=== PATIENT | male | born 1950 ===

== ENCOUNTER 2017-03-20 08:20 | Inpatient (IN) | payer MEDICARE, OTHER ==
[2017-03-20 08:22] VITALS: BMI 33.5
[2017-03-20 09:42] LABS: ADD MANUAL DIFF? NO
[2017-03-20 09:51] LABS: VENOUS BLOOD GAS BASE EXCESS -10.7 mmol/L (0.0-2.0); VENOUS BLOOD PH 7.24 (7.32-7.43)
[2017-03-20 10:01] LABS: INR 1.3 (0.93-1.08); PARTIAL THROMBOPLASTIN TIME 31.4 Seconds (23.7-30.8)
[2017-03-20 10:07] LABS: BASO # 0.03 K/mm3 (0.0-2.0); BASO % 0.6 % (0.0-3.0); EOS # 0.4 (0.0-0.7); EOS % 6.8 % (1.5-5.0); GRAN # 3.97 (1.4-6.5); GRAN % 73.1 % (50.0-68.0); LYMPH # 0.6 (1.2-3.4); LYMPH % 11.8 % (22.0-35.0); MEAN CELL VOLUME 83.7 fL (80.0-105.0); MEAN CORPUSCULAR HEMOGLOBIN 27.4 pg (25.0-35.0); MEAN CORPUSCULAR HGB CONC 32.7 g/dl (31.0-37.0); MONO # 0.4 (0.1-0.6); MONO % 7.7 % (1.0-6.0); PLATELET COUNT 140 10^3/uL (120.0-450.0); WHITE BLOOD COUNT 5.4 10^3/ul (4.5-11.0)
[2017-03-20 10:10] LABS: HEMATOCRIT 22.6 % (42.0-52.0)
--- NOTE | 2017-03-20 10:29 | US ---
HISTORY: RIGHT SIDED ABD PAIN COMPARISON: None. TECHNIQUE: Grayscale imaging was performed. FINDINGS: LIVER: Measures 13.5 cm. Small in size with coarse echotexture and nodular contour. No mass. No intrahepatic bile duct dilatation. GALLBLADDER: Unremarkable. No gallstones. COMMON BILE DUCT: Measures 5.0 mm. No stones. No dilatation. There is diffuse gallbladder wall thickening secondary to liver disease. PANCREAS: Unremarkable as visualized. No mass. No ductal dilatation. RIGHT KIDNEY: Measures 10.5cm. Normal echogenicity. No calculus, mass, or hydronephrosis. LEFT KIDNEY: Measures 11.1cm. Normal echogenicity. No calculus, mass, or hydronephrosis. SPLEEN: Mild splenomegaly. No mass. AORTA: No aneurysmal dilatation. IVC: Unremarkable. OTHER FINDINGS: There is large abdominal ascites. IMPRESSION: Cirrhosis of liver and large abdominal ascites. Mild splenomegaly.
--- NOTE | 2017-03-20 10:33 | US ---
HISTORY: ORCHITIS/EPIDIDYMITIS TECHNIQUE: Realtime sonography through the scrotum with color and doppler flow. COMPARISON: None Available. FINDINGS: RIGHT TESTICLE: Small in size and measures 1.9 x 1.5 x 1.8 cm. Normal echotexture and flow. RIGHT EPIDIDYMIS: Epididymal head measures 6 x 5 x 7 cm. Grossly unremarkable appearance with normal flow. There is a 7.3 x 4 point by 4.9 cm anechoic cystic mass superior to the epididymis. LEFT TESTICLE: Small in size and measures 2.6 x 1.3 x 1.9 cm. Normal echotexture and flow. LEFT EPIDIDYMIS: Epididymal head measures 8 x 6 x 5 cm. Grossly unremarkable appearance with normal flow. HYDROCELE: None. VARICOCELE: There is a right varicocele. No left varicocele. OTHER FINDINGS: None. IMPRESSION: 1. No testicular mass, torsion or epididymo -orchitis. 2. Large cystic mass superior to the right epididymis could represent is spermatocele, large exophytic epididymal cyst or loculated hydrocele. 3. Right varicocele.
--- NOTE | 2017-03-20 10:45 | RAD ---
HISTORY: cough COMPARISON: 11/13/2016 FINDINGS: LUNGS: No active pulmonary disease. PLEURA: No significant pleural effusion identified, no pneumothorax apparent. CARDIOVASCULAR: Moderate cardiomegaly OSSEOUS STRUCTURES: No significant abnormalities. VISUALIZED UPPER ABDOMEN: Normal. OTHER FINDINGS: None. IMPRESSION: No active disease.
[2017-03-20 10:47] LABS: ALB/GLOB RATIO 0.7 (1.1-1.8); BILIRUBIN,TOTAL 1.3 mg/dL (0.2-1.3); CALCIUM 8.2 mg/dL (8.4-10.5); POTASSIUM 4.3 mmol/L (3.6-5.0)
--- NOTE | 2017-03-20 11:05 | ED PDOC ---
Arrival/HPI - General Chief Complaint: Cough, Cold, Congestion Time Seen by Provider: 03/20/17 08:31 - History of Present Illness Narrative History of Present Illness (Text): 03/20/17 11:02 66-year-old male presents emergency Department with abdominal swelling, testicular swelling, dyspnea and exertion, and dark stools, worsening for the last week. Denies any chest pain. Says that he has had similar symptoms in the past. Says that she has a history of liver disease. No other complaints. Denies any fevers or chills, denies jaundice. Time/Duration: 1 week Symptom Onset: Sudden Symptom Course: Unchanged Activities at Onset: Rest Context: Home Past Medical History - Provider Review Nursing Documentation Reviewed: Yes - Infectious Disease Hx of Infectious Diseases: None - Tetanus Immunization Tetanus Immunization: Unknown - Cardiac Hx Cardiac Disorders: Yes (mi with stents) Hx Congestive Heart Failure: Yes Hx Hypertension: Yes - Pulmonary Hx Respiratory Disorders: No - Neurological HX Cerebrovascular Accident: Yes (many years ago) - HEENT Hx HEENT Disorder: No - Renal Hx Renal Disorder: Yes Hx Dialysis: No - Endocrine/Metabolic Hx Diabetes Mellitus Type 2: Yes - Hematological/Oncological Hx Blood Transfusions: Yes Hx Blood Transfusion Reaction: No - Integumentary Hx Dermatological Disorder: Yes Other/Comment: white and pink skin discolorations both hands and r arm began about 7 months ago cause unknown, brown discolorations ble,dry brown scabbed wound posterior right lowr leg starts below calf to lower leg then dry brown skin to posterior ankle, +2 edema right ankle, dry flakey skin both feet - Musculoskeletal/Rheumatological Hx Falls: Yes (recent frequent) - Gastrointestinal Hx Gastrointestinal Disorders: Yes Hx Gastroesophageal Reflux: Yes Hx Liver Failure: (cirrhosis, mild ascites) Other/Comment: colonoscopy 07/17/2016 dx diverticulitis, colitis, rectal polyp - Genitourinary/Gynecological Hx Genitourinary Disorders: No - Psychiatric Hx Psychophysiologic Disorder: No Hx Substance Use: No - Surgical History Hx Coronary Stent: Yes (ptca with stent) - Anesthesia Hx Anesthesia Reactions: No Hx Malignant Hyperthermia: No Family/Social History - Physician Review Nursing Documentation Reviewed: Yes Family/Social History: Unknown Family HX Smoking Status: Former Smoker Hx Alcohol Use: No Hx Substance Use: No Allergies/Home Meds Allergies/Adverse Reactions: Allergies No Known Allergies Allergy (Verified 03/20/17 08:54) Home Medications: Home Meds Medication Instructions Recorded Confirmed Pantoprazole [Protonix EC Tab] 40 mg PO DAILY 07/05/16 03/20/17 Aspirin [Aspirin Chewable] 81 mg PO DAILY 03/20/17 03/20/17 Atorvastatin [Lipitor] 20 mg PO DAILY 03/20/17 03/20/17 Desloratadine [Clarinex] 5 mg PO HS 03/20/17 03/20/17 Metoprolol Tartrate [Lopressor] 12.5 mg PO DAILY 03/20/17 03/20/17 Review of Systems - Physician Review All systems were reviewed & negative as marked: Yes - Review of Systems Respiratory: absent: Cough, Sputum Cardiovascular: Edema. absent: Chest Pain Gastrointestinal: absent: Abdominal Pain, Nausea, Vomiting Physical Exam - Physical Exam Narrative Physical Exam (Text): Physical exam Patient appears age appropriate in no distress, speaking full sentences without difficulty - Systems Exam Head: Present: Atraumatic, Normocephalic Pupils: Present: PERRL Extroacular Muscles: Present: EOMI Conjunctiva: Present: Normal Mouth: Present: Moist Mucous Membranes Neck: Present: Normal Range of Motion. No: MIDLINE TENDERNESS, Paraspinal Tenderness Respiratory/Chest: Present: bibasal crackles, Good Air Exchange. No: Respiratory Distress, Accessory Muscle Use, Tachypneic Cardiovascular: Present: Regular Rate and Rhythm, Normal S1, S2, Peripheal Pulses Present. No: Murmurs Abdomen: Present: Normal Bowel Sounds. distended abdomen. No: Tenderness, Peritoneal Signs, Rebound, Guarding genitourinary: Nontender normal-appearing penis, uncircumcised. Bilateral testicles with no swelling no tenderness. Back: Present: Normal Inspection. No: Midline Tenderness, Paraspinal Tenderness Upper Extremity: Present: Normal Inspection. No: Cyanosis, Edema Lower Extremity: Present: +2 bilateral pitting edema with no asymmetry and no tenderness to palpation. Neurological: Present: GCS=15, Speech Normal, cranial nerves II through XII fully intact with no cerebellar abnormality, neurosensory fully intact. No focal neurological deficits. Skin: Present: Warm, Dry, Normal Color. No: Rashes Lymphatic: Present: OX3, NI, NC Psychiatric: Present: Alert, Oriented x 3, Normal Insight, Normal Concentration Vital Signs Reviewed: Yes Vital Signs Temp Pulse Resp BP Pulse Ox 03/20/17 13:34 53 L 16 153/83 H 98 03/20/17 11:51 56 L 15 145/74 100 03/20/17 10:32 148/85 03/20/17 08:48 97.4 F L 59 L 16 163/88 H 96 Temperature: Afebrile Blood Pressure: Hypertensive Pulse: Bradycardic Respiratory Rate: Normal Appearance: Positive for: Non-Toxic, Comfortable Pain Distress: None Mental Status: Positive for: Alert and Oriented X 3 Medical Decision Making ED Course and Treatment: 66-year-old male with history of liver disorder, presents with a distended abdomen, bibasal crackles, and lower extremity edema. Patient's blood work reviewed, shows acute on chronic renal failure, elevated ammonia level, elevated BNP. Hemoglobin 7.4. Lasix and lactulose ordered. Case discussed with patient's primary physician Dr. Madrid, accepted pt to his service Dr. Sloan from the MICU evaluating pt Patient's EKG shows normal sinus, 60 bpm, no ST segment elevations, normal intervals. Interpreted by me. Chest x-ray shows mild cardiomegaly, some vascular congestion, no effusions, no infiltrates. Interpreted by me. Abdomen ultrasound- Creator : Kaleigh Amor MD 03/20/2017 10:32 IMPRESSION: Cirrhosis of liver and large abdominal ascites. Mild splenomegaly. Testicular ultrasound- Creator : Kaleigh Amor MD 03/20/2017 10:34 IMPRESSION: 1. No testicular mass, torsion or epididymo -orchitis. 2. Large cystic mass superior to the right epididymis could represent is spermatocele, large exophytic epididymal cyst or loculated hydrocele. 3. Right varicocele. 03/20/17 12:21 Dr. Sloan states pt can be admitted to tele Dr. Bagley informed as well 03/20/17 13:[address] Sloan to the MICU - Lab Interpretations Lab Results: 03/20/17 09:30 03/20/17 10:25 Lab Results 03/20/17 10:30: Iron 31 L 03/20/17 10:25: TIBC 263 03/20/17 10:25: Sodium 142, Potassium 4.3, Chloride 117 H, Carbon Dioxide 16 L, Anion Gap 13, BUN 54 H, Creatinine 4.9 H, Est GFR ( Amer) 14, Est GFR ( Non-Af Amer) 12, Random Glucose 87, Calcium 8.2 L, Ferritin Pending, Total Bilirubin 1.3, AST 50, ALT 44, Alkaline Phosphatase 163 H, NT-Pro-B Natriuret Pep 3160 H, Total Protein 6.0, Albumin 2.4 L, Globulin 3.6, Albumin/Globulin Ratio 0.7 L, Lipase 287 03/20/17 09:30: PT 14.0 H, INR 1.30 H, APTT 31.4 H 03/20/17 09:30: WBC 5.4, RBC 2.70 L, Hgb 7.4 L D, Hct 22.6 L, MCV 83.7, MCH 27.4 , MCHC 32.7, RDW 17.0 H, Plt Count 140, Gran % 73.1 H, Lymph % (Auto) 11.8 L, Faulk % (Auto) 7.7 H, Eos % (Auto) 6.8 H, Baso % (Auto) 0.6, Gran # 3.97, Lymph # 0.6 L, Faulk # 0.4, Eos # 0.4, Baso # 0.03 03/20/17 09:30: pO2 70 H, VBG pH 7.24 L, VBG pCO2 37.0 L, VBG HCO3 15.9 L, VBG O2 Sat (Calc) 96.4 H, VBG Base Excess -10.7 L 03/20/17 09:30: Ammonia 63 H I have reviewed the lab results: Yes - RAD Interpretation Radiology Orders: 03/20/17 09:07 CHEST PORTABLE [RAD] Stat ABDOMEN COMPLETE [US] Stat TESTES DUPLEX COMPLETE [US] Stat - EKG Interpretation Interpreted by ED Physician: Yes Type: 12 lead EKG - Medication Orders Current Medication Orders: Insulin Human Regular (Humulin R Low) 0 units SC ACHS LEIGHANN PRN Reason: Protocol Pantoprazole Sodium (Protonix Inj) 40 mg IVP DAILY LEIGHANN Discontinued Medications Furosemide (Lasix) 40 mg IVP STAT STA Stop: 03/20/17 09:08 Last Admin: 03/20/17 10:32 Dose: 40 mg Lactulose (Enulose) 20 gm PO ONCE STA Stop: 03/20/17 10:50 Last Admin: 03/20/17 11:41 Dose: 20 gm Pantoprazole Sodium (Protonix Inj) 40 mg IVP STAT STA Stop: 03/20/17 10:50 Last Admin: 03/20/17 11:41 Dose: 40 mg - Luis Enriqueibe Statement The provider has reviewed the documentation as recorded by the Ramakrishna Murray Provider Luis Enriqueibraquel Attestation: All medical record entries made by the Luis Enriqueibraquel were at my direction and personally dictated by me. I have reviewed the chart and agree that the record accurately reflects my personal performance of the history, physical exam, medical decision making, and the department course for this patient. I have also personally directed, reviewed, and agree with the discharge instructions and disposition. Disposition/Present on Arrival - Present on Arrival Any Indicators Present on Arrival: No History of DVT/PE: No History of Uncontrolled Diabetes: No Urinary Catheter: No History of Decub. Ulcer: No History Surgical Site Infection Following: None - Disposition Have Diagnosis and Disposition been Completed?: Yes Diagnosis: Renal failure Disposition: HOSPITALIZED Disposition Time: 11:18 Patient Plan: Admission, ICU Patient Problems: Current Active Problems Problem Status Onset Renal failure Chronic Condition: FAIR
--- NOTE | 2017-03-20 12:50 | CP.PCM.HP ---
History of Present Illness - History of Present Illness History of Present Illness: H&P for Dr. Madrid/Dr. Johnson service - Guero Jimbohasmukh PGY1 Patient is a 66yo male with past medical history of hypertension, CAD, VT s/p stent placement, DMT2, Cirrhosis and CKD that presents c/o abdominal swelling and testicular pain. Patient states that he noticed his abdomen has been expanding in size over the past month and recently has been associated with right-sided testicular pain and dyspnea on exertion. In the ED, patient's vitals were as follows: temeprature 97.4F, heart rate 59bpm, blood pressure 163/ 88, respiratory rate 16, o2sat 96% on room air. Labs were notable for a hgb of 7.4, hct 22.6, BUN 54, creatinine 4.9, AlkP 163, NT-proBNP 3160. Chest xray revealed no active disease. EKG revealed normal sinus rhythm at 60bpm with no acute ST-T wave changes. Abdominal US showed cirrhosis of the liver with large abdominal ascites, mild splenomegaly.Patient denied jaundice, pruritis, confusion, chest pain, palpitations, nausea, vomiting, fevers, chills, cough, focal weakness, numbness, tingling. 12point ROS as per HPI above, otherwise negative PMHx: HTN, CAD, VT s/p stent placement, DMT2, Cirrhosis, CKD PSHx: Stent placement, right inguinal hernia repair Allergies: NKDA Family Hx: Father: Gastric cancer; Mother: Renal cancer Social Hx: Denies alcohol, tobacco and illicit drug use. Present on Admission - Present on Admission Any Indicators Present on Admission: No Past Patient History - Infectious Disease Hx of Infectious Diseases: None - Tetanus Immunizations Tetanus Immunization: Unknown - Past Medical History & Family History Past Medical History?: Yes - Past Social History Smoking Status: Former Smoker - CARDIAC Hx Cardiac Disorders: Yes (mi with stents) Hx Congestive Heart Failure: Yes Hx Hypertension: Yes - PULMONARY Hx Respiratory Disorders: No - NEUROLOGICAL HX Cerebrovascular Accident: Yes (many years ago) - HEENT Hx HEENT Problems: No - RENAL Hx Chronic Kidney Disease: Yes Hx Dialysis: No - ENDOCRINE/METABOLIC Hx Diabetes Mellitus Type 2: Yes - HEMATOLOGICAL/ONCOLOGICAL Hx Blood Transfusions: Yes Hx Blood Transfusion Reaction: No - INTEGUMENTARY Hx Dermatological Problems: Yes Other/Comment: white and pink skin discolorations both hands and r arm began about 7 months ago cause unknown, brown discolorations ble,dry brown scabbed wound posterior right lowr leg starts below calf to lower leg then dry brown skin to posterior ankle, +2 edema right ankle, dry flakey skin both feet - MUSCULOSKELETAL/RHEUMATOLOGICAL Hx Falls: Yes (recent frequent) - GASTROINTESTINAL Hx Gastrointestinal Disorders: Yes Hx Gastroesophageal Reflux: Yes Hx Liver Failure: (cirrhosis, mild ascites) Other/Comment: colonoscopy 07/17/2016 dx diverticulitis, colitis, rectal polyp - GENITOURINARY/GYNECOLOGICAL Hx Genitourinary Disorders: No - PSYCHIATRIC Hx Psychophysiologic Disorder: No Hx Substance Use: No - SURGICAL HISTORY Hx Coronary Stent: Yes (ptca with stent) - ANESTHESIA Hx Anesthesia Reactions: No Hx Malignant Hyperthermia: No Meds Allergies/Adverse Reactions: Allergies Allergy/AdvReac Type Severity Reaction Status Date / Time No Known Allergies Allergy Verified 03/20/17 08:54 Physical Exam - Constitutional Appears: No Acute Distress - Head Exam Head Exam: ATRAUMATIC, NORMAL INSPECTION, NORMOCEPHALIC - Eye Exam Eye Exam: EOMI, PERRL - ENT Exam ENT Exam: Mucous Membranes Moist - Respiratory Exam Respiratory Exam: Clear to Auscultation Bilateral. absent: Rales, Rhonchi, Wheezes - Cardiovascular Exam Cardiovascular Exam: RRR, +S1, +S2. absent: Gallop, Rubs - GI/Abdominal Exam GI & Abdominal Exam: Distended, Soft. absent: Firm, Guarding, Rigid, Tenderness - Exam Exam: NORMAL INSPECTION. absent: Circumcision, Scrotal Swelling, Testicular Tenderness - Neurological Exam Neurological exam: Alert, Oriented x3 - Psychiatric Exam Psychiatric exam: Normal Affect, Normal Mood - Skin Skin Exam: Dry, Intact, Normal Color, Warm Results - Vital Signs Recent Vital Signs: Last Vital Signs Temp 97.4 F L 03/20/17 08:48 Pulse 56 L 03/20/17 11:51 Resp 15 03/20/17 11:51 BP 145/74 03/20/17 11:51 Pulse Ox 100 03/20/17 11:51 - Labs Result Diagrams: 03/20/17 09:30 03/20/17 10:25 Labs: Laboratory Results - last 24 hr 03/20/17 03/20/17 03/20/17 09:30 09:30 09:30 WBC 5.4 RBC 2.70 L Hgb 7.4 L D Hct 22.6 L MCV 83.7 MCH 27.4 MCHC 32.7 RDW 17.0 H Plt Count 140 Gran % 73.1 H Lymph % (Auto) 11.8 L Murray % (Auto) 7.7 H Eos % (Auto) 6.8 H Baso % (Auto) 0.6 Gran # 3.97 Lymph # 0.6 L Murray # 0.4 Eos # 0.4 Baso # 0.03 PT INR APTT pO2 70 H VBG pH 7.24 L VBG pCO2 37.0 L VBG HCO3 15.9 L VBG O2 Sat (Calc) 96.4 H VBG Base Excess -10.7 L Sodium Potassium Chloride Carbon Dioxide Anion Gap BUN Creatinine Est GFR ( Amer) Est GFR (Non-Af Amer) Random Glucose Calcium TIBC Total Bilirubin AST ALT Alkaline Phosphatase Ammonia 63 H NT-Pro-B Natriuret Pep Total Protein Albumin Globulin Albumin/Globulin Ratio Lipase 03/20/17 03/20/17 03/20/17 09:30 10:25 10:25 WBC RBC Hgb Hct MCV MCH MCHC RDW Plt Count Gran % Lymph % (Auto) Murray % (Auto) Eos % (Auto) Baso % (Auto) Gran # Lymph # Murray # Eos # Baso # PT 14.0 H INR 1.30 H APTT 31.4 H pO2 VBG pH VBG pCO2 VBG HCO3 VBG O2 Sat (Calc) VBG Base Excess Sodium 142 Potassium 4.3 Chloride 117 H Carbon Dioxide 16 L Anion Gap 13 BUN 54 H Creatinine 4.9 H Est GFR ( Amer) 14 Est GFR (Non-Af Amer) 12 Random Glucose 87 Calcium 8.2 L TIBC 263 Total Bilirubin 1.3 AST 50 ALT 44 Alkaline Phosphatase 163 H Ammonia NT-Pro-B Natriuret Pep 3160 H Total Protein 6.0 Albumin 2.4 L Globulin 3.6 Albumin/Globulin Ratio 0.7 L Lipase 287 Assessment & Plan - Assessment and Plan (Free Text) Plan: 66yo male with history of cirrhosis, chronic kidney disease, HTN, CAD presents c /o abdominal distention; admitted for acute on chronic kidney injury, acute anemia and acute decompensated liver cirrhosis 1. Acute on chronic kidney injury -Baseline creatinine ~1.8 -Patient given albumin -Will monitor and maintain MAP > 65 -Continue with lasix 40mg IVP BID per nephrology recommendations -Sepsis workup pending -Afebrile, no leukocytosis -Abdominal US reviewed; revealed cirrhosis and large abdominal ascites, mild splenomegaly -Testicular US reviewed -CXR reviewed; showed no active disease -Nephrology consulted - Dr. Cadet; extensive workup pending 2. Acute anemia -Hgb 7.4 on presentation -Consent obtained for pRBC transfusion -Patient to be transfused 1u pRBC -No overt signs of bleeding -GI consulted for potential upper endoscopy 3. Acute decompensated liver cirrhosis -MELD-Na score of 24 on admission -Patient's ammonia level elevated, however he is alert and oriented x3 -Lactulose 20gm BID; titrate to 2-3 bowel movements per day -Endoscopy from 11/13/16 reviewed; revealed grade I esophageal varices, portal hypertensive gastropathy and gastritis -GI consulted - Dr. Hay -IR consulted for paracentesis - Dr. Sylvester 4. Hypertension -Continue lasix 40mg IVP q12h -Continue hydralazine 10mg IVP q6h PRN 5. GI/DVT prophylaxis -Protonix/heparin Case discussed with attending, Dr. Madrid - Date & Time Date: 03/20/17 Time: 12:57
--- NOTE | 2017-03-20 12:56 | CON ---
DATE: 03/20/2017 The patient seen and examined at bedside. HISTORY OF PRESENT ILLNESS: This is a 66-year-old gentleman with liver cirrhosis who presented with dyspnea on exertion and dark stool. The patient also reports that his abdomen girth became bigger and he had paracentesis before and thought that it might be time to remove some fluid. The patient denies chest pain, shortness of breath, nausea, vomiting, diarrhea, or constipation. No fever or chills. PAST MEDICAL HISTORY: Coronary artery disease (stents in the past), CHF, hypertension, gastroesophageal reflux disease, liver cirrhosis, diverticulitis, colitis, rectal polyp. SOCIAL HISTORY: The patient is an ex-smoker. No alcohol or illicit drug abuse. FAMILY HISTORY: Noncontributory. HOME MEDICATIONS: Aspirin, Protonix, Clarinex. ALLERGIES: NKDA. REVIEW OF SYSTEMS: Revealed 12-organ system other than mentioned in history of present illness is negative. PHYSICAL EXAMINATION: VITAL SIGNS: Temperature 97.4, heart rate 59, blood pressure 145/74, respiratory rate 16, oxygen saturation 100% on room air. HEAD AND NECK: Atraumatic. LUNGS: Clear to auscultation bilaterally. HEART: Regular rate and rhythm. S1, S2 normal. ABDOMEN: Soft, nontender. It is slightly distended with shifting dullness suggestive of ascites. MUSCULOSKELETAL: 2+ bilateral pedal and ankle edema. NEUROLOGIC: The patient moves all extremities spontaneously. SKIN: Moist. PSYCHIATRIC: The patient is alert and oriented x 3. Not in respiratory or otherwise distress. LABORATORY DATA: WBC 5.4, hemoglobin 7.4, platelet count 140. Sodium 142, potassium 4.3, chloride 117, carbon dioxide 16, BUN 54, creatinine 4.9, glucose 87, AST 50, ALT 44. Ammonia level 63. Lipase 287, albumin 2.4. INR 1.3. ABG 7.24. Testicular ultrasound revealed what appears to be spermatocele which is a large cystic mass superior to the right epididymis, large exophytic epididymal cyst or loculated hydrocele. Chest x-ray: Mild vascular congestion bilaterally. Abdominal ultrasound did not reveal any common bile duct dilatation. Gallbladder was unremarkable, no gallstones. Heterogenous texture of the liver suggestive of cirrhosis of the liver and large abdominal ascites. Some mild splenomegaly. ASSESSMENT AND PLAN: This is a 66-year-old gentleman who presented with decompensated liver cirrhosis, worsening ascites and anemia in the setting of likely upper GI bleed. The patient does not have hemetemesis; however, does have history of grade I esophageal varices consistent with diagnosis of portal hypertension in the setting of liver cirrhosis. He also has acute kidney injury which appears to be secondary to hepatorenal syndrome. At present time, the patient is hemodynamically and respiratory gonzales stable. He is alert, awake , oriented, despite slightly elevated ammonia level. I would recommend octreotide drip and protonix drip. Gastroenterology consult pending to consider upper endoscopy. I would recommend to proceed with aggressive albumin supplementation, fluid resuscitation, antibiotics, maintain hemoglobin between 7 and 9. I would continue with rifaximin and lactulose. Paracentesis appears to be indicated. If aggressive albumin supplementation would not result in resolution of acute kidney injury, I would suggest nephrology consult for consideration of INSTRUMENT TECHNICIAN APPRENTICE. Septic workup would be reasonable even though no signs of sepsis at present time. Blood culture, urine culture, procalcitonin. No leukocytosis, no fever, no clearcut source of infection. Abdomen is soft despite large ascites present. Monitor setting of telemetry would be appropriate. No need for MICU at present time. If situation changes and the patient clinically deteriorates or other questions arise, please reconsult ICU. All above recommendations were discussed with PMD-Dr. Madrid. ccm time 40 min Kingston Sloan MD cc: [id number] TT: 03/20/2017 12:56:03 Confirmation # [id number] Dictation # [id number] josh PERALTA
[2017-03-20] MEDS ORDERED: ALBUMIN HUMAN IV ONE (14:23)
[2017-03-20] MEDS ORDERED: Albumin Human 25% (25 gm/100 ml) IV ONE (15:00)
[2017-03-20] MEDS ORDERED: Albumin Human 25% (25 gm/100 ml) IV SCH (15:00)
[2017-03-20 15:18] LABS: PH,URINE 5.5 (4.7-8.0); URINE BILIRUBIN NEGATIVE (NEGATIVE); URINE BLOOD LARGE (NEGATIVE); URINE GLUCOSE (UA) NEGATIVE (NEGATIVE); URINE KETONE NEGATIVE (NEGATIVE); URINE LEUKOCYTE ESTERASE NEGATIVE Leu/uL (NEGATIVE); URINE PROTEIN TRACE mg/dL (<30 mg/dL); URINE UROBILINOGEN 0.2 E.U./dL (<1 E.U./dL)
[2017-03-20 15:25] LABS: URINE APPEARANCE CLEAR (CLEAR); URINE COLOR YELLOW (YELLOW)
[2017-03-20 15:41] LABS: URINE BACTERIA MOD (NEG); URINE EPITHELIAL CELLS 0 - 2 /hpf (0-5); URINE RBC 25 - 30 /hpf (0-2); URINE WBC 0 - 2 /hpf (0-6)
[2017-03-20 15:42] LABS: URINE AMORPHOUS SEDIMENT TRACE
--- NOTE | 2017-03-20 16:42 | CON ---
DATE: 03/20/2017 HISTORY OF PRESENT ILLNESS: The patient is a 66-year-old male who presents with pedal edema, ascites as well as testicular swelling. PAST MEDICAL HISTORY: Notable for history of documented cirrhosis. He is status post PTCA and stent in the past. He suffers from hypertension and hypercholesterolemia as well as complications of cirr hosis, including varices as well as hyponatremia. He was found to have renal insufficiency on this admission. PAST MEDICAL HISTORY: Notable for an ejection fraction in the 50s on echocardiogram done in November of this year. SOCIAL HISTORY: Denies smoking. REVIEW OF SYSTEMS: A 14-point review of systems is notable for dyspnea, no angina, positive pedal ed opal, positive testicular swelling. PHYSICAL EXAMINATION: VITAL SIGNS: Blood pressure 153/83, heart rates in the 70s. NECK: Negative JVD. LUNGS: Without rales. HEART: Reveals S1, S2. EXTREMITIES: With 2+ edema. ABDOMEN: Increased girth. DIAGNOSTIC DATA: EKG shows no acute changes. LABORATORIES: Revealed BUN and creatinine of 54 and 4.9. ProBNP is 3160. The albumin is 2.4. Hemoglobin is 7.4. IMPRESSION: 1. Cirrhosis. 2. Ascites with pedal edema and testicular swelling. 3. Marked anemia. 4. Acute renal failure. 5. Congestive heart failure, predominantly due to hypoalbuminemia as well as renal insufficiency and cirrhosis. Given these findings, we will order Lasix as well as Aldactone. We will obtain a repeat echocardiogram. Vitaly You MD cc: [id number] TT: 03/20/2017 16:41:17 Confirmation # [id number] Dictation # [id number]
[2017-03-20] MEDS ORDERED: Pneumococcal 23-Valent Vaccine IM ONE (16:46)
--- NOTE | 2017-03-20 17:14 | CP.PCM.CON ---
History of Present Illness - History of Present Illness History of Present Illness: Initial Nephrology Consultation: Assessment: Acute Kidney Injury (N17.9) etiology unclear. Possible ATN. Other differential include intraglomerular pathology. Less likely hepatorenal syndrome as doesn't appear hypovolemic, has high urine Na and high urine FeNa. NAGMA (likely due to KELLI) Microscopic hematuria r/o glomerular pathology Chronic Kidney Disease Stage 3(N18.3) with ? mg proteinuria likely due to KELLI in 2016 Anemia (D64.9), HTN (I12.9), eosinophilia cirrhosis, CAD Plan No acute need for renal replacement therapy at this time. Borden catheter inserted although with difficulty by ICU nursing staff. UOP 300 mL (hence less likely urine retention as the cause). checked bladder pressure: 15 mmHg which argues against Abdomen compartment syndrome added sodium bicarb 1300 mg TID Hypertension control with meds as ordered. Patient not on ACEI/ARB due to KELLI. Hold aldactone as well He is ordered for 100 gm albumin, may be okay over 24 hours, monitor volume status closely. agree with lasix for now Monitor Input/Output, daily weights and renal function with basic metabolic panel GI work up for anemia. pt planned for PRBC transfusion. Check urine spot protein/creatinine and albumin/creatinine ratio, eosinophils check CPK, uric acid. Check GN work up as C3, C4, SAEED, Anti dsDNA, ASO titers, ANCA (MPO and CA-3), serum protein electrophoresis with immunofixation, free light chain assay, rheumatoid factor and serum cryoglobulin levels [to be transported at body temperature] Dose meds/antibiotics for reduced GFR <10. Avoid fleets enema/magnesium based laxatives. Avoid nephrotoxins/NSAIDs/ iodinated contrast (unless needed emergently) Glycemic control Further work up/management of anemia, ascites as per primary team Thanks for allowing me to participate in care of your patient. Will follow patient with you. Please call if any Qs. d/w ICU team Dr Paco Cadet Office: [phone] Chief Complaint; Abdomen Distension Reason for consult: KELLI HPI: Pt is a 66 y/o M with hx of cirrhosis, hypertension ( x 15 years), DM, CAD , had KELLI in 2016 with peaked creatinine 5.3 due to sepsis which got better but resulted on CKD 3 with baseline cr 1.3-1.5, ex smoker presented with complaints of abdomen distension due to ascites and found to have KELLI with creatinine 4.9 hence renal consult was requested. Denies chest pain, palpitation, shortness of breath, c/o leg swelling Denies blood or bubbles in urine Denies OTC/herbal meds or NSAIDs No recent iodinated contrast exposure. No obvious episodes of low BP. ROS: Constitutional Symptoms: Denies fever. No chills. No Recent Weight Changes Eyes: denies change in vision, denies watery eyes, denies double vision Ears/Nose/Mouth/Throat: Denies Abnormal Taste. No Bad breath no Bad Taste. Cardiovascular: No chest pain. There is no shortness of breath. No palpitations. Pulmonary: No shortness of breath no cough. Gastrointestinal: denies abdominal pain No nausea. No vomiting. Denies change in bowel habits. c/o off and on dark stool. reports distension of abdomen Genitourinary: No Change in force of strain when urinating. No increase in urinary frequency. No pain while urinating. Denies blood in urine. Neurological: Denies headaches. No dizziness. Denies loss of balance. Denies weakness, denies tingling/numbness Dermatological: No Rash or Bruising or ulcers. Psychiatric: Denies Anxiety. No depression. Denies hallucinations. Rheumatological: No joint pain. Denies Joint swelling Endocrine: Denies tiredness/Fatigue denies Heat/Cold Intolerance. Physical Examination: General Appearance: Comfortable, in no acute respiratory distress, co-operative . Vitals reviewed and noted as below Head; Atraumatic, normocephalic ENT: no ulcers no thrush. Tongue is midline. Oropharynx: no rash or ulcers. EYES: Pupils are equal, round and reactive to light accommodation. Eye muscles and extraocular movement intact. Sclera is anicteric. has pallor Neck; supple no lymphadenopathy, no thyromegaly or bruit Lungs: Normal respiratory rate/effort. Breath sounds bilateral equal and clear Heart: Normal rate. s1s2 normal. No rub or gallop. Extremities: 1+ leg edema. No varicose veins Neurological: Patient is alert, awake and oriented to person, place and time. No focal deficit. Strength bilateral appropriate and equal Skin: Warm and dry. Normal turgor. few petechial appearing rash on thighs. Palpitation: Normal elasticity for age Abdomen: Abdomen is soft. Bowel sounds +. There is no abdominal tenderness, no guarding/rigidity no organomegaly. has ascitic abdomen Psych: normal insight and normal affect/mood MSK: no joint tenderness or swelling. Digits and nails normal, no deformity : kidney not palpable. difficult to ascertain about bladder due to ascites, has dullness in lower abdomen area Labs/imaging/EKG reviewed. Past medical history, past surgical history, family history, social history, allergy reviewed and noted as below Alb 2.4 BNP 3160 ammonia 63 UA trace protein with large blood and RBC ++ Urine Na 48 FeNa 7% chronic peripheral eosinophilia 6% TSAT 11% vbg pH 7.24 CXR: cardiomegaly Hep B/C and HIV negative in 2016 CT abdomen: punctate calcifications otherwise unremarkable kidney. LVEF normal Past Patient History - Infectious Disease Hx of Infectious Diseases: None - Tetanus Immunizations Tetanus Immunization: Unknown - Past Medical History & Family History Past Medical History?: Yes - Past Social History Smoking Status: Former Smoker - CARDIAC Hx Cardiac Disorders: Yes (mi with stents) Hx Congestive Heart Failure: Yes Hx Hypercholesterolemia: Yes Hx Hypertension: Yes Hx Peripheral Edema: Yes (+2 pitting ble) - PULMONARY Hx Respiratory Disorders: No - NEUROLOGICAL HX Cerebrovascular Accident: Yes (many years ago) - HEENT Hx HEENT Problems: No - RENAL Hx Chronic Kidney Disease: Yes - ENDOCRINE/METABOLIC Hx Diabetes Mellitus Type 2: Yes - HEMATOLOGICAL/ONCOLOGICAL Hx Anemia: Yes (blood transfusions) - INTEGUMENTARY Hx Dermatological Problems: Yes Other/Comment: white and pink skin discolorations both hands and r arm cause unknown, brown discolorations ble, +2 edema ble, dry skin both feet, thick toenails right ft, generalized itchy skin - MUSCULOSKELETAL/RHEUMATOLOGICAL Hx Arthritis: Yes (both knees) Hx Falls: Yes (recent frequent) Hx Unsteady Gait: Yes (walker) Other/Comment: left shoulder rotator cuff injury - GASTROINTESTINAL Hx Gastrointestinal Disorders: Yes Hx Gastroesophageal Reflux: Yes Hx Liver Failure: (cirrhosis,ascites) Other/Comment: colonoscopy 07/17/2016 dx diverticulitis, colitis, rectal polyp - GENITOURINARY/GYNECOLOGICAL Hx Genitourinary Disorders: No - PSYCHIATRIC Hx Psychophysiologic Disorder: No - SURGICAL HISTORY Hx Surgeries: Yes (CARDIAC STENT) Hx Coronary Stent: Yes (ptca with stent) - ANESTHESIA Hx Anesthesia Reactions: No Hx Malignant Hyperthermia: No Meds Allergies/Adverse Reactions: Allergies Allergy/AdvReac Type Severity Reaction Status Date / Time No Known Allergies Allergy Verified 03/20/17 08:54 - Medications Medications: Current Medications Furosemide (Lasix) 40 mg IVP BID [facility] Heparin Sodium (Porcine) (Heparin) 5,000 units SC Q12 LEIGHANN PRN Reason: Protocol Insulin Human Regular (Humulin R Low) 0 units SC ACHS LEIGHANN PRN Reason: Protocol Lactulose (Enulose) 20 gm PO BID LEIGHANN Metoprolol Tartrate (Lopressor) 12.5 mg PO DAILY [facility]IGHANN Pantoprazole Sodium (Protonix Inj) 40 mg IVP DAILY [facility] Spironolactone (Aldactone) 25 mg PO BID [facility] Results - Vital Signs Recent Vital Signs: Last Vital Signs Temp 97.4 F L 03/20/17 08:48 Pulse 53 L 03/20/17 13:34 Resp 16 03/20/17 13:34 BP 153/83 H 03/20/17 13:34 Pulse Ox 98 03/20/17 13:34 - Labs Result Diagrams: 03/20/17 09:30 03/20/17 10:25 Labs: Laboratory Results - last 24 hr 03/20/17 03/20/17 03/20/17 14:15 15:00 15:00 Urine Color Yellow Urine Appearance Clear Urine pH 5.5 Ur Specific Halbur 1.015 Urine Protein Trace H Urine Glucose (UA) Negative Urine Ketones Negative Urine Blood Large H Urine Nitrate Negative Urine Bilirubin Negative Urine Urobilinogen 0.2 Ur Leukocyte Esterase Negative Urine RBC 25 - 30 Urine WBC 0 - 2 Ur Epithelial Cells 0 - 2 Amorphous Sediment Trace Urine Bacteria Mod Ur Random Creatinine 48 Ur Random Sodium 98 Blood Type O POSITIVE Antibody Screen Negative Crossmatch See Detail BBK History Checked Patient has bt
[2017-03-20] MEDS: Insulin Reg-LOW-Coverage SC SCH ×2 (17:26→22:22)
[2017-03-20 18:54] LABS: FOLATE 7.9 ng/mL
[2017-03-20 21:55] LABS: URIC ACID 6.6 mg/dL (3.5-8.5)
--- NOTE | 2017-03-20 22:33 | CARD ---
APPROVED REPORT EKG Measurement Heart [id number] <Conclusion> Normal sinus rhythm Left ventricular hypertrophy with QRS widening Possible Lateral infarct, age undetermined Inferior infarct, age undetermined Abnormal ECG
[2017-03-21 05:53] LABS: ADD MANUAL DIFF? NO
[2017-03-21 06:04] LABS: BASO # 0.02 K/mm3 (0.0-2.0); BASO % 0.3 % (0.0-3.0); EOS # 0.3 (0.0-0.7); EOS % 4.4 % (1.5-5.0); GRAN # 4.71 (1.4-6.5); GRAN % 79.5 % (50.0-68.0); HEMATOCRIT 26.6 % (42.0-52.0); LYMPH # 0.6 (1.2-3.4); LYMPH % 9.9 % (22.0-35.0); MEAN CELL VOLUME 83.1 fL (80.0-105.0); MEAN CORPUSCULAR HEMOGLOBIN 27.5 pg (25.0-35.0); MEAN CORPUSCULAR HGB CONC 33.1 g/dl (31.0-37.0); MONO # 0.4 (0.1-0.6); MONO % 5.9 % (1.0-6.0); PLATELET COUNT 104 10^3/uL (120.0-450.0); RED CELL DISTRIBUTION WIDTH 16.3 % (11.5-14.5); WHITE BLOOD COUNT 5.9 10^3/ul (4.5-11.0)
[2017-03-21 06:33] LABS: ALB/GLOB RATIO 0.8 (1.1-1.8); BILIRUBIN,TOTAL 1.6 mg/dL (0.2-1.3); CALCIUM 8.7 mg/dL (8.4-10.5); POTASSIUM 4.2 mmol/L (3.6-5.0); TOTAL PROTEIN 6.7 g/dL (5.8-8.3)
[2017-03-21 07:32] LABS: INR 1.3 (0.93-1.08); PARTIAL THROMBOPLASTIN TIME 31.1 Seconds (23.7-30.8)
--- NOTE | 2017-03-21 07:38 | CP.PCM.PN ---
<DonHui - Last Filed: 03/21/17 13:08> Subjective - Date & Time of Evaluation Date of Evaluation: 03/21/17 Time of Evaluation: 07:30 - Subjective Subjective: ICU Progress Note: This is a 66Y male with PMH HTN, DM, CKD, cirrhosis, GERD, colitis, vitiligo and anemia who was admitted for KELLI, anemia and ascites. Patient received 1U PRBC yesterday. There were no acute overnight events. Patient is resting comfortably. He reports having a little diarrhea that is dark in color, but denies pain, CP, SOB, n/v, numbness/tingling. He also complains of sore throat, but no cough, fever or chills. Paracentesis was done this am without complications. Objective - Vital Signs/Intake and Output Vital Signs (last 24 hours): Temp Pulse Resp BP Pulse Ox 97.8 F 78 19 148/76 99 03/21/17 03:39 03/21/17 06:30 03/21/17 06:30 03/21/17 04:00 03/21/17 06:30 Intake and Output: 03/21/17 03/21/17 06:59 18:59 Intake Total 825 Output Total 1200 Balance -375 - Medications Medications: Current Medications Furosemide (Lasix) 40 mg IVP BID [facility] Last Admin: 03/20/17 17:36 Dose: 40 mg Heparin Sodium (Porcine) (Heparin) 5,000 units SC Q12 LEIGHANN PRN Reason: Protocol Last Admin: 03/20/17 21:02 Dose: 5,000 units Hydralazine HCl (Apresoline) 10 mg IVP Q6 PRN PRN Reason: Systolic Blood Pressure Last Admin: 03/20/17 20:47 Dose: 10 mg Insulin Human Regular (Humulin R Low) 0 units SC ACHS LEIGHANN PRN Reason: Protocol Last Admin: 03/20/17 22:22 Dose: Not Given Lactulose (Enulose) 20 gm PO BID [facility] Last Admin: 03/20/17 17:33 Dose: 20 gm Metoprolol Tartrate (Lopressor) 12.5 mg PO DAILY [facility] Pantoprazole Sodium (Protonix Inj) 40 mg IVP DAILY [facility] Sodium Bicarbonate (Sodium Bicarbonate Tab) 1,300 mg PO TID [facility] Last Admin: 03/20/17 17:33 Dose: 1,300 mg - Labs Labs: 03/21/17 05:35 03/21/17 05:35 PT 14.0 Seconds (9.9-11.8) H 03/20/17 09:30 INR 1.30 (0.93-1.08) H 03/20/17 09:30 APTT 31.4 Seconds (23.7-30.8) H 03/20/17 09:30 - Constitutional Appears: No Acute Distress - Head Exam Head Exam: ATRAUMATIC, NORMAL INSPECTION, NORMOCEPHALIC - Eye Exam Eye Exam: Normal appearance, PERRL Pupil Exam: NORMAL ACCOMODATION, PERRL - ENT Exam ENT Exam: Mucous Membranes Moist - Neck Exam Neck Exam: Full ROM - Respiratory Exam Respiratory Exam: Clear to Ausculation Bilateral, NORMAL BREATHING PATTERN. absent: Rales, Rhonchi, Wheezes - Cardiovascular Exam Cardiovascular Exam: REGULAR RHYTHM, +S1, +S2. absent: Gallop, Rubs, Murmur - GI/Abdominal Exam GI & Abdominal Exam: Distended, Soft, Normal Bowel Sounds. absent: Guarding, Rigid, Tenderness, Mass, Rebound - Extremities Exam Extremities Exam: Full ROM, Pedal Edema. absent: Calf Tenderness - Neurological Exam Neurological Exam: Alert, Awake, CN II-XII Intact, Oriented x3 - Psychiatric Exam Psychiatric exam: Normal Affect, Normal Mood - Skin Skin Exam: Dry, Intact, Normal Color, Warm Additional comments: decreased pigment on fingers bilaterally Assessment and Plan - Assessment and Plan (Free Text) Assessment: This is a 66Y male with PMH HTN, DM, CKD, cirrhosis, GERD, colitis, vitiligo and anemia who was admitted for KELLI, anemia and ascites. Plan: Neuro: A&O x 3 Maintain normothermia Ammonia trending down CV: Hemodynamically stable BP meds as per cardio and primary Cardio consulted-recs appreciated Resp: Comfortable on room air Maintain SpO2>90% CXR showed no active disease, moderate cardiomegaly HOB elevated Aspiration precaution GI: GI consulted- recs appreciated MELD score of 24 which correlates with 19.4% 3 month mortality Endoscopy 11/2016 showed grade I esophageal varices and portal HTN Abd U/S showed cirrhosis with large volume ascites IR consulted for paracentesis- output of 1300ml Continue lactulose- monitor BM and titrate down as needed Abd Pressure noted to be 15mmHg which rules out abdominal compartment syndrome Nephro: KELLI secondary to intrinsic cause FeNa of 7% with Travis of 98 AIN possible with urine eosinophilia Nephro consulted- recs appreciated Continue to monitor I&O and maintain euvolemia GN workup pending Heme: s/p 1U PRBC Hgb increased from 7.4 to 8.8 - continue to monitor Iron low, anemia of chronic disease Continue to monitor CBC and coags ID: Afebrile, no leukocytosis Continue to monitor Endo: Maintain euglycemia BGM ACHS ISS GI ppx: Protonix DVT ppx: Heparin SC Dispo: Patient stable and will be transferred to telemetry. Case seen, discussed and reviewed with attending. Katie Ochoa PGY1 <Kingston Sloan - Last Filed: 03/21/17 17:11> Objective - Vital Signs/Intake and Output Vital Signs (last 24 hours): Temp Pulse Resp BP Pulse Ox 97.9 F 64 18 165/97 H 97 03/21/17 17:00 03/21/17 17:00 03/21/17 17:00 03/21/17 17:00 03/21/17 17:00 Intake and Output: 03/21/17 03/21/17 06:59 18:59 Intake Total 825 0 Output Total 1200 Balance -375 0 - Medications Medications: Current Medications Albumin Human (Albumin Human 25% (25 Gm/100 Ml)) 25 gm IV BID LEIGHANN Stop: 03/22/17 10:01 Amlodipine Besylate (Norvasc) 5 mg PO DAILY LEIGHANN Furosemide (Lasix) 40 mg IVP BID [facility] Last Admin: 03/21/17 09:56 Dose: 40 mg Heparin Sodium (Porcine) (Heparin) 5,000 units SC Q12 LEIGHANN PRN Reason: Protocol Last Admin: 03/21/17 09:57 Dose: 5,000 units Hydralazine HCl (Apresoline) 10 mg IVP Q6 PRN PRN Reason: Systolic Blood Pressure Last Admin: 03/20/17 20:47 Dose: 10 mg Desmopressin Acetate 30 mcg/ (Sodium Chloride) 57.5 mls @ 100 mls/hr IV ONCE ONE Stop: 03/22/17 06:34 Insulin Human Regular (Humulin R Low) 0 units SC ACHS LEIGHANN PRN Reason: Protocol Last Admin: 03/21/17 12:48 Dose: Not Given Lactulose (Enulose) 20 gm PO BID [facility] Last Admin: 03/21/17 09:55 Dose: 20 gm Pantoprazole Sodium (Protonix Inj) 40 mg IVP DAILY [facility] Last Admin: 03/21/17 09:55 Dose: 40 mg Propranolol HCl (Inderal) 10 mg PO DAILY [facility] Rifaximin (Xifaxan) 550 mg PO BID LEIGHANN PRN Reason: Protocol Sodium Bicarbonate (Sodium Bicarbonate Tab) 1,300 mg PO TID [facility]ANN Last Admin: 03/21/17 14:24 Dose: 1,300 mg - Labs Labs: 03/21/17 05:35 03/21/17 05:35 PT 14.0 Seconds (9.9-11.8) H 03/21/17 07:10 INR 1.30 (0.93-1.08) H 03/21/17 07:10 APTT 31.1 Seconds (23.7-30.8) H 03/21/17 07:10 Addendum Addendum: 03/21/17 17:05 patient was seen, examined and discussed with Dr. Ochoa. her note reflects my exam, assessment and plan, except as below. Meds/Labs/ONE reviewed 66 yo with decompensated liver cirrhosis, ascites (s/p paracenthesis) and KELLI ( eos in the urine--AIN?);GN?. Hemodynamically and respiratory gonzales stable, able to protect airways. Renal function substantially decreased--treatment will be based on bx results, will hold empiric steroids (discussed with nephro). EGD in am as per GI note ccm time 40 min
--- NOTE | 2017-03-21 08:10 | CON ---
DATE: 03/20/2017 HISTORY OF PRESENT ILLNESS: This patient was seen and evaluated earlier. This patient is a 66-year- old patient with a history of coronary artery disease, status post PCI, status post cerebrovascular a ccident, cirrhosis of the liver, chronic kidney disease, admitted. Presented to the hospital with co mplaints of abdominal distention progressively, discomfort and also some testicular discomfort. The patient has worsening of his abdominal distention and he came to the ER. The patient was also found to be anemic with a hemoglobin of 7.4. The patient denies any obvious bleeding or vomiting blood. T he patient has been known to us the previous admission. The patient has a history of anemia, h ad two endoscopies done. Last endoscopy done was on 11/13/2016. He was found to have grade I esopha geal varices, gastric polyp and gastropathy. The patient also had a colonoscopy in July 2016, fou nd to have a small diminutive polyp in the rectum, hemorrhoids and diverticulosis. There was patchy mucosa and entire colon suggestive of possible portal gastropathy. The patient had a large vol ume paracenteses in the past, history of hepatitis profile done in the past was negative. PAST MEDICAL HISTORY: Significant as above. REVIEW OF SYSTEMS: Positive as above. Other 12 point systems reviewed and negative. ALLERGIES: No known drug allergies. FAMILY HISTORY: Father had gastric cancer and mother with renal cancer. SOCIAL HISTORY: Denies smoking. No alcohol now. PHYSICAL EXAMINATION: GENERAL: The patient is lying on the bed, not in acute distress. VITAL SIGNS: Pulse 69, blood pressure 176/88, respiration is 17, O2 saturation is 98%. HEENT: Atraumatic, anicteric. NECK: Supple. HEART: S1, S2 heard. LUNGS: Bilateral air entry present, slightly reduced in the base. ABDOMEN significant distention. EXTREMITIES: Ascites present. NEUROLOGIC: Alert, oriented. Moves all the extremities. No asterixis noticed. LABORATORY DATA: Hemoglobin 7.4, hematocrit 22.6, WBC 65.4. Sodium 142, potassium 4.3, creatinine 4 .9, BUN 54, total bilirubin 1.3, alkaline phosphatase 163. BNP 3160. IMPRESSION: 1. This 66-year-old patient admitted with decompensated cirrhosis, ascites and probably refractory a scites, chronic kidney disease. 2. Anemia, status post EGD and a colonoscopy done in the past. Colonoscopy done in July revealed only a small polyp in the rectum and diverticulosis, hemorrhoids and possibly colopathy on end oscopy done twice. The last endoscopy only esophageal varices, grade 1 and also portal gastrop athy. 3. Decompensated cirrhosis. Clinically, he has no asterixis and no encephalopathy noticed. His RAUL D score was . The patient's ammonia level is elevated at 63, on lactulose, continue that. Foll owup of the hemoglobin and hematocrit. The patient has coronary artery disease, status post percutan eous coronary intervention and other comorbidities include diabetes mellitus, chronic kidney disease. RECOMMENDATION: 1. Would recommend at this point close followup of the hemoglobin and hematocrit. 2. the lactulose. 3. He would benefit from Xifaxan. We will start the patient on Xifaxan. We will closely follow up the hemoglobin, hematocrit. Other c omorbidities include chronic kidney disease and anemia. We will continue to closely follow up her care. The patient would benefit from nonselective beta maurice therapy. The patient is on metopr olol now. Would benefit from nonselective beta blockers. Also, consider PPI. Also, followup of the hemoglobin and hematocrit. Thank you very much for allowing us to participate in the care of the patient. Pawel Hay MD cc: [id number] TT: 03/20/2017 23:45:46 Confirmation # [id number] Dictation # [id number] mn
--- NOTE | 2017-03-21 09:09 | PN ---
DATE: 03/21/2017 SUBJECTIVE: The patient is comfortable in bed. His edema is better. PHYSICAL EXAMINATION: VITAL SIGNS: Blood pressure 148/78. The heart rate is stable. NECK: Negative JVD. LUNGS: Decreased breath sounds. HEART: Revealed S1, S2. ABDOMEN: His abdominal girth has improved. EXTREMITIES: Improved. LABORATORIES: Revealed BUN and creatinine are 56/5.0 with a glucose 115. Hemoglobin is 8.8. IMPRESSION: 1. Cirrhosis. 2. Renal insufficiency. 3. Ascites. 4. Pedal edema, which is better. 5. Left ventricular function is preserved. 6. Anemia. PLAN: Given these findings, the patient is scheduled for a repeat paracentesis. His blood pressure is stable. Vitaly You MD cc: [id number] TT: 03/21/2017 09:09:22 Confirmation # [id number] Dictation # [id number] mn
[2017-03-21] MEDS: Insulin Reg-LOW-Coverage SC SCH ×4 (10:03→23:01)
[2017-03-21 10:18] LABS: BODY FLUID TYPE PERITONEAL
[2017-03-21 10:58] LABS: BF GROSS APPEARANCE CLEAR (CLEAR)
[2017-03-21 10:59] LABS: BODY FLUID TOTAL COUNT 100 (0-0)
--- NOTE | 2017-03-21 13:55 | CP.PCM.PN ---
Subjective - Date & Time of Evaluation Date of Evaluation: 03/21/17 Time of Evaluation: 13:52 - Subjective Subjective: Medicine progress note for Dr. Madrid/Dr. Johnson service - Guero Vega PGY1 Patient seen and examined at bedside this morning. No acute overnight events or new complaints reported. Patient underwent paracentesis this morning with 1300cc of fluid removed. Patient is scheduled for EGD and kidney biopsy tomorrow per GI and nephrology recommendations. Otherwise, denies chest pain, palpitations, SOB. Objective - Vital Signs/Intake and Output Vital Signs (last 24 hours): Temp Pulse Resp BP Pulse Ox 97.8 F 70 15 131/76 99 03/21/17 03:39 03/21/17 10:20 03/21/17 10:20 03/21/17 10:12 03/21/17 10:20 Intake and Output: 03/21/17 03/21/17 06:59 18:59 Intake Total 825 Output Total 1200 Balance -375 - Medications Medications: Current Medications Albumin Human (Albumin Human 25% (25 Gm/100 Ml)) 25 gm IV BID [facility] Stop: 03/22/17 10:01 Furosemide (Lasix) 40 mg IVP BID [facility] Last Admin: 03/21/17 09:56 Dose: 40 mg Heparin Sodium (Porcine) (Heparin) 5,000 units SC Q12 [facility] PRN Reason: Protocol Last Admin: 03/21/17 09:57 Dose: 5,000 units Hydralazine HCl (Apresoline) 10 mg IVP Q6 PRN PRN Reason: Systolic Blood Pressure Last Admin: 03/20/17 20:47 Dose: 10 mg Desmopressin Acetate 30 mcg/ (Sodium Chloride) 57.5 mls @ 100 mls/hr IV ONCE ONE Stop: 03/22/17 06:34 Insulin Human Regular (Humulin R Low) 0 units SC ACHS [facility] PRN Reason: Protocol Last Admin: 03/21/17 12:48 Dose: Not Given Lactulose (Enulose) 20 gm PO BID [facility] Last Admin: 03/21/17 09:55 Dose: 20 gm Metoprolol Tartrate (Lopressor) 12.5 mg PO DAILY [facility] Last Admin: 03/21/17 10:05 Dose: 12.5 mg Pantoprazole Sodium (Protonix Inj) 40 mg IVP DAILY [facility] Last Admin: 03/21/17 09:55 Dose: 40 mg Sodium Bicarbonate (Sodium Bicarbonate Tab) 1,300 mg PO TID [facility] Last Admin: 03/21/17 07:52 Dose: 1,300 mg - Labs Labs: 03/21/17 05:35 03/21/17 05:35 PT 14.0 Seconds (9.9-11.8) H 03/21/17 07:10 INR 1.30 (0.93-1.08) H 03/21/17 07:10 APTT 31.1 Seconds (23.7-30.8) H 03/21/17 07:10 - Constitutional Appears: Non-toxic, No Acute Distress - Head Exam Head Exam: ATRAUMATIC, NORMAL INSPECTION, NORMOCEPHALIC - Eye Exam Eye Exam: EOMI, PERRL - ENT Exam ENT Exam: Mucous Membranes Moist - Respiratory Exam Respiratory Exam: Clear to Ausculation Bilateral. absent: Rales, Rhonchi, Wheezes - Cardiovascular Exam Cardiovascular Exam: RRR, +S1, +S2. absent: Gallop, Rubs - GI/Abdominal Exam GI & Abdominal Exam: Distended, Soft. absent: Firm, Guarding, Rigid, Tenderness , Rebound - Neurological Exam Neurological Exam: Alert, Awake, Oriented x3 - Psychiatric Exam Psychiatric exam: Normal Affect, Normal Mood - Skin Skin Exam: Dry, Intact, Normal Color, Warm Additional comments: vitiligo Assessment and Plan - Assessment and Plan (Free Text) Plan: 66yo male with history of cirrhosis, chronic kidney disease, HTN, CAD presents c /o abdominal distention; admitted for acute on chronic kidney injury, acute anemia and acute decompensated liver cirrhosis 1. Acute on chronic kidney injury -Baseline creatinine ~1.8 -Patient given albumin -FeNa of 7% with Urine Na of 98 -Urine eosinophilia present with erythematous rash on thigh; possible AIN -Will monitor and maintain MAP > 65 -Continue with lasix 40mg IVP BID per nephrology recommendations -Sepsis workup pending -Afebrile, no leukocytosis -Abdominal US reviewed; revealed cirrhosis and large abdominal ascites, mild splenomegaly -Testicular US reviewed -CXR reviewed; showed no active disease -Patient is scheduled for kidney biopsy tomorrow -Extensive renal workup pending -Nephrology consulted - Dr. Cadet 2. Acute anemia -Hgb 7.4 on presentation, 8.8 following transfusion -Consent obtained for pRBC transfusion -Patient was transfused 1u pRBC yesterday; One more unit to be transfused today -Patient started on propranolol, nonselective beta maurice per GI recommendations given history of esophageal varices -No overt signs of bleeding -Scheduled for endoscopy tomorrow morning -GI consulted - Dr. Hay 3. Acute decompensated liver cirrhosis -MELD-Na score of 24 on admission -Patient's ammonia level elevated, however he is alert and oriented x3 -Lactulose 20gm BID; titrate to 2-3 bowel movements per day -Continue with xifaxin 550mg PO BID for prevention of hepatic encephalopathy -Endoscopy from 11/13/16 reviewed; revealed grade I esophageal varices, portal hypertensive gastropathy and gastritis -Abdominal pressure measured yesterday and noted to be 15mmHg which rules out abdominal compartment syndrome -Patient underwent paracentesis and had 1300cc of fluid removed -GI consulted - Dr. Hay -IR consulted for paracentesis - Dr. Sylvester 4. Hypertension -Continue lasix 40mg IVP q12h -Continue hydralazine 10mg IVP q6h PRN 5. GI/DVT prophylaxis -Protonix/heparin Patient seen, examined and case discussed with attending, Dr. Madrid
--- NOTE | 2017-03-21 14:08 | PN ---
DATE: 03/21/2017 Seen and examined at the bedside earlier this morning. The patient just had a paracentesis and 1300 mL of peritoneal fluid was removed. The patient denies any nausea, vomiting, or abdominal pain. No complaints of any shortness of breath or chest pain, but states he has a cough. No reports of hemate mesis or hemoptysis. This patient denies any melena or bright red blood per rectum during admission, but he did complain of dark stools. VITAL SIGNS: Blood pressure is 131/76, pulse 70, respirations 19, 99% O2 saturation. LABORATORY DATA: WBC is 5.9, hemoglobin is 8.8, hematocrit is 26.6, platelets are 104. PTT is 14.0, INR is 1.30, PTT 31.1. Sodium 143, K 4.2, BUN 56, creatinine is 5.0. Total bilirubin is 1.6, AST 48 , ALT 44, alkaline phosphatase is 162. His ammonia level is 41. PHYSICAL EXAMINATION: HEENT: Sclerae are anicteric. NECK: Supple. CARDIAC: S1, S2. LUNGS: Decreased breath sounds at the bases, but good air entry. No rales or wheeze. ABDOMEN: With bowel sounds, soft, it is distended. Status post paracentesis. Dressing is dry and i ntact. No tenderness at this time. EXTREMITIES: Positive bilateral edema, no calf tenderness. NEUROLOGIC: Awake, alert, and oriented. ASSESSMENT: This is a 66-year-old male with history of hypertension, diabetes mellitus, chronic kidn ey disease, liver cirrhosis, gastroesophageal reflux disease and colitis, came in with acute renal fa ilure, anemia and abdominal distention. He is status post paracentesis and status post 1 unit of pac ked RBCs, history of grade I varices and portal hypertension. The patient complained of black tarry stool . The patient also now with elevated ammonia level. PLAN: Continue the lactulose. He is on DVT prophylaxis, heparin. Continue PPI. The patient is on Lasix and is on carbohydrate consistent diet. We will plan for endoscopy tomorrow, n.p.o. after midn ight, as long as patient is optimal. The patient was seen and case discussed with Dr. Hay. We will also follow up peritoneal fluid analysis. Emy SUAREZ cc: [id number] TT: 03/21/2017 14:07:19 Confirmation # [id number] Dictation # [id number] rn
--- NOTE | 2017-03-21 14:59 | CP.PCM.PN ---
Subjective - Date & Time of Evaluation Date of Evaluation: 03/21/17 Time of Evaluation: 11:40 - Subjective Subjective: Follow up Nephrology Consultation: Assessment: Acute Kidney Injury (N17.9) etiology unclear. concern for AIN (eosinophilia + eosinophiluria + rash) versus glomerulonephritis. Less likely hepatorenal syndrome as doesn't appear hypovolemic, has high urine Na and high urine FeNa. NAGMA (likely due to KELLI) Microscopic hematuria r/o glomerular pathology Chronic Kidney Disease Stage 3(N18.3) with ? mg proteinuria likely due to KELLI in 2016 Anemia (D64.9), HTN (I12.9), eosinophilia cirrhosis, CAD, ascites s/p paracentesis Plan plan for kidney biopsy tomorrow. pt agreeable. d/w daughter on phone and explained risks involved including bleeding, need for radiological procedure such as embolization and rarely need of nephrectomy and benefits. she is also agreeable and would like us to proceed with biopsy. pt planned for PRBC transfusion 1 unit today. ordered for DDAVP 30 mcg tomorrow 30 min before the biopsy. d/w RN No acute need for renal replacement therapy at this time. can d/c gill today. added sodium bicarb 1300 mg TID Hypertension control with meds as ordered. Patient not on ACEI/ARB due to KELLI. Hold aldactone as well agree with lasix for now. will add norvasc 5 mg/day Monitor Input/Output, daily weights and renal function with basic metabolic panel GI work up for anemia. plan for EGD tomorrow Check urine spot protein/creatinine and albumin/creatinine ratio Check GN work up as C3, C4, SAEED, Anti dsDNA, ASO titers, ANCA (MPO and NV-3), serum protein electrophoresis with immunofixation, free light chain assay, rheumatoid factor and serum cryoglobulin levels [to be transported at body temperature] Dose meds/antibiotics for reduced GFR <10. Avoid fleets enema/magnesium based laxatives. Avoid nephrotoxins/NSAIDs/ iodinated contrast (unless needed emergently) Glycemic control Further work up/management of anemia, ascites as per primary team Thanks for allowing me to participate in care of your patient. Will follow patient with you. Please call if any Qs. d/w ICU and primary team Dr Paco Cadet Office: [phone] Chief Complaint; had fluid removed from belly today Reason for consult: KELLI HPI: Pt is a 66 y/o M with hx of cirrhosis, hypertension ( x 15 years), DM, CAD , had KELLI in 2016 with peaked creatinine 5.3 due to sepsis which got better but resulted on CKD 3 with baseline cr 1.3-1.5, ex smoker presented with complaints of abdomen distension due to ascites and found to have KELLI with creatinine 4.9 hence renal consult was requested. No OTC/herbal meds or NSAIDs No recent iodinated contrast exposure. No obvious episodes of low BP. ROS: denies CP/SOB/nausea/vomitting. has gill. Physical Examination: General Appearance: Comfortable, in no acute respiratory distress, co-operative . Vitals reviewed and noted as below Lungs: Normal respiratory rate/effort. Breath sounds bilateral equal and clear except occasional basal crackles Heart: Normal rate. s1s2 normal. No rub or gallop. Extremities: trace leg edema. No varicose veins Neurological: Patient is alert, awake and oriented to person, place and time. No focal deficit. Strength bilateral appropriate and equal Skin: Warm and dry. Normal turgor. few petechial appearing rash on thighs which is better today. Palpitation: Normal elasticity for age Abdomen: Abdomen is soft. Bowel sounds +. There is no abdominal tenderness, no guarding/rigidity no organomegaly. has ascitic abdomen Psych: normal insight and normal affect/mood MSK: no joint tenderness or swelling. Digits and nails normal, no deformity : kidney/bladder not palpable. Labs/imaging/EKG reviewed. Past medical history, past surgical history, family history, social history, allergy reviewed Alb 2.4 BNP 3160 ammonia 63 UA trace protein with large blood and RBC ++ Urine Na 48 FeNa 7% chronic peripheral eosinophilia 6% TSAT 11% vbg pH 7.24 CXR: cardiomegaly Hep B/C and HIV negative in 2016 CT abdomen: punctate calcifications otherwise unremarkable kidney. LVEF normal UA done by me 03/21/17: numerous WBC with WBC casts and numerous RBCs with probably few dysmorphic too Objective - Vital Signs/Intake and Output Vital Signs (last 24 hours): Temp Pulse Resp BP Pulse Ox 97.8 F 72 15 161/90 H 95 03/21/17 03:39 03/21/17 14:20 03/21/17 14:20 03/21/17 13:44 03/21/17 14:20 Intake and Output: 03/21/17 03/21/17 06:59 18:59 Intake Total 825 Output Total 1200 Balance -375 - Medications Medications: Current Medications Albumin Human (Albumin Human 25% (25 Gm/100 Ml)) 25 gm IV BID LEIGHANN Stop: 03/22/17 10:01 Amlodipine Besylate (Norvasc) 5 mg PO DAILY [facility] Furosemide (Lasix) 40 mg IVP BID [facility] Last Admin: 03/21/17 09:56 Dose: 40 mg Heparin Sodium (Porcine) (Heparin) 5,000 units SC Q12 LEIGHANN PRN Reason: Protocol Last Admin: 03/21/17 09:57 Dose: 5,000 units Hydralazine HCl (Apresoline) 10 mg IVP Q6 PRN PRN Reason: Systolic Blood Pressure Last Admin: 03/20/17 20:47 Dose: 10 mg Desmopressin Acetate 30 mcg/ (Sodium Chloride) 57.5 mls @ 100 mls/hr IV ONCE ONE Stop: 03/22/17 06:34 Insulin Human Regular (Humulin R Low) 0 units SC ACHS [facility]IGHANN PRN Reason: Protocol Last Admin: 03/21/17 12:48 Dose: Not Given Lactulose (Enulose) 20 gm PO BID [facility] Last Admin: 03/21/17 09:55 Dose: 20 gm Pantoprazole Sodium (Protonix Inj) 40 mg IVP DAILY [facility] Last Admin: 03/21/17 09:55 Dose: 40 mg Propranolol HCl (Inderal) 10 mg PO DAILY [facility] Rifaximin (Xifaxan) 550 mg PO BID LEIGHANN PRN Reason: Protocol Sodium Bicarbonate (Sodium Bicarbonate Tab) 1,300 mg PO TID [facility] Last Admin: 03/21/17 14:24 Dose: 1,300 mg - Labs Labs: 03/21/17 05:35 03/21/17 05:35 PT 14.0 Seconds (9.9-11.8) H 03/21/17 07:10 INR 1.30 (0.93-1.08) H 03/21/17 07:10 APTT 31.1 Seconds (23.7-30.8) H 03/21/17 07:10
[2017-03-21] MEDS: Albumin Human 25% (25 gm/100 ml) IV SCH (18:19)
--- NOTE | 2017-03-21 19:35 | US ---
PROCEDURE: Ultrasound guided paracentesis. HISTORY: Cirrhosis. Abdominal pain with ascites. Needs repeat paracentesis. PHYSICIAN(S): Vitaly Sylvester MD. TECHNIQUE: The relative risks and indications for the procedure were explained to the patient and informed written consent obtained. Sonography of the abdomen was performed in a supine position. This revealed a small to moderate amount of non-loculated ascites, greatest in the right lower quadrant. A puncture site was selected and the area was prepped and draped in the usual sterile fashion. 1% Xylocaine was used to anesthetize the skin and soft tissues. A 7 [place]ian paracentesis catheter was trocared into the right lower quadrantand 1300 cc of clear, straw-colored fluid aspirated. The appropriate labs were sent IMPRESSION: Ultrasound-guided paracentesis in the right lower quadrant. 1300 cc of fluid were aspirated. Labs were sent
--- NOTE | 2017-03-21 19:39 | PN ---
DATE: 03/21/2017 ADDENDUM SUBJECTIVE: This patient was seen and evaluated earlier. I discussed with the nursing staff. The p atient had a history of melena before, drop in hemoglobin, would benefit from the endoscopic evaluati on. The patient's hemoglobin is 8.8, INR 1.3. PHYSICAL EXAMINATION: ABDOMEN: Softly distended, ascites present. The patient is scheduled for EGD tomorrow. Informed consent was obtained. The patient is also to be scheduled for renal biopsy. Thank you very much for allowing us to participate in the care of the patient. This is an addendum to the GI progress report dictated by Emy Erwin APN. Pawel Hay MD cc: [id number] TT: 03/21/2017 19:38:23 Confirmation # [id number] Dictation # [id number] elijah
[2017-03-22] MEDS ORDERED: DOPamine 400mg/250ml D5W 400 MG/250 ML BAG IV ONE (01:14)
[2017-03-22 05:59] LABS: ADD MANUAL DIFF? NO
[2017-03-22 06:22] LABS: ALB/GLOB RATIO 0.8 (1.1-1.8); BILIRUBIN,TOTAL 1.4 mg/dL (0.2-1.3); CALCIUM 8.5 mg/dL (8.4-10.5); POTASSIUM 4.2 mmol/L (3.6-5.0); TOTAL PROTEIN 6.1 g/dL (5.8-8.3)
[2017-03-22 06:44] LABS: BASO # 0.01 K/mm3 (0.0-2.0); BASO % 0.2 % (0.0-3.0); EOS # 0.3 (0.0-0.7); EOS % 5.5 % (1.5-5.0); GRAN # 3.83 (1.4-6.5); GRAN % 77.5 % (50.0-68.0); HEMATOCRIT 26.2 % (42.0-52.0); LYMPH # 0.5 (1.2-3.4); LYMPH % 9.3 % (22.0-35.0); MEAN CELL VOLUME 81.9 fL (80.0-105.0); MEAN CORPUSCULAR HEMOGLOBIN 27.2 pg (25.0-35.0); MEAN CORPUSCULAR HGB CONC 33.2 g/dl (31.0-37.0); MONO # 0.4 (0.1-0.6); MONO % 7.5 % (1.0-6.0); PLATELET COUNT 82 10^3/uL (120.0-450.0); RED CELL DISTRIBUTION WIDTH 16.2 % (11.5-14.5); WHITE BLOOD COUNT 4.9 10^3/ul (4.5-11.0)
--- NOTE | 2017-03-22 07:39 | CP.PCM.PN ---
<DonHui - Last Filed: 03/22/17 12:50> Subjective - Date & Time of Evaluation Date of Evaluation: 03/22/17 Time of Evaluation: 07:30 - Subjective Subjective: ICU Progress Note Patient seen and examined at bedside. There were no acute overnight events. Patient received 1U PRBC last night. This AM he is NPO and reports feeling hungry. He denies CP, SOB, n/v/d, numbness/tingling, fever or chills. He does complain of dry cough. Objective - Vital Signs/Intake and Output Vital Signs (last 24 hours): Temp Pulse Resp BP Pulse Ox 98.8 F 84 25 H 136/71 93 L 03/22/17 04:00 03/22/17 06:00 03/22/17 06:00 03/22/17 05:00 03/22/17 06:00 Intake and Output: 03/22/17 03/22/17 06:59 18:59 Intake Total 50 Output Total 600 Balance -550 - Medications Medications: Current Medications Albumin Human (Albumin Human 25% (25 Gm/100 Ml)) 25 gm IV BID [facility] Stop: 03/22/17 10:01 Last Admin: 03/21/17 18:19 Dose: 25 gm Amlodipine Besylate (Norvasc) 5 mg PO DAILY [facility] Last Admin: 03/21/17 18:24 Dose: 5 mg Furosemide (Lasix) 40 mg IVP BID [facility] Last Admin: 03/21/17 18:26 Dose: 40 mg Heparin Sodium (Porcine) (Heparin) 5,000 units SC Q12 [facility]IGHANN PRN Reason: Protocol Last Admin: 03/21/17 22:40 Dose: 5,000 units Hydralazine HCl (Apresoline) 10 mg IVP Q6 PRN PRN Reason: Systolic Blood Pressure Last Admin: 03/21/17 18:45 Dose: 10 mg Insulin Human Regular (Humulin R Low) 0 units SC ACHS [facility] PRN Reason: Protocol Last Admin: 03/21/17 23:01 Dose: Not Given Lactulose (Enulose) 20 gm PO BID [facility] Last Admin: 03/21/17 18:35 Dose: 20 gm Pantoprazole Sodium (Protonix Inj) 40 mg IVP DAILY [facility] Last Admin: 03/21/17 09:55 Dose: 40 mg Propranolol HCl (Inderal) 10 mg PO DAILY [facility] Rifaximin (Xifaxan) 550 mg PO BID [facility] PRN Reason: Protocol Last Admin: 03/21/17 18:26 Dose: 550 mg Sodium Bicarbonate (Sodium Bicarbonate Tab) 1,300 mg PO TID [facility] Last Admin: 03/21/17 14:24 Dose: 1,300 mg - Labs Labs: 03/22/17 05:30 03/22/17 05:30 PT 14.0 Seconds (9.9-11.8) H 03/21/17 07:10 INR 1.30 (0.93-1.08) H 03/21/17 07:10 APTT 31.1 Seconds (23.7-30.8) H 03/21/17 07:10 - Constitutional Appears: No Acute Distress - Head Exam Head Exam: ATRAUMATIC, NORMAL INSPECTION, NORMOCEPHALIC - Eye Exam Eye Exam: Normal appearance, PERRL Pupil Exam: NORMAL ACCOMODATION, PERRL - ENT Exam ENT Exam: Mucous Membranes Moist - Neck Exam Neck Exam: Normal Inspection - Respiratory Exam Respiratory Exam: Clear to Ausculation Bilateral, NORMAL BREATHING PATTERN. absent: Rales, Rhonchi, Wheezes - Cardiovascular Exam Cardiovascular Exam: REGULAR RHYTHM, +S1, +S2. absent: Gallop, Rubs, Murmur - GI/Abdominal Exam GI & Abdominal Exam: Distended, Soft, Normal Bowel Sounds. absent: Rigid, Tenderness, Mass, Rebound - Extremities Exam Extremities Exam: Full ROM, Normal Inspection. absent: Calf Tenderness, Pedal Edema - Neurological Exam Neurological Exam: Alert, Awake, CN II-XII Intact, Oriented x3 - Psychiatric Exam Psychiatric exam: Normal Affect, Normal Mood - Skin Skin Exam: Dry, Intact, Normal Color, Warm Assessment and Plan - Assessment and Plan (Free Text) Assessment: This is a 66Y male with PMH HTN, DM, CKD, cirrhosis, GERD, colitis, vitiligo and anemia who was admitted for KELLI, anemia and ascites. Patient had paracentesis with 1300ml output. He also received 2U PRBC and is planned for EGD and kidney biopsy this am. Plan: Neuro: A&O x 3 CV: HD stable Cardio consulted-recs appreciated Continue Norvasc, Lasix, Propranolol, and Hydralazine prn Resp: Pt on room air- Maintain SpO2>90% Aspiration precaution HOB elevated GI: GI consulted- recs appreciated s/p paracentesis POD#1 EGD today showed Grade I varices Abdominal U/S as per GI Ammonia improved Nephro: KELLI secondary to intrinsic cause Cr 4.8- baseline 1.3 AIN suspected- pt will have kidney biopsy tomorrow On Bicarb stable Nephro consulted- recs appreciated Continue to monitor I&O and maintain euvolemia Heme: Anemia of chronic disease s/p 2U PRBC Hgb stayed stable after 1U from 8.8 to 8.7 Continue to monitor CBC and coags ID: Afebrile, no leukocytosis Maintain normothermia Continue to monitor Endo: Maintain euglycemia BGM ACHS ISS GI ppx: Protonix DVT ppx: Heparin SC Case seen, discussed and reviewed with attending. Katie Ochoa PGY1 <Ximena DARBY,Mehdi H - Last Filed: 03/22/17 14:23> Objective - Vital Signs/Intake and Output Vital Signs (last 24 hours): Temp Pulse Resp BP Pulse Ox 98.8 F 75 27 H 161/83 H 100 03/22/17 04:00 03/22/17 11:10 03/22/17 11:10 03/22/17 11:10 03/22/17 11:10 Intake and Output: 03/22/17 03/22/17 06:59 18:59 Intake Total 50 Output Total 600 Balance -550 - Medications Medications: Current Medications Amlodipine Besylate (Norvasc) 5 mg PO DAILY [facility] Last Admin: 03/22/17 10:51 Dose: 5 mg Furosemide (Lasix) 40 mg IVP BID [facility] Last Admin: 03/22/17 10:42 Dose: 40 mg Heparin Sodium (Porcine) (Heparin) 5,000 units SC Q12 [facility] PRN Reason: Protocol Last Admin: 03/22/17 10:42 Dose: 5,000 units Hydralazine HCl (Apresoline) 10 mg IVP Q6 PRN PRN Reason: Systolic Blood Pressure Last Admin: 03/21/17 18:45 Dose: 10 mg Iron Sucrose 100 mg/ Sodium (Chloride) 105 mls @ 210 mls/hr IVPB DAILY [facility] Stop: 03/27/17 10:01 Last Admin: 03/22/17 11:47 Dose: 210 mls/hr Insulin Human Regular (Humulin R Low) 0 units SC ACHS [facility] PRN Reason: Protocol Last Admin: 03/22/17 11:37 Dose: Not Given Lactulose (Enulose) 20 gm PO BID [facility] Last Admin: 03/22/17 10:51 Dose: 20 gm Pantoprazole Sodium (Protonix Inj) 40 mg IVP DAILY [facility] Last Admin: 03/22/17 10:42 Dose: 40 mg Propranolol HCl (Inderal) 10 mg PO DAILY [facility] Last Admin: 03/22/17 10:52 Dose: 10 mg Rifaximin (Xifaxan) 550 mg PO BID [facility] PRN Reason: Protocol Last Admin: 03/22/17 10:52 Dose: 550 mg Sodium Bicarbonate (Sodium Bicarbonate Tab) 1,300 mg PO TID [facility] Last Admin: 03/22/17 10:09 Dose: Not Given - Labs Labs: 03/22/17 05:30 03/22/17 05:30 PT 14.0 Seconds (9.9-11.8) H 03/21/17 07:10 INR 1.30 (0.93-1.08) H 03/21/17 07:10 APTT 31.1 Seconds (23.7-30.8) H 03/21/17 07:10 Attending/Attestation - Attestation I have personally seen and examined this patient.: Yes I have fully participated in the care of the patient.: Yes I have reviewed all pertinent clinical information, including history, physical exam and plan: Yes Notes (Text): 03/22/17 14:20 66 y/o M w/ 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 HGB > 7 EGD done w/o any signs of bleeding, varacies noted Mental status intact , ammonia WNL. Lactulose restarted if no melena Work up for liver cirrhosis needed, including autoimmune, HC and other secondary causes by GI Monitor in the ICU overnight SCD PPI cc time 65 min
[2017-03-22] MEDS: Insulin Reg-LOW-Coverage SC SCH ×5 (07:52→22:00)
[2017-03-22] MEDS ORDERED: cefTRIAXone 1 gm 1 GM/100 ML BAG IVPB STA (08:22)
[2017-03-22 08:36] LABS: CREATININE, RANDOM URINE 37 mg/dL (20-370)
--- NOTE | 2017-03-22 09:04 | CP.PCM.PN ---
<Guero Vega - Last Filed: 03/22/17 22:08> Subjective - Date & Time of Evaluation Date of Evaluation: 03/22/17 Time of Evaluation: 09:01 - Subjective Subjective: Medicine progress note for Dr. Madrid/Dr. Johnson service - Guero Vega PGY1 Patient seen and examined at bedside this morning. Patient is scheduled for endoscopy this morning as well as renal biopsy. No acute overnight events or new complaints reported. Denies chest pain, palpitations, SOB. Objective - Vital Signs/Intake and Output Vital Signs (last 24 hours): Temp Pulse Resp BP Pulse Ox 98.8 F 84 25 H 136/71 93 L 03/22/17 04:00 03/22/17 06:00 03/22/17 06:00 03/22/17 05:00 03/22/17 06:00 Intake and Output: 03/22/17 03/22/17 06:59 18:59 Intake Total 50 Output Total 600 Balance -550 - Medications Medications: Current Medications Albumin Human (Albumin Human 25% (25 Gm/100 Ml)) 25 gm IV BID [facility] Stop: 03/22/17 10:01 Last Admin: 03/21/17 18:19 Dose: 25 gm Amlodipine Besylate (Norvasc) 5 mg PO DAILY [facility] Last Admin: 03/21/17 18:24 Dose: 5 mg Furosemide (Lasix) 40 mg IVP BID [facility] Last Admin: 03/21/17 18:26 Dose: 40 mg Heparin Sodium (Porcine) (Heparin) 5,000 units SC Q12 [facility] PRN Reason: Protocol Last Admin: 03/21/17 22:40 Dose: 5,000 units Hydralazine HCl (Apresoline) 10 mg IVP Q6 PRN PRN Reason: Systolic Blood Pressure Last Admin: 03/21/17 18:45 Dose: 10 mg Insulin Human Regular (Humulin R Low) 0 units SC ACHS [facility] PRN Reason: Protocol Last Admin: 03/21/17 23:01 Dose: Not Given Lactulose (Enulose) 20 gm PO BID [facility] Last Admin: 03/21/17 18:35 Dose: 20 gm Pantoprazole Sodium (Protonix Inj) 40 mg IVP DAILY [facility] Last Admin: 03/21/17 09:55 Dose: 40 mg Propranolol HCl (Inderal) 10 mg PO DAILY [facility] Rifaximin (Xifaxan) 550 mg PO BID [facility] PRN Reason: Protocol Last Admin: 03/21/17 18:26 Dose: 550 mg Sodium Bicarbonate (Sodium Bicarbonate Tab) 1,300 mg PO TID [facility] Last Admin: 03/21/17 14:24 Dose: 1,300 mg - Labs Labs: 03/22/17 05:30 03/22/17 05:30 PT 14.0 Seconds (9.9-11.8) H 03/21/17 07:10 INR 1.30 (0.93-1.08) H 03/21/17 07:10 APTT 31.1 Seconds (23.7-30.8) H 03/21/17 07:10 - Constitutional Appears: Non-toxic, No Acute Distress - Head Exam Head Exam: ATRAUMATIC, NORMAL INSPECTION, NORMOCEPHALIC - Eye Exam Eye Exam: EOMI, PERRL - ENT Exam ENT Exam: Mucous Membranes Moist - Respiratory Exam Respiratory Exam: Clear to Ausculation Bilateral. absent: Rales, Rhonchi, Wheezes - Cardiovascular Exam Cardiovascular Exam: RRR, +S1, +S2. absent: Gallop, Rubs - GI/Abdominal Exam GI & Abdominal Exam: Soft. absent: Distended, Firm, Guarding, Rigid, Tenderness , Rebound - Neurological Exam Neurological Exam: Alert, Awake, Oriented x3 - Psychiatric Exam Psychiatric exam: Normal Affect, Normal Mood - Skin Skin Exam: Dry, Intact, Normal Color, Warm Assessment and Plan - Assessment and Plan (Free Text) Plan: 66yo male with history of cirrhosis, chronic kidney disease, HTN, CAD presents c /o abdominal distention; admitted for acute on chronic kidney injury, acute anemia and acute decompensated liver cirrhosis 1. Acute on chronic kidney injury -Baseline creatinine ~1.8 -FeNa of 7% with Urine Na of 98 -Urine eosinophilia present with erythematous rash on thigh; possible AIN however complement is low -Patient to undergo kidney biopsy for further management -Will monitor and maintain MAP > 65 -Continue with lasix 40mg IVP BID per nephrology recommendations -Sepsis workup thus far negative -Afebrile, no leukocytosis -Abdominal US reviewed; revealed cirrhosis and large abdominal ascites, mild splenomegaly -Testicular US reviewed -CXR reviewed; showed no active disease -Case discussed with nephrology today -Nephrology consulted - Dr. Cadet 2. Acute anemia -Hgb 7.4 on presentation, hgb 8.7 s/p 2u pRBC transfusion -Patient started on propranolol, nonselective beta maurice per GI recommendations given history of esophageal varices -No overt signs of bleeding -Endoscopy did not reveal any source of bleeding or stigmata of bleeding; -Case discussed with GI today, plan is for colonoscopy on Sunday -GI consulted - Dr. Hay 3. Acute decompensated liver cirrhosis -MELD-Na score of 24 on admission -Lactulose 20gm BID currently held due to complaints of copious bowel movements -Continue with xifaxin 550mg PO BID for prevention of hepatic encephalopathy -Endoscopy from 11/13/16 reviewed; revealed grade I esophageal varices, portal hypertensive gastropathy and gastritis -Abdominal pressure measured yesterday and noted to be 15mmHg which rules out abdominal compartment syndrome -Patient underwent paracentesis and had 1300cc of fluid removed -GI consulted - Dr. Hay -IR consulted for paracentesis - Dr. Sylvester 4. Hypertension -Continue lasix 40mg IVP q12h -Continue hydralazine 10mg IVP q6h PRN 5. GI/DVT prophylaxis -Protonix/heparin Patient seen, examined and case discussed with attending, Dr. Johnson <Bravo Johnson - Last Filed: 03/23/17 18:48> Objective - Vital Signs/Intake and Output Vital Signs (last 24 hours): Temp Pulse Resp BP Pulse Ox 97.5 F L 57 L 15 141/64 99 03/23/17 16:00 03/23/17 18:00 03/23/17 18:00 03/23/17 18:00 03/23/17 18:00 Intake and Output: 03/23/17 03/23/17 06:59 18:59 Intake Total 600 1150 Output Total 700 500 Balance -100 650 - Medications Medications: Current Medications Amlodipine Besylate (Norvasc) 10 mg PO DAILY [facility] Last Admin: 03/23/17 12:50 Dose: Not Given Furosemide (Lasix) 40 mg IVP BID [facility] Last Admin: 03/23/17 17:06 Dose: 40 mg Heparin Sodium (Porcine) (Heparin) 5,000 units SC Q12 [facility] PRN Reason: Protocol Last Admin: 03/23/17 09:25 Dose: Not Given Hydralazine HCl (Apresoline) 10 mg IVP Q6 PRN PRN Reason: Systolic Blood Pressure Last Admin: 03/21/17 18:45 Dose: 10 mg Iron Sucrose 100 mg/ Sodium (Chloride) 105 mls @ 210 mls/hr IVPB DAILY [facility] Stop: 03/27/17 10:01 Last Admin: 03/23/17 10:10 Dose: 210 mls/hr Methylprednisolone 500 mg/ (Sodium Chloride) 100 mls @ 200 mls/hr IVPB DAILY [facility] Stop: 03/24/17 10:01 Last Admin: 03/23/17 09:28 Dose: 200 mls/hr Insulin Human Regular (Humulin R Low) 0 units SC ACHS [facility] PRN Reason: Protocol Last Admin: 03/23/17 17:02 Dose: 1 units Lactulose (Enulose) 20 gm PO BID [facility] Last Admin: 03/22/17 10:51 Dose: 20 gm Pantoprazole Sodium (Protonix Inj) 40 mg IVP DAILY [facility] Last Admin: 03/23/17 09:59 Dose: 40 mg Propranolol HCl (Inderal) 5 mg PO DAILY [facility] Last Admin: 03/23/17 10:09 Dose: Not Given Rifaximin (Xifaxan) 550 mg PO BID [facility] PRN Reason: Protocol Last Admin: 03/23/17 17:06 Dose: 550 mg Sodium Bicarbonate (Sodium Bicarbonate Tab) 1,300 mg PO TID [facility] Last Admin: 03/23/17 17:06 Dose: 1,300 mg - Labs Labs: 03/23/17 15:00 03/23/17 06:35 PT 14.0 Seconds (9.9-11.8) H 03/21/17 07:10 INR 1.30 (0.93-1.08) H 03/21/17 07:10 APTT 31.1 Seconds (23.7-30.8) H 03/21/17 07:10 Attending/Attestation - Attestation I have personally seen and examined this patient.: Yes I have fully participated in the care of the patient.: Yes I have reviewed all pertinent clinical information, including history, physical exam and plan: Yes Notes (Text): 03/23/17 18:48 Medical record note made by the resident after discussion with my direction and input after the patient was personally seen and examined by me. I have reviewed the chart and agree that the record accurately reflects by personal performance of the history, physical exam, data review, and medical decision-making, in the course for the patient. I have also personally directed the plan of care.
[2017-03-22] MEDS ORDERED: Propofol 10 mg/ml Inj (20 ML) ONE (09:53)
[2017-03-22] MEDS ORDERED: Etomidate 20 mg/10ml Inj IV ONE (09:53)
[2017-03-22] MEDS ORDERED: Darbepoetin Alfa 60 mcg/ml Inj SC ONE (09:59)
[2017-03-22] MEDS ORDERED: cefTRIAXone 1 GM in NS 100 ML BAG IVPB ONE (10:01)
[2017-03-22] MEDS: Albumin Human 25% (25 gm/100 ml) IV SCH (10:38)
--- NOTE | 2017-03-22 10:54 | PN ---
DATE: 03/22/2017 SUBJECTIVE: The patient is comfortable, status post GI workup. PHYSICAL EXAMINATION: VITAL SIGNS: Blood pressure 149/98, the heart rate is in the 60s. NECK: Negative JVD. LUNGS: Without rales. HEART: Reveals S1, S2. EXTREMITIES: Decreasing edema. ABDOMEN: Ascites is better. LABORATORY DATA: Hemoglobin is 8.7. Chemistries: Potassium is 4.2, BUN and creatinine are 59 and 4 .8. IMPRESSION: 1. Cirrhosis. 2. Renal insufficiency. 3. Ascites. 4. Pedal edema. 5. Anemia. PLAN: The patient is tolerating his aggressive negative fluid balance. The patient is for endoscopy as well as renal biopsy today. Vitaly You MD cc: [id number] TT: 03/22/2017 10:53:36 Confirmation # [id number] Dictation # [id number] tn
--- NOTE | 2017-03-22 14:50 | CP.PCM.PN ---
Subjective - Date & Time of Evaluation Date of Evaluation: 03/22/17 Time of Evaluation: 11:00 - Subjective Subjective: Follow up Nephrology Consultation: Assessment: Non-oliguric Acute Kidney Injury (N17.9) etiology unclear. concern for AIN ( eosinophilia + eosinophiluria + rash) versus glomerulonephritis (?MPGN). Less likely hepatorenal syndrome as doesn't appear hypovolemic, has high urine Na and high urine FeNa. NAGMA (likely due to KELLI) Microscopic hematuria r/o glomerular pathology Chronic Kidney Disease Stage 3(N18.3) with 638 mg proteinuria likely due to KELLI in 2016 Anemia (D64.9), HTN (I12.9), eosinophilia cirrhosis, CAD, ascites s/p paracentesis Plan will give empiric solumedrol 500 mg daily x 3 doses. d/w ICU and primary team, all agreeable. no absolute contra-indication for steroids at this time. will start IV iron and dose with Aranesp. kidney biopsy will be done by IR tomorrow. ordered for DDAVP 30 mcg tomorrow 30 min before the biopsy. d/w RN No acute need for renal replacement therapy at this time. continue with added sodium bicarb 1300 mg TID Hypertension control with meds as ordered. Patient not on ACEI/ARB due to KELLI. Hold aldactone as well agree with lasix for now. Increased norvasc 10 mg/day Monitor Input/Output, daily weights and renal function with basic metabolic panel GI work up for anemia. pending ANCA (MPO and AZ-3), serum protein electrophoresis with immunofixation, free light chain assay, serum cryoglobulin levels [to be transported at body temperature] Dose meds/antibiotics for reduced GFR <10. Avoid fleets enema/magnesium based laxatives. Avoid nephrotoxins/NSAIDs/ iodinated contrast (unless needed emergently) Glycemic control Further work up/management of anemia, ascites as per primary team Thanks for allowing me to participate in care of your patient. Will follow patient with you. Please call if any Qs. d/w ICU and primary team Dr Paco Cadet Office: [phone] Chief Complaint; had endoscopy today Reason for consult: KELLI HPI: Pt is a 66 y/o M with hx of cirrhosis, hypertension ( x 15 years), DM, CAD , had KELLI in 2016 with peaked creatinine 5.3 due to sepsis which got better but resulted on CKD 3 with baseline cr 1.3-1.5, ex smoker presented with complaints of abdomen distension due to ascites and found to have KELLI with creatinine 4.9 hence renal consult was requested. No OTC/herbal meds or NSAIDs No recent iodinated contrast exposure. No obvious episodes of low BP. ROS: denies CP/SOB/nausea/vomitting. Physical Examination: General Appearance: Comfortable, in no acute respiratory distress, co-operative . Vitals reviewed and noted as below Lungs: Normal respiratory rate/effort. Breath sounds bilateral equal and clear except occasional basal crackles Heart: Normal rate. s1s2 normal. No rub or gallop. Extremities: trace leg edema. No varicose veins Neurological: Patient is alert, awake and oriented to person, place and time. No focal deficit. Strength bilateral appropriate and equal Skin: Warm and dry. Normal turgor. rash on thighs which is resolving. Palpitation: Normal elasticity for age Abdomen: Abdomen is soft. Bowel sounds +. There is no abdominal tenderness, no guarding/rigidity no organomegaly. has ascitic abdomen Psych: normal insight and normal affect/mood MSK: no joint tenderness or swelling. Digits and nails normal, no deformity : kidney/bladder not palpable. Labs/imaging/EKG reviewed. Past medical history, past surgical history, family history, social history, allergy reviewed Alb 2.4 BNP 3160 ammonia 63 UA trace protein with large blood and RBC ++ Urine Na 48 FeNa 7% chronic peripheral eosinophilia 6% TSAT 11% vbg pH 7.24 CXR: cardiomegaly Hep B/C and HIV negative in 2016 CT abdomen: punctate calcifications otherwise unremarkable kidney. LVEF normal UA done by me 03/21/17: numerous WBC with WBC casts and numerous RBCs with probably few dysmorphic too TSAT 11% Ferriitin 54 c3: 50 c4 <8 SAEED neg RA factor neg Objective - Vital Signs/Intake and Output Vital Signs (last 24 hours): Temp Pulse Resp BP Pulse Ox 98.8 F 75 27 H 161/83 H 100 03/22/17 04:00 03/22/17 11:10 03/22/17 11:10 03/22/17 11:10 03/22/17 11:10 Intake and Output: 03/22/17 03/22/17 06:59 18:59 Intake Total 50 Output Total 600 Balance -550 - Medications Medications: Current Medications Amlodipine Besylate (Norvasc) 5 mg PO ONCE [facility] Stop: 03/22/17 14:46 Amlodipine Besylate (Norvasc) 10 mg PO DAILY [facility] Furosemide (Lasix) 40 mg IVP BID [facility] Last Admin: 03/22/17 10:42 Dose: 40 mg Heparin Sodium (Porcine) (Heparin) 5,000 units SC Q12 [facility] PRN Reason: Protocol Last Admin: 03/22/17 10:42 Dose: 5,000 units Hydralazine HCl (Apresoline) 10 mg IVP Q6 PRN PRN Reason: Systolic Blood Pressure Last Admin: 03/21/17 18:45 Dose: 10 mg Iron Sucrose 100 mg/ Sodium (Chloride) 105 mls @ 210 mls/hr IVPB DAILY [facility] Stop: 03/27/17 10:01 Last Admin: 03/22/17 11:47 Dose: 210 mls/hr Desmopressin Acetate 30 mcg/ (Sodium Chloride) 57.5 mls @ 100 mls/hr IV ONCE [facility] Stop: 03/23/17 10:34 Methylprednisolone 500 mg/ (Sodium Chloride) 100 mls @ 200 mls/hr IVPB DAILY [facility] Stop: 03/24/17 10:01 Insulin Human Regular (Humulin R Low) 0 units SC ACHS [facility] PRN Reason: Protocol Last Admin: 03/22/17 11:37 Dose: Not Given Lactulose (Enulose) 20 gm PO BID [facility] Last Admin: 03/22/17 10:51 Dose: 20 gm Pantoprazole Sodium (Protonix Inj) 40 mg IVP DAILY [facility] Last Admin: 03/22/17 10:42 Dose: 40 mg Propranolol HCl (Inderal) 10 mg PO DAILY [facility] Last Admin: 03/22/17 10:52 Dose: 10 mg Rifaximin (Xifaxan) 550 mg PO BID [facility] PRN Reason: Protocol Last Admin: 03/22/17 10:52 Dose: 550 mg Sodium Bicarbonate (Sodium Bicarbonate Tab) 1,300 mg PO TID [facility] Last Admin: 03/22/17 14:22 Dose: 1,300 mg - Labs Labs: 03/22/17 05:30 03/22/17 05:30 PT 14.0 Seconds (9.9-11.8) H 03/21/17 07:10 INR 1.30 (0.93-1.08) H 03/21/17 07:10 APTT 31.1 Seconds (23.7-30.8) H 03/21/17 07:10
[2017-03-22] MEDS: methylPREDNISolone 500 MG in Sodium Chloride 0.9% 100 ML IVPB SCH (15:11)
[2017-03-23 06:43] LABS: ADD MANUAL DIFF? NO
[2017-03-23 07:02] LABS: GRAN # 4.35 (1.4-6.5); HEMATOCRIT 25.2 % (42.0-52.0); LYMPH # 0.3 (1.2-3.4); LYMPH % 5.4 % (22.0-35.0); MEAN CELL VOLUME 82.9 fL (80.0-105.0); MEAN CORPUSCULAR HGB CONC 32.5 g/dl (31.0-37.0); MONO % 0.6 % (1.0-6.0); PLATELET COUNT 71 10^3/uL (120.0-450.0); RED CELL DISTRIBUTION WIDTH 16.6 % (11.5-14.5); WHITE BLOOD COUNT 4.6 10^3/ul (4.5-11.0)
--- NOTE | 2017-03-23 07:15 | CP.PCM.PN ---
<DonHui - Last Filed: 03/23/17 11:25> Subjective - Date & Time of Evaluation Date of Evaluation: 03/23/17 Time of Evaluation: 07:09 - Subjective Subjective: ICU Progress Note Patient seen and examined at bedside. There were no acute overnight events. He reports that he has been having a lot of urination and mild diarrhea. Patient was noted to be on Lasix and Lactulose yesterday. He denies having any pain, CP , SOB, n/v, numbness/tingling, headache, fever or chills. Objective - Vital Signs/Intake and Output Vital Signs (last 24 hours): Temp Pulse Resp BP Pulse Ox 97.6 F 58 L 18 150/67 95 03/22/17 16:00 03/23/17 03:00 03/23/17 03:00 03/23/17 03:00 03/23/17 03:00 Intake and Output: 03/23/17 03/23/17 06:59 18:59 Intake Total 600 Output Total 700 Balance -100 - Medications Medications: Current Medications Amlodipine Besylate (Norvasc) 10 mg PO DAILY [facility] Furosemide (Lasix) 40 mg IVP BID [facility] Last Admin: 03/22/17 17:25 Dose: 40 mg Heparin Sodium (Porcine) (Heparin) 5,000 units SC Q12 [facility] PRN Reason: Protocol Last Admin: 03/22/17 22:00 Dose: 5,000 units Hydralazine HCl (Apresoline) 10 mg IVP Q6 PRN PRN Reason: Systolic Blood Pressure Last Admin: 03/21/17 18:45 Dose: 10 mg Iron Sucrose 100 mg/ Sodium (Chloride) 105 mls @ 210 mls/hr IVPB DAILY [facility] Stop: 03/27/17 10:01 Last Admin: 03/22/17 11:47 Dose: 210 mls/hr Desmopressin Acetate 30 mcg/ (Sodium Chloride) 57.5 mls @ 100 mls/hr IV ONCE ONE Stop: 03/23/17 10:34 Methylprednisolone 500 mg/ (Sodium Chloride) 100 mls @ 200 mls/hr IVPB DAILY [facility] Stop: 03/24/17 10:01 Last Admin: 03/22/17 15:11 Dose: 200 mls/hr Insulin Human Regular (Humulin R Low) 0 units SC ACHS [facility] PRN Reason: Protocol Last Admin: 03/22/17 22:00 Dose: Not Given Lactulose (Enulose) 20 gm PO BID [facility] Last Admin: 03/22/17 10:51 Dose: 20 gm Pantoprazole Sodium (Protonix Inj) 40 mg IVP DAILY [facility] Last Admin: 03/22/17 10:42 Dose: 40 mg Propranolol HCl (Inderal) 10 mg PO DAILY [facility] Last Admin: 03/22/17 10:52 Dose: 10 mg Rifaximin (Xifaxan) 550 mg PO BID [facility] PRN Reason: Protocol Last Admin: 03/22/17 17:24 Dose: 550 mg Sodium Bicarbonate (Sodium Bicarbonate Tab) 1,300 mg PO TID [facility] Last Admin: 03/22/17 17:24 Dose: 1,300 mg - Labs Labs: 03/22/17 05:30 03/22/17 05:30 PT 14.0 Seconds (9.9-11.8) H 03/21/17 07:10 INR 1.30 (0.93-1.08) H 03/21/17 07:10 APTT 31.1 Seconds (23.7-30.8) H 03/21/17 07:10 - Constitutional Appears: No Acute Distress - Head Exam Head Exam: ATRAUMATIC, NORMAL INSPECTION, NORMOCEPHALIC - Eye Exam Eye Exam: Normal appearance, PERRL Pupil Exam: NORMAL ACCOMODATION, PERRL - ENT Exam ENT Exam: Mucous Membranes Moist - Neck Exam Neck Exam: Full ROM - Respiratory Exam Respiratory Exam: Clear to Ausculation Bilateral, NORMAL BREATHING PATTERN. absent: Rales, Rhonchi, Wheezes - Cardiovascular Exam Cardiovascular Exam: REGULAR RHYTHM, +S1. absent: Gallop, Rubs, Murmur - GI/Abdominal Exam GI & Abdominal Exam: Distended, Soft, Normal Bowel Sounds. absent: Tenderness, Mass, Rebound - Extremities Exam Extremities Exam: Normal Inspection. absent: Calf Tenderness, Pedal Edema - Neurological Exam Neurological Exam: Alert, Awake, CN II-XII Intact, Oriented x3 - Psychiatric Exam Psychiatric exam: Normal Affect, Normal Mood - Skin Skin Exam: Dry, Intact, Normal Color, Warm Assessment and Plan - Assessment and Plan (Free Text) Assessment: This is a 66Y male with PMH HTN, DM, CKD, cirrhosis, GERD, colitis, vitiligo and anemia who was admitted for KELLI, anemia and ascites. \He also received 2U PRBC and had EGD yesterday POD #1. Patient is planned for kidney biopsy this am. Plan: Neuro: A&O x 3 CV: Cardio consulted-recs appreciated Continue Norvasc, Lasix, and Hydralazine prn Pt hemodynamically stable HR in 40s at one point- propranolol decreased Resp: Maintain SpO2>90% Aspiration precaution HOB elevated GI: GI consulted- recs appreciated s/p paracentesis POD#2 EGD showed Grade I varices Abdominal U/S as per GI to r/o portal vein thrombosis Ceruplasmin elevated- Easton's disease ruled out Ammonia improved- lactulose on hold Nephro: KELLI secondary to intrinsic cause Cr 5.0- baseline 1.3 AIN suspected- pt will have kidney biopsy tomorrow On Bicarb tablet Nephro consulted- recs appreciated Continue to monitor I&O and maintain euvolemia Heme: Hgb stable Thrombocytopenia - will be transfused 1U of plt Anemia of chronic disease s/p 2U PRBC Continue to monitor CBC and coags ID: Afebrile, no leukocytosis Maintain normothermia Endo: Maintain euglycemia Continue ISS and BGM ACHS GI ppx: Protonix DVT ppx: Heparin SC Dispo: Patient HD stable. Will be transferred to tele. Case seen, discussed and reviewed with attending. Katie Ochoa PGY1 <Ximena DARBY,Mehdi - Last Filed: 03/23/17 16:34> Objective - Vital Signs/Intake and Output Vital Signs (last 24 hours): Temp Pulse Resp BP Pulse Ox 97.5 F L 55 L 16 126/45 L 99 03/23/17 16:00 03/23/17 16:00 03/23/17 16:00 03/23/17 16:00 03/23/17 16:00 Intake and Output: 03/23/17 03/23/17 06:59 18:59 Intake Total 600 50 Output Total 700 Balance -100 50 - Medications Medications: Current Medications Amlodipine Besylate (Norvasc) 10 mg PO DAILY [facility] Last Admin: 03/23/17 12:50 Dose: Not Given Furosemide (Lasix) 40 mg IVP BID [facility] Last Admin: 03/23/17 09:59 Dose: 40 mg Heparin Sodium (Porcine) (Heparin) 5,000 units SC Q12 [facility] PRN Reason: Protocol Last Admin: 03/23/17 09:25 Dose: Not Given Hydralazine HCl (Apresoline) 10 mg IVP Q6 PRN PRN Reason: Systolic Blood Pressure Last Admin: 03/21/17 18:45 Dose: 10 mg Iron Sucrose 100 mg/ Sodium (Chloride) 105 mls @ 210 mls/hr IVPB DAILY [facility] Stop: 03/27/17 10:01 Last Admin: 03/23/17 10:10 Dose: 210 mls/hr Methylprednisolone 500 mg/ (Sodium Chloride) 100 mls @ 200 mls/hr IVPB DAILY [facility] Stop: 03/24/17 10:01 Last Admin: 03/23/17 09:28 Dose: 200 mls/hr Insulin Human Regular (Humulin R Low) 0 units SC ACHS [facility] PRN Reason: Protocol Last Admin: 03/23/17 12:50 Dose: Not Given Lactulose (Enulose) 20 gm PO BID [facility] Last Admin: 03/22/17 10:51 Dose: 20 gm Pantoprazole Sodium (Protonix Inj) 40 mg IVP DAILY [facility] Last Admin: 03/23/17 09:59 Dose: 40 mg Propranolol HCl (Inderal) 5 mg PO DAILY [facility] Last Admin: 03/23/17 10:09 Dose: Not Given Rifaximin (Xifaxan) 550 mg PO BID [facility] PRN Reason: Protocol Last Admin: 03/23/17 10:00 Dose: 550 mg Sodium Bicarbonate (Sodium Bicarbonate Tab) 1,300 mg PO TID [facility] Last Admin: 03/23/17 14:00 Dose: 1,300 mg - Labs Labs: 03/23/17 15:00 03/23/17 06:35 PT 14.0 Seconds (9.9-11.8) H 03/21/17 07:10 INR 1.30 (0.93-1.08) H 03/21/17 07:10 APTT 31.1 Seconds (23.7-30.8) H 03/21/17 07:10 Attending/Attestation - Attestation I have personally seen and examined this patient.: Yes I have fully participated in the care of the patient.: Yes I have reviewed all pertinent clinical information, including history, physical exam and plan: Yes Notes (Text): 03/23/17 16:30 66 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 Work up in progress. No encephalopahy currently . S/P EGD without any active bleeding. BP WNL. Propanalol continued at low dose due to low HR. KELLI on CKD s/p renal biopsy. Empiric start of steroids for AIN. MP elevated, unclear if history matches and if its a false positive. Hair defer to renal team once tx to the medical floor. Clinically stable w/o any further bleeding or complaints. cc time 35 min
[2017-03-23 07:41] LABS: ALB/GLOB RATIO 0.9 (1.1-1.8); BILIRUBIN,TOTAL 1.1 mg/dL (0.2-1.3); POTASSIUM 3.9 mmol/L (3.6-5.0); TOTAL PROTEIN 6.3 g/dL (5.8-8.3)
[2017-03-23] MEDS: Insulin Reg-LOW-Coverage SC SCH ×4 (09:27→22:27)
[2017-03-23] MEDS: methylPREDNISolone 500 MG in Sodium Chloride 0.9% 100 ML IVPB SCH (09:28)
--- NOTE | 2017-03-23 09:42 | CP.PCM.PN ---
<Guero Vega - Last Filed: 03/23/17 18:59> Subjective - Date & Time of Evaluation Date of Evaluation: 03/23/17 Time of Evaluation: 09:39 - Subjective Subjective: Medicine progress note for Dr. Madrid/Dr. Johnson service - Guero Vega PGY1 Patient seen and examined at bedside this morning. No acute overnight events reported. Patient is scheduled for abdominal doppler and kidney biopsy today. Denies chest pain, palpitations, SOB, abdominal pain, nausea, vomiting. Objective - Vital Signs/Intake and Output Vital Signs (last 24 hours): Temp Pulse Resp BP Pulse Ox 97.6 F 52 L 18 138/71 95 03/22/17 16:00 03/23/17 09:25 03/23/17 03:00 03/23/17 09:25 03/23/17 03:00 Intake and Output: 03/23/17 03/23/17 06:59 18:59 Intake Total 600 Output Total 700 Balance -100 - Medications Medications: Current Medications Amlodipine Besylate (Norvasc) 10 mg PO DAILY [facility] Furosemide (Lasix) 40 mg IVP BID [facility] Last Admin: 03/22/17 17:25 Dose: 40 mg Heparin Sodium (Porcine) (Heparin) 5,000 units SC Q12 [facility] PRN Reason: Protocol Last Admin: 03/23/17 09:25 Dose: Not Given Hydralazine HCl (Apresoline) 10 mg IVP Q6 PRN PRN Reason: Systolic Blood Pressure Last Admin: 03/21/17 18:45 Dose: 10 mg Iron Sucrose 100 mg/ Sodium (Chloride) 105 mls @ 210 mls/hr IVPB DAILY [facility] Stop: 03/27/17 10:01 Last Admin: 03/22/17 11:47 Dose: 210 mls/hr Desmopressin Acetate 30 mcg/ (Sodium Chloride) 57.5 mls @ 100 mls/hr IV ONCE ONE Stop: 03/23/17 10:34 Methylprednisolone 500 mg/ (Sodium Chloride) 100 mls @ 200 mls/hr IVPB DAILY [facility] Stop: 03/24/17 10:01 Last Admin: 03/23/17 09:28 Dose: 200 mls/hr Insulin Human Regular (Humulin R Low) 0 units SC ACHS [facility] PRN Reason: Protocol Last Admin: 03/23/17 09:27 Dose: Not Given Lactulose (Enulose) 20 gm PO BID [facility] Last Admin: 03/22/17 10:51 Dose: 20 gm Pantoprazole Sodium (Protonix Inj) 40 mg IVP DAILY [facility] Last Admin: 03/22/17 10:42 Dose: 40 mg Propranolol HCl (Inderal) 5 mg PO DAILY [facility] Rifaximin (Xifaxan) 550 mg PO BID [facility] PRN Reason: Protocol Last Admin: 03/22/17 17:24 Dose: 550 mg Sodium Bicarbonate (Sodium Bicarbonate Tab) 1,300 mg PO TID [facility] Last Admin: 03/22/17 17:24 Dose: 1,300 mg - Labs Labs: 03/23/17 06:35 03/23/17 06:35 PT 14.0 Seconds (9.9-11.8) H 03/21/17 07:10 INR 1.30 (0.93-1.08) H 03/21/17 07:10 APTT 31.1 Seconds (23.7-30.8) H 03/21/17 07:10 - Constitutional Appears: Non-toxic, No Acute Distress - Head Exam Head Exam: ATRAUMATIC, NORMAL INSPECTION, NORMOCEPHALIC - Eye Exam Eye Exam: EOMI, PERRL - ENT Exam ENT Exam: Mucous Membranes Moist - Respiratory Exam Respiratory Exam: Clear to Ausculation Bilateral. absent: Rales, Rhonchi, Wheezes - Cardiovascular Exam Cardiovascular Exam: RRR, +S1, +S2. absent: Gallop, Rubs - GI/Abdominal Exam GI & Abdominal Exam: Distended, Soft. absent: Firm, Guarding, Rigid, Tenderness , Rebound - Neurological Exam Neurological Exam: Alert, Awake, Oriented x3 - Psychiatric Exam Psychiatric exam: Normal Affect, Normal Mood - Skin Skin Exam: Dry, Intact, Normal Color, Warm Assessment and Plan - Assessment and Plan (Free Text) Plan: 66yo male with history of cirrhosis, chronic kidney disease, HTN, CAD presents c /o abdominal distention; admitted for acute on chronic kidney injury, acute anemia and acute decompensated liver cirrhosis 1. Acute on chronic kidney injury -Baseline creatinine ~1.8 -FeNa of 7% with Urine Na of 98 -Urine eosinophilia present with erythematous rash on thigh; possible AIN however complement is low -Patient s/p kidney biopsy today; tolerated procedure well; pending pathology -Will monitor and maintain MAP > 65 -Continue with lasix 40mg IVP BID per nephrology recommendations -Sepsis workup thus far negative -Afebrile, no leukocytosis -Abdominal US reviewed; revealed cirrhosis and large abdominal ascites, mild splenomegaly -Testicular US reviewed -CXR reviewed; showed no active disease -Case discussed with nephrology today -Nephrology consulted - Dr. Cadet 2. Acute anemia -Hgb 7.4 on presentation, hgb 8.7 s/p 2u pRBC transfusion -Patient started on propranolol, nonselective beta maurice per GI recommendations given history of esophageal varices -No overt signs of bleeding -Endoscopy did not reveal any source of bleeding or stigmata of bleeding -Patient scheduled for colonoscopy on Sunday -GI consulted - Dr. Hay 3. Acute decompensated liver cirrhosis -MELD-Na score of 24 on admission -Lactulose 20gm BID currently held due to complaints of copious bowel movements -Continue with xifaxin 550mg PO BID for prevention of hepatic encephalopathy -Endoscopy from 11/13/16 reviewed; revealed grade I esophageal varices, portal hypertensive gastropathy and gastritis -Abdominal pressure measured and noted to be 15mmHg which rules out abdominal compartment syndrome -Patient underwent paracentesis and had 1300cc of fluid removed -Abdominal doppler negative for portal vein thrombosis and hepatic artery thrombosis -GI consulted - Dr. Hay -IR consulted for paracentesis - Dr. Sylvester 4. Thrombocytopenia -Patient platelets downtrending; will continue to monitor -Ordered 1unit platelets to be administered today -Hematology consulted - Dr. Toledo 5. Hypertension -Continue lasix 40mg IVP q12h -Continue hydralazine 10mg IVP q6h PRN 6. GI/DVT prophylaxis -Protonix/heparin Patient seen, examined and case discussed with attending, Dr. Johnson <Bravo Johnson - Last Filed: 03/26/17 17:45> Objective - Vital Signs/Intake and Output Vital Signs (last 24 hours): Temp Pulse Resp BP Pulse Ox 97.6 F 59 L 20 140/73 97 03/26/17 12:00 03/26/17 12:00 03/26/17 12:00 03/26/17 12:00 03/26/17 05:43 - Medications Medications: Current Medications Amlodipine Besylate (Norvasc) 10 mg PO DAILY [facility] Last Admin: 03/26/17 10:15 Dose: 10 mg Heparin Sodium (Porcine) (Heparin) 5,000 units SC Q12 [facility] PRN Reason: Protocol Last Admin: 03/26/17 10:14 Dose: 5,000 units Hydralazine HCl (Apresoline) 10 mg IVP Q6 PRN PRN Reason: Systolic Blood Pressure Last Admin: 03/21/17 18:45 Dose: 10 mg Iron Sucrose 100 mg/ Sodium (Chloride) 105 mls @ 210 mls/hr IVPB DAILY [facility] Stop: 03/27/17 10:01 Last Admin: 03/26/17 10:09 Dose: 210 mls/hr Insulin Human Regular (Humulin R Low) 0 units SC ACHS [facility] PRN Reason: Protocol Last Admin: 03/26/17 16:40 Dose: Not Given Lactulose (Enulose) 20 gm PO BID [facility] Last Admin: 03/22/17 10:51 Dose: 20 gm Pantoprazole Sodium (Protonix Inj) 40 mg IVP DAILY [facility] Last Admin: 03/26/17 10:15 Dose: 40 mg Prednisone (Prednisone Tab) 60 mg PO DAILY [facility] Last Admin: 03/26/17 17:27 Dose: 60 mg Propranolol HCl (Inderal) 5 mg PO DAILY [facility] Last Admin: 03/24/17 10:28 Dose: Not Given Rifaximin (Xifaxan) 550 mg PO BID [facility] PRN Reason: Protocol Last Admin: 03/26/17 17:28 Dose: 550 mg Sodium Bicarbonate (Sodium Bicarbonate Tab) 1,300 mg PO TID [facility] Last Admin: 03/26/17 17:27 Dose: 1,300 mg - Labs Labs: 03/26/17 05:30 03/26/17 05:30 PT 15.2 Seconds (9.9-11.8) H 03/26/17 14:00 INR 1.41 (0.93-1.08) H 03/26/17 14:00 APTT 31.1 Seconds (23.7-30.8) H 03/21/17 07:10 Attending/Attestation - Attestation I have personally seen and examined this patient.: Yes I have fully participated in the care of the patient.: Yes I have reviewed all pertinent clinical information, including history, physical exam and plan: Yes Notes (Text): 03/26/17 17:45 Medical record note made by the resident after discussion with my direction and input after the patient was personally seen and examined by me. I have reviewed the chart and agree that the record accurately reflects by personal performance of the history, physical exam, data review, and medical decision-making, in the course for the patient. I have also personally directed the plan of care.
--- NOTE | 2017-03-23 10:00 | PN ---
DATE: 03/23/[address] Vitaly You. The patient denies any chest pain. No reported ventricular arrhythmia and no reported hypertension. PHYSICAL EXAMINATION: VITAL SIGNS: Blood pressure 150/67, heart rate 58, temperature 97.6, respirations 16. HEENT: Pale conjunctivae. CHEST: Absent breath sounds over the bases. HEART: S1, S2 regular. ABDOMEN: Moderate ascites. EXTREMITIES: 1+ pitting edema. LABORATORIES: Hemoglobin and hematocrit 8.2 and 25.2, white count and platelet count are 4.6 and 71, 000 respectively. SMA-7: Sodium 146, potassium 3.9, chloride 115, CO2 of 18, glucose 115, BUN 67, c reatinine 5.0. EKG revealed LVH with QRS widening; possible lateral infarct, age indeterminate; infe rior infarct, age indeterminate. ASSESSMENT: 1. Abnormal EKG with areas suggestive of lateral and inferior infarct, of indeterminate age. 2. Liver cirrhosis. 3. Renal insufficiency. 4. Portal hypertension and ascites, status post abdominal paracentesis. 5. Anemia. 6. Thrombocytopenia. RECOMMENDATIONS: Continue hydralazine 10 mg intravenously q. 6 hours. Continue desmopressin acetate infusion. May discontinue subcutaneous heparin for now, continue Inderal at 10 mg daily, methylpred nisolone intravenous infusion, Norvasc 10 mg once a day and rifaximin at 550 mg p.o. twice a day, as well as IV Protonix at 40 mg daily. The most recent echocardiographic study from 11/2016 reported mi ld concentric LVH with normal ejection fraction and mild to moderate pulmonary hypertension. Tien Marshall MD cc: [id number] TT: 03/23/2017 09:59:17 Confirmation # [id number] Dictation # [id number] lauren
[2017-03-23 10:14] LABS: KAPPA/LAMBDA FREE RATIO 1.75 (0.26-1.65)
--- NOTE | 2017-03-23 11:49 | CP.PCM.PN ---
Subjective - Date & Time of Evaluation Date of Evaluation: 03/23/17 Time of Evaluation: 11:42 - Subjective Subjective: Follow up Nephrology Consultation: Assessment: Non-oliguric Acute Kidney Injury (N17.9) etiology unclear. concern for AIN ( eosinophilia + eosinophiluria + rash) versus glomerulonephritis (?MPGN). also with low complements and MPO ANCA + NAGMA (likely due to KELLI) Microscopic hematuria Chronic Kidney Disease Stage 3 (N18.3) with 638 mg proteinuria likely due to KELLI in 2016 Anemia (D64.9), HTN (I12.9), eosinophilia cirrhosis, CAD, ascites s/p paracentesis Plan kidney biopsy will be done by IR today. ordered for DDAVP 30 mcg tomorrow 30 min before the biopsy. 1 unit of platelet today before Bx. Monitor Hb/Hct post biopsy 1 and 4 hr. will give empiric solumedrol 500 mg daily x 3 doses. d/w ICU and primary team, all agreeable. no absolute contra-indication for steroids at this time. started IV iron and dose with Aranesp. No acute need for renal replacement therapy at this time. continue with sodium bicarb 1300 mg TID Hypertension control with meds as ordered. Patient not on ACEI/ARB due to KELLI. Hold aldactone as well agree with lasix for now. Increased norvasc 10 mg/day Monitor Input/Output, daily weights and renal function with basic metabolic panel GI work up for anemia. Dose meds/antibiotics for reduced GFR <10. Avoid fleets enema/magnesium based laxatives. Avoid nephrotoxins/NSAIDs/iodinated contrast (unless needed emergently) Glycemic control Further work up/management of anemia, ascites as per primary team Thanks for allowing me to participate in care of your patient. Will follow patient with you. Please call if any Qs. d/w ICU and primary team Dr Paco Cadet Office: [phone] Chief Complaint; none today Reason for consult: KELLI HPI: Pt is a 66 y/o M with hx of cirrhosis, hypertension ( x 15 years), DM, CAD , had KELLI in 2016 with peaked creatinine 5.3 due to sepsis which got better but resulted on CKD 3 with baseline cr 1.3-1.5, ex smoker presented with complaints of abdomen distension due to ascites and found to have KELLI with creatinine 4.9 hence renal consult was requested. No OTC/herbal meds or NSAIDs No recent iodinated contrast exposure. No obvious episodes of low BP. ROS: denies CP/SOB/nausea/vomitting. no urine complaint Physical Examination: General Appearance: Comfortable, in no acute respiratory distress, co-operative . Vitals reviewed and noted as below Lungs: Normal respiratory rate/effort. Breath sounds bilateral equal and clear Heart: Normal rate. s1s2 normal. No rub or gallop. Extremities: trace leg edema. No varicose veins Neurological: Patient is alert, awake and oriented to person, place and time. No focal deficit. Strength bilateral appropriate and equal Skin: Warm and dry. Normal turgor. rash on thighs which is resolving. Palpitation: Normal elasticity for age Abdomen: Abdomen is soft. Bowel sounds +. There is no abdominal tenderness, no guarding/rigidity no organomegaly. has ascitic abdomen Psych: normal insight and normal affect/mood MSK: no joint tenderness or swelling. Digits and nails normal, no deformity : kidney/bladder not palpable. Labs/imaging/EKG reviewed. Past medical history, past surgical history, family history, social history, allergy reviewed Alb 2.4 BNP 3160 ammonia 63 UA trace protein with large blood and RBC ++ Urine Na 48 FeNa 7% chronic peripheral eosinophilia 6% TSAT 11% vbg pH 7.24 CXR: cardiomegaly Hep B/C and HIV negative in 2016 CT abdomen: punctate calcifications otherwise unremarkable kidney. LVEF normal UA done by me 03/21/17: numerous WBC with WBC casts and numerous RBCs with probably few dysmorphic too TSAT 11% Ferriitin 54 c3: 50 c4 <8 SAEED neg RA factor neg MPO ANCA + Objective - Vital Signs/Intake and Output Vital Signs (last 24 hours): Temp Pulse Resp BP Pulse Ox 98.7 F 52 L 23 136/59 L 97 03/23/17 08:00 03/23/17 10:01 03/23/17 09:12 03/23/17 10:01 03/23/17 08:39 Intake and Output: 03/23/17 03/23/17 06:59 18:59 Intake Total 600 Output Total 700 Balance -100 - Medications Medications: Current Medications Amlodipine Besylate (Norvasc) 10 mg PO DAILY [facility] Last Admin: 03/23/17 10:01 Dose: 10 mg Furosemide (Lasix) 40 mg IVP BID [facility]PL[facility] Last Admin: 03/23/17 09:59 Dose: 40 mg Heparin Sodium (Porcine) (Heparin) 5,000 units SC Q12 [facility] PRN Reason: Protocol Last Admin: 03/23/17 09:25 Dose: Not Given Hydralazine HCl (Apresoline) 10 mg IVP Q6 PRN PRN Reason: Systolic Blood Pressure Last Admin: 03/21/17 18:45 Dose: 10 mg Iron Sucrose 100 mg/ Sodium (Chloride) 105 mls @ 210 mls/hr IVPB DAILY [facility]PL[facility] Stop: 03/27/17 10:01 Last Admin: 03/23/17 10:10 Dose: 210 mls/hr Methylprednisolone 500 mg/ (Sodium Chloride) 100 mls @ 200 mls/hr IVPB DAILY [facility] Stop: 03/24/17 10:01 Last Admin: 03/23/17 09:28 Dose: 200 mls/hr Insulin Human Regular (Humulin R Low) 0 units SC ACHS [facility] PRN Reason: Protocol Last Admin: 03/23/17 09:27 Dose: Not Given Lactulose (Enulose) 20 gm PO BID [facility]PL[facility] Last Admin: 03/22/17 10:51 Dose: 20 gm Pantoprazole Sodium (Protonix Inj) 40 mg IVP DAILY [facility] Last Admin: 03/23/17 09:59 Dose: 40 mg Propranolol HCl (Inderal) 5 mg PO DAILY [facility] Last Admin: 03/23/17 10:09 Dose: Not Given Rifaximin (Xifaxan) 550 mg PO BID [facility]PL[facility] PRN Reason: Protocol Last Admin: 03/23/17 10:00 Dose: 550 mg Sodium Bicarbonate (Sodium Bicarbonate Tab) 1,300 mg PO TID REPL[facility]ED [facility] Last Admin: 03/23/17 10:00 Dose: 1,300 mg - Labs Labs: 03/23/17 06:35 03/23/17 06:35 PT 14.0 Seconds (9.9-11.8) H 03/21/17 07:10 INR 1.30 (0.93-1.08) H 03/21/17 07:10 APTT 31.1 Seconds (23.7-30.8) H 03/21/17 07:10
--- NOTE | 2017-03-23 11:59 | US ---
PROCEDURE: Portal vein duplex ultrasound. CLINICAL HISTORY: Cirrhosis. Deteriorating liver function. Evaluate for portal vein thrombosis. PHYSICIAN(S): Vitaly Sylvester M.D. FINDINGS: Liver parenchyma is heterogeneous and nodular in appearance, consistent with cirrhosis. There is a small to moderate amount of ascites in the upper abdomen. The extrahepatic portal vein is patent with hepatopetal flow. The hepatic artery is patent. The spleen is enlarged. IMPRESSION: 1. Patent portal vein with hepatopetal flow.
[2017-03-23] MEDS ORDERED: Midazolam 2 MG/2 ML VIAL ONE (13:54)
[2017-03-23 15:24] LABS: HEMATOCRIT 25.6 % (42.0-52.0); MEAN CELL VOLUME 82.8 fL (80.0-105.0); MEAN CORPUSCULAR HEMOGLOBIN 27.5 pg (25.0-35.0); MEAN CORPUSCULAR HGB CONC 33.2 g/dl (31.0-37.0); PLATELET COUNT 78 10^3/uL (120.0-450.0); RED CELL DISTRIBUTION WIDTH 16.3 % (11.5-14.5); WHITE BLOOD COUNT 7.2 10^3/ul (4.5-11.0)
--- NOTE | 2017-03-23 16:40 | PN ---
DATE: 03/23/2017 Seen and examined at the bedside earlier today. The patient had an endoscopy yesterday and was found to have grade I varices, webbing and found to have portal hypertension. No bleeding. He denies any nausea, vomiting or abdominal pain. He did have some mild diarrhea. The patient is on lactulose. No reports of any melena or bright red blood. He went for abdominal Doppler this morning. The patie nt is waiting to have renal biopsy today. VITAL SIGNS: Temperature is 98.7, blood pressure is 136/59, pulse is 52, respirations 18 and 98 on n inocencio cannula. LABORATORY DATA: WBC is 7.2, H and H is 8.5 and 25.6 with platelets of 78. Sodium is146, K 3.9, BUN 67, creatinine is 0.5, total bilirubin is 1.1, AST 38, ALT 34 and alk phos is 108. The patient had ascitic fluid culture and there was no growth. Anaerobic culture: No anaerobes isolated. The patien t also had a serum culture of body fluid and that was negative for acid fast bacilli. The patient mcneal d abdominal Doppler and that shows patent portal vein with hepatopedal flow. PHYSICAL EXAMINATION: HEENT: Sclerae is anicteric. NECK: Supple. CARDIAC: S1, S2. LUNGS: Sounds with decreased breath sounds but good air entry. No rales or wheeze. ABDOMEN: With bowel sounds, soft, nontender, no rebound, guarding or organomegaly. It is distended, but less distended. He is status post paracentesis. NEUROLOGIC: Awake, alert and oriented. ASSESSMENT: This is a 66-year-old male with history of cirrhosis and chronic kidney disease who came with abdominal distention and found to be in acute renal failure, was also anemic, status post blood transfusion. He is status post endoscopy, found to have grade I varices and portal gastropathy. Ab dominal Doppler is negative for any portal vein thrombosis. PLAN: The patient is on IV iron supplements. He is on lactulose and on Inderal. Continue ____. Th e patient is on methylprednisolone. Monitor H and H. Case discussed with Dr. Hay who is coveri [facility]. Emy SUAREZ cc: [id number] TT: 03/23/2017 16:39:07 Confirmation # [id number] Dictation # [id number] sn
--- NOTE | 2017-03-23 17:29 | CT ---
PROCEDURE: CT guided left renal cortex biopsy. HISTORY: Acute renal failure. Possible acute interstitial nephritis or glomerular nephritis. Needs renal biopsy PHYSICIAN(S): Vitaly Sylvester MD. TECHNIQUE: The relative risks and indications of the procedure were explained to the patient and consent obtained. The patient was placed prone on the CT scanner and preliminary images through the liver obtained. Conscious sedation and monitoring were provided throughout the procedure by a nurse. The limited noncontrast images the kidneys are unremarkable.. A left posterior approach was selected and the area prepped and draped in the usual sterile fashion. 1% Xylocaine was used to anesthetize the skin and soft tissues. A 17-gauge guiding needle was advanced into the left renal cortex posteriorly and laterally.. Its position was confirmed with CT. Using coaxial technique, multiple core biopsies were obtained. The postprocedure images show no evidence of significant hemorrhage. IMPRESSION: 1. CT-guided left renal cortex biopsy as described above.
[2017-03-23 20:10] LABS: MEAN CELL VOLUME 83.5 fL (80.0-105.0); MEAN CORPUSCULAR HEMOGLOBIN 27.5 pg (25.0-35.0); MEAN CORPUSCULAR HGB CONC 32.9 g/dl (31.0-37.0); MEAN PLATELET VOLUME 10.2 fl (7.0-11.0); RED CELL DISTRIBUTION WIDTH 16.4 % (11.5-14.5)
[2017-03-23 20:15] LABS: HEMATOCRIT 23.7 % (42.0-52.0)
--- NOTE | 2017-03-23 23:51 | PN ---
DATE: 03/23/2017 ADDENDUM This is an addendum to the GI progress report dictated by Emy Erwin APN. The patient had an upper GI endoscopy done earlier showed a portal gastropathy, had grade I esophageal varices, no active bleeding source noticed. The patient did have a colonoscopy done in 07/2016 and was found to have small polyp in the rectum. and portal colopathy. In view of the significant anemia, it may be reasonable to consider colonoscopic evaluation. We will discuss with Dr. Madrid and Dr. Messina and then consider about scheduling the patient for colonoscopic evaluation. The patient had a CT-guided kidney biopsy today. The patient is on Xifaxan for hepatic encephalopathy. Ascites status post paracentesis. Thank you very much for allowing us to participate in the care of the patient. Pawel Hay MD cc: [id number] TT: 03/23/2017 23:50:45 Confirmation # [id number] Dictation # [id number] MTDD
[2017-03-24 05:54] LABS: ALB/GLOB RATIO 0.9 (1.1-1.8); ALKALINE PHOSPHATASE 93 U/L (38-133); ALT/SGPT 38 U/L (7-56); AST/SGOT 45 U/L (15-59); BILIRUBIN,TOTAL 0.9 mg/dL (0.2-1.3); BLOOD UREA NITROGEN 82 mg/dL (7-21); CALCIUM 8.7 mg/dL (8.4-10.5); CARBON DIOXIDE 20 mmol/L (21-33); CHLORIDE 114 mmol/L (98-107); GFR AFRICAN-AMERICAN 14; GLUCOSE,RANDOM 119 mg/dL (70-110); POTASSIUM 4.1 mmol/L (3.6-5.0); SODIUM 146 mmol/L (132-148)
[2017-03-24 06:02] LABS: HEMATOCRIT 24.7 % (42.0-52.0); MEAN CELL VOLUME 82.6 fL (80.0-105.0); MEAN CORPUSCULAR HEMOGLOBIN 27.1 pg (25.0-35.0); MEAN CORPUSCULAR HGB CONC 32.8 g/dl (31.0-37.0); PLATELET COUNT 90 10^3/uL (120.0-450.0); RED CELL DISTRIBUTION WIDTH 16.2 % (11.5-14.5); WHITE BLOOD COUNT 5.5 10^3/ul (4.5-11.0)
[2017-03-24 06:18] LABS: ADD MANUAL DIFF? YES
[2017-03-24] MEDS: Insulin Reg-LOW-Coverage SC SCH ×4 (08:02→22:22)
[2017-03-24 08:30] LABS: ANISOCYTOSIS 1+; HYPOCHROMIA 2+; MICROCYTOSIS 1+; NEUTROPHIL 94 % (50.0-70.0); OVALOCYTES SLIGHT; PLATELET ESTIMATE LOW (NORMAL); POLYCHROMASIA SLIGHT
[2017-03-24] MEDS: methylPREDNISolone 500 MG in Sodium Chloride 0.9% 100 ML IVPB SCH (10:26)
--- NOTE | 2017-03-24 12:30 | CP.PCM.PN ---
Subjective - Date & Time of Evaluation Date of Evaluation: 03/24/17 Time of Evaluation: 12:25 - Subjective Subjective: seen and examined feels ok no n/v Objective - Vital Signs/Intake and Output Vital Signs (last 24 hours): Temp Pulse Resp BP Pulse Ox 98.2 F 41 L 76 H 143/64 98 03/24/17 04:00 03/24/17 10:28 03/24/17 06:03 03/24/17 10:28 03/24/17 05:00 Intake and Output: 03/24/17 03/24/17 06:59 18:59 Intake Total 483 Output Total 450 Balance 33 - Medications Medications: Current Medications Amlodipine Besylate (Norvasc) 10 mg PO DAILY [facility] Last Admin: 03/24/17 10:27 Dose: 10 mg Furosemide (Lasix) 40 mg IVP BID [facility] Last Admin: 03/24/17 10:28 Dose: 40 mg Heparin Sodium (Porcine) (Heparin) 5,000 units SC Q12 LEIGHANN PRN Reason: Protocol Last Admin: 03/24/17 10:28 Dose: 5,000 units Hydralazine HCl (Apresoline) 10 mg IVP Q6 PRN PRN Reason: Systolic Blood Pressure Last Admin: 03/21/17 18:45 Dose: 10 mg Iron Sucrose 100 mg/ Sodium (Chloride) 105 mls @ 210 mls/hr IVPB DAILY [facility] Stop: 03/27/17 10:01 Last Admin: 03/24/17 10:26 Dose: 210 mls/hr Insulin Human Regular (Humulin R Low) 0 units SC ACHS LEIGHANN PRN Reason: Protocol Last Admin: 03/24/17 08:02 Dose: Not Given Lactulose (Enulose) 20 gm PO BID [facility] Last Admin: 03/22/17 10:51 Dose: 20 gm Pantoprazole Sodium (Protonix Inj) 40 mg IVP DAILY [facility] Last Admin: 03/24/17 10:29 Dose: 40 mg Propranolol HCl (Inderal) 5 mg PO DAILY [facility] Last Admin: 03/24/17 10:28 Dose: Not Given Rifaximin (Xifaxan) 550 mg PO BID [facility] PRN Reason: Protocol Last Admin: 03/24/17 10:27 Dose: 550 mg Sodium Bicarbonate (Sodium Bicarbonate Tab) 1,300 mg PO TID [facility] Last Admin: 03/24/17 10:27 Dose: 1,300 mg - Labs Labs: 03/24/17 05:00 03/24/17 05:00 PT 14.0 Seconds (9.9-11.8) H 03/21/17 07:10 INR 1.30 (0.93-1.08) H 03/21/17 07:10 APTT 31.1 Seconds (23.7-30.8) H 03/21/17 07:10 - Constitutional Appears: Non-toxic - Head Exam Head Exam: ATRAUMATIC - Eye Exam Eye Exam: Normal appearance - ENT Exam ENT Exam: Normal Exam - Neck Exam Neck Exam: Normal Inspection - Respiratory Exam Respiratory Exam: NORMAL BREATHING PATTERN - Cardiovascular Exam Cardiovascular Exam: +S1, +S2 - GI/Abdominal Exam Additional comments: distneded no r/g - Extremities Exam Additional comments: no edema - Neurological Exam Neurological Exam: Alert, Oriented x3 - Psychiatric Exam Psychiatric exam: Normal Affect - Skin Skin Exam: Normal Color Assessment and Plan - Assessment and Plan (Free Text) Assessment: IMP: Non-oliguric Acute Kidney Injury (N17.9) etiology unclear - concerning for possible Gn given active sediment and low level proteinuria - Unusual to see hypocomplementemia in anca related disease - however may have low complement from cirrhosis as well. AIN also possiblity or other immune complex GN given other autoimmune features like vitiligo. NAGMA (likely due to KELLI) Microscopic hematuria Chronic Kidney Disease Stage 3 (N18.3) with 638 mg proteinuria likely due to KELLI in 2016 Anemia (D64.9), HTN (I12.9), eosinophilia cirrhosis, CAD, ascites s/p paracentesis Plan Will f/u on renal biopsy results should be in sunday for now empiric treatment for RPGN w/ pulse steroids over the weekend not uremic electrolytes stable - no need for RECEIVER STOCKER at this time [facility] gi continue to workup alternative autoimmune causes of the liver dysfunction as some autoimmune gi disease like primary sclerosing cholangitis, autoimmune hepatitis may be associated w/ false + anca's. s/p aranesp and iv iron will hold lasix for now continue na bicarb case discussed w/ nursery helper
--- NOTE | 2017-03-24 13:07 | PN ---
DATE: 03/24/2017 I saw him in bed, resting comfortably. He had a biopsy of his kidney. He has multiple issues, acute renal failure, coronary artery disease, CVA, hypertension, anemia, cirrhosis. PHYSICAL EXAMINATION: VITAL SIGNS: 98.2 temp, 47 pulse, 136/67 blood pressure, 98% O2 sat on oxygen. HEENT: Head is atraumatic, normocephalic. HEART: Regular rate. LUNGS: Clear to auscultation. Absent breath sounds in the bases. ABDOMEN: He has got moderate ascites in the belly. EXTREMITIES: +1 pitting edema. MEDICATIONS: He is currently on Apresoline, Enulose, heparin, insulin, Inderal, iron, Lasix, Norvasc , Protonix, sodium bicarb, rifaximin. LABORATORY DATA: He has a 146 sodium, potassium 4.1, BUN 82, creatinine 5.1, GFR is 11, sugar is 119 , calcium is 8.7, total bili is 0.9, AST is 45, ALT is 30, alk phos 93, total protein 6. White count 5.5, hemoglobin 8.1, hematocrit 24.7, platelets over 90. He is being seen by GI, renal, interventional radiologist, cardiology, the supervisor riveting. He has multi ple issues. Will see what the biopsy report states. We will continue with aggressive treatment and care. We will check his labs tomorrow. Froilan De Leon DO cc: [id number] TT: 03/24/2017 13:06:45 Confirmation # [id number] Dictation # [id number] luis f
--- NOTE | 2017-03-24 14:35 | PN ---
DATE: 03/24/2017 SUBJECTIVE: The patient was interviewed today via his daughter as a coater carbon paper. The patient denies chest pain or shortness of breath at this time. PHYSICAL EXAMINATION: VITAL SIGNS: Blood pressure 112/73, heart rate 78, temperature 98.2, respirations 15. HEENT: Pale conjunctivae. CHEST: Diminished breath sounds over the bases. HEART: S1, S2 regular. ABDOMEN: Mild ascites. EXTREMITIES: 1+ edema. LABORATORIES: Hemoglobin and hematocrit 8.1 and 27.4. White count and platelet count are 5.5 and 90 ,000. SMA-7: Sodium 146, potassium 4.1, chloride 114, CO2 20, glucose 119, BUN 82, creatinine of 5. 1. Urine drug screen is negative. Rheumatoid factor is high at 21 and SAEED screen is negative. ASSESSMENT: 1. Abnormal EKG with evidence of anterior and lateral infarcts of indeterminate age. 2. Renal insufficiency. 3. Liver cirrhosis. 4. Portal hypertension and ascites, status post abdominal paracentesis. 5. Anemia and thrombocytopenia. RECOMMENDATIONS: I did review the nephrology evaluation and plan. For now, he suggested empiric pul sed steroid over the weekend and evaluating the patient for primary sclerosing cholangitis or autoimm une hepatitis. I recommend continuation of hydralazine 10 mg IV p.r.n. q. 6 hours, lactulose 20 mg t wice a day, heparin 5000 units subcutaneous twice a day, Inderal at 5 mg daily, Norvasc at 10 mg once a day, Protonix at 40 mg once a day. The patient will be transferred to telemetry. Tien Marshall MD cc: [id number] TT: 03/24/2017 14:35:07 Confirmation # [id number] Dictation # [id number] elijah
--- NOTE | 2017-03-24 23:12 | PN ---
DATE: 03/24/2017 SUBJECTIVE: This patient was seen and evaluated earlier. The patient has been moving his bowels. N o bleeding. No abdominal pain. Feels overall much better than before. PHYSICAL EXAMINATION: VITAL SIGNS: His temperature is 98.3, blood pressure 110/64, pulse is 72, respirations 18. HEENT: Atraumatic, anicteric. NECK: Supple. HEART: S1, S2 heard. LUNGS: Bilateral air entry present. ABDOMEN: Softly distended. Bowel sounds are present. LABORATORY DATA: Hemoglobin 8.1, hematocrit 24.7, WBC 5.5, platelets 90,000. Chemistry: BUN is 32, creatinine 5.1. IMPRESSION: This is a 66-year-old patient with: 1. Cirrhosis of the liver, decompensated, admitted with worsening renal failure and anemia. The pat ient had a questionable dark stool. History of dark stools at home. The patient had an endoscopy do that showed only grade I varices and portal gastropathy. The patient did have a colonoscopy done in July and found to have a small polyp and also . The plan is to consider repeating the col onoscopy and polypectomy. 2. Decompensated cirrhosis, ascites, refractory, status post large volume paracentesis. 3. History of hepatic encephalopathy on Xifaxan. 4. Acute kidney injury on the top of chronic kidney disease, status post kidney biopsy. The plan is to follow up the hemoglobin and hematocrit. Will discuss with the medical team regarding the timing of the colonoscopic evaluation. Will also di scuss with renal before starting the preparation. Thank you very much for allowing us to participate in the care of the patient. Pawel Hay MD cc: [id number] TT: 03/24/2017 23:12:15 Confirmation # [id number] Dictation # [id number] maribell
[2017-03-25 07:49] LABS: ADD MANUAL DIFF? NO
[2017-03-25 08:23] LABS: ALB/GLOB RATIO 0.9 (1.1-1.8); CALCIUM 8.4 mg/dL (8.4-10.5); POTASSIUM 3.5 mmol/L (3.6-5.0); TOTAL PROTEIN 6.4 g/dL (5.8-8.3)
[2017-03-25] MEDS: Insulin Reg-LOW-Coverage SC SCH ×4 (08:35→22:15)
[2017-03-25 08:36] LABS: GRAN # 5.46 (1.4-6.5); GRAN % 94.4 % (50.0-68.0); HEMATOCRIT 26.5 % (42.0-52.0); LYMPH # 0.2 (1.2-3.4); LYMPH % 4.2 % (22.0-35.0); MEAN CORPUSCULAR HEMOGLOBIN 26.9 pg (25.0-35.0); MEAN CORPUSCULAR HGB CONC 32.8 g/dl (31.0-37.0); MONO # 0.1 (0.1-0.6); MONO % 1.4 % (1.0-6.0); PLATELET COUNT 90 10^3/uL (120.0-450.0); RED CELL DISTRIBUTION WIDTH 15.9 % (11.5-14.5); WHITE BLOOD COUNT 5.8 10^3/ul (4.5-11.0)
[2017-03-25] MEDS: Potassium Chloride 20 mEq ER Tab PO SCH (08:36)
--- NOTE | 2017-03-25 10:50 | PN ---
DATE: 03/25/2017 I see him sitting up in bed, trying to eat his breakfast. He is comfortable. He is telling me that the bag on the right side is leaking a little bit. I discussed that with the nurse to help that. He has multiple issues from acute renal failure, coronary artery disease, hypertension, cirrhosis of th e liver, also possible autoimmune disease, possible primary sclerosing cholangitis or autoimmune hepa titis. PHYSICAL EXAMINATION: VITAL SIGNS: Today are 98.2 temp, 66 pulse, 119/56 blood pressure, 20 respiratory rate, 94% O2 sat o n room air. HEAD: Atraumatic, normocephalic. Throat is moist. NECK: Supple. HEART: Regular rate. LUNGS: Decreased breath sounds but clear. ABDOMEN: Soft, obese, nontender. He has a bag on the right side. EXTREMITIES: Trace edema. MEDICATIONS: He is on Apresoline IV, Enulose, heparin, insulin, Inderal, iron IV, Norvasc, Protonix IV, sodium bicarbonate, and rifaximin. LABORATORY DATA: Blood tests are 133 blood sugar. His CBC is pending. Yesterday was a 5.5 white co unt, 8.1 hemoglobin and 90 platelets. We will check it to see if the hemoglobin improves. He has a chemistry that is pending. Sodium 146 yesterday, BUN 82, creatinine 5.1, elevated. Sugar is 119. He has multiple physicians seeing him, GI, cardio, renal. He has multiple issues. We will continue aggressive treatment and care as per the specialists covering for Dr. Madrid. We will check his la bs tomorrow. Froilan De Leon DO cc: [id number] TT: 03/25/2017 10:49:47 Confirmation # [id number] Dictation # [id number] mn
--- NOTE | 2017-03-25 13:45 | PN ---
DATE: 03/25/2017 The patient denies chest pain or shortness breath. PHYSICAL EXAMINATION: VITAL SIGNS: Blood pressure 151/67, heart rate 56, temperature 97.8, respirations 19. HEENT: Pale conjunctivae. CHEST: Clear. HEART: S1, S2 regular. ABDOMEN: Mild ascites. EXTREMITIES: No edema. LABORATORIES: Hemoglobin and hematocrit 8.7 and 26.5, white count and platelet count 5.8 and 90,000. SMA-7: Sodium 143, potassium 3.5, chloride 111, CO2 of 19, glucose 111, BUN 98, creatinine 5.0. ASSESSMENT: 1. Abnormal EKG with evidence for old anterior and lateral infarcts of indeterminate age. 2. Renal insufficiency. 3. Liver cirrhosis. 4. Portal hypertension and ascites status post pericardiocentesis. 5. Anemia and thrombocytopenia. RECOMMENDATIONS: Continue Inderal at 5 mg daily, subcutaneous heparin 5000 units q. 12 hours, IV hyd ralazine 10 mg q. 6 hours p.r.n. Continue K-Dur at 20 mEq daily, Norvasc 10 mg once a day, Protonix at 40 mg once a day and oral sodium bicarbonate 1300 mg t.i.d. Tien Marshall MD cc: [id number] TT: 03/25/2017 13:44:47 Confirmation # [id number] Dictation # [id number] dn
--- NOTE | 2017-03-25 16:19 | PN ---
DATE: 03/25/2017 SUBJECTIVE: This patient was seen and evaluated earlier today. [facility] PHYSICAL EXAMINATION: VITAL SIGNS: The patient is afebrile, pulse 59, blood pressure 151/77. HEENT: Atraumatic, anicteric. NECK: Supple. HEART: S1, S2 heard. LUNGS: Bilateral air entry present, slightly reduced in the base. ABDOMEN: Softly distended. Ascites present. EXTREMITIES: Mild edema present. Has no cyanosis. LABORATORY DATA: Hemoglobin 8.7, hematocrit 26.7, WBC 5.8, platelets 90,000. Creatinine 5.0, BUN 98 , potassium 3.5. IMPRESSION: A 66-year-old patient with cirrhosis. The patient has cirrhosis, admitted for worsening of the renal function and anemia, status post a kidney biopsy yesterday. His hemoglobin has been st able. Questionable history of dark stool before the admission. No further episodes of bleeding. A r epeat endoscopy revealed only grade I esophageal varices and portal gastropathy. Colonoscopy done la revealed small polyp in the rectum, otherwise portal gastropathy and hemorrhoids. The concer n is repeating the colonoscopy. The patient also has a thrombocytopenia, ascites, status post parace ntesis. I did have a detailed discussion with the patient's daughter and the patient again today. T luis are also concerned about the colonoscopy. We will discuss with Dr. Johnson and also we will dis cuss with the primary medical team and also with renal prior to proceeding with the colonoscopy prepa ration. The patient does had desaturation in the past. We will continue to closely follow up his ca re and suggest other management based on the clinical course. Pawel Hay MD cc: [id number] TT: 03/25/2017 16:18:32 Confirmation # [id number] Dictation # [id number] lauren
[2017-03-26 07:04] LABS: HEMATOCRIT 26.1 % (42.0-52.0); MEAN CELL VOLUME 82.6 fL (80.0-105.0); MEAN CORPUSCULAR HEMOGLOBIN 27.8 pg (25.0-35.0); MEAN CORPUSCULAR HGB CONC 33.7 g/dl (31.0-37.0); PLATELET COUNT 97 10^3/uL (120.0-450.0); RED CELL DISTRIBUTION WIDTH 15.5 % (11.5-14.5); WHITE BLOOD COUNT 6.1 10^3/ul (4.5-11.0)
[2017-03-26 07:12] LABS: ALB/GLOB RATIO 0.9 (1.1-1.8); BILIRUBIN,TOTAL 1.2 mg/dL (0.2-1.3); CALCIUM 8.6 mg/dL (8.4-10.5); POTASSIUM 3.9 mmol/L (3.6-5.0); TOTAL PROTEIN 6.2 g/dL (5.8-8.3)
[2017-03-26] MEDS: Insulin Reg-LOW-Coverage SC SCH ×4 (08:01→22:50)
[2017-03-26] MEDS: Potassium Chloride 20 mEq ER Tab PO SCH (08:43)
--- NOTE | 2017-03-26 11:38 | PN ---
DATE: 03/26/2017 The patient is in bed, sitting up, without shortness of breath. The patient is feeling well. PHYSICAL EXAMINATION: VITAL SIGNS: Blood pressure varies from 129-154 systolic, heart rate is in the 60s. NECK: Negative JVD. LUNGS: Without rales. HEART: Revealed S1, S2. EXTREMITIES: Without edema. Hemoglobin is 8.8. Chemistries: BUN and creatinine is 113 and 4.7. LFTs remain elevated. IMPRESSION: 1. End-stage renal disease. 2. Cirrhosis. 3. Portal hypertension. 4. Ascites. 5. Anemia. 6. Thrombocytopenia. Given these findings, the patient's multiple organ issues makes his prognosis poor. However, there a re no cardiac arrhythmias, no cardiac issues at the moment. His last echocardiogram shows an ejection fraction of 50%. We will discontinue telemetry today. Vitaly You MD cc: [id number] TT: 03/26/2017 11:37:35 Confirmation # [id number] Dictation # [id number] en
--- NOTE | 2017-03-26 11:44 | CP.PCM.PN ---
Subjective - Date & Time of Evaluation Date of Evaluation: 03/26/17 Time of Evaluation: 11:36 - Subjective Subjective: Follow up Nephrology Consultation: Assessment: Non-oliguric Acute Kidney Injury (N17.9) etiology unclear. concern for AIN ( eosinophilia + eosinophiluria + rash) versus glomerulonephritis (?MPGN). also with low complements and MPO ANCA + NAGMA (likely due to KELLI) Microscopic hematuria Chronic Kidney Disease Stage 3 (N18.3) with 638 mg proteinuria likely due to KELLI in 2016 Anemia (D64.9), HTN (I12.9), eosinophilia cirrhosis, CAD, ascites s/p paracentesis Plan kidney biopsy results pending, called [facility] path, anticipate to get some prelim results today afternoon. s/p empiric solumedrol 500 mg daily x 3 doses. further treatment depending upon the Bx results. . started IV iron and dosed with Aranesp. can supplement KDUR prn No acute need for renal replacement therapy at this time. his rise in BUN could be due to steroids, some blood loss in GI tract and of course some contribution by renal insuff. continue with sodium bicarb 1300 mg TID Hypertension control with meds as ordered. Patient not on ACEI/ARB due to KELLI. Hold aldactone as well continue with norvasc 10 mg/day Monitor Input/Output, daily weights and renal function with basic metabolic panel GI work up for anemia. Stable for colonoscopy from renal perspective. Dose meds/antibiotics for reduced GFR <10. Avoid fleets enema/magnesium based laxatives. Avoid nephrotoxins/NSAIDs/iodinated contrast (unless needed emergently) Glycemic control Further work up/management of anemia, ascites as per primary team Thanks for allowing me to participate in care of your patient. Will follow patient with you. Please call if any Qs. Dr Paco Cadet Office: [phone] Chief Complaint; none today Reason for consult: KELLI HPI: Pt is a 66 y/o M with hx of cirrhosis, hypertension ( x 15 years), DM, CAD , had KELLI in 2016 with peaked creatinine 5.3 due to sepsis which got better but resulted on CKD 3 with baseline cr 1.3-1.5, ex smoker presented with complaints of abdomen distension due to ascites and found to have KELLI with creatinine 4.9 hence renal consult was requested. No OTC/herbal meds or NSAIDs No recent iodinated contrast exposure. No obvious episodes of low BP. ROS: denies CP/SOB/nausea/vomitting. no urine complaint Physical Examination: General Appearance: Comfortable, in no acute respiratory distress, co-operative . Vitals reviewed and noted as below Lungs: Normal respiratory rate/effort. Breath sounds bilateral equal and clear Heart: Normal rate. s1s2 normal. No rub or gallop. Extremities: 1+ leg edema. No varicose veins Neurological: Patient is alert, awake and oriented to person, place and time. No focal deficit. Strength bilateral appropriate and equal. no asterixis Skin: Warm and dry. Normal turgor. rash on thighs which is resolving. Palpitation: Normal elasticity for age. has hypopigmented patches in hand Abdomen: Abdomen is soft. Bowel sounds +. There is no abdominal tenderness, no guarding/rigidity no organomegaly. has ascitic abdomen Psych: normal insight and normal affect/mood MSK: no joint tenderness or swelling. Digits and nails normal, no deformity : kidney/bladder not palpable. Labs/imaging/EKG reviewed. Past medical history, past surgical history, family history, social history, allergy reviewed Alb 2.4 BNP 3160 ammonia 63 UA trace protein with large blood and RBC ++ Urine Na 48 FeNa 7% chronic peripheral eosinophilia 6% TSAT 11% vbg pH 7.24 CXR: cardiomegaly Hep B/C and HIV negative in 2016 CT abdomen: punctate calcifications otherwise unremarkable kidney. LVEF normal UA done by me 03/21/17: numerous WBC with WBC casts and numerous RBCs with probably few dysmorphic too TSAT 11% Ferriitin 54 c3: 50 c4 <8 SAEED neg RA factor neg MPO ANCA + Objective - Vital Signs/Intake and Output Vital Signs (last 24 hours): Temp Pulse Resp BP Pulse Ox 97.9 F 60 20 154/71 H 97 03/26/17 05:43 03/26/17 05:43 03/26/17 05:43 03/26/17 05:43 03/26/17 05:43 - Medications Medications: Current Medications Amlodipine Besylate (Norvasc) 10 mg PO DAILY [facility] Last Admin: 03/26/17 10:15 Dose: 10 mg Heparin Sodium (Porcine) (Heparin) 5,000 units SC Q12 [facility] PRN Reason: Protocol Last Admin: 03/26/17 10:14 Dose: 5,000 units Hydralazine HCl (Apresoline) 10 mg IVP Q6 PRN PRN Reason: Systolic Blood Pressure Last Admin: 03/21/17 18:45 Dose: 10 mg Iron Sucrose 100 mg/ Sodium (Chloride) 105 mls @ 210 mls/hr IVPB DAILY [facility] Stop: 03/27/17 10:01 Last Admin: 03/26/17 10:09 Dose: 210 mls/hr Insulin Human Regular (Humulin R Low) 0 units SC ACHS LEIGHANN PRN Reason: Protocol Last Admin: 03/26/17 08:01 Dose: Not Given Lactulose (Enulose) 20 gm PO BID [facility] Last Admin: 03/22/17 10:51 Dose: 20 gm Pantoprazole Sodium (Protonix Inj) 40 mg IVP DAILY [facility] Last Admin: 03/26/17 10:15 Dose: 40 mg Polyethylene Glycol/Electrolytes (Golytely) 4,000 ml PO ONCE ONE Stop: 03/26/17 15:01 Potassium Chloride (K-Dur 20 Meq Er Tab) 20 meq PO BRK [facility] Last Admin: 03/26/17 08:43 Dose: 20 meq Propranolol HCl (Inderal) 5 mg PO DAILY [facility] Last Admin: 03/24/17 10:28 Dose: Not Given Rifaximin (Xifaxan) 550 mg PO BID [facility] PRN Reason: Protocol Last Admin: 03/26/17 10:16 Dose: 550 mg Sodium Bicarbonate (Sodium Bicarbonate Tab) 1,300 mg PO TID [facility] Last Admin: 03/26/17 10:15 Dose: 1,300 mg - Labs Labs: 03/26/17 05:30 03/26/17 05:30 PT 14.0 Seconds (9.9-11.8) H 03/21/17 07:10 INR 1.30 (0.93-1.08) H 03/21/17 07:10 APTT 31.1 Seconds (23.7-30.8) H 03/21/17 07:10
--- NOTE | 2017-03-26 13:17 | PN ---
DATE: 03/26/2017 Seen and examined at the bedside earlier this morning. No acute overnight events reported. The clyde ent denies any nausea, vomiting, abdominal pain. He is eating breakfast and tolerating. No reports of overt GI bleed. VITAL SIGNS: Temperature is 97.9, blood pressure 154/71, pulse 60, respirations 20, 97 room air. LABORATORY DATA: WBC 6.1, H and H are 8.1 and 26.1, platelets are 97. Sodium 145, K 3.9, BUN 113, c reatinine is 4.7. Total bilirubin is 1.2, AST 89, ALT 67, alk phos is 126. His AST and ALT are mild ly elevated again today. PHYSICAL EXAMINATION: HEENT: Sclerae are anicteric. NECK: Supple. CARDIAC: S1, S2. LUNGS: Decreased breath sounds at the bases, but good air entry. ABDOMEN: With bowel sounds, softly distended, positive for ascites. EXTREMITIES: With bilateral edema, no calf tenderness. NEUROLOGIC: Awake, alert, and oriented. ASSESSMENT: This is a 66-year-old male with decompensated liver cirrhosis, status post paracentesis. He came in with acute worsening renal functions as well as anemia. He is status post blood transfu brianna. He had a kidney biopsy done. So far, his hemoglobin and hematocrit have been stable. He went for a repeat endoscopy on this admission which was found to have grade I esophageal varices and port al gastropathy. His last colonoscopy was about a year and found to have small polyps in the rectum. The patient with thrombocytopenia, history of diabetes mellitus. PLAN: We will prep patient for colonoscopy. He will be placed on clear liquid diet and he will have GoLYTELY prep this afternoon. Continue the Xifaxan. He is receiving IV iron supplements. He is on heparin for DVT prophylaxis. NPO after midnight except meds. We will repeat his labs in the a.m. T he patient was seen and case discussed with Dr. Hay. Emy Breweres ERICK cc: [id number] TT: 03/26/2017 13:15:56 Confirmation # [id number] Dictation # [id number] mn
[2017-03-26 14:15] LABS: INR 1.41 (0.93-1.08)
[2017-03-26] MEDS ORDERED: Peg-Electrolyte Oral Soln 4L (Golytely) PO ONE (15:00)
--- NOTE | 2017-03-26 17:30 | CP.PCM.PN ---
Subjective - Date & Time of Evaluation Date of Evaluation: 03/26/17 Time of Evaluation: 09:15 - Subjective Subjective: Medicine progress note for Dr. Madrid/Dr. Johnson service Patient seen and examined at bedside. Today is hospital day 7. No acute events overnight. S/p renal biopsy, pending official pathology report. Patient denies acute complaints today, denies chest pain, shortness of breath, pain with breathing, abdominal pain, nausea, emesis, or gait instability ( reports walking the room without difficulties). Objective - Vital Signs/Intake and Output Vital Signs (last 24 hours): Temp Pulse Resp BP Pulse Ox 97.6 F 59 L 20 140/73 97 03/26/17 12:00 03/26/17 12:00 03/26/17 12:00 03/26/17 12:00 03/26/17 05:43 - Medications Medications: Current Medications Amlodipine Besylate (Norvasc) 10 mg PO DAILY [facility] Last Admin: 03/26/17 10:15 Dose: 10 mg Heparin Sodium (Porcine) (Heparin) 5,000 units SC Q12 KONG PRN Reason: Protocol Last Admin: 03/26/17 10:14 Dose: 5,000 units Hydralazine HCl (Apresoline) 10 mg IVP Q6 PRN PRN Reason: Systolic Blood Pressure Last Admin: 03/21/17 18:45 Dose: 10 mg Iron Sucrose 100 mg/ Sodium (Chloride) 105 mls @ 210 mls/hr IVPB DAILY [facility] Stop: 03/27/17 10:01 Last Admin: 03/26/17 10:09 Dose: 210 mls/hr Insulin Human Regular (Humulin R Low) 0 units SC ACHS [facility] PRN Reason: Protocol Last Admin: 03/26/17 16:40 Dose: Not Given Lactulose (Enulose) 20 gm PO BID [facility] Last Admin: 03/22/17 10:51 Dose: 20 gm Pantoprazole Sodium (Protonix Inj) 40 mg IVP DAILY [facility] Last Admin: 03/26/17 10:15 Dose: 40 mg Prednisone (Prednisone Tab) 60 mg PO DAILY [facility] Propranolol HCl (Inderal) 5 mg PO DAILY [facility] Last Admin: 03/24/17 10:28 Dose: Not Given Rifaximin (Xifaxan) 550 mg PO BID [facility] PRN Reason: Protocol Last Admin: 03/26/17 10:16 Dose: 550 mg Sodium Bicarbonate (Sodium Bicarbonate Tab) 1,300 mg PO TID KONG Last Admin: 03/26/17 13:21 Dose: 1,300 mg - Labs Labs: 03/26/17 05:30 03/26/17 05:30 PT 15.2 Seconds (9.9-11.8) H 03/26/17 14:00 INR 1.41 (0.93-1.08) H 03/26/17 14:00 APTT 31.1 Seconds (23.7-30.8) H 03/21/17 07:10 - Constitutional Appears: Well, Non-toxic, No Acute Distress - Head Exam Head Exam: ATRAUMATIC, NORMAL INSPECTION, NORMOCEPHALIC - Eye Exam Eye Exam: EOMI, Normal appearance. absent: Conjunctival injection, Scleral icterus Pupil Exam: absent: Irregular, Unequal - ENT Exam ENT Exam: Mucous Membranes Moist - Neck Exam Neck Exam: Full ROM - Respiratory Exam Respiratory Exam: Clear to Ausculation Bilateral, NORMAL BREATHING PATTERN. absent: Accessory Muscle Use, Chest Wall Tenderness, Decreased Breath Sounds, Rales, Rhonchi, Wheezes - Cardiovascular Exam Cardiovascular Exam: REGULAR RHYTHM, RRR, +S1, +S2. absent: Bradycardia, Tachycardia, Irregular Rhythm, +S4 - GI/Abdominal Exam GI & Abdominal Exam: Soft, Normal Bowel Sounds. absent: Distended, Firm, Rigid , Tenderness - Extremities Exam Extremities Exam: Pedal Edema (+1 pitting edema from foot to mid gutierrez bilaterally). absent: Calf Tenderness Additional comments: skin depigmentation intermittently along bilateral hands Gross ROM intact in all extremities Unable to palpate LE distal pulses, +1 radials bilaterally - Back Exam Back Exam: absent: paraspinal tenderness, rash noted - Neurological Exam Neurological Exam: Alert, Awake, Normal Gait - Psychiatric Exam Psychiatric exam: Normal Affect, Normal Mood - Skin Skin Exam: Dry, Intact, Warm Additional comments: Skin and color changes consistent with venous insufficiency in bilateral LE ( waxy skin, scattered dark pigmentation) Intermittent patches of depigmentation along bilateral hands Assessment and Plan - Assessment and Plan (Free Text) Assessment: This is a 66 yo M with PMH of cirrhosis, chronic kidney disease, HTN, and CAD who presented with complaint of abdominal distention, was admitted for acute on chronic kidney injury, acute anemia, and acute decompensated liver cirrhosis, and later developed findings concerning for AIN vs Glomerulonephritis. 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 Cadet) consulted, appreciate all recs 2) Acute anemia -Hgb 7.4 on presentation, hgb 8.7 s/p 2u pRBC transfusion, 8.8 today -Patient started on propranolol, nonselective beta maurice per GI recommendations given history of esophageal varices -No overt signs of bleeding, on IV iron as per Nephro -Endoscopy did not reveal any source of bleeding or stigmata of bleeding, only grade 1 esophageal varices and portal gastropathy -Patient scheduled for colonoscopy on tomorrow -GI consulted - Dr. Hay 3) Acute decompensated liver cirrhosis -MELD-Na score of 24 on admission -Lactulose 20gm BID currently held due to complaints of copious bowel movements -Continue with xifaxin 550mg PO BID for prevention of hepatic encephalopathy -Endoscopy from 11/13/16 reviewed; revealed grade I esophageal varices, portal hypertensive gastropathy and gastritis -Abdominal pressure measured and noted to be 15mmHg which rules out abdominal compartment syndrome -Patient underwent paracentesis and had 1300cc of clear straw-colored fluid removed; notable for 231 RBCs, 103 WBCs, 13.6 Neutrophils, 86.4 Lymphocytes, 27.0 lipase, and 0.5 albumin -Abdominal doppler negative for portal vein thrombosis and hepatic artery thrombosis, patent flow noted -GI consulted - Dr. Hay -IR consulted for paracentesis - Dr. Sylvester 4) Thrombocytopenia -Patient platelets stable at 97 (90 yesterday); will continue to monitor -Hematology (Dr. Toledo) consulted, appreciate all recs; 5) Hypertension -Continue amlodipine kong, hydralazine PRN Dispo: Telemetry d/c'ed per Cardio, transferred to Med/Surg, pending further pathology as per Nephro, starting on oral steroids for AIN, pending colonoscopy FEN: Liquid diet with Go Lytely prep, NPO after midnight for colonoscopy tomorrow AM Access: Peripheral IV Consults: GI, Cardio, Nephro, IR (paracentesis and IR biopsy), Heme-onc Ppx: Protonix for GI, Heparin for DVT Patient seen and discussed with attending, Dr. Madrid.
--- NOTE | 2017-03-26 20:18 | PN ---
DATE: 03/26/2017 ADDENDUM SUBJECTIVE: This patient was seen and evaluated earlier. The patient is comfortable. No complaints of any abdominal pain. This is an addendum to the . The patient has scheduled followup colonoscopy in a.m. tomorrow. Thank you very much for allowing us to participate in the care of the patient. Pawel Hay MD cc: [id number] TT: 03/26/2017 20:17:22 Confirmation # [id number] Dictation # [id number] dn
[2017-03-27 07:16] LABS: ADD MANUAL DIFF? NO
[2017-03-27 07:27] LABS: GRAN % 90.7 % (50.0-68.0); HEMATOCRIT 27.4 % (42.0-52.0); LYMPH # 0.3 (1.2-3.4); LYMPH % 5.8 % (22.0-35.0); MEAN CELL VOLUME 82.3 fL (80.0-105.0); MEAN CORPUSCULAR HEMOGLOBIN 27.6 pg (25.0-35.0); MEAN CORPUSCULAR HGB CONC 33.6 g/dl (31.0-37.0); MONO # 0.2 (0.1-0.6); MONO % 3.5 % (1.0-6.0); PLATELET COUNT 88 10^3/uL (120.0-450.0); RED CELL DISTRIBUTION WIDTH 15.7 % (11.5-14.5); WHITE BLOOD COUNT 4.5 10^3/ul (4.5-11.0)
[2017-03-27 07:30] LABS: INR 1.44 (0.93-1.08)
[2017-03-27] MEDS: Insulin Reg-LOW-Coverage SC SCH ×4 (07:30→23:00)
[2017-03-27 07:36] LABS: ALB/GLOB RATIO 0.9 (1.1-1.8); BILIRUBIN,TOTAL 1.6 mg/dL (0.2-1.3); CALCIUM 8.8 mg/dL (8.4-10.5); POTASSIUM 3.8 mmol/L (3.6-5.0); TOTAL PROTEIN 6.1 g/dL (5.8-8.3)
[2017-03-27] MEDS ORDERED: cefTRIAXone 1 gm 1 GM/100 ML BAG IVPB STA (12:09)
--- NOTE | 2017-03-27 13:23 | CP.PCM.PN ---
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 Mediastinal and upper abdomen lymphadenopathy NAGMA (likely due to KELLI) Microscopic hematuria Chronic Kidney Disease Stage 3 (N18.3) with 638 mg proteinuria likely due to KELLI in 2016 Anemia (D64.9), HTN (I12.9), eosinophilia cirrhosis, CAD, ascites s/p paracentesis Plan kidney biopsy final results pending including EM, hope to get some more info on it today. 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 continue with prednisone 60 mg/day for now, he is on PPI already. getting IV iron and dosed with Aranesp on march 22. heme/onc eval for his lymphadenopathy seen on CT requested, in case he is proven to have secondary membranous nephropathy, will need eval for malignancy. had EGD, going for colonoscopy today. had CT chest/abdomen in 2017. No acute need for renal replacement therapy at this time. his rise in BUN could be due to steroids, some blood loss in GI tract and of course some contribution by renal insuff. continue with sodium bicarb 1300 mg TID Hypertension control with meds as ordered. Patient not on ACEI/ARB due to KELLI. Hold aldactone as well continue with norvasc 10 mg/day Monitor Input/Output, daily weights and renal function with basic metabolic panel Dose meds/antibiotics for reduced GFR~15. Avoid fleets enema/magnesium based laxatives. Avoid nephrotoxins/NSAIDs/iodinated contrast (unless needed emergently) Glycemic control Further work up/management of anemia, ascites as per primary team Thanks for allowing me to participate in care of your patient. Please call if any Qs. d/c planning depending upon final bx results, hopefully should be stable for d/c by tomorrow from renal perspective. d/w team Dr Paco Cadet Office: [phone] Chief Complaint; none today Reason for consult: KELLI HPI: Pt is a 66 y/o M with hx of cirrhosis, hypertension ( x 15 years), DM, CAD , had KELLI in 2016 with peaked creatinine 5.3 due to sepsis which got better but resulted on CKD 3 with baseline cr 1.3-1.5, ex smoker presented with complaints of abdomen distension due to ascites and found to have KELLI with creatinine 4.9 hence renal consult was requested. No OTC/herbal meds or NSAIDs No recent iodinated contrast exposure. No obvious episodes of low BP. ROS: denies CP/SOB/nausea/vomitting. no urine complaint. had colonoscopy prep, going for it today. Physical Examination: General Appearance: Comfortable, in no acute respiratory distress, co-operative . Vitals reviewed and noted as below Lungs: Normal respiratory rate/effort. Breath sounds bilateral equal and clear Heart: Normal rate. s1s2 normal. No rub or gallop. Extremities: trace leg edema. No varicose veins Neurological: Patient is alert, awake and oriented to person, place and time. No focal deficit. Strength bilateral appropriate and equal. no asterixis Skin: Warm and dry. Normal turgor. rash on thighs which is resolving. Palpitation: Normal elasticity for age. has hypopigmented patches in hand Abdomen: Abdomen is soft. Bowel sounds +. There is no abdominal tenderness, no guarding/rigidity no organomegaly. has ascitic abdomen Psych: normal insight and normal affect/mood MSK: no joint tenderness or swelling. Digits and nails normal, no deformity : kidney/bladder not palpable. Labs/imaging/EKG reviewed. Past medical history, past surgical history, family history, social history, allergy reviewed Alb 2.4 BNP 3160 ammonia 63 UA trace protein with large blood and RBC ++ Urine Na 48 FeNa 7% chronic peripheral eosinophilia 6% TSAT 11% vbg pH 7.24 CXR: cardiomegaly Hep B/C and HIV negative in 2016 CT abdomen: punctate calcifications otherwise unremarkable kidney. LVEF normal UA done by me 03/21/17: numerous WBC with WBC casts and numerous RBCs with probably few dysmorphic too TSAT 11% Ferriitin 54 c3: 50 c4 <8 SAEED neg RA factor neg MPO ANCA + Objective - Vital Signs/Intake and Output Vital Signs (last 24 hours): Temp Pulse Resp BP Pulse Ox 98.4 F 61 18 154/86 H 95 03/27/17 07:45 03/27/17 10:01 03/27/17 07:45 03/27/17 07:45 03/27/17 07:45 - Medications Medications: Current Medications Amlodipine Besylate (Norvasc) 10 mg PO DAILY [facility] Last Admin: 03/27/17 10:01 Dose: 10 mg Heparin Sodium (Porcine) (Heparin) 5,000 units SC Q12 LEIGHANN PRN Reason: Protocol Last Admin: 03/27/17 10:03 Dose: Not Given Hydralazine HCl (Apresoline) 10 mg IVP Q6 PRN PRN Reason: Systolic Blood Pressure Last Admin: 03/21/17 18:45 Dose: 10 mg Iron Sucrose 100 mg/ Sodium (Chloride) 105 mls @ 210 mls/hr IV DAILY [facility] Stop: 04/01/17 10:16 Last Admin: 03/27/17 10:20 Dose: 210 mls/hr Insulin Human Regular (Humulin R Low) 0 units SC ACHS [facility] PRN Reason: Protocol Last Admin: 03/27/17 11:23 Dose: Not Given Lactulose (Enulose) 20 gm PO BID [facility] Last Admin: 03/22/17 10:51 Dose: 20 gm Pantoprazole Sodium (Protonix Inj) 40 mg IVP DAILY [facility] Last Admin: 03/27/17 09:57 Dose: 40 mg Prednisone (Prednisone Tab) 60 mg PO DAILY [facility] Last Admin: 03/27/17 10:01 Dose: 60 mg Propranolol HCl (Inderal) 5 mg PO DAILY [facility] Last Admin: 03/24/17 10:28 Dose: Not Given Rifaximin (Xifaxan) 550 mg PO BID [facility] PRN Reason: Protocol Last Admin: 03/27/17 10:00 Dose: 550 mg Sodium Bicarbonate (Sodium Bicarbonate Tab) 1,300 mg PO TID [facility] Last Admin: 03/27/17 10:01 Dose: 1,300 mg - Labs Labs: 03/27/17 07:00 03/27/17 07:00 PT 15.5 Seconds (9.9-11.8) H 03/27/17 07:00 INR 1.44 (0.93-1.08) H 03/27/17 07:00 APTT 31.1 Seconds (23.7-30.8) H 03/21/17 07:10
--- NOTE | 2017-03-27 14:54 | CON ---
DATE: 03/27/2017 REASON FOR CONSULTATION: Pancytopenia. HISTORY OF PRESENT ILLNESS: The patient is a 66-year-old male with past medical history significant for multiple medical problems including dilated cardiomyopathy, status post PTCA and stent in the pas t, hypertension, hyperlipidemia and also known cirrhosis including varices as well as hyponatremia, w ho was admitted with complaints of pedal edema, ascites and testicular swelling. There is no active bleeding noted but patient is noted to have anemia as well as thrombocytopenia which is chronic. He has not followed up as an outpatient. I have seen the patient in the past in the hospital. His panc ytopenia is consistent with known chronic liver disease and he likely does need chronic iron suppleme ntation as he does have known cirrhosis and variceal bleeding. PAST MEDICAL HISTORY: Notable for hyperlipidemia, hypertension, known cirrhosis as well as known chr onic pancytopenia. SOCIAL HISTORY: Denies any tobacco use. History of alcohol abuse. FAMILY HISTORY: Noncontributory. REVIEW OF SYSTEMS: As per the HPI. PHYSICAL EXAMINATION: VITAL SIGNS: Reveal a temperature of 98.4, pulse of 61, respiratory rate of 18, and blood pressure 1 54/86. GENERAL: The patient is an elderly pleasant male lying in bed, in no acute distress. HEAD AND NECK: Normocephalic, atraumatic. EYES: Pupils equal, round, reactive to light and accommodation. Extraocular muscles are intact. Th ere is some pallor. No icterus is noted. NECK: Supple with no adenopathy. No JVD, no thyromegaly. LUNGS: Decreased breath sounds bilaterally at bases. CARDIOVASCULAR: S1, S2 is heard. ABDOMEN: Positive bowel sounds, noted ascites. EXTREMITIES: There is bilateral lower extremity edema as well as scrotal edema. LABORATORY DATA: Reveal a white count of 4.5, hemoglobin 9.2, hematocrit 27.4, MCV of 82.3 and a carline telet count of 88,000. White count diff is left shifted. Chemistries reveal a BUN/creatinine of 110 and 4.1. His iron studies are revealing of mild iron deficiency. B12 and folate levels are within normal limits. ASSESSMENT AND PLAN: Elderly male with pancytopenia likely secondary to cirrhosis and known liver di sease. He does have a component of iron deficiency as well as chronic kidney disease. Will need aubrie oing EPO supplements as well as iron supplements. I have discussed this with the patient in the past . Will once again discuss to follow up as an outpatient to continue supplementation. Thank you for the consult. We will follow. Daren Toledo MD cc: [id number] TT: 03/27/2017 14:53:50 Confirmation # [id number] Dictation # [id number] [id number]
[2017-03-27] MEDS ORDERED: Propofol 10 mg/ml Inj (20 ML) ONE (15:02)
[2017-03-27] MEDS ORDERED: cefTRIAXone 1 GM in NS 100 ML BAG IVPB ONE (15:10)
[2017-03-27] MEDS ORDERED: Etomidate 20 mg/10ml Inj IV ONE (15:12)
--- NOTE | 2017-03-27 16:22 | PN ---
DATE: 03/27/2017 CARDIOLOGY FOLLOWUP The patient is undergoing colonoscopy today. No distress noted. PHYSICAL EXAMINATION: VITAL SIGNS: Blood pressure is 140/80. The heart rate is in the 60s. NECK: Negative JVD. LUNGS: Without rales. HEART: Reveals S1, S2. EXTREMITIES: Without change. LABORATORY DATA: Hemoglobin is 9.2. Chemistries are essentially unchanged. IMPRESSION: 1. Multiorgan failure. 2. Improvement of pedal edema. 3. Ascites. 4. Anemia. 5. Thrombocytopenia. The patient is for endo today. His cardiac status is stable. Vitaly You MD cc: [id number] TT: 03/27/2017 14:37:43 Confirmation # [id number] Dictation # [id number]
[2017-03-27] MEDS: Sodium Chloride 0.9% 1,000 ML IV SCH (18:25)
--- NOTE | 2017-03-27 18:38 | CP.PCM.PN ---
Subjective - Date & Time of Evaluation Date of Evaluation: 03/27/17 Time of Evaluation: 07:30 - Subjective Subjective: Medicine progress note for Dr. Madrid/Dr. Johnson service Patient seen and examined at bedside. Today is hospital day 8. No acute events overnight. Still pending Electron Microscope findings from Renal Biopsy. Patient denies acute complaints today, denies chest pain, shortness of breath, pain with breathing, abdominal pain, nausea, emesis, or gait instability (reports walking the room without difficulties). Some abdominal discomfort overnight due to drinking bowel prep for colonoscopy without any bowel movement, but reports resolution of the symptoms with multiple bowel movements this AM. Objective - Vital Signs/Intake and Output Vital Signs (last 24 hours): Temp Pulse Resp BP Pulse Ox 98.4 F 56 L 14 129/58 L 100 03/27/17 16:34 03/27/17 16:34 03/27/17 16:34 03/27/17 16:34 03/27/17 16:34 Intake and Output: 03/27/17 03/27/17 06:59 18:59 Intake Total 50 Balance 50 - Medications Medications: Current Medications Amlodipine Besylate (Norvasc) 10 mg PO DAILY [facility] Last Admin: 03/27/17 10:01 Dose: 10 mg Heparin Sodium (Porcine) (Heparin) 5,000 units SC Q12 KONG PRN Reason: Protocol Last Admin: 03/27/17 10:03 Dose: Not Given Hydralazine HCl (Apresoline) 10 mg IVP Q6 PRN PRN Reason: Systolic Blood Pressure Last Admin: 03/21/17 18:45 Dose: 10 mg Iron Sucrose 100 mg/ Sodium (Chloride) 105 mls @ 210 mls/hr IV DAILY KONG Stop: 04/01/17 10:16 Last Admin: 03/27/17 10:20 Dose: 210 mls/hr Sodium Chloride (Sodium Chloride 0.9%) 1,000 mls @ 100 mls/hr IV .Q10H [facility] Last Admin: 03/27/17 18:25 Dose: 100 mls/hr Insulin Human Regular (Humulin R Low) 0 units SC ACHS KONG PRN Reason: Protocol Last Admin: 03/27/17 16:30 Dose: Not Given Lactulose (Enulose) 20 gm PO BID [facility] Last Admin: 03/22/17 10:51 Dose: 20 gm Pantoprazole Sodium (Protonix Inj) 40 mg IVP DAILY [facility] Last Admin: 03/27/17 09:57 Dose: 40 mg Prednisone (Prednisone Tab) 60 mg PO DAILY [facility] Last Admin: 03/27/17 10:01 Dose: 60 mg Propranolol HCl (Inderal) 5 mg PO DAILY [facility] Last Admin: 03/24/17 10:28 Dose: Not Given Rifaximin (Xifaxan) 550 mg PO BID [facility] PRN Reason: Protocol Last Admin: 03/27/17 18:25 Dose: 550 mg Sodium Bicarbonate (Sodium Bicarbonate Tab) 1,300 mg PO TID [facility] Last Admin: 03/27/17 18:25 Dose: 1,300 mg - Labs Labs: 03/27/17 07:00 03/27/17 07:00 PT 15.5 Seconds (9.9-11.8) H 03/27/17 07:00 INR 1.44 (0.93-1.08) H 03/27/17 07:00 APTT 31.1 Seconds (23.7-30.8) H 03/21/17 07:10 - Additional Findings Additional findings: - Constitutional Well, Non-toxic, No Acute Distress - Head Exam ATRAUMATIC, NORMAL INSPECTION, NORMOCEPHALIC - Eye Exam EOMI, Normal appearance. absent: Conjunctival injection, Scleral icterus, Irregular/Unequal Pupils - ENT Exam Mucous Membranes Moist - Neck Exam Full ROM - Respiratory Exam Clear to Ausculation Bilateral, NORMAL BREATHING PATTERN. absent: Accessory Muscle Use, Chest Wall Tenderness, Decreased Breath Sounds, Rales, Rhonchi, Wheezes - Cardiovascular Exam REGULAR RHYTHM, RRR, +S1, +S2. absent: Bradycardia, Tachycardia, Irregular Rhythm, +S4 - GI/Abdominal Exam Soft, Normal Bowel Sounds, Bandaging along RLQ at site of renal biopsy. absent : Distended, Firm, Rigid, Tenderness, Tenderness at biopsy site - Extremities Exam Pedal Edema (+1 pitting edema from foot to mid gutierrez bilaterally), skin depigmentation intermittently along bilateral hands, Gross ROM intact in all extremities +1 radials bilaterally (unable to palpate bilateral dorsalis pedis pulses). absent: Calf Tenderness - Back Exam absent: paraspinal tenderness, rash noted - Neurological Exam Alert, Awake, Normal Gait - Psychiatric Exam Normal Affect, Normal Mood - Skin Dry, Intact, Warm, Skin and color changes consistent with venous insufficiency in bilateral LE (waxy skin, scattered dark pigmentation), Intermittent patches of depigmentation along bilateral hands Assessment and Plan - Assessment and Plan (Free Text) Assessment: This is a 66 yo M with PMH of cirrhosis, chronic kidney disease, HTN, and CAD who presented with complaint of abdominal distention, was admitted for acute on chronic kidney injury, acute anemia, and acute decompensated liver cirrhosis, and later developed findings concerning for AIN vs Glomerulonephritis. 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 Cadet) consulted, appreciate all recs 2) AIN +/- Membranous Glomerulonephropathy -As per Nephro, likely 2/2 to Bactrim and/or Levaquin, holding further medications -Treating with Prednisone 60mg PO daily -Pending EM findings of biopsy -Per Nephro, can discharge on steroids, can f/u as outpt for further workup 3) Acute anemia: Improved -Hgb 7.4 on presentation, hgb 8.7 s/p 2u pRBC transfusion, 9.2 today -Patient started on propranolol, nonselective beta maurice per GI recommendations given history of esophageal varices -No overt signs of bleeding, on IV iron as per Nephro -Endoscopy did not reveal any source of bleeding or stigmata of bleeding, only grade 1 esophageal varices and portal gastropathy -Colonoscopy today, pending official report -GI consulted - Dr. Hay 4) Acute decompensated liver cirrhosis -MELD-Na score of 24 on admission -Lactulose 20gm BID currently held due to complaints of copious bowel movements -Continue with xifaxin 550mg PO BID for prevention of hepatic encephalopathy -Endoscopy from 11/13/16 reviewed; revealed grade I esophageal varices, portal hypertensive gastropathy and gastritis -Abdominal pressure measured and noted to be 15mmHg which rules out abdominal compartment syndrome -Patient underwent paracentesis and had 1300cc of clear straw-colored fluid removed; notable for 231 RBCs, 103 WBCs, 13.6 Neutrophils, 86.4 Lymphocytes, 27.0 lipase, and 0.5 albumin -Abdominal doppler negative for portal vein thrombosis and hepatic artery thrombosis, patent flow noted -GI consulted - Dr. Hay -IR consulted for paracentesis - Dr. Sylvester 5) Thrombocytopenia -Patient platelets stable at 97 (90 yesterday); will continue to monitor -Hematology (Dr. Toledo) consulted, appreciate all recs; no acute inpatient workup needed, can f/u as outpt 6) Hypertension -Continue amlodipine kong, hydralazine PRN Dispo: Med/Surg, pending EM pathology as per Nephro, oral steroids for AIN, pending colonoscopy results FEN: Liquid diet Access: Peripheral IV Consults: GI, Cardio, Nephro, IR (paracentesis and IR biopsy), Heme-onc Ppx: Protonix for GI, Heparin for DVT Patient seen and discussed with attending, Dr. Madrid.
[2017-03-28] MEDS: Sodium Chloride 0.9% 1,000 ML IV SCH (07:21)
[2017-03-28 07:34] LABS: HEMATOCRIT 30.6 % (42.0-52.0); MEAN CELL VOLUME 82.7 fL (80.0-105.0); MEAN CORPUSCULAR HEMOGLOBIN 26.8 pg (25.0-35.0); MEAN CORPUSCULAR HGB CONC 32.4 g/dl (31.0-37.0); PLATELET COUNT 102 10^3/uL (120.0-450.0); RED CELL DISTRIBUTION WIDTH 15.9 % (11.5-14.5); WHITE BLOOD COUNT 7.2 10^3/ul (4.5-11.0)
[2017-03-28] MEDS: Insulin Reg-LOW-Coverage SC SCH ×2 (07:43→12:29)
[2017-03-28 08:18] LABS: ALB/GLOB RATIO 0.9 (1.1-1.8); BILIRUBIN,TOTAL 1.4 mg/dL (0.2-1.3); POTASSIUM 4.4 mmol/L (3.6-5.0); TOTAL PROTEIN 6.4 g/dL (5.8-8.3)
[2017-03-28 08:51] VITALS: RESP 18; TEMP 98; O2SAT 93
[2017-03-28 09:25] VITALS: BP 163/90; PULSE 61
--- NOTE | 2017-03-28 11:41 | CP.PCM.PN ---
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 Mediastinal and upper abdomen lymphadenopathy NAGMA (likely due to KELLI) Microscopic hematuria Chronic Kidney Disease Stage 3 (N18.3) with 638 mg proteinuria likely due to KELLI in 2016 Anemia (D64.9), HTN (I12.9), eosinophilia cirrhosis, CAD, ascites s/p paracentesis Plan checking serum IgG and IgG4 level continue with prednisone 60 mg/day, he is on PPI already. getting iron and dosed with Aranesp today before d/c. heme/onc eval for his lymphadenopathy seen on CT requested, had EGD/ colonoscopy. had CT chest/abdomen in 2017. No acute need for renal replacement therapy at this time. his rise in BUN could be due to steroids, some blood loss in GI tract and of course some contribution by renal insuff. continue with sodium bicarb 1300 mg TID Hypertension control with meds as ordered. Patient not on ACEI/ARB due to KELLI. Hold aldactone as well continue with norvasc 10 mg/day Dose meds/antibiotics for reduced GFR~15. Avoid fleets enema/magnesium based laxatives. Avoid nephrotoxins/NSAIDs/iodinated contrast (unless needed emergently) Glycemic control Further work up/management of anemia, ascites as per primary team Thanks for allowing me to participate in care of your patient. Please call if any Qs. Stable for d/c from renal perspective. d/w team. d/w his daughter on phone Dr Paco Cadet Office: [phone] Chief Complaint; none today Reason for consult: KELLI HPI: Pt is a 66 y/o M with hx of cirrhosis, hypertension ( x 15 years), DM, CAD , had KELLI in 2016 with peaked creatinine 5.3 due to sepsis which got better but resulted on CKD 3 with baseline cr 1.3-1.5, ex smoker presented with complaints of abdomen distension due to ascites and found to have KELLI with creatinine 4.9 hence renal consult was requested. No OTC/herbal meds or NSAIDs No recent iodinated contrast exposure. No obvious episodes of low BP. ROS: denies CP/SOB/nausea/vomitting. no urine complaint. Physical Examination: General Appearance: Comfortable, in no acute respiratory distress, co-operative . Vitals reviewed and noted as below Lungs: Normal respiratory rate/effort. Breath sounds bilateral equal and clear Heart: Normal rate. s1s2 normal. No rub or gallop. Extremities: no leg edema. No varicose veins Neurological: Patient is alert, awake and oriented to person, place and time. No focal deficit. Strength bilateral appropriate and equal. no asterixis Skin: Warm and dry. Normal turgor. rash on thighs which is resolving. Palpitation: Normal elasticity for age. has hypopigmented patches in hand Abdomen: Abdomen is soft. Bowel sounds +. There is no abdominal tenderness, no guarding/rigidity no organomegaly. has ascitic abdomen Psych: normal insight and normal affect/mood MSK: no joint tenderness or swelling. Digits and nails normal, no deformity : kidney/bladder not palpable. Labs/imaging/EKG reviewed. Past medical history, past surgical history, family history, social history, allergy reviewed Alb 2.4 BNP 3160 ammonia 63 UA trace protein with large blood and RBC ++ Urine Na 48 FeNa 7% chronic peripheral eosinophilia 6% TSAT 11% vbg pH 7.24 CXR: cardiomegaly Hep B/C and HIV negative in 2016 CT abdomen: punctate calcifications otherwise unremarkable kidney. LVEF normal UA done by me 03/21/17: numerous WBC with WBC casts and numerous RBCs with probably few dysmorphic too TSAT 11% Ferriitin 54 c3: 50 c4 <8 SAEED neg RA factor neg MPO ANCA + low titer Objective - Vital Signs/Intake and Output Vital Signs (last 24 hours): Temp Pulse Resp BP Pulse Ox 98.0 F 61 18 163/90 H 93 L 03/28/17 06:00 03/28/17 09:13 03/28/17 06:00 03/28/17 09:13 03/28/17 06:00 - Medications Medications: Current Medications Amlodipine Besylate (Norvasc) 10 mg PO DAILY [facility] Last Admin: 03/28/17 09:13 Dose: 10 mg Heparin Sodium (Porcine) (Heparin) 5,000 units SC Q12 LEIGHANN PRN Reason: Protocol Last Admin: 03/28/17 09:14 Dose: 5,000 units Hydralazine HCl (Apresoline) 10 mg IVP Q6 PRN PRN Reason: Systolic Blood Pressure Last Admin: 03/21/17 18:45 Dose: 10 mg Iron Sucrose 100 mg/ Sodium (Chloride) 105 mls @ 210 mls/hr IV DAILY [facility] Stop: 04/01/17 10:16 Last Admin: 03/28/17 11:27 Dose: Not Given Insulin Human Regular (Humulin R Low) 0 units SC ACHS [facility] PRN Reason: Protocol Last Admin: 03/28/17 07:43 Dose: Not Given Lactulose (Enulose) 20 gm PO BID [facility] Last Admin: 03/22/17 10:51 Dose: 20 gm Pantoprazole Sodium (Protonix Inj) 40 mg IVP DAILY [facility] Last Admin: 03/28/17 09:14 Dose: 40 mg Prednisone (Prednisone Tab) 60 mg PO DAILY [facility] Last Admin: 03/28/17 09:13 Dose: 60 mg Propranolol HCl (Inderal) 5 mg PO DAILY [facility] Last Admin: 03/24/17 10:28 Dose: Not Given Rifaximin (Xifaxan) 550 mg PO BID [facility] PRN Reason: Protocol Last Admin: 03/28/17 09:13 Dose: 550 mg Sodium Bicarbonate (Sodium Bicarbonate Tab) 1,300 mg PO TID [facility] Last Admin: 03/28/17 09:13 Dose: 1,300 mg - Labs Labs: 03/28/17 07:00 03/28/17 07:00 PT 15.5 Seconds (9.9-11.8) H 03/27/17 07:00 INR 1.44 (0.93-1.08) H 03/27/17 07:00 APTT 31.1 Seconds (23.7-30.8) H 03/21/17 07:10
[2017-03-28] MEDS ORDERED: Darbepoetin Alfa 40 mcg/ml Inj SC ONE (11:42)
--- NOTE | 2017-03-28 16:42 | PN ---
DATE: 03/28/2017 Seen and examined at the bedside earlier today. He had a colonoscopy yesterday and found to have hyp erplastic polyp and previous polyp and previously noted diminutive ascending colon polyp was not visu alized. No biopsies were obtained. The patient denies nausea, vomiting, shortness of breath, chest pain, or abdominal pain. No reports of any bleeding. Tolerating oral intake. VITAL SIGNS: His temperature is 98.0, blood pressure is 163/90, pulse 61, respirations 18. LABORATORY DATA: Today, WBC 7.2, H and H is 9.9 and 30.6, platelets are 102. Chem: Sodium is 146, K 4.6, BUN 109, creatinine is 4.0. His total bilirubin is 1.4, AST 88, ALT 82, alk phos is 123. PHYSICAL EXAMINATION: HEENT: Sclera is anicteric. NECK: Supple. CARDIAC: S1, S2. LUNGS: With decreased breath sounds at the bases, but no rales or wheeze. ABDOMEN: Distended, but soft, nontender. No rebound or guarding. ASSESSMENT: A 66-year-old male with decompensated liver cirrhosis, status post paracentesis, came wi th worsening renal function and anemia. He did get a blood transfusion, status post kidney biopsy. The patient is status post kidney biopsy. 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 Also, patient is with thrombocytopenia, seen by Dr Joselyn Toledo. History of hypertension. PLAN: Continue current treatment. The patient is on iron supplements, on DVT prophylaxis. He is on PPI. The patient is on prednisone and Xifaxan. Recommend outpatient followup at [facility] . The patient was seen and case discussed with Dr. Hay. Emy SUAREZ cc: [id number] TT: 03/28/2017 16:41:27 Confirmation # [id number] Dictation # [id number]
--- NOTE | 2017-03-28 17:18 | CP.PCM.DIS ---
Provider - Provider Date of Admission: 03/20/17 12:22 Attending physician: Juan Carlos Madrid MD Primary care physician: Bravo Johnson MD Consults: Elham - Avelino ELIAS - Bharti Nephro - [employer] [place] Time Spent in preparation of Discharge (in minutes): 45 Diagnosis - Discharge Diagnosis (1) Acute interstitial nephritis Status: Acute Priority: High (2) Decompensated hepatic cirrhosis Status: Acute Priority: High (3) Acute kidney injury superimposed on CKD Status: Acute Priority: High Comment: improving (4) Thrombocytopenia Status: Acute Priority: Medium (5) HTN (hypertension) Status: Chronic Priority: Medium Hospital Course - Lab Results Lab Results: Micro Results 03/21/17 09:15 Ascitic Fluid Gram Stain - Final 03/21/17 09:15 Ascitic Fluid Anaerobic Culture - Final NO ANAEROBES ISOLATED. 03/21/17 09:15 Ascitic Fluid Body Fluid Culture - Final No growth. 03/21/17 09:15 Ascitic Fluid Fungal Culture - Preliminary 03/21/17 09:15 Other: Please Indicate Mycobacterial Culture - Preliminary 03/20/17 15:40 Urine,Clean Catch Urine Culture - Final No Growth (<1,000 CFU/ML) 03/20/17 16:20 Nose MRSA Culture (Admit) - Final MRSA NOT DETECTED Most Recent Lab Values WBC 7.2 10^3/ul (4.5-11.0) D 03/28/17 07:00 RBC 3.70 10^6/uL (3.5-6.1) 03/28/17 07:00 Hgb 9.9 gm/dL (14.0-18.0) L 03/28/17 07:00 Hct 30.6 % (42.0-52.0) L 03/28/17 07:00 MCV 82.7 fL (80.0-105.0) 03/28/17 07:00 MCH 26.8 pg (25.0-35.0) 03/28/17 07:00 MCHC 32.4 g/dl (31.0-37.0) 03/28/17 07:00 RDW 15.9 % (11.5-14.5) H 03/28/17 07:00 Plt Count 102 10^3/uL (120.0-450.0) L 03/28/17 07:00 Manual Plt Count 100 K/mm3 (120-450) L 03/27/17 07:00 MPV 10.2 fl (7.0-11.0) 03/23/17 19:50 Gran % 90.7 % (50.0-68.0) H 03/27/17 07:00 Lymph % (Auto) 5.8 % (22.0-35.0) L 03/27/17 07:00 Rawlins % (Auto) 3.5 % (1.0-6.0) 03/27/17 07:00 Eos % (Auto) 0.0 % (1.5-5.0) L 03/27/17 07:00 Baso % (Auto) 0.0 % (0.0-3.0) 03/27/17 07:00 Gran # 4.10 (1.4-6.5) 03/27/17 07:00 Lymph # 0.3 (1.2-3.4) L 03/27/17 07:00 Rawlins # 0.2 (0.1-0.6) 03/27/17 07:00 Eos # 0.0 (0.0-0.7) 03/27/17 07:00 Baso # 0.00 K/mm3 (0.0-2.0) 03/27/17 07:00 Neutrophils % (Manual) 94 % (50.0-70.0) H 03/24/17 05:00 Lymphocytes % (Manual) 5 % (22.0-35.0) L 03/24/17 05:00 Monocytes % (Manual) 1 % (1.0-6.0) 03/24/17 05:00 Platelet Evaluation Low (NORMAL) 03/24/17 05:00 Polychromasia Slight 03/24/17 05:00 Hypochromasia 2+ 03/24/17 05:00 Anisocytosis (manual) 1+ 03/24/17 05:00 Microcytosis (manual) 1+ 03/24/17 05:00 Ovalocytes Slight 03/24/17 05:00 PT 15.5 Seconds (9.9-11.8) H 03/27/17 07:00 INR 1.44 (0.93-1.08) H 03/27/17 07:00 APTT 31.1 Seconds (23.7-30.8) H 03/21/17 07:10 pO2 70 mm/Hg (30-55) H 03/20/17 09:30 VBG pH 7.24 (7.32-7.43) L 03/20/17 09:30 VBG pCO2 37.0 (40-60) L 03/20/17 09:30 VBG HCO3 15.9 mmol/l (21-28) L 03/20/17 09:30 VBG O2 Sat (Calc) 96.4 % (40-65) H 03/20/17 09:30 VBG Base Excess -10.7 mmol/L (0.0-2.0) L 03/20/17 09:30 Sodium 146 mmol/L (132-148) 03/28/17 07:00 Potassium 4.4 mmol/L (3.6-5.0) 03/28/17 07:00 Chloride 114 mmol/L (95-110) H 03/28/17 07:00 Carbon Dioxide 19 mmol/L (21-33) L 03/28/17 07:00 Anion Gap 17 (10-20) 03/28/17 07:00 BUN 109 mg/dL (7-21) H 03/28/17 07:00 Creatinine 4.0 mg/dL (0.5-1.4) H 03/28/17 07:00 Est GFR ( Amer) 18 03/28/17 07:00 Est GFR (Non-Af Amer) 15 03/28/17 07:00 POC Glucose (mg/dL) 152 mg/dL (65-110) H 03/28/17 16:24 Random Glucose 98 mg/dL (70-110) 03/28/17 07:00 Uric Acid 6.6 mg/dL (3.5-8.5) 03/20/17 10:30 Calcium 9.0 mg/dL (8.4-10.5) 03/28/17 07:00 Iron 31 ug/dL (45-180) L 03/20/17 10:30 TIBC 263 ug/dL (261-462) 03/20/17 10:25 Transferrin 207.88 mg/dL (206-381) 03/20/17 09:30 Ferritin 54.9 ng/mL 03/20/17 10:25 Total Bilirubin 1.4 mg/dL (0.2-1.3) H 03/28/17 07:00 AST 88 U/L (15-59) H 03/28/17 07:00 ALT 82 U/L (7-56) H 03/28/17 07:00 Alkaline Phosphatase 123 U/L (38-133) 03/28/17 07:00 Ammonia 14 umol/L (9-33) 03/22/17 08:30 Total Creatine Kinase 86 U/L (35-230) 03/20/17 10:30 NT-Pro-B Natriuret Pep 3160 pg/mL (0-450) H 03/20/17 10:25 Total Protein 6.4 g/dL (5.8-8.3) 03/28/17 07:00 Albumin 3.1 g/dL (3.0-4.8) 03/28/17 07:00 Globulin 3.3 gm/dL 03/28/17 07:00 Albumin/Globulin Ratio 0.9 (1.1-1.8) L 03/28/17 07:00 Ceruloplasmin 40 mg/dL (18-36) H 03/22/17 05:30 Lipase 287 U/L (23-300) 03/20/17 10:25 Prostate Specific Ag 0.8 ng/mL (0.00-2.5) 03/24/17 05:00 Vitamin B12 439 pg/mL (239-931) 03/20/17 10:30 Folate 7.9 ng/mL 03/20/17 10:30 Procalcitonin 0.17 NG/ML (0.19-0.49) L 03/20/17 10:30 Urine Color Yellow (YELLOW) 03/20/17 15:00 Urine Appearance Clear (CLEAR) 03/20/17 15:00 Urine pH 5.5 (4.7-8.0) 03/20/17 15:00 Ur Specific [place] 1.015 (1.005-1.035) 03/20/17 15:00 Urine Protein Trace mg/dL (<30 mg/dL) H 03/20/17 15:00 Urine Glucose (UA) Negative mg/dL (NEGATIVE) 03/20/17 15:00 Urine Ketones Negative mg/dL (NEGATIVE) 03/20/17 15:00 Urine Blood Large (NEGATIVE) H 03/20/17 15:00 Urine Nitrate Negative (NEGATIVE) 03/20/17 15:00 Urine Bilirubin Negative (NEGATIVE) 03/20/17 15:00 Urine Urobilinogen 0.2 E.U./dL (<1 E.U./dL) 03/20/17 15:00 Ur Leukocyte Esterase Negative Yash/uL (NEGATIVE) 03/20/17 15:00 Urine RBC 25 - 30 /hpf (0-2) 03/20/17 15:00 Urine WBC 0 - 2 /hpf (0-6) 03/20/17 15:00 Ur Epithelial Cells 0 - 2 /hpf (0-5) 03/20/17 15:00 Amorphous Sediment Trace 03/20/17 15:00 Urine Bacteria Mod (NEG) 03/20/17 15:00 Urine Eosinophils Positive 03/21/17 04:52 Ur Random Creatinine 29 mg/dL 03/21/17 04:52 U Random Total Protein 638 mg/g creat (22-128) H 03/21/17 05:51 Ur Random Sodium 98 meq/L 03/20/17 15:00 Ur Random Urea Nitrogn 601 mg/dL 03/21/17 12:10 Urine Microalbumin 81.7 mg/L (0.0-16.6) H 03/21/17 04:52 Fluid Source Peritoneal 03/21/17 09:15 Fluid Appearance Clear (CLEAR) 03/21/17 09:15 Fluid WBC 103.0 /uL (0.0-300.0) 03/21/17 09:15 Fluid RBC 231.0 /uL (0.0-0.0) H 03/21/17 09:15 Fluid Tot Cell Count 100 (0-0) H 03/21/17 09:15 Fluid Neutrophils 13.6 % (0-0) H 03/21/17 09:15 Fluid Lymphocytes 86.4 % (0-0) H 03/21/17 09:15 Fld Monocyte/Macrophag TEST NOT PERFORMED 03/21/17 09:15 Fluid Albumin 0.5 g/dL 03/21/17 09:15 Fluid Comment Yellow-color 03/21/17 09:15 Peritoneal Lipase 27.0 U/L (<10) H 03/21/17 09:15 Urine Opiates Screen Negative (NEGATIVE) 03/23/17 11:20 Urine Methadone Screen Negative (NEGATIVE) 03/23/17 11:20 Ur Barbiturates Screen Negative (NEGATIVE) 03/23/17 11:20 Ur Phencyclidine Scrn Negative (NEGATIVE) 03/23/17 11:20 Ur Amphetamines Screen Negative (NEGATIVE) 03/23/17 11:20 U Benzodiazepines Scrn Negative (NEGATIVE) 03/23/17 11:20 U Oth Cocaine Metabols Negative (NEGATIVE) 03/23/17 11:20 U Cannabinoids Screen Negative (NEGATIVE) 03/23/17 11:20 Serum Immunofixation See note 03/21/17 05:35 Cryoglobulin None detected (None Detected) 03/21/17 05:51 Rheumatoid Factor 21 IU/mL (<14) H 03/21/17 05:35 SAEED Screen Negative (Negative) 03/21/17 05:35 SAEED Titer TEST NOT PERFORMED 03/21/17 05:35 SAEED Titer 2 TEST NOT PERFORMED 03/21/17 05:35 SAEED Pattern TEST NOT PERFORMED 03/21/17 05:35 SAEED Pattern 2 TEST NOT PERFORMED 03/21/17 05:35 Proteinase 3 (PR3) <1.0 AI (<1.0) 03/21/17 05:35 Myeloperoxidase Ab 3.1 AI (<1.0) H 03/21/17 05:35 Double Strand DNA Ab 1 IU/mL 03/21/17 05:35 Anti-Mitochondrial Ab Negative (Negative) 03/22/17 05:30 Smooth Muscle Ab Titer TEST NOT PERFORMED 03/22/17 05:30 Anti-Smooth Muscle Ab Negative (Negative) 03/22/17 05:30 Complement C3 50.0 mg/dL (88.0-165.0) L 03/20/17 10:30 Complement C4 < 8.0 mg/dL (14.0-44.0) L 03/20/17 10:30 Thurston/Lambda Light Chain see note 03/21/17 05:35 Free Thurston Light Chains 168.3 mg/L (3.3-19.4) H 03/21/17 05:35 Free Lambda Light Chain 96.0 mg/L (5.7-26.3) H 03/21/17 05:35 Free Thurston/Lambda Ratio 1.75 (0.26-1.65) H 06/14/17 05:35 Hep Bs Antigen Negative (NEGATIVE) 03/24/17 05:00 Hepatitis C Antibody Negative (NEGATIVE) 03/24/17 05:00 Anti-Streptolysin O Ab 59 IU/mL (<kr=190) 03/21/17 05:35 Hemochromatos Mutation see note 03/23/17 06:35 Blood Type O POSITIVE 03/23/17 21:40 Antibody Screen Negative 03/23/17 21:40 Crossmatch See Detail 03/23/17 21:40 BBK History Checked Patient has bt 03/23/17 21:40 - Hospital Course Hospital Course: This is a 66 yo M with PMH of cirrhosis, chronic kidney disease, HTN, and CAD who presented with complaint of abdominal distention, was admitted for acute on chronic kidney injury, acute anemia, and acute decompensated liver cirrhosis, and later developed findings concerning for AIN vs Glomerulonephritis. While here, patient was seen by Cardio, Nephro, GI, IR, and Heme-onc. As per GI, patient's cirrhosis is of unclear etiology. Patient will likely require outpatient followup at [facility] for further workup. He can resume Lactulose 20g PO daily, and stop Rifaximin. Testing for Hemachromatosis was negative. As per Nephro, the renal biopsy was notable for AIN (likely secondary to Levquin and/or Bactrim) and secondary membranous nephropathy. Patient cleared for discharge on daily steroids PO and BID Sodium Bicarbonate tabs. He will need to follow up within 1 week. As per Heme-onc, followup of his lymph nodes can be done outpatient; patient instructed to schedule a followup appointment within 1-2 weeks. Patient was also continued on Protonix despite his thrombocytopenia, as he needs gastric protection due to oral steroid use. He was also instructed to continue BP control with Norvasc and Iron supplementation with TID Feosol. His scripts were delivered to the in- house pharmacy so the medications would be provided on discharge. He was instructed to take all medications as prescribed, to follow up with his PMD and Environmental Remediation Engineer within 1 week, Heme-onc within 1-2 weeks, and to call for a routine followup appointment after discharge. Patient and daughter at bedside expressed understanding and agreement with these instructions. All questions were answered to his satisfaction, and then patient was discharged. Patient seen, examined, and discussed with attending, Dr. Johnson. Discharge Exam - Head Exam Head Exam: ATRAUMATIC, NORMAL INSPECTION, NORMOCEPHALIC - Additional Findings Additional findings: - Constitutional Well, Non-toxic, No Acute Distress - Head Exam ATRAUMATIC, NORMAL INSPECTION, NORMOCEPHALIC - Eye Exam EOMI, Normal appearance. absent: Conjunctival injection, Scleral icterus, Irregular/Unequal Pupils - ENT Exam Mucous Membranes Moist - Neck Exam Full ROM - Respiratory Exam Clear to Ausculation Bilateral, NORMAL BREATHING PATTERN. absent: Accessory Muscle Use, Chest Wall Tenderness, Decreased Breath Sounds, Rales, Rhonchi, Wheezes - Cardiovascular Exam REGULAR RHYTHM, RRR, +S1, +S2. absent: Bradycardia, Tachycardia, Irregular Rhythm, +S4 - GI/Abdominal Exam Soft, Normal Bowel Sounds, Bandaging along RLQ at site of renal biopsy. absent : Distended, Firm, Rigid, Tenderness, Tenderness at biopsy site - Extremities Exam Pedal Edema (+1 pitting edema from foot to mid gutierrez bilaterally), skin depigmentation intermittently along bilateral hands, Gross ROM intact in all extremities +1 radials bilaterally (unable to palpate bilateral dorsalis pedis pulses). absent: Calf Tenderness - Back Exam absent: paraspinal tenderness, rash noted - Neurological Exam Alert, Awake, Normal Gait (ambulating from bed to bathroom and back without issue) - Psychiatric Exam Normal Affect, Normal Mood - Skin Dry, Intact, Warm, Skin and color changes consistent with venous insufficiency in bilateral LE (waxy skin, scattered dark pigmentation), Intermittent patches of depigmentation along bilateral hands Discharge Plan - Discharge Medications Prescriptions: amLODIPine [Norvasc] 10 mg PO DAILY #30 tab Ferrous Gluconate [Fergon] 324 mg PO TID #90 tab Lactulose [Enulose] 20 gm PO DAILY #30 unit predniSONE [Prednisone] 60 mg PO DAILY #30 tab Sodium Bicarbonate 1,300 mg PO TID #90 tab - Follow Up Plan Condition: FAIR Disposition: HOME/ ROUTINE Instructions: Coronary Artery Disease (DC), Cirrhosis (DC), Acute Kidney Injury (DC), Chronic Kidney Disease (DC), Percutaneous Kidney Biopsy (DC), Chronic Hypertension (DC) Additional Instructions: Please follow up with your Primary Medical Doctor (Dr. Johnson) and the Environmental Remediation Engineer (Dr. Cadet) within 1 week of discharge Please follow up with the Diesel Engine Erector (Dr. [place]edo) within 1-2 weeks of discharge. Please call Dr. Hay's office (GI) and schedule a routine appointment after discharge. Please fill and take all prescriptions as instructed. It is important that you take your Steroids every day until otherwise instructed by your Environmental Remediation Engineer or your PMD. Please avoid taking any more Levaquin or Bactrim. Referrals: Bravo Johnson MD [Primary Care Provider] - Daren Toledo MD [Staff Provider] - Paco Cadet MD [Staff Provider] - Pawel Hay MD [Medical Doctor] -
== END 2017-03-28 17:10 | disposition home or self-care (01) | DRG 682 ==
LOC: ED 08:20 → ERH 12:22 → CCU 15:16 → 2RNO 03-24 16:08 → 3RNO 03-26 13:38
PROVIDERS: ADMIT Internal Medicine; ATTEND Internal Medicine
PROC: 30233N1 Transfusion of Nonautologous Red Blood Cells into Peripheral Vein, Percutaneous Approach (ICD-10-PCS; 2017-03-20)
PROC: 0W9G3ZZ Drainage of Peritoneal Cavity, Percutaneous Approach (ICD-10-PCS; 2017-03-21)
PROC: 0DJ08ZZ Inspection of Upper Intestinal Tract, Via Natural or Artificial Opening Endoscopic (ICD-10-PCS; 2017-03-22)
PROC: 30233R1 Transfusion of Nonautologous Platelets into Peripheral Vein, Percutaneous Approach (ICD-10-PCS; 2017-03-23)
PROC: 0TB13ZX Excision of Left Kidney, Percutaneous Approach, Diagnostic (ICD-10-PCS; principal; 2017-03-23 16:00)
PROC: 0DJD8ZZ Inspection of Lower Intestinal Tract, Via Natural or Artificial Opening Endoscopic (ICD-10-PCS; 2017-03-27)
DX: N17.9 Acute kidney failure, unspecified (principal); K76.7 Hepatorenal syndrome; D61.818 Other pancytopenia; I42.0 Dilated cardiomyopathy; I50.9 Heart failure, unspecified; I13.0 Hypertensive heart and chronic kidney disease with heart failure and stage 1 through stage 4 chronic kidney disease, or unspecified chronic kidney disease; N10 Acute pyelonephritis; I85.00 Esophageal varices without bleeding; R18.8 Other ascites; K76.6 Portal hypertension; E87.1 Hypo-osmolality and hyponatremia; K74.60 Unspecified cirrhosis of liver; I25.10 Atherosclerotic heart disease of native coronary artery without angina pectoris; E78.00 Pure hypercholesterolemia, unspecified; E78.5 Hyperlipidemia, unspecified; K21.9 Gastro-esophageal reflux disease without esophagitis; E11.22 Type 2 diabetes mellitus with diabetic chronic kidney disease; D63.8 Anemia in other chronic diseases classified elsewhere; I27.2 Other secondary pulmonary hypertension; N18.3 Chronic kidney disease, stage 3 (moderate); K72.90 Hepatic failure, unspecified without coma; R59.1 Generalized enlarged lymph nodes; K57.30 Diverticulosis of large intestine without perforation or abscess without bleeding; K64.8 Other hemorrhoids; K62.1 Rectal polyp; L80 Vitiligo; N50.819 Testicular pain, unspecified; I86.1 Scrotal varices; Z95.5 Presence of coronary angioplasty implant and graft; Z87.891 Personal history of nicotine dependence

== ENCOUNTER 2017-04-04 16:36 | Inpatient (IN) | payer MEDICARE, OTHER ==
[2017-04-04 16:47] VITALS: BMI 32.8
--- NOTE | 2017-04-04 17:26 | ED PDOC ---
Arrival/HPI - General Chief Complaint: GI Problem Time Seen by Provider: 04/04/17 16:52 Historian: Patient - History of Present Illness Narrative History of Present Illness (Text): 04/04/17 17:27 A 66 year old male, whose past medical history includes liver cirrhosis, renal insufficiency and hypertension, presents to the emergency department complaining of worsening abdominal distention and leakage of fluid at previous paracentesis site. Patient reports paracentesis performed on 03/21/17, 1300 ml of fluid removed. Patient denies any fever or any other complaints at this time. pt denies any abdominal pain. PMD: Dr. Johnson 04/04/17 22:09 Symptom Onset: Sudden Symptom Course: Unchanged Activities at Onset: Rest Context: Home Associated Symptoms (Text): none Past Medical History - Provider Review Nursing Documentation Reviewed: Yes - Infectious Disease Hx of Infectious Diseases: None - Tetanus Immunization Tetanus Immunization: Unknown - Cardiac Hx Cardiac Disorders: Yes (mi with stents) Hx Congestive Heart Failure: Yes Hx Hypertension: Yes - Pulmonary Hx Respiratory Disorders: No - Neurological HX Cerebrovascular Accident: Yes (many years ago) - HEENT Hx HEENT Disorder: No - Renal Hx Renal Disorder: Yes Hx Dialysis: No - Endocrine/Metabolic Hx Diabetes Mellitus Type 2: Yes - Hematological/Oncological Hx Blood Transfusions: Yes Hx Blood Transfusion Reaction: No - Integumentary Hx Dermatological Disorder: Yes Other/Comment: white and pink skin discolorations both hands and r arm began about 7 months ago cause unknown, brown discolorations ble,dry brown scabbed wound posterior right lowr leg starts below calf to lower leg then dry brown skin to posterior ankle, +2 edema right ankle, dry flakey skin both feet - Musculoskeletal/Rheumatological Hx Falls: Yes (recent frequent) - Gastrointestinal Hx Gastrointestinal Disorders: Yes Hx Gastroesophageal Reflux: Yes Hx Liver Failure: (cirrhosis, mild ascites) Other/Comment: colonoscopy 07/17/2016 dx diverticulitis, colitis, rectal polyp - Genitourinary/Gynecological Hx Genitourinary Disorders: No - Psychiatric Hx Psychophysiologic Disorder: No Hx Substance Use: No - Surgical History Hx Coronary Stent: Yes (ptca with stent) - Anesthesia Hx Anesthesia: Yes Hx Anesthesia Reactions: No Hx Malignant Hyperthermia: No Family/Social History - Physician Review Nursing Documentation Reviewed: Yes Family/Social History: No Known Family HX Smoking Status: Former Smoker Hx Alcohol Use: No Hx Substance Use: No Allergies/Home Meds Allergies/Adverse Reactions: Allergies No Known Allergies Allergy (Verified 04/04/17 20:21) Home Medications: Home Meds Medication Instructions Recorded Confirmed Pantoprazole [Protonix EC Tab] 40 mg PO DAILY 07/05/16 04/04/17 Aspirin [Aspirin Chewable] 81 mg PO DAILY 03/20/17 04/04/17 Atorvastatin [Lipitor] 20 mg PO DAILY 03/20/17 04/04/17 Desloratadine [Clarinex] 5 mg PO HS 03/20/17 04/04/17 Metoprolol Tartrate [Lopressor] 12.5 mg PO DAILY 03/20/17 04/04/17 Review of Systems - Physician Review All systems were reviewed & negative as marked: Yes - Review of Systems Constitutional: absent: Fevers Gastrointestinal: Other (abdominal distention; fluid leakage at paracentesis site) Physical Exam Vital Signs Reviewed: Yes Vital Signs Temp Pulse Resp BP Pulse Ox 04/04/17 20:03 76 18 152/86 H 94 L 04/04/17 20:00 98.4 F 76 18 148/81 04/04/17 16:51 97.6 F 76 22 161/92 H 95 Temperature: Afebrile Blood Pressure: Hypertensive Pulse: Regular Respiratory Rate: Normal Appearance: Positive for: Well-Appearing, Non-Toxic, Comfortable Pain Distress: None Mental Status: Positive for: Alert and Oriented X 3 - Systems Exam Head: Present: Atraumatic, Normocephalic Pupils: Present: PERRL Extroacular Muscles: Present: EOMI Conjunctiva: Present: Normal Mouth: Present: Moist Mucous Membranes Neck: Present: Normal Range of Motion Respiratory/Chest: Present: Clear to Auscultation, Good Air Exchange. No: Respiratory Distress, Accessory Muscle Use Cardiovascular: Present: Regular Rate and Rhythm, Normal S1, S2. No: Murmurs Abdomen: Present: Distention, Normal Bowel Sounds. No: Tenderness, Peritoneal Signs Back: Present: Normal Inspection Upper Extremity: Present: Normal Inspection. No: Cyanosis, Edema Lower Extremity: Present: Normal Inspection. No: Edema Neurological: Present: GCS=15, CN II-XII Intact, Speech Normal Skin: Present: Warm, Dry, Normal Color. No: Rashes Psychiatric: Present: Alert, Oriented x 3, Normal Insight, Normal Concentration Medical Decision Making ED Course and Treatment: 04/04/17 17:23 Impression: A 66 year old female with worsening abdominal distention and leakage of fluid at previous paracentesis site. Plan: -- labs -- Urinalysis -- Reassess and disposition Prior Visits: Notes and results from previous visits were reviewed. Patient last reported to the emergency department on 03/20/17 for evaluation of abdominal swelling, testicular swelling, dark stools and dyspnea on exertion. Admitted to ICU for renal failure. Patient was discharged on 03/28/17. Progress Notes: Patient noted white count lieky 2/2 steroids, no abdominal tenderness. SBP unlikely. Patient with noted increase creatinine level. Discussed with Dr. Westbrook. Not encephalopathic. K wnl Patient is stable for tele, likely hemodialysis as inpatient, no need for emergent hd as per dr westbrook. dr butcher accept.s medical transcription supervisor accepts. chest xray No acute disease, interpreted by me. US Retroperitoneal Limited, Renal IMPRESSION: 1. There is increased nodularity of the hepatic contour, with heterogeneous echotexture of the visualized liver, consistent with cirrhosis. 2. There is mild abdominal ascites. 3. Mild splenomegaly. 4. There is increased echogenicity of the bilateral renal cortices, suggestive of medical renal disease. Correlation with prior renal biopsy results is recommended. Dictated and Authenticated by: Edgardo Sánchez MD 04/04/2017 9:03 PM Eastern Time ([place] & [place]) 04/04/17 22:09 04/05/17 15:10 - Lab Interpretations Lab Results: 04/04/17 17:20 04/04/17 17:20 Lab Results 04/04/17 17:43: Ammonia 37 H 04/04/17 17:20: Sodium 140, Potassium 4.6, Chloride 107, Carbon Dioxide 18 L, Anion Gap 20, BUN 158 H*, Creatinine 7.1 H, Est GFR ( Amer) 9, Est GFR ( Non-Af Amer) 8, Random Glucose 97, Calcium 9.1, Total Bilirubin 1.5 H, AST 108 H , ALT 135 H, Alkaline Phosphatase 182 H, Total Protein 6.2, Albumin 3.1, Globulin 3.1, Albumin/Globulin Ratio 1.0 L, Lipase 431 H 04/04/17 17:20: PT 13.9 H, INR 1.29 H, APTT 26.8 04/04/17 17:20: WBC 11.6 H D, RBC 3.69, Hgb 10.5 L, Hct 31.0 L, MCV 84.0, MCH 28.5, MCHC 33.9, RDW 18.5 H, Plt Count 83 L, Neutrophils % (Manual) 85 H, Band Neutrophils % Podiatry Assistant, Lymphocytes % (Manual) 12 L, Monocytes % (Manual) 2, Eosinophils % (Manual) 1, Platelet Evaluation Normal I have reviewed the lab results: Yes - RAD Interpretation Radiology Orders: 04/04/17 17:57 CXR [CHEST PORTABLE] [RAD] Stat - Medication Orders Current Medication Orders: Amlodipine Besylate (Norvasc) 10 mg PO DAILY [facility] Last Admin: 04/05/17 09:42 Dose: 10 mg Aspirin (Aspirin Chewable) 81 mg PO DAILY [facility] Last Admin: 04/05/17 09:41 Dose: 81 mg Ferrous Gluconate (Fergon) 324 mg PO TID [facility] Last Admin: 04/05/17 14:56 Dose: Not Given Non-Admin Reason: Patient in Dialysis Sodium Chloride (Sodium Chloride 0.9%) 1,000 mls @ 100 mls/hr IV .Q10H [facility] Last Admin: 04/05/17 11:05 Dose: 100 mls/hr Methylprednisolone 1 gm/ (Sodium Chloride) 250 mls @ 166.667 mls/hr IV ONCE ONE Stop: 04/06/17 11:29 Metoprolol Tartrate (Lopressor) 12.5 mg PO DAILY [facility] Last Admin: 04/05/17 09:42 Dose: 12.5 mg Mycophenolate Mofetil (Cellcept Cap) 1,000 mg PO BID [facility] Last Admin: 04/05/17 09:41 Dose: 1,000 mg Sevelamer HCl (Renagel) 1,600 mg PO TID [facility] Last Admin: 04/05/17 14:56 Dose: Not Given Non-Admin Reason: Patient in Dialysis Discontinued Medications Cefazolin Sodium (Ancef) Confirm Administered Dose 1 gm .ROUTE .STK-MED ONE Stop: 04/05/17 11:40 Fentanyl (Fentanyl) Confirm Administered Dose 100 mcg .ROUTE .STK-MED ONE Stop: 04/05/17 13:06 Methylprednisolone 500 mg/ (Sodium Chloride) 100 mls @ 200 mls/hr IVPB DAILY [facility] Stop: 04/06/17 10:01 Last Admin: 04/05/17 09:42 Dose: 200 mls/hr Heparin Sodium (Porcine) (Heparin 1000 Units/500 Ml Ns) Confirm Administered Dose 1,000 mls @ ud IV .STK-MED ONE Stop: 04/05/17 11:40 Methylprednisolone 500 mg/ (Sodium Chloride) 100 mls @ 200 mls/hr IVPB ONCE ONE Stop: 04/05/17 12:43 Methylprednisolone 1,000 mg/ (Sodium Chloride) 100 mls @ 200 mls/hr IVPB ONCE ONE Stop: 04/06/17 08:01 Methylprednisolone 1 gm/ (Sodium Chloride) 250 mls @ 166.667 mls/hr IV ONCE ONE Stop: 04/05/17 14:44 Lidocaine HCl (Lidocaine 2% 20ml Vial) Confirm Administered Dose 40 ml .ROUTE .STK-MED ONE Stop: 04/05/17 11:40 Midazolam HCl (Versed Inj) Confirm Administered Dose 2 mg .ROUTE .STK-MED ONE Stop: 04/05/17 13:05 Pneumococcal Polyvalent Vaccine (Pneumovax 23 Vaccine) 0.5 ml IM .ONCE ONE Stop: 04/04/17 22:21 Last Admin: 04/04/17 22:39 Dose: - Scribe Statement The provider has reviewed the documentation as recorded by the Ramakrishna Murray Provider Scribe Attestation: All medical record entries made by the Scribe were at my direction and personally dictated by me. I have reviewed the chart and agree that the record accurately reflects my personal performance of the history, physical exam, medical decision making, and the department course for this patient. I have also personally directed, reviewed, and agree with the discharge instructions and disposition. Disposition/Present on Arrival - Present on Arrival Any Indicators Present on Arrival: No History of DVT/PE: No History of Uncontrolled Diabetes: No Urinary Catheter: No History of Decub. Ulcer: No History Surgical Site Infection Following: None - Disposition Have Diagnosis and Disposition been Completed?: Yes Diagnosis: Renal failure, Ascites Disposition: HOSPITALIZED Disposition Time: 07:00 Patient Problems: Current Active Problems Problem Status Onset Ascites Acute Renal failure Acute Condition: FAIR
[2017-04-04 17:51] LABS: HEMOGLOBIN 10.5 gm/dL (14.0-18.0); MEAN CORPUSCULAR HEMOGLOBIN 28.5 pg (25.0-35.0); MEAN CORPUSCULAR HGB CONC 33.9 g/dl (31.0-37.0); PLATELET COUNT 83 10^3/uL (120.0-450.0); RBC 3.69 10^6/uL (3.5-6.1); RED CELL DISTRIBUTION WIDTH 18.5 % (11.5-14.5); WHITE BLOOD COUNT 11.6 10^3/ul (4.5-11.0)
[2017-04-04 17:52] LABS: ALBUMIN 3.1 g/dL (3.0-4.8); CALCIUM 9.1 mg/dL (8.4-10.5)
[2017-04-04 17:58] LABS: INR 1.29 (0.93-1.08); PARTIAL THROMBOPLASTIN TIME 26.8 Seconds (23.7-30.8); PROTHROMBIN TIME 13.9 Seconds (9.9-11.8)
[2017-04-04 18:54] LABS: EOSINOPHIL 1 % (0.0-3.0); LYMPHOCYTE 12 % (22.0-35.0); MONOCYTE 2 % (1.0-6.0); NEUTROPHIL 85 % (50.0-70.0)
[2017-04-04 18:57] LABS: PLATELET ESTIMATE NORMAL (NORMAL)
[2017-04-04] MEDS: methylPREDNISolone 500 MG in Sodium Chloride 0.9% 100 ML IVPB SCH (20:18)
--- NOTE | 2017-04-04 21:03 | US ---
EXAM: US Retroperitoneal Limited, Renal CLINICAL HISTORY: The patient age is 66 years old and is male; Pain; Abdominal pain; Additional info: Dev Facility exam id and description: Us renal renal TECHNIQUE: Real-time ultrasound of the retroperitoneum (limited) with image documentation. EXAM DATE/TIME: 04/04/2017 6:57 PM COMPARISON: A comparison is made to an abdomen ultrasound report from 03/20/17. No prior images are available for review. FINDINGS: Right kidney: There is increased echogenicity of the renal cortex, consistent with medical renal disease. The right kidney measures 10.8 x 5.9 x 5.0 cm. There is no hydronephrosis bilaterally. No well-defined renal cyst or mass is visualized. No shadowing nephrolithiasis. Left kidney: The left kidney measures 11.1 x 5.5 x 5.3 cm. There is increased echogenicity of the renal cortex, consistent with medical renal disease. No well-defined renal cyst or mass is visualized. No shadowing nephrolithiasis. Free fluid: There is mild abdominal ascites. Other findings: There is increased nodularity of the hepatic contour, with heterogeneous echotexture of the visualized liver, consistent with cirrhosis. The spleen measures 13.3 x 7.2 x 6.6 cm. This is consistent with mild splenomegaly. IMPRESSION: 1. There is increased nodularity of the hepatic contour, with heterogeneous echotexture of the visualized liver, consistent with cirrhosis. 2. There is mild abdominal ascites. 3. Mild splenomegaly. 4. There is increased echogenicity of the bilateral renal cortices, suggestive of medical renal disease. Correlation with prior renal biopsy results is recommended.
[2017-04-04 22:07] LABS: PH,URINE 5.5 (4.7-8.0); URINE APPEARANCE SL CLOUDY (CLEAR); URINE BILIRUBIN NEGATIVE (NEGATIVE); URINE BLOOD LARGE (NEGATIVE); URINE COLOR DARK YELLOW (YELLOW); URINE GLUCOSE (UA) NEGATIVE (NEGATIVE); URINE LEUKOCYTE ESTERASE LARGE Leu/uL (NEGATIVE); URINE NITRATE NEGATIVE (NEGATIVE); URINE PROTEIN 30 mg/dL (<30 mg/dL); URINE UROBILINOGEN 0.2 E.U./dL (<1 E.U./dL)
[2017-04-04 22:08] LABS: URINE BACTERIA MOD (NEG); URINE RBC TNTC /hpf (0-2); URINE WBC 25 - 30 /hpf (0-6)
[2017-04-04 22:20] LABS: CREATININE,RANDOM URINE 109 mg/dL
[2017-04-04] MEDS ORDERED: Pneumococcal 23-Valent Vaccine IM ONE (22:20)
--- NOTE | 2017-04-04 22:24 | CP.PCM.HP ---
<Guero Vega - Last Filed: 04/05/17 22:40> History of Present Illness - History of Present Illness History of Present Illness: H&P for Dr. Madrid/Dr. Johnson service - Guero Vega PGY1 cc: Abdominal distention HPI: Patient is a 66yo male with past medical history of hypertension, CAD, DC s /p stent placement, renal insufficiency secondary to acute interstitial nephritis, cirrhosis that presents c/o abdominal distention. Patient reported that he was recently discharged [place] [facility] [place] during which time he underwent a paracentesis and had 1300mL of fluid drained. Since his discharge he reports that his abdominal distention has been worsening and recently fluid has been leaking from the prior paracentesis site. He reported that he has had difficulty staying dry due to the fluid soiling his clothing. He stated that the progressive abdominal distention prompted him to come to the ER, however he denied abdominal pain, nausea, vomiting, fever, chills, cough, chest pain, palpitations, SOB. Daughter was at bedside and reported no changes in mental status or confusion. 12point ROS as per HPI above, otherwise negative PMHx: HTN, CAD, DC s/p stent placement, DMT2, Cirrhosis, CKD PSHx: Stent placement, right inguinal hernia repair Allergies: NKDA Family Hx: Father: Gastric cancer; Mother: Renal cancer Social Hx: Denies alcohol, tobacco and illicit drug use. Present on Admission - Present on Admission Any Indicators Present on Admission: No Past Patient History - Infectious Disease Hx of Infectious Diseases: None - Tetanus Immunizations Tetanus Immunization: Unknown - Past Medical History & Family History Past Medical History?: Yes - Past Social History Smoking Status: Former Smoker - CARDIAC Hx Cardiac Disorders: Yes (mi with stents) Hx Congestive Heart Failure: Yes Hx Hypertension: Yes - PULMONARY Hx Respiratory Disorders: No - NEUROLOGICAL HX Cerebrovascular Accident: Yes (many years ago) - HEENT Hx HEENT Problems: No - RENAL Hx Chronic Kidney Disease: Yes Hx Dialysis: No - ENDOCRINE/METABOLIC Hx Diabetes Mellitus Type 2: Yes - HEMATOLOGICAL/ONCOLOGICAL Hx Blood Transfusions: Yes Hx Blood Transfusion Reaction: No - INTEGUMENTARY Hx Dermatological Problems: Yes Other/Comment: white and pink skin discolorations both hands and r arm began about 7 months ago cause unknown, brown discolorations ble,dry brown scabbed wound posterior right lowr leg starts below calf to lower leg then dry brown skin to posterior ankle, +2 edema right ankle, dry flakey skin both feet - MUSCULOSKELETAL/RHEUMATOLOGICAL Hx Falls: Yes (recent frequent) - GASTROINTESTINAL Hx Gastrointestinal Disorders: Yes Hx Gastroesophageal Reflux: Yes Hx Liver Failure: (cirrhosis, mild ascites) Other/Comment: colonoscopy 07/17/2016 dx diverticulitis, colitis, rectal polyp - GENITOURINARY/GYNECOLOGICAL Hx Genitourinary Disorders: No - PSYCHIATRIC Hx Psychophysiologic Disorder: No Hx Substance Use: No - SURGICAL HISTORY Hx Coronary Stent: Yes (ptca with stent) - ANESTHESIA Hx Anesthesia: Yes Hx Anesthesia Reactions: No Hx Malignant Hyperthermia: No Meds Allergies/Adverse Reactions: Allergies Allergy/AdvReac Type Severity Reaction Status Date / Time No Known Allergies Allergy Verified 04/04/17 20:21 Physical Exam - Constitutional Appears: No Acute Distress, Chronically Ill - Head Exam Head Exam: ATRAUMATIC, NORMAL INSPECTION, NORMOCEPHALIC - Eye Exam Eye Exam: EOMI, PERRL - ENT Exam ENT Exam: Mucous Membranes Moist - Respiratory Exam Respiratory Exam: Clear to Auscultation Bilateral. absent: Rales, Rhonchi, Wheezes - Cardiovascular Exam Cardiovascular Exam: RRR, +S1, +S2. absent: Gallop, Rubs - GI/Abdominal Exam GI & Abdominal Exam: Distended, Soft. absent: Firm, Guarding, Rebound, Rigid, Tenderness Additional comments: fluid wave - Extremities Exam Extremities exam: Positive for: pedal edema (2+pitting edema), pedal pulses present. Negative for: calf tenderness, tenderness - Neurological Exam Neurological exam: Alert, CN II-XII Intact, Oriented x3 - Psychiatric Exam Psychiatric exam: Normal Affect, Normal Mood - Skin Skin Exam: Dry, Intact, Warm Results - Vital Signs Recent Vital Signs: Last Vital Signs Temp 97.6 F 04/04/17 22:01 Pulse 76 04/04/17 22:01 Resp 18 04/04/17 22:01 BP 152/86 H 04/04/17 22:01 Pulse Ox 94 L 04/04/17 20:03 - Labs Result Diagrams: 04/04/17 17:20 04/04/17 17:20 Labs: Laboratory Results - last 24 hr 04/04/17 21:45 Urine Color Dark yellow Urine Appearance Sl cloudy Urine pH 5.5 Ur Specific [place] 1.020 Urine Protein 30 H Urine Glucose (UA) Negative Urine Ketones Negative Urine Blood Large H Urine Nitrate Negative Urine Bilirubin Negative Urine Urobilinogen 0.2 Ur Leukocyte Esterase Large H Urine RBC Tntc Urine WBC 25 - 30 Ur Epithelial Cells 3 - 4 Urine Bacteria Mod Assessment & Plan - Assessment and Plan (Free Text) Plan: 66yo male with history of cirrhosis, AIN, CAD, DC s/p stent placement presents c /o worsening abdominal distention 1. 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 Liver cirrhosis -MELD-Na score of 24 on admission -Patient underwent extensive workup on prior admission including endoscopy/ colonoscopy/abd US/abd doppler ; refer to full reports -Cirrhosis was thought possible due to CARR, however he was referred to [facility] hepatology for further evaluation/treatment -Lactulose/Xifaxin currently on hold given low ammonia and no clinical indication of hepatic encephalopathy at this time -GI consulted - Dr. Hay -IR consulted - Dr. Sylvester for paracentesis 3. Hypertension -Continue norvasc, metoprolol 4. Anemia -Continue feosol 5. GI/DVT prophylaxis -protonix/SCD's Case to be discussed with attending, Dr. Johnson - Date & Time Date: 04/04/17 Time: 22:44 <Bravo Johnson - Last Filed: 04/11/17 15:24> Results - Vital Signs Recent Vital Signs: Last Vital Signs Temp 99.1 F 04/11/17 12:00 Pulse 75 04/11/17 12:00 Resp 19 04/11/17 12:00 BP 118/68 04/11/17 12:00 Pulse Ox 97 04/11/17 10:00 - Labs Result Diagrams: 04/11/17 07:10 04/11/17 07:10 Labs: Laboratory Results - last 24 hr 04/05/17 04/06/17 04/08/17 12:45 11:43 16:52 WBC RBC Hgb Hct MCV MCH MCHC RDW Plt Count Manual Plt Count Gran % Lymph % (Auto) [place] % (Auto) Eos % (Auto) Baso % (Auto) Gran # Lymph # [place] # Eos # Baso # Sodium Potassium Chloride Carbon Dioxide Anion Gap BUN Creatinine Est GFR ( Amer) Est GFR (Non-Af Amer) POC Glucose (mg/dL) 153 H 156 H Random Glucose Calcium Phosphorus Magnesium Total Bilirubin AST ALT Alkaline Phosphatase Total Protein Albumin Globulin Albumin/Globulin Ratio Amylase Lipase Anti-Mitochondrial Titr TNP Anti-Mitochondrial Ab Negative Anti-Parietal Cell Ab 70.5 H Complement C3 59 L Complement C4 11 L 04/10/17 04/10/17 04/10/17 07:15 16:02 21:10 WBC RBC Hgb Hct MCV MCH MCHC RDW Plt Count Manual Plt Count Gran % Lymph % (Auto) [place] % (Auto) Eos % (Auto) Baso % (Auto) Gran # Lymph # [place] # Eos # Baso # Sodium Potassium Chloride Carbon Dioxide Anion Gap BUN Creatinine Est GFR ( Amer) Est GFR (Non-Af Amer) POC Glucose (mg/dL) 157 H 119 H Random Glucose Calcium Phosphorus Magnesium Total Bilirubin AST ALT Alkaline Phosphatase Total Protein Albumin Globulin Albumin/Globulin Ratio Amylase 208 H Lipase 271 Anti-Mitochondrial Titr Anti-Mitochondrial Ab Anti-Parietal Cell Ab Complement C3 Complement C4 04/11/17 04/11/17 04/11/17 06:30 07:10 07:10 WBC 13.8 H RBC 3.84 Hgb 10.9 L Hct 32.2 L MCV 83.9 MCH 28.4 MCHC 33.9 RDW 17.5 H Plt Count 35 L* Manual Plt Count 35 L* Gran % 97.0 H Lymph % (Auto) 1.4 L [place] % (Auto) 1.6 Eos % (Auto) 0.0 L Baso % (Auto) 0.0 Gran # 13.39 H Lymph # 0.2 L [place] # 0.2 Eos # 0.0 Baso # 0.00 Sodium 134 Potassium 4.8 Chloride 99 Carbon Dioxide 20 L Anion Gap 20 BUN 95 H Creatinine 5.0 H Est GFR ( Amer) 14 Est GFR (Non-Af Amer) 12 POC Glucose (mg/dL) Random Glucose 104 Calcium 9.0 Phosphorus 10.0 H Magnesium 2.1 Total Bilirubin 2.7 H AST 187 H ALT 162 H Alkaline Phosphatase 124 Total Protein 5.2 L Albumin 2.7 L Globulin 2.5 Albumin/Globulin Ratio 1.1 Amylase Lipase Anti-Mitochondrial Titr Anti-Mitochondrial Ab Anti-Parietal Cell Ab Complement C3 Complement C4 04/11/17 04/11/17 07:30 12:07 WBC RBC Hgb Hct MCV MCH MCHC RDW Plt Count Manual Plt Count Gran % Lymph % (Auto) [place] % (Auto) Eos % (Auto) Baso % (Auto) Gran # Lymph # [place] # Eos # Baso # Sodium Potassium Chloride Carbon Dioxide Anion Gap BUN Creatinine Est GFR ( Amer) Est GFR (Non-Af Amer) POC Glucose (mg/dL) 127 H 145 H Random Glucose Calcium Phosphorus Magnesium Total Bilirubin AST ALT Alkaline Phosphatase Total Protein Albumin Globulin Albumin/Globulin Ratio Amylase Lipase Anti-Mitochondrial Titr Anti-Mitochondrial Ab Anti-Parietal Cell Ab Complement C3 Complement C4 Attending/Attestation - Attestation I have personally seen and examined this patient.: Yes I have fully participated in the care of the patient.: Yes I have reviewed all pertinent clinical information: Yes Notes (Text): 04/11/17 15:24 Medical record note made by the resident after discussion with my direction and input after the patient was personally seen and examined by me. I have reviewed the chart and agree that the record accurately reflects by personal performance of the history, physical exam, data review, and medical decision-making, in the course for the patient. I have also personally directed the plan of care.
[2017-04-05 07:19] LABS: GRAN # 6.34 (1.4-6.5); GRAN % 97.8 % (50.0-68.0); HEMOGLOBIN 10.2 gm/dL (14.0-18.0); LYMPH # 0.1 (1.2-3.4); LYMPH % 1.7 % (22.0-35.0); MEAN CELL VOLUME 84.2 fL (80.0-105.0); MEAN CORPUSCULAR HEMOGLOBIN 28.3 pg (25.0-35.0); MEAN CORPUSCULAR HGB CONC 33.6 g/dl (31.0-37.0); MONO % 0.5 % (1.0-6.0); PLATELET COUNT 59 10^3/uL (120.0-450.0); RBC 3.61 10^6/uL (3.5-6.1); RED CELL DISTRIBUTION WIDTH 18.4 % (11.5-14.5); WHITE BLOOD COUNT 6.5 10^3/ul (4.5-11.0)
[2017-04-05 08:16] LABS: CALCIUM 9.1 mg/dL (8.4-10.5); MAGNESIUM 1.9 mg/dL (1.7-2.2)
[2017-04-05] MEDS: methylPREDNISolone 500 MG in Sodium Chloride 0.9% 100 ML IVPB SCH (09:42)
--- NOTE | 2017-04-05 10:51 | RAD ---
HISTORY: abd pain COMPARISON: 03/20/2017 FINDINGS: LUNGS: No active pulmonary disease. PLEURA: No significant pleural effusion identified, no pneumothorax apparent. CARDIOVASCULAR: The heart is normal in size. There is minimal vascular congestion OSSEOUS STRUCTURES: No significant abnormalities. VISUALIZED UPPER ABDOMEN: Normal. OTHER FINDINGS: None. IMPRESSION: No active disease.
[2017-04-05] MEDS: Sodium Chloride 0.9% 1,000 ML IV SCH ×2 (11:05→18:06)
[2017-04-05] MEDS ORDERED: Lidocaine 2% Inj (20ml) ONE (11:39)
[2017-04-05 11:54] LABS: IMMUNOGLOBULIN G 1302.6 mg/dL (700.0-1600.0)
[2017-04-05] MEDS ORDERED: methylPREDNISolone 500 MG in Sodium Chloride 0.9% 100 ML IVPB ONE ×2 (12:42→18:00)
[2017-04-05 12:59] LABS: COMPLEMENT C4 10.3 mg/dL (14.0-44.0)
[2017-04-05] MEDS ORDERED: Midazolam 2 MG/2 ML VIAL ONE (13:04)
[2017-04-05] MEDS ORDERED: methylPREDNISolone 1 GM in Sodium Chloride 0.9% 250 ML IV ONE (13:15)
--- NOTE | 2017-04-05 13:15 | CP.PCM.CON ---
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 Suspect multi-system autoimmune pathology such as seronegative Lupus or IgG4 related disease which can explain his skin lesion, lymphadenopathy, hepatobiliary and renal involvement, hypocomplementemia. Acute Kidney Injury (N17.9) likely due to progression of underlying renal disease Chronic Kidney Disease (N18.3) Stage 3 (baseline cr 1.4-1.9) with 700 mg proteinuria (R80.9) likely due to KELLI in 2016 Anemia (D64.9), Hyperphosphatemia (E83.39), HTN (I12.9), DM, CAD, VItiligo, Cirrhosis with portal HTN and ascites, mediastinal and upper abdomen lymphadenopathy Plan Will plan for HD initiation today as ordered due to uremia and progressive rise in BUN/cr. IR consult for catheter insertion. Hypertension control with meds as ordered. Patient not on ACEI/ARB due to KELLI. started on renagel 1600 mg TID with meals will pulse steroid 1000 mg x 3 doses and started on cellcept 1000 mg bid in hope of renal recovery with aggressive immunosuppressive regimen. IVF for today as low FeNa and low urine Na Monitor Input/Output, daily weights and renal function with basic metabolic panel Ordered urine analysis, spot protein/creatinine and albumin/creatinine ratio, renal sonogram. Ordered 25-OH vitamin D, iPTH, phosphorus level, iron indices Ordered C3, C4, Lupus serology, IgG and IgG4 level, ANCA Dose meds/antibiotics for reduced GFR <10 and dialysis status. Avoid fleets enema/magnesium based laxatives. Avoid nephrotoxins/NSAIDs/ iodinated contrast ( unless needed emergently) Glycemic control Further work up/management as per primary team. d/w primary team. d/w GI. d/w daughter on phone Thanks for allowing me to participate in care of your patient. Will follow patient with you. Please call if any Qs Dr Paco Cadet Office: [phone] Chief Complaint; Abdomen Distension HPI: Pt is a 66 y/o M with hx of diabetes Mellitus, hypertension, CAD, vitiligo , mediastinal lymphadenopathy (seen by heme/onc) cirrhosis of unknown etiology with portal HTN and recurrent ascites (s/p EGD and colonoscopy) and recent hospitalization for ascites, KELLI on CKD 3 (cr 1.3-1.9 range) with peaked creatinine 4-5 range s/p kidney bipsy: ATIN and secondary membranous neprhopathy (unknown trigger) pulse steroids 500 mg daily x 3 doses then 60 mg PO prednisone daily presented with complaints of abdomen distension and found to have worsening KELLI hence renal consulted. Denies chest pain, palpitation, shortness of breath, leg swelling Denies blood or bubbles in urine Denies OTC/herbal meds or NSAIDs No recent iodinated contrast exposure. No obvious episodes of low BP. reports mainly as abdomen distension ROS: staff helped in kyrgyz interpretation. Constitutional Symptoms: Denies fever. No chills. No Recent Weight Changes Eyes: denies change in vision, denies watery eyes, denies double vision Ears/Nose/Mouth/Throat: Denies Abnormal Taste. No Bad breath no Bad Taste. Cardiovascular: No chest pain. There is no shortness of breath. No palpitations. Pulmonary: No shortness of breath no cough. Gastrointestinal: denies abdominal pain No nausea. No vomiting. Denies change in bowel habits. Denies Bleeding. c/o abdomen distension Genitourinary: No Change in force of strain when urinating. No increase in urinary frequency. No pain while urinating. Denies blood in urine. Neurological: Denies headaches. No dizziness. Denies loss of balance. Denies weakness, denies tingling/numbness Dermatological: No Rash or Bruising or ulcers. Psychiatric: Denies Anxiety. No depression. Denies hallucinations. Rheumatological: No joint pain. Denies Joint swelling Endocrine: Denies tiredness/Fatigue denies Heat/Cold Intolerance. All other negative Physical Examination: General Appearance: Comfortable, in no acute respiratory distress, co-operative . Vitals reviewed and noted as below Head; Atraumatic, normocephalic ENT: no ulcers no thrush. Tongue is midline. Oropharynx: no rash or ulcers. EYES: Pupils are equal, round and reactive to light accommodation. Eye muscles and extraocular movement intact. Sclera is anicteric. Neck; supple no lymphadenopathy, no thyromegaly or bruit Lungs: Normal respiratory rate/effort. Breath sounds bilateral equal and clear Heart: Normal rate. s1s2 normal. No rub or gallop. Extremities: minimal/trace edema. No varicose veins Neurological: Patient is alert, awake and oriented to person, place and time. No focal deficit. Strength bilateral appropriate and equal Skin: Warm and dry. Normal turgor. No rash. Palpitation: Normal elasticity for age. has vitiligo patches in hand Abdomen: Abdomen is soft. Bowel sounds +. There is no abdominal tenderness, no guarding/rigidity no organomegaly. abdomen is distended Psych: has limited insight and normal affect/mood MSK: no joint tenderness or swelling. Digits and nails normal, no deformity : kidney or bladder not palpable Labs/imaging/EKG reviewed. Past medical history, past surgical history, family history, social history, allergy reviewed and noted as below Family hx: no hx of CKD. Rest non-contributory. daughter had reported hx of lupus in family WORK up Renal sono: b/l echogenic kidneys, cirrhosis PSA 0.8 Ferriitn /TSAT 54/15% IgG 1300 C3: 58 C4: 10 [place]/lambda 1.3 SAEED/DNA/cryoglobulin/HIV/Hep B and C neg UA: large blood with small protein, 238 mg albuminuria Past Patient History - Infectious Disease Hx of Infectious Diseases: None - Tetanus Immunizations Tetanus Immunization: Unknown - Past Medical History & Family History Past Medical History?: Yes - Past Social History Smoking Status: Former Smoker - CARDIAC Hx Cardiac Disorders: Yes (mi with stents) Hx Congestive Heart Failure: Yes Hx Hypertension: Yes - PULMONARY Hx Respiratory Disorders: No - NEUROLOGICAL HX Cerebrovascular Accident: Yes (many years ago) - HEENT Hx HEENT Problems: No - RENAL Hx Chronic Kidney Disease: Yes Hx Dialysis: No - ENDOCRINE/METABOLIC Hx Diabetes Mellitus Type 2: Yes - HEMATOLOGICAL/ONCOLOGICAL Hx Blood Transfusions: Yes Hx Blood Transfusion Reaction: No - INTEGUMENTARY Hx Dermatological Problems: Yes Other/Comment: white and pink skin discolorations both hands and r arm began about 7 months ago cause unknown, brown discolorations ble,dry brown scabbed wound posterior right lowr leg starts below calf to lower leg then dry brown skin to posterior ankle, +2 edema right ankle, dry flakey skin both feet - MUSCULOSKELETAL/RHEUMATOLOGICAL Hx Falls: Yes (recent frequent) - GASTROINTESTINAL Hx Gastrointestinal Disorders: Yes Hx Gastroesophageal Reflux: Yes Hx Liver Failure: (cirrhosis, mild ascites) Other/Comment: colonoscopy 07/17/2016 dx diverticulitis, colitis, rectal polyp - GENITOURINARY/GYNECOLOGICAL Hx Genitourinary Disorders: No - PSYCHIATRIC Hx Psychophysiologic Disorder: No Hx Substance Use: No - SURGICAL HISTORY Hx Coronary Stent: Yes (ptca with stent) - ANESTHESIA Hx Anesthesia: Yes Hx Anesthesia Reactions: No Hx Malignant Hyperthermia: No Meds Allergies/Adverse Reactions: Allergies Allergy/AdvReac Type Severity Reaction Status Date / Time No Known Allergies Allergy Verified 04/04/17 20:21 - Medications Medications: Current Medications Amlodipine Besylate (Norvasc) 10 mg PO DAILY [facility] Last Admin: 04/05/17 09:42 Dose: 10 mg Aspirin (Aspirin Chewable) 81 mg PO DAILY [facility] Last Admin: 04/05/17 09:41 Dose: 81 mg Ferrous Gluconate (Fergon) 324 mg PO TID [facility] Last Admin: 04/05/17 09:41 Dose: 324 mg Sodium Chloride (Sodium Chloride 0.9%) 1,000 mls @ 100 mls/hr IV .Q10H [facility] Last Admin: 04/05/17 11:05 Dose: 100 mls/hr Methylprednisolone 1,000 mg/ (Sodium Chloride) 100 mls @ 200 mls/hr IVPB ONCE ONE Stop: 04/06/17 08:01 Metoprolol Tartrate (Lopressor) 12.5 mg PO DAILY [facility] Last Admin: 04/05/17 09:42 Dose: 12.5 mg Mycophenolate Mofetil (Cellcept Cap) 1,000 mg PO BID [facility] Last Admin: 04/05/17 09:41 Dose: 1,000 mg Sevelamer HCl (Renagel) 1,600 mg PO TID [facility] Last Admin: 04/05/17 09:42 Dose: 1,600 mg Results - Vital Signs Recent Vital Signs: Last Vital Signs Temp 98.6 F 04/05/17 06:00 Pulse 86 04/05/17 10:00 Resp 20 04/05/17 06:00 BP 164/90 H 04/05/17 09:42 Pulse Ox 97 04/05/17 06:00 - Labs Result Diagrams: 04/05/17 06:30 04/05/17 07:50 Labs: Laboratory Results - last 24 hr 04/04/17 04/04/1717 21:45 21:45 21:45 WBC RBC Hgb Hct MCV MCH MCHC RDW Plt Count Gran % Lymph % (Auto) [place] % (Auto) Eos % (Auto) Baso % (Auto) Gran # Lymph # [place] # Eos # Baso # Sodium Potassium Chloride Carbon Dioxide Anion Gap BUN Creatinine Est GFR ( Amer) Est GFR (Non-Af Amer) POC Glucose (mg/dL) Random Glucose Calcium Phosphorus Magnesium Ammonia Lipase Urine Color Dark yellow Urine Appearance Sl cloudy Urine pH 5.5 Ur Specific [place] 1.020 Urine Protein 30 H Urine Glucose (UA) Negative Urine Ketones Negative Urine Blood Large H Urine Nitrate Negative Urine Bilirubin Negative Urine Urobilinogen 0.2 Ur Leukocyte Esterase Large H Urine RBC Tntc Urine WBC 25 - 30 Ur Epithelial Cells 3 - 4 Urine Bacteria Mod Ur Random Creatinine 109 Ur Random Sodium 8 Urine Microalbumin 260.2 H IgG 04/05/17 04/05/17 04/05/17 06:10 06:15 06:30 WBC 6.5 D RBC 3.61 Hgb 10.2 L Hct 30.4 L MCV 84.2 MCH 28.3 MCHC 33.6 RDW 18.4 H Plt Count 59 L Gran % 97.8 H Lymph % (Auto) 1.7 L [place] % (Auto) 0.5 L Eos % (Auto) 0.0 L Baso % (Auto) 0.0 Gran # 6.34 Lymph # 0.1 L [place] # 0.0 L Eos # 0.0 Baso # 0.00 Sodium Potassium Chloride Carbon Dioxide Anion Gap BUN Creatinine Est GFR ( Amer) Est GFR (Non-Af Amer) POC Glucose (mg/dL) Random Glucose Calcium Phosphorus Magnesium Ammonia 54 H Lipase Urine Color Urine Appearance Urine pH Ur Specific [place] Urine Protein Urine Glucose (UA) Urine Ketones Urine Blood Urine Nitrate Urine Bilirubin Urine Urobilinogen Ur Leukocyte Esterase Urine RBC Urine WBC Ur Epithelial Cells Urine Bacteria Ur Random Creatinine Ur Random Sodium Urine Microalbumin IgG 1302.6 04/05/17 04/05/17 07:30 07:50 WBC RBC Hgb Hct MCV MCH MCHC RDW Plt Count Gran % Lymph % (Auto) [place] % (Auto) Eos % (Auto) Baso % (Auto) Gran # Lymph # [place] # Eos # Baso # Sodium 141 Potassium 5.0 Chloride 109 H Carbon Dioxide 16 L Anion Gap 21 H BUN 166 H* Creatinine 7.2 H Est GFR ( Amer) 9 Est GFR (Non-Af Amer) 8 POC Glucose (mg/dL) 177 H Random Glucose 143 H Calcium 9.1 Phosphorus 8.4 H Magnesium 1.9 Ammonia Lipase 312 H Urine Color Urine Appearance Urine pH Ur Specific [place] Urine Protein Urine Glucose (UA) Urine Ketones Urine Blood Urine Nitrate Urine Bilirubin Urine Urobilinogen Ur Leukocyte Esterase Urine RBC Urine WBC Ur Epithelial Cells Urine Bacteria Ur Random Creatinine Ur Random Sodium Urine Microalbumin IgG
--- NOTE | 2017-04-05 14:03 | US ---
PROCEDURE: Ultrasound guided paracentesis. HISTORY: Cirrhosis. End-stage renal disease. Recurrent ascites with abdominal pain and distension. Needs paracentesis. PHYSICIAN(S): Vitaly Sylvester MD. TECHNIQUE: The relative risks and indications for the procedure were explained to the patient and informed written consent obtained. Sonography of the abdomen was performed in a supine position. This revealed a large amount of non-loculated ascites, greatest in the right lower quadrant. A puncture site was selected and the area was prepped and draped in the usual sterile fashion. 1% Xylocaine was used to anesthetize the skin and soft tissues. A 7 Welsh paracentesis catheter was trocared into the right lower quadrantand 9000 cc of clear, straw-colored fluid aspirated. No labs were sent.. IMPRESSION: Ultrasound-guided paracentesis in the right lower quadrant. 9000 cc of fluid were aspirated.
--- NOTE | 2017-04-05 14:04 | VASCULAR ---
PROCEDURE: Ultrasound and fluoroscopic tunneled right IJ dialysis catheter. CLINICAL HISTORY: ESRD PHYSICIAN(S): Vitaly Sylvester M.D. TECHNIQUE: The relative risks and indications for the procedure were explained to the patient and informed written consent obtained. The patient was placed supine on the arteriography table and the right neck/chest was prepped and draped in the usual sterile fashion. 1% Xylocaine was used to anesthetize the skin and soft tissues at the puncture site. Conscious sedation and monitoring were provided throughout the procedure by a nurse. Under direct ultrasound guidance, the rightinternal jugular vein was punctured with a micropuncture set. A 0.035 Glidewire was advanced into the IVC. Sequential dilatation was performed with subsequent placement of a 28cm Keys II catheter with its tip in the right atrium. A retrograde tunnel below the right clavicle was performed. The catheter was trimmed and the hub attached. Both ports aspirate and inject easily. The catheter was secured and a dressing applied. The patient tolerated the procedure well. IMPRESSION: 1. Ultrasound and fluoroscopically placed right IJ tunneled dialysis catheter.
--- NOTE | 2017-04-05 15:49 | CP.PCM.PN ---
Subjective - Date & Time of Evaluation Date of Evaluation: 04/05/17 Time of Evaluation: 15:47 - Subjective Subjective: pt seen during dialysis tolerating it well hemodynamics stable he is sleepy, likely due to sedation given in IR for procedure next HD tomorrow as ordered Objective - Vital Signs/Intake and Output Vital Signs (last 24 hours): Temp Pulse Resp BP Pulse Ox 97.4 F L 46 L 11 L 118/56 L 99 04/05/17 14:30 04/05/17 14:30 04/05/17 14:30 04/05/17 14:30 04/05/17 14:30 Intake and Output: 04/05/17 04/05/17 06:59 18:59 Intake Total 480 420 Output Total 800 1100 Balance -320 -680 - Medications Medications: Current Medications Amlodipine Besylate (Norvasc) 10 mg PO DAILY [facility] Last Admin: 04/05/17 09:42 Dose: 10 mg Aspirin (Aspirin Chewable) 81 mg PO DAILY [facility] Last Admin: 04/05/17 09:41 Dose: 81 mg Ferrous Gluconate (Fergon) 324 mg PO TID [facility] Last Admin: 04/05/17 14:56 Dose: Not Given Sodium Chloride (Sodium Chloride 0.9%) 1,000 mls @ 100 mls/hr IV .Q10H [facility] Last Admin: 04/05/17 11:05 Dose: 100 mls/hr Methylprednisolone 1 gm/ (Sodium Chloride) 250 mls @ 166.667 mls/hr IV ONCE ONE Stop: 04/06/17 11:29 Metoprolol Tartrate (Lopressor) 12.5 mg PO DAILY [facility] Last Admin: 04/05/17 09:42 Dose: 12.5 mg Mycophenolate Mofetil (Cellcept Cap) 1,000 mg PO BID [facility] Last Admin: 04/05/17 09:41 Dose: 1,000 mg Sevelamer HCl (Renagel) 1,600 mg PO TID [facility] Last Admin: 04/05/17 14:56 Dose: Not Given - Labs Labs: 04/05/17 06:30 04/05/17 07:50 PT 13.9 Seconds (9.9-11.8) H 04/04/17 17:20 INR 1.29 (0.93-1.08) H 04/04/17 17:20 APTT 26.8 Seconds (23.7-30.8) 04/04/17 17:20
--- NOTE | 2017-04-05 17:33 | CP.PCM.PN ---
<Adam Nava - Last Filed: 04/05/17 17:30> Subjective - Date & Time of Evaluation Date of Evaluation: 04/05/17 Time of Evaluation: 07:50 - Subjective Subjective: Internal Medicine Progress Note for Dr. Madrid/Dr. Johnson service Patient seen and examined at bedside. Today is hospital day 2. Patient reports abdominal fullness, but no pain. Denies chest pain, shortness of breath , anuria/dysuria/hematuria, or constipation. Pending possible Paracentesis by IR, pending temporary dialysis catheter placement. Objective - Vital Signs/Intake and Output Vital Signs (last 24 hours): Temp Pulse Resp BP Pulse Ox 97.4 F L 46 L 11 L 118/56 L 99 04/05/17 14:30 04/05/17 14:30 04/05/17 14:30 04/05/17 14:30 04/05/17 14:30 Intake and Output: 04/05/17 04/05/17 06:59 18:59 Intake Total 480 420 Output Total 800 1100 Balance -320 -680 - Medications Medications: Current Medications Amlodipine Besylate (Norvasc) 10 mg PO DAILY [facility] Last Admin: 04/05/17 09:42 Dose: 10 mg Aspirin (Aspirin Chewable) 81 mg PO DAILY [facility] Last Admin: 04/05/17 09:41 Dose: 81 mg Ferrous Gluconate (Fergon) 324 mg PO TID [facility] Last Admin: 04/05/17 14:56 Dose: Not Given Sodium Chloride (Sodium Chloride 0.9%) 1,000 mls @ 100 mls/hr IV .Q10H [facility] Last Admin: 04/05/17 11:05 Dose: 100 mls/hr Methylprednisolone 1 gm/ (Sodium Chloride) 250 mls @ 166.667 mls/hr IV ONCE ONE Stop: 04/06/17 11:29 Methylprednisolone 500 mg/ (Sodium Chloride) 100 mls @ 200 mls/hr IVPB ONCE ONE Stop: 04/05/17 18:29 Metoprolol Tartrate (Lopressor) 12.5 mg PO DAILY [facility] Last Admin: 04/05/17 09:42 Dose: 12.5 mg Mycophenolate Mofetil (Cellcept Cap) 1,000 mg PO BID [facility] Last Admin: 04/05/17 09:41 Dose: 1,000 mg Sevelamer HCl (Renagel) 1,600 mg PO TID [facility] Last Admin: 04/05/17 14:56 Dose: Not Given - Labs Labs: 04/05/17 06:30 04/05/17 07:50 PT 13.9 Seconds (9.9-11.8) H 04/04/17 17:20 INR 1.29 (0.93-1.08) H 04/04/17 17:20 APTT 26.8 Seconds (23.7-30.8) 04/04/17 17:20 - Constitutional Appears: Non-toxic, No Acute Distress, Chronically Ill - Head Exam Head Exam: ATRAUMATIC, NORMAL INSPECTION, NORMOCEPHALIC - Eye Exam Eye Exam: EOMI, Normal appearance. absent: Conjunctival injection, Scleral icterus Pupil Exam: absent: Irregular, Unequal - ENT Exam ENT Exam: Mucous Membranes Moist - Neck Exam Neck Exam: Full ROM. absent: Tenderness - Respiratory Exam Respiratory Exam: Clear to Ausculation Bilateral, NORMAL BREATHING PATTERN. absent: Accessory Muscle Use, Chest Wall Tenderness, Decreased Breath Sounds, Rales, Rhonchi, Wheezes - Cardiovascular Exam Cardiovascular Exam: REGULAR RHYTHM, RRR, +S1, +S2. absent: Bradycardia, Tachycardia, JVD, +S4 - GI/Abdominal Exam GI & Abdominal Exam: Distended (acutely distended with fluid wave), Firm, Tenderness. absent: Guarding, Rigid, Soft, Diminished Bowel Sounds, Hyperactive Bowel Sounds, Hypoactive Bowel Sounds, Normal Bowel Sounds, Pulsatile Mass Additional comments: Distant bowel sounds - Extremities Exam Extremities Exam: Pedal Edema (+1-2 pitting edema in bilateral LE up to bottom 2 /3rds of shins). absent: Calf Tenderness, Tenderness - Back Exam Back Exam: absent: CVA tenderness (L), CVA tenderness (R) - Neurological Exam Neurological Exam: Alert, Awake - Psychiatric Exam Psychiatric exam: Normal Affect, Normal Mood - Skin Skin Exam: Dry, Intact, Normal Color, Warm Assessment and Plan - Assessment and Plan (Free Text) Assessment: This is a 66 yo M with PMH of cirrhosis, chronic kidney disease, HTN, CAD, and recent AIN on PO steroids who presented with complaint of acutely worsening abdominal distention, and was found to have worsening renal function concerning for possible renal failure. Plan: 1) Acute on chronic kidney injury secondary to acute interstitial nephritis -Cr 4.0 at last discharge, 7.1 on admission, 7.2 today -With new liver cirrhosis, concern for possible hepato-renal syndrome -Patient underwent kidney biopsy on prior admission that was indicative of AIN with possible secondary membranous nephropathy -Nephrology was consulted by ED physician and full workup is pending: C3, C4, IGG subclass 4, microalbumin, IGG, urine creatinine, urine sodium -Patient was started on solumedrol 500mg IV for 3 doses per nephrology recommendations -Renal US: increased nodularity of the hepatic contour with heterogeneous echotexture consistent with cirrhosis, mild abdominal ascites, Mild splenomegaly , increased echogenicity of the bilateral renal cortices -As per nephro, Hemodialysis pending Dialysis Catheter placement by IR, pending workup results 2) Liver cirrhosis -MELD-Na score of 24 on admission -Patient underwent extensive workup on prior admission including endoscopy/ colonoscopy/abd US/abd doppler ; refer to full reports -Cirrhosis was thought possible due to CARR, however he was referred to [facility] hepatology for further evaluation/treatment -Lactulose/Xifaxin currently on hold given low ammonia and no clinical indication of hepatic encephalopathy at this time -GI consulted - Dr. Hay -IR consulted - Dr. Sylvester for paracentesis; ~9000cc of clear straw-colored fluid aspirated today 3) Hypertension -Continue norvasc, metoprolol 4) Anemia -Continue feosol Dispo: Telemetry, pending HD, pending GI input and recs, Nephro lab results FEN: Renal diet Access: Peripheral IV, HD catheter (pending) Consult: Nephro, IR, GI Ppx: Avoid PPI/Pepcid given thrombocytopenia, SCDs for DVT (avoid AC pending possible HD) Patient seen, reviewed, and discussed with attending, Dr. Madrid. <Juan Carlos Madrid - Last Filed: 04/19/17 11:49> Objective - Vital Signs/Intake and Output Vital Signs (last 24 hours): Temp Pulse Resp BP Pulse Ox 98 F 87 26 H 89/35 L 85 L 04/17/17 02:35 04/17/17 08:03 04/17/17 08:03 04/17/17 08:00 04/17/17 08:00 - Labs Labs: 04/17/17 07:00 04/17/17 07:00 PT 24.4 Seconds (9.9-11.8) H 04/17/17 07:00 INR 2.26 (0.93-1.08) H 04/17/17 07:00 APTT 74.2 Seconds (23.7-30.8) H* 04/17/17 07:00 Attending/Attestation - Attestation I have personally seen and examined this patient.: Yes I have fully participated in the care of the patient.: Yes I have reviewed all pertinent clinical information, including history, physical exam and plan: Yes Notes (Text): 04/19/17 11:49 Medical record note made by resident after discussion with my direction and input after patient personally seen and examined by me. I have reviewed the chart and agree that the record accurately reflects my personal performance of the history, physical, data review and medical decision making for the course of this patient.
[2017-04-06 07:42] LABS: GRAN # 10.68 (1.4-6.5); GRAN % 98.1 % (50.0-68.0); HEMOGLOBIN 10.4 gm/dL (14.0-18.0); LYMPH # 0.1 (1.2-3.4); LYMPH % 1.3 % (22.0-35.0); MEAN CELL VOLUME 84.2 fL (80.0-105.0); MEAN CORPUSCULAR HEMOGLOBIN 28.3 pg (25.0-35.0); MEAN CORPUSCULAR HGB CONC 33.5 g/dl (31.0-37.0); MONO # 0.1 (0.1-0.6); MONO % 0.6 % (1.0-6.0); PLATELET COUNT 60 10^3/uL (120.0-450.0); RBC 3.68 10^6/uL (3.5-6.1); RED CELL DISTRIBUTION WIDTH 18.2 % (11.5-14.5); WHITE BLOOD COUNT 10.9 10^3/ul (4.5-11.0)
[2017-04-06 07:55] LABS: ALBUMIN 2.8 g/dL (3.0-4.8)
[2017-04-06 08:17] LABS: % IRON SATURATION 13 % (20-55); IRON 29 ug/dL (45-180); TOTAL IRON BINDING CAPACITY 229 ug/dL (261-462)
[2017-04-06] MEDS ORDERED: methylPREDNISolone 1 GM in Sodium Chloride 0.9% 250 ML IV ONE (10:00)
--- NOTE | 2017-04-06 11:19 | CP.PCM.PN ---
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 Suspect multi-system autoimmune pathology such as seronegative Lupus or IgG4 related disease which can explain his skin lesion, lymphadenopathy, hepatobiliary and renal involvement, hypocomplementemia. Acute Kidney Injury (N17.9) likely due to progression of underlying renal disease started on dialysis 04/05/17 Chronic Kidney Disease (N18.3) Stage 3 (baseline cr 1.4-1.9) with 600 mg proteinuria (R80.9) likely due to KELLI in 2016 Anemia (D64.9), Hyperphosphatemia (E83.39), HTN (I12.9), DM, CAD, VItiligo, Cirrhosis with portal HTN and ascites, mediastinal and upper abdomen lymphadenopathy Plan Plan for 2nd session today and 3rd session tomorrow. Hypertension control with meds as ordered. Patient not on ACEI/ARB due to KELLI. started on renagel 1600 mg TID with meals will pulse steroid 1000 mg x 3 doses and started on cellcept 1000 mg bid in hope of renal recovery Monitor Input/Output, daily weights and renal function with basic metabolic panel. will need to monitor for signs of renal recovery during the hospitalization. Ordered 25-OH vitamin D, iPTH, phosphorus level, iron indices Ordered Lupus serology, IgG and IgG4 level, ANCA Dose meds/antibiotics for reduced GFR <10 and dialysis status. Avoid fleets enema/magnesium based laxatives. Avoid nephrotoxins/NSAIDs/ iodinated contrast ( unless needed emergently) Glycemic control. Further work up/management as per primary team. d/w primary team. Thanks for allowing me to participate in care of your patient. Will follow patient with you. Please call if any Qs Dr Paco Cadet Office: [phone] Chief Complaint; Abdomen Distension HPI: Pt is a 66 y/o M with hx of diabetes Mellitus, hypertension, CAD, vitiligo , mediastinal lymphadenopathy (seen by heme/onc) cirrhosis of unknown etiology with portal HTN and recurrent ascites (s/p EGD and colonoscopy) and recent hospitalization for ascites, KELLI on CKD 3 (cr 1.3-1.9 range) with peaked creatinine 4-5 range s/p kidney bipsy: ATIN and secondary membranous neprhopathy (unknown trigger) pulse steroids 500 mg daily x 3 doses then 60 mg PO prednisone daily presented with complaints of abdomen distension and found to have worsening KELLI hence renal consulted. ROS: Denies chest pain, palpitation, shortness of breath, leg swelling. no urinary complaints. he is s/p 9 L ascites fluid removal Physical Examination: General Appearance: Comfortable, in no acute respiratory distress, co-operative . Vitals reviewed and noted as below Lungs: Normal respiratory rate/effort. Breath sounds bilateral equal and clear Heart: Normal rate. s1s2 normal. No rub or gallop. Extremities: minimal/trace edema. No varicose veins Neurological: Patient is alert, awake and oriented to person, place and time. No focal deficit. Strength bilateral appropriate and equal Skin: Warm and dry. Normal turgor. No rash. Palpitation: Normal elasticity for age. has vitiligo patches in hand Abdomen: Abdomen is soft. Bowel sounds +. There is no abdominal tenderness, no guarding/rigidity no organomegaly. abdomen is distended Psych: limited insight and normal affect/mood MSK: no joint tenderness or swelling. Digits and nails normal, no deformity : kidney or bladder not palpable Labs/imaging/EKG reviewed. Past medical history, past surgical history, family history, social history, allergy reviewed and noted as below Family hx: no hx of CKD. Rest non-contributory. daughter had reported hx of lupus in family WORK up Renal sono: b/l echogenic kidneys, cirrhosis PSA 0.8 Ferriitn /TSAT 54/15% IgG 1300 C3: 58 C4: 10 [place]/lambda 1.3 SAEED/DNA/cryoglobulin/HIV/Hep B and C neg UA: large blood with small protein, 238 mg albuminuria Objective - Vital Signs/Intake and Output Vital Signs (last 24 hours): Temp Pulse Resp BP Pulse Ox 97.7 F 47 L 20 123/68 95 04/06/17 05:52 04/06/17 10:25 04/06/17 05:52 04/06/17 10:25 04/06/17 05:52 Intake and Output: 04/06/17 04/06/17 06:59 18:59 Intake Total 1480 Output Total 1000 Balance 480 - Medications Medications: Current Medications Amlodipine Besylate (Norvasc) 10 mg PO DAILY [facility] Last Admin: 04/06/17 09:51 Dose: 10 mg Aspirin (Aspirin Chewable) 81 mg PO DAILY [facility] Last Admin: 04/06/17 09:46 Dose: 81 mg Ferrous Gluconate (Fergon) 324 mg PO TID [facility] Last Admin: 04/06/17 09:44 Dose: 324 mg Methylprednisolone 1 gm/ (Sodium Chloride) 250 mls @ 166.667 mls/hr IV ONCE ONE Stop: 04/06/17 11:29 Last Admin: 04/06/17 09:53 Dose: 166.667 mls/hr Metoprolol Tartrate (Lopressor) 12.5 mg PO DAILY [facility] Last Admin: 04/06/17 10:25 Dose: Not Given Mycophenolate Mofetil (Cellcept Cap) 1,000 mg PO BID [facility] Last Admin: 04/06/17 09:46 Dose: 1,000 mg Sevelamer HCl (Renagel) 1,600 mg PO TID [facility] Last Admin: 04/06/17 09:44 Dose: 1,600 mg - Labs Labs: 04/06/17 06:30 04/06/17 06:30 PT 13.9 Seconds (9.9-11.8) H 04/04/17 17:20 INR 1.29 (0.93-1.08) H 04/04/17 17:20 APTT 26.8 Seconds (23.7-30.8) 04/04/17 17:20
--- NOTE | 2017-04-06 13:03 | CP.PCM.PN ---
Addendum entered and electronically signed by Adam Nava DO 04/07/17 08:41: Correction to physical Exam, GI & Abdominal Exam: Distended, but improved, and fluid wave no longer present Original Note: <Adam Nava - Last Filed: 04/06/17 12:56> Subjective - Date & Time of Evaluation Date of Evaluation: 04/06/17 Time of Evaluation: 07:50 - Subjective Subjective: Internal Medicine Progress Note for Dr. Madrid/Dr. Johnson service Patient seen and examined at bedside. Today is hospital day 3. No acute events overnight; BP stable despite paracentesis with large volume removed. S/ p 1x HD and Paracentesis, 9L clear straw-colored fluid removed as per IR documentation. Patient reports no complaints. Denies chest pain, shortness of breath, nausea/emesis. Abdomen feels improved. Objective - Vital Signs/Intake and Output Vital Signs (last 24 hours): Temp Pulse Resp BP Pulse Ox 97 F L 19 L 18 130/85 95 04/06/17 11:33 04/06/17 11:33 04/06/17 11:33 04/06/17 11:33 04/06/17 05:52 Intake and Output: 04/06/17 04/06/17 06:59 18:59 Intake Total 1480 Output Total 1000 Balance 480 - Medications Medications: Current Medications Amlodipine Besylate (Norvasc) 10 mg PO DAILY [facility] Last Admin: 04/06/17 09:51 Dose: 10 mg Aspirin (Aspirin Chewable) 81 mg PO DAILY [facility] Last Admin: 04/06/17 09:46 Dose: 81 mg Ergocalciferol (Drisdol 50,000 Intl Units Cap) 1 cap PO Q7D [facility] Stop: 05/25/17 12:46 Ferrous Gluconate (Fergon) 324 mg PO TID [facility] Last Admin: 04/06/17 09:44 Dose: 324 mg Methylprednisolone 500 mg/ (Sodium Chloride) 100 mls @ 200 mls/hr IVPB ONCE ONE Stop: 04/07/17 07:01 Metoprolol Tartrate (Lopressor) 12.5 mg PO DAILY [facility] Last Admin: 04/06/17 10:25 Dose: Not Given Mycophenolate Mofetil (Cellcept Cap) 1,000 mg PO BID [facility] Last Admin: 04/06/17 09:46 Dose: 1,000 mg Sevelamer HCl (Renagel) 1,600 mg PO TID [facility] Last Admin: 04/06/17 09:44 Dose: 1,600 mg - Labs Labs: 04/06/17 06:30 04/06/17 06:30 PT 13.9 Seconds (9.9-11.8) H 04/04/17 17:20 INR 1.29 (0.93-1.08) H 04/04/17 17:20 APTT 26.8 Seconds (23.7-30.8) 04/04/17 17:20 - Additional Findings Additional findings: - Constitutional Appears: Non-toxic, No Acute Distress, Chronically Ill, Appears less volume- overloaded generally - Head Exam Head Exam: ATRAUMATIC, NORMAL INSPECTION, NORMOCEPHALIC - Eye Exam Eye Exam: EOMI, Normal appearance. absent: Conjunctival injection, Scleral icterus Pupil Exam: absent: Irregular, Unequal - ENT Exam ENT Exam: Mucous Membranes Moist - Neck Exam Neck Exam: Full ROM. absent: Tenderness - Respiratory Exam Respiratory Exam: Clear to Ausculation Bilateral, NORMAL BREATHING PATTERN. absent: Accessory Muscle Use, Chest Wall Tenderness, Decreased Breath Sounds, Rales, Rhonchi, Wheezes - Cardiovascular Exam Cardiovascular Exam: REGULAR RHYTHM, RRR, +S1, +S2. absent: Bradycardia, Tachycardia, JVD, +S4 - GI/Abdominal Exam GI & Abdominal Exam: Distended (acutely distended with fluid wave), Firm, Tenderness, Improved bowel sounds (no longer distant-sounding). absent: Guarding, Rigid, Soft, Diminished Bowel Sounds, Hyperactive Bowel Sounds, Hypoactive Bowel Sounds, Normal Bowel Sounds, Pulsatile Mass - Extremities Exam Extremities Exam: Pedal Edema (+1 pitting edema in bilateral LE up to mid-shins) . absent: Calf Tenderness, Tenderness - Back Exam Back Exam: absent: CVA tenderness (L), CVA tenderness (R) - Neurological Exam Neurological Exam: Alert, Awake - Psychiatric Exam Psychiatric exam: Normal Affect, Normal Mood - Skin Skin Exam: Dry, Intact, Normal Color, Warm Assessment and Plan - Assessment and Plan (Free Text) Assessment: This is a 66 yo M with PMH of cirrhosis, chronic kidney disease, HTN, CAD, and recent AIN on PO steroids who presented with complaint of acutely worsening abdominal distention, and was found to have worsening renal function concerning for possible renal failure. He is s/p paracentesis (9L removed) and temporary dialysis catheter placement. HD yesterday, again today, and planned for tomorrow as per Nephro. Plan: 1) Acute on chronic kidney injury secondary to acute interstitial nephritis -Cr 4.0 at last discharge, 7.1 on admission, 5.9 today -With new liver cirrhosis, concern for possible hepato-renal syndrome vs autoimmune etiology -Patient underwent kidney biopsy on prior admission that was indicative of AIN with possible secondary membranous nephropathy -Nephrology was consulted by ED physician and full workup is pending: C3, C4, IGG subclass 4, microalbumin, IGG, urine creatinine, urine sodium -Patient was started on solumedrol 500mg IV for 3 doses per nephrology recommendations -Renal US: increased nodularity of the hepatic contour with heterogeneous echotexture consistent with cirrhosis, mild abdominal ascites, Mild splenomegaly , increased echogenicity of the bilateral renal cortices -As per nephro, HD again today, planned for tomorrow as well, gradually increasing time on HD (2 hours yesterday, 2.5 today, 3 tomorrow) 2) Liver cirrhosis -MELD-Na score of 24 on admission -Patient underwent extensive workup on prior admission including endoscopy/ colonoscopy/abd US/abd doppler ; refer to full reports -Cirrhosis was thought possible due to CARR, however he was referred to [facility] hepatology for further evaluation/treatment -Lactulose/Xifaxin currently on hold given low ammonia and no clinical indication of hepatic encephalopathy at this time -GI consulted - Dr. Hay -IR consulted - Dr. Sylvester for paracentesis; ~9000cc of clear straw-colored fluid aspirated -As per Nephro, may be utility in Liver biopsy, will discuss with GI 3) Hypertension -Continue norvasc, metoprolol -BP stable despite large abdominal ascites volume removed, continue to monitor for hypotension, will hold anti-HTN meds as needed 4) Anemia -Continue feosol Dispo: Telemetry, pending repeat HD, pending GI input and recs, autoimmune workup FEN: Renal diet Access: Peripheral IV, HD catheter (pending) Consult: Nephro, IR, GI Ppx: Avoid PPI/Pepcid given thrombocytopenia, SCDs for DVT (avoid AC pending possible HD) Patient seen, reviewed, and discussed with attending, Dr. Johnson. <Bravo Johnson - Last Filed: 04/11/17 15:27> Objective - Vital Signs/Intake and Output Vital Signs (last 24 hours): Temp Pulse Resp BP Pulse Ox 99.1 F 75 19 118/68 97 04/11/17 12:00 04/11/17 12:00 04/11/17 12:00 04/11/17 12:00 04/11/17 10:00 Intake and Output: 04/11/17 04/11/17 06:59 18:59 Intake Total 720 Output Total 735 Balance -15 - Medications Medications: Current Medications Aluminum Hydroxide (Aluminum Hydroxide Gel 320mg /5ml Susp (Bulk)) 5 ml PO QID [facility] Stop: 04/14/17 10:01 Last Admin: 04/11/17 11:06 Dose: 5 ml Aspirin (Aspirin Chewable) 81 mg PO DAILY [facility] Last Admin: 04/10/17 13:02 Dose: Not Given Ergocalciferol (Drisdol 50,000 Intl Units Cap) 1 cap PO Q7D [facility] Stop: 05/25/17 12:46 Last Admin: 04/06/17 18:36 Dose: 1 cap Guaifenesin (Robitussin) 100 mg PO Q4H PRN PRN Reason: Cough Hydrocortisone (Cortizone 1% Oint) 0 gm TOP BID [facility] Last Admin: 04/11/17 10:24 Dose: 2 applic Iron Sucrose 100 mg/ Sodium (Chloride) 105 mls @ 210 mls/hr IVPB DAILY [facility] Stop: 04/17/17 10:01 Last Admin: 04/11/17 12:20 Dose: 210 mls/hr Metoprolol Tartrate (Lopressor) 12.5 mg PO DAILY [facility] Last Admin: 04/10/17 13:03 Dose: Not Given Morphine Sulfate (Morphine) 2 mg IVP Q4H PRN PRN Reason: Pain, severe (8-10) Mycophenolate Mofetil (Cellcept Cap) 500 mg PO BID [facility] Last Admin: 04/11/17 10:25 Dose: 500 mg Nystatin (Nystatin Oral Susp) 5 ml PO QID [facility] Stop: 04/18/17 10:01 Last Admin: 04/11/17 10:25 Dose: 5 ml Pantoprazole Sodium (Protonix Inj) 20 mg IVP 0600 [facility] Last Admin: 04/11/17 05:33 Dose: 20 mg Prednisone (Prednisone Tab) 50 mg PO DAILY [facility] Sevelamer HCl (Renagel) 2,400 mg PO TID [facility] Last Admin: 04/11/17 10:25 Dose: 1,600 mg Sucralfate (Carafate Oral Susp) 1 gm PO 0600,1600 [facility] Last Admin: 04/11/17 05:32 Dose: 1 gm - Labs Labs: 04/11/17 07:10 04/11/17 07:10 PT 13.9 Seconds (9.9-11.8) H 04/04/17 17:20 INR 1.29 (0.93-1.08) H 04/04/17 17:20 APTT 26.8 Seconds (23.7-30.8) 04/04/17 17:20 Attending/Attestation - Attestation I have personally seen and examined this patient.: Yes I have fully participated in the care of the patient.: Yes I have reviewed all pertinent clinical information, including history, physical exam and plan: Yes Notes (Text): 04/11/17 15:27 Medical record note made by the resident after discussion with my direction and input after the patient was personally seen and examined by me. I have reviewed the chart and agree that the record accurately reflects by personal performance of the history, physical exam, data review, and medical decision-making, in the course for the patient. I have also personally directed the plan of care.
[2017-04-06] MEDS: Ergocalciferol 50,000 Intl Units Cap PO SCH (18:36)
[2017-04-07] MEDS ORDERED: methylPREDNISolone 500 MG in Sodium Chloride 0.9% 100 ML IVPB ONE (07:00)
[2017-04-07 08:30] LABS: GRAN # 10.04 (1.4-6.5); LYMPH # 0.2 (1.2-3.4); LYMPH % 1.7 % (22.0-35.0); MEAN CELL VOLUME 83.7 fL (80.0-105.0); MEAN CORPUSCULAR HEMOGLOBIN 28.2 pg (25.0-35.0); MEAN CORPUSCULAR HGB CONC 33.7 g/dl (31.0-37.0); MONO # 0.1 (0.1-0.6); MONO % 1.3 % (1.0-6.0); PLATELET COUNT 52 10^3/uL (120.0-450.0); RBC 3.55 10^6/uL (3.5-6.1); RED CELL DISTRIBUTION WIDTH 18.1 % (11.5-14.5); WHITE BLOOD COUNT 10.4 10^3/ul (4.5-11.0)
--- NOTE | 2017-04-07 08:34 | CP.PCM.PN ---
<Adam Nava - Last Filed: 04/07/17 21:58> Subjective - Date & Time of Evaluation Date of Evaluation: 04/07/17 Time of Evaluation: 08:00 - Subjective Subjective: Internal Medicine Progress Note for Dr. Madrid/Dr. Johnson service Patient seen and examined at bedside. Today is hospital day 4. No acute events overnight; patient reports that his blood pressure dropped yesterday after hemodialysis, but recovered within a few minutes. Denies any symptoms of dizziness, lightheadedness, room-spinning sensation, chest pain, or shortness of breath, and SBP measurements overnight are all > 110. Only current complaint is a dry cough. Objective - Vital Signs/Intake and Output Vital Signs (last 24 hours): Temp Pulse Resp BP Pulse Ox 98.1 F 80 20 118/54 L 97 04/07/17 05:51 04/07/17 05:51 04/07/17 05:51 04/07/17 05:51 04/07/17 05:51 Intake and Output: 04/07/17 04/07/17 06:59 18:59 Intake Total 600 Balance 600 - Medications Medications: Current Medications Amlodipine Besylate (Norvasc) 10 mg PO DAILY [facility] Last Admin: 04/06/17 09:51 Dose: 10 mg Aspirin (Aspirin Chewable) 81 mg PO DAILY [facility] Last Admin: 04/06/17 09:46 Dose: 81 mg Ergocalciferol (Drisdol 50,000 Intl Units Cap) 1 cap PO Q7D [facility] Stop: 05/25/17 12:46 Last Admin: 04/06/17 18:36 Dose: 1 cap Ferrous Gluconate (Fergon) 324 mg PO TID [facility] Last Admin: 04/06/17 18:35 Dose: 324 mg Metoprolol Tartrate (Lopressor) 12.5 mg PO DAILY [facility] Last Admin: 04/06/17 10:25 Dose: Not Given Mycophenolate Mofetil (Cellcept Cap) 1,000 mg PO BID [facility] Last Admin: 04/06/17 18:36 Dose: 1,000 mg Sevelamer HCl (Renagel) 1,600 mg PO TID [facility] Last Admin: 04/06/17 18:35 Dose: 1,600 mg - Labs Labs: 04/06/17 06:30 04/06/17 06:30 PT 13.9 Seconds (9.9-11.8) H 04/04/17 17:20 INR 1.29 (0.93-1.08) H 04/04/17 17:20 APTT 26.8 Seconds (23.7-30.8) 04/04/17 17:20 - Additional Findings Additional findings: - Constitutional Appears: Non-toxic, No Acute Distress, Chronically Ill - Head Exam Head Exam: ATRAUMATIC, NORMAL INSPECTION, NORMOCEPHALIC - Eye Exam Eye Exam: EOMI, Normal appearance. absent: Conjunctival injection, Scleral icterus Pupil Exam: absent: Irregular, Unequal - ENT Exam ENT Exam: Mucous Membranes Moist - Neck Exam Neck Exam: Full ROM. absent: Tenderness - Respiratory Exam Respiratory Exam: Clear to Ausculation Bilateral, NORMAL BREATHING PATTERN. absent: Accessory Muscle Use, Chest Wall Tenderness, Decreased Breath Sounds, Rales, Rhonchi, Wheezes - Cardiovascular Exam Cardiovascular Exam: REGULAR RHYTHM, RRR, +S1, +S2. absent: Bradycardia, Tachycardia, JVD, +S4 - GI/Abdominal Exam GI & Abdominal Exam: Distended (considerably improved from presentation on admission, no fluid wave), Firm, Tenderness (improved since admission, mild tenderness predominantly at RLQ site of prior renal biopsy), Improved bowel sounds (no longer distant-sounding). absent: Guarding, Rigid, Soft, Diminished Bowel Sounds, Hyperactive Bowel Sounds, Hypoactive Bowel Sounds, Normal Bowel Sounds, Pulsatile Mass - Extremities Exam Extremities Exam: Pedal Edema (+1 pitting edema in bilateral LE up to mid-shins) . absent: Calf Tenderness, Tenderness - Back Exam Back Exam: absent: CVA tenderness (L), CVA tenderness (R) - Neurological Exam Neurological Exam: Alert, Awake - Psychiatric Exam Psychiatric exam: Normal Affect, Normal Mood - Skin Skin Exam: Dry, Intact, Normal Color, Warm Assessment and Plan - Assessment and Plan (Free Text) Assessment: This is a 66 yo M with PMH of cirrhosis, chronic kidney disease, HTN, CAD, and recent AIN on PO steroids who presented with complaint of acutely worsening abdominal distention, and was found to have worsening renal function concerning for possible renal failure. He is s/p paracentesis (9L removed) and temporary dialysis catheter placement. S/p 2 rounds of HD, pending another today. Plan: 1) Acute on chronic kidney injury secondary to acute interstitial nephritis -Cr 4.0 at last discharge, 7.1 on admission, 5.1 today -With new liver cirrhosis, concern for possible hepato-renal syndrome vs autoimmune etiology -Patient underwent kidney biopsy on prior admission that was indicative of AIN with possible secondary membranous nephropathy -Nephrology was consulted by ED physician and full workup is pending: C3, C4, IGG subclass 4, microalbumin, IGG, urine creatinine, urine sodium -Renal US: increased nodularity of the hepatic contour with heterogeneous echotexture consistent with cirrhosis, mild abdominal ascites, Mild splenomegaly , increased echogenicity of the bilateral renal cortices -As per Nephro: AIN (possibly 2/2 to recent bactrim+levaquin) + secondary membranous nephroapthy (unclear etiology), possibly multi-system autoimmune pathology such as seronegative Lupus or IgG4 related disease; HD again today, hold on Sunday and monitor, re-evaluate for further HD on Sunday, attempting renal recovery with 3x 1g IV solumedrol and celcept 1g BID 2) Liver cirrhosis -MELD-Na score of 24 on admission -Patient underwent extensive workup on prior admission including endoscopy/ colonoscopy/abd US/abd doppler; refer to full reports for further details -Cirrhosis was thought possible due to CARR, however he was referred to [facility] hepatology for further evaluation/treatment; as per Nephro, may be multi-system autoimmune pathology such as seronegative Lupus or IgG4 related disease, given involvement of renal and hepatic systems, and skin lesions -Lactulose/Xifaxin currently on hold given low ammonia and no clinical indication of hepatic encephalopathy at this time -GI consulted - Dr. Hay -IR consulted - Dr. Sylvester for paracentesis; ~9000cc of clear straw-colored fluid aspirated -As per Nephro, may be utility in Liver biopsy, will discuss with GI 3) Hypertension -Continue norvasc, metoprolol -BP stable despite large abdominal ascites volume removed, continue to monitor for hypotension, will hold anti-HTN meds as needed -Hypotensive s/p dialysis briefly, but recovered to normal range SBP (>110) without intervention, has remained wnl overnight, continue to monitor 4) Anemia -Continue feosol Dispo: Telemetry, pending repeat HD today, pending GI input and recs, autoimmune workup, assessment of renal function FEN: Renal diet Access: Peripheral IV, HD catheter (pending) Consult: Nephro, IR, GI Ppx: Avoid PPI/Pepcid given thrombocytopenia, SCDs for DVT (avoid AC pending possible HD) Patient reviewed and discussed with attending, Dr. De Leon. <Froilan De Leon - Last Filed: 04/07/17 22:02> Subjective - Date & Time of Evaluation Date of Evaluation: 04/07/17 Objective - Vital Signs/Intake and Output Vital Signs (last 24 hours): Temp Pulse Resp BP Pulse Ox 98.1 F 53 L 20 121/70 97 04/07/17 05:51 04/07/17 10:04 04/07/17 05:51 04/07/17 10:05 04/07/17 05:51 - Medications Medications: Current Medications Amlodipine Besylate (Norvasc) 10 mg PO DAILY [facility] Last Admin: 04/07/17 10:05 Dose: 10 mg Aspirin (Aspirin Chewable) 81 mg PO DAILY [facility] Last Admin: 04/07/17 10:05 Dose: 81 mg Ergocalciferol (Drisdol 50,000 Intl Units Cap) 1 cap PO Q7D [facility] Stop: 05/25/17 12:46 Last Admin: 04/06/17 18:36 Dose: 1 cap Guaifenesin (Robitussin) 100 mg PO Q4H PRN PRN Reason: Cough Iron Sucrose 100 mg/ Sodium (Chloride) 105 mls @ 210 mls/hr IVPB DAILY [facility] Stop: 04/17/17 10:01 Metoprolol Tartrate (Lopressor) 12.5 mg PO DAILY [facility] Last Admin: 04/07/17 10:04 Dose: Not Given Mycophenolate Mofetil (Cellcept Cap) 1,000 mg PO BID [facility] Last Admin: 04/07/17 10:05 Dose: 1,000 mg Prednisone (Prednisone Tab) 60 mg PO DAILY [facility] Sevelamer HCl (Renagel) 1,600 mg PO TID [facility] Last Admin: 04/07/17 13:43 Dose: 1,600 mg - Labs Labs: 04/07/17 07:00 04/07/17 05:00 PT 13.9 Seconds (9.9-11.8) H 04/04/17 17:20 INR 1.29 (0.93-1.08) H 04/04/17 17:20 APTT 26.8 Seconds (23.7-30.8) 04/04/17 17:20
[2017-04-07] MEDS ORDERED: guaiFENesin 100 mg/5 ml Syrup UD PO PRN (08:40)
[2017-04-07] MEDS ORDERED: Darbepoetin Alfa 40 mcg/ml Inj IVP ONE ×2 (09:19→09:45)
[2017-04-07 09:20] LABS: ALBUMIN 2.6 g/dL (3.0-4.8); CALCIUM 8.8 mg/dL (8.4-10.5)
--- NOTE | 2017-04-07 09:56 | CP.PCM.PN ---
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 Suspect multi-system autoimmune pathology such as seronegative Lupus or IgG4 related disease which can explain his skin lesion, lymphadenopathy, hepatobiliary and renal involvement, hypocomplementemia. Acute Kidney Injury (N17.9) likely due to progression of underlying renal disease started on dialysis 04/05/17 Chronic Kidney Disease (N18.3) Stage 3 (baseline cr 1.4-1.9) with 600 mg proteinuria (R80.9) likely due to KELLI in 2016 Iron def Anemia (D64.9), Hyperphosphatemia (E83.39), HTN (I12.9), DM, CAD, VItiligo, Cirrhosis with portal HTN and ascites, mediastinal and upper abdomen lymphadenopathy Vitamin D def Plan Plan for 3rd session dialsis today. Hypertension control with meds as ordered. Patient not on ACEI/ARB due to KELLI. started on renagel 1600 mg TID with meals will pulse steroid 1000 mg x 3 doses and started on cellcept 1000 mg bid in hope of renal recovery. prednisone 60 mg/day from tomorrow started weekly vit D and IV iron 100 mg x 10 doses and aransep 40 mcg today Monitor Input/Output, daily weights and renal function with basic metabolic panel. will need to monitor for signs of renal recovery during the hospitalization. Ordered iPTH Lupus serology, IgG and IgG4 level, ANCA Dose meds/antibiotics for reduced GFR <10 and dialysis status. Avoid fleets enema/magnesium based laxatives. Avoid nephrotoxins/NSAIDs/ iodinated contrast ( unless needed emergently) Glycemic control. Further work up/management as per primary team. d/w primary team. Thanks for allowing me to participate in care of your patient. Will follow patient with you. Please call if any Qs Dr Paco Cadet Office: [phone] HPI: Pt is a 66 y/o M with hx of diabetes Mellitus, hypertension, CAD, vitiligo , mediastinal lymphadenopathy (seen by heme/onc) cirrhosis of unknown etiology with portal HTN and recurrent ascites (s/p EGD and colonoscopy) and recent hospitalization for ascites, KELLI on CKD 3 (cr 1.3-1.9 range) with peaked creatinine 4-5 range s/p kidney bipsy: ATIN and secondary membranous neprhopathy (unknown trigger) pulse steroids 500 mg daily x 3 doses then 60 mg PO prednisone daily presented with complaints of abdomen distension and found to have worsening KELLI hence renal consulted. ROS: Denies chest pain, palpitation, shortness of breath, leg swelling. no urinary complaints. he is s/p 9 L ascites fluid removal Physical Examination: General Appearance: Comfortable, in no acute respiratory distress, co-operative . Vitals reviewed and noted as below Lungs: Normal respiratory rate/effort. Breath sounds bilateral equal and has occasional basal crackles Heart: Normal rate. s1s2 normal. No rub or gallop. Extremities: minimal/trace edema. No varicose veins Neurological: Patient is alert, awake and oriented to person, place and time. No focal deficit. Strength bilateral appropriate and equal Skin: Warm and dry. Normal turgor. No rash. Palpitation: Normal elasticity for age. has vitiligo patches in hand Abdomen: Abdomen is soft. Bowel sounds +. There is no abdominal tenderness, no guarding/rigidity no organomegaly. abdomen is distended Psych: limited insight and normal affect/mood MSK: no joint tenderness or swelling. Digits and nails normal, no deformity : kidney or bladder not palpable Labs/imaging/EKG reviewed. Past medical history, past surgical history, family history, social history, allergy reviewed and noted as below Family hx: no hx of CKD. Rest non-contributory. daughter had reported hx of lupus in family WORK up Renal sono: b/l echogenic kidneys, cirrhosis PSA 0.8 Ferriitn /TSAT 54/15% IgG 1300 C3: 58 C4: 10 [place]/lambda 1.3 SAEED/DNA/cryoglobulin/HIV/Hep B and C neg UA: large blood with small protein, 238 mg albuminuria Objective - Vital Signs/Intake and Output Vital Signs (last 24 hours): Temp Pulse Resp BP Pulse Ox 98.1 F 80 20 118/54 L 97 04/07/17 05:51 04/07/17 05:51 04/07/17 05:51 04/07/17 05:51 04/07/17 05:51 Intake and Output: 04/07/17 04/07/17 06:59 18:59 Intake Total 600 Balance 600 - Medications Medications: Current Medications Amlodipine Besylate (Norvasc) 10 mg PO DAILY [facility] Last Admin: 04/06/17 09:51 Dose: 10 mg Aspirin (Aspirin Chewable) 81 mg PO DAILY [facility] Last Admin: 04/06/17 09:46 Dose: 81 mg Ergocalciferol (Drisdol 50,000 Intl Units Cap) 1 cap PO Q7D [facility] Stop: 05/25/17 12:46 Last Admin: 04/06/17 18:36 Dose: 1 cap Guaifenesin (Robitussin) 100 mg PO Q4H PRN PRN Reason: Cough Iron Sucrose 100 mg/ Sodium (Chloride) 105 mls @ 210 mls/hr IVPB DAILY [facility] Stop: 04/17/17 10:01 Metoprolol Tartrate (Lopressor) 12.5 mg PO DAILY [facility] Last Admin: 04/06/17 10:25 Dose: Not Given Mycophenolate Mofetil (Cellcept Cap) 1,000 mg PO BID [facility] Last Admin: 04/06/17 18:36 Dose: 1,000 mg Prednisone (Prednisone Tab) 60 mg PO DAILY [facility] Sevelamer HCl (Renagel) 1,600 mg PO TID [facility] Last Admin: 04/06/17 18:35 Dose: 1,600 mg - Labs Labs: 04/07/17 07:00 04/07/17 05:00 PT 13.9 Seconds (9.9-11.8) H 04/04/17 17:20 INR 1.29 (0.93-1.08) H 04/04/17 17:20 APTT 26.8 Seconds (23.7-30.8) 04/04/17 17:20
[2017-04-07] MEDS ORDERED: Iron Sucrose 100 mg/5 ml Inj ONE (15:32)
[2017-04-08 07:15] LABS: HEMOGLOBIN 9.8 gm/dL (14.0-18.0); MEAN CELL VOLUME 83.3 fL (80.0-105.0); MEAN CORPUSCULAR HEMOGLOBIN 28.2 pg (25.0-35.0); MEAN CORPUSCULAR HGB CONC 33.9 g/dl (31.0-37.0); RBC 3.47 10^6/uL (3.5-6.1); RED CELL DISTRIBUTION WIDTH 18.1 % (11.5-14.5)
[2017-04-08 07:20] LABS: ALB/GLOB RATIO 0.9 (1.1-1.8); ALBUMIN 2.6 g/dL (3.0-4.8)
[2017-04-08 07:34] LABS: PLATELET COUNT 23 10^3/uL (120.0-450.0)
[2017-04-08 09:34] LABS: WHITE BLOOD COUNT 8.7 10^3/ul (4.5-11.0)
[2017-04-08 09:35] LABS: LYMPHOCYTE 2 % (22.0-35.0); MONOCYTE 2 % (1.0-6.0); NEUTROPHIL 96 % (50.0-70.0)
[2017-04-08 09:39] LABS: PLATELET ESTIMATE LOW (NORMAL)
[2017-04-08] MEDS ORDERED: cefTRIAXone 2 GM IN NS 2 GM/100 ML BAG IVPB SCH (10:00)
--- NOTE | 2017-04-08 10:18 | CP.PCM.PN ---
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 Suspect multi-system autoimmune pathology such as seronegative Lupus or IgG4 related disease which can explain his skin lesion, lymphadenopathy, hepatobiliary and renal involvement, hypocomplementemia. Acute Kidney Injury (N17.9) likely due to progression of underlying renal disease started on dialysis 04/05/17 Chronic Kidney Disease (N18.3) Stage 3 (baseline cr 1.4-1.9) with 600 mg proteinuria (R80.9) likely due to KELLI in 2016 Iron def Anemia (D64.9), Hyperphosphatemia (E83.39), HTN (I12.9), DM, CAD, VItiligo, Cirrhosis with portal HTN and ascites, mediastinal and upper abdomen lymphadenopathy Vitamin D def Thombocytopenia Plan No acut need for dialysis today. will re-assess tomorrow Hypertension control with meds as ordered. Patient not on ACEI/ARB due to KELLI. started on renagel 1600 mg TID with meals s/p pulse steroid 1000 mg x 3 doses and started on cellcept 1000 mg bid in hope of renal recovery. prednisone 60 mg/day from today started weekly vit D and IV iron 100 mg x 10 doses and aransep 40 mcg Monitor Input/Output, daily weights and renal function with basic metabolic panel. will need to monitor for signs of renal recovery during the hospitalization. Ordered iPTH Lupus serology, IgG and IgG4 level, ANCA Dose meds/antibiotics for reduced GFR <10 and dialysis status. Avoid fleets enema/magnesium based laxatives. Avoid nephrotoxins/NSAIDs/ iodinated contrast ( unless needed emergently) Glycemic control. Further work up/management as per primary team. heme eval for low plat counts. d/w primary team. Thanks for allowing me to participate in care of your patient. Will follow patient with you. Please call if any Qs Dr Paco Cadet Office: [phone] HPI: Pt is a 66 y/o M with hx of diabetes Mellitus, hypertension, CAD, vitiligo , mediastinal lymphadenopathy (seen by heme/onc) cirrhosis of unknown etiology with portal HTN and recurrent ascites (s/p EGD and colonoscopy) and recent hospitalization for ascites, KELLI on CKD 3 (cr 1.3-1.9 range) with peaked creatinine 4-5 range s/p kidney bipsy: ATIN and secondary membranous neprhopathy (unknown trigger) pulse steroids 500 mg daily x 3 doses then 60 mg PO prednisone daily presented with complaints of abdomen distension and found to have worsening KELLI hence renal consulted. ROS: Denies chest pain, palpitation, shortness of breath, leg swelling. says making little urine. he is s/p 9 L ascites fluid removal Physical Examination: General Appearance: Comfortable, in no acute respiratory distress, co-operative . Vitals reviewed and noted as below Lungs: Normal respiratory rate/effort. Breath sounds bilateral equal and has occasional basal crackles Heart: Normal rate. s1s2 normal. No rub or gallop. Extremities: minimal/trace edema. No varicose veins Neurological: Patient is alert, awake and oriented to person, place and time. No focal deficit. Strength bilateral appropriate and equal Skin: Warm and dry. Normal turgor. No rash. Palpitation: Normal elasticity for age. has vitiligo patches in hand Abdomen: Abdomen is soft. Bowel sounds +. There is no abdominal tenderness, no guarding/rigidity no organomegaly. abdomen is distended Psych: limited insight and normal affect/mood MSK: no joint tenderness or swelling. Digits and nails normal, no deformity : kidney or bladder not palpable Labs/imaging/EKG reviewed. Past medical history, past surgical history, family history, social history, allergy reviewed and noted as below Family hx: no hx of CKD. Rest non-contributory. daughter had reported hx of lupus in family WORK up Renal sono: b/l echogenic kidneys, cirrhosis PSA 0.8 Ferriitn /TSAT 54/15% IgG 1300 C3: 58 C4: 10 [place]/lambda 1.3 SAEED/DNA/cryoglobulin/HIV/Hep B and C neg UA: large blood with small protein, 238 mg albuminuria Objective - Vital Signs/Intake and Output Vital Signs (last 24 hours): Temp Pulse Resp BP Pulse Ox 98 F 86 20 124/72 97 04/08/17 06:00 04/08/17 06:00 04/08/17 06:00 04/08/17 06:00 04/08/17 06:00 Intake and Output: 04/08/17 04/08/17 06:59 18:59 Intake Total 360 Balance 360 - Medications Medications: Current Medications Amlodipine Besylate (Norvasc) 10 mg PO DAILY [facility] Last Admin: 04/07/17 10:05 Dose: 10 mg Aspirin (Aspirin Chewable) 81 mg PO DAILY [facility] Last Admin: 04/07/17 10:05 Dose: 81 mg Ergocalciferol (Drisdol 50,000 Intl Units Cap) 1 cap PO Q7D [facility] Stop: 05/25/17 12:46 Last Admin: 04/06/17 18:36 Dose: 1 cap Guaifenesin (Robitussin) 100 mg PO Q4H PRN PRN Reason: Cough Iron Sucrose 100 mg/ Sodium (Chloride) 105 mls @ 210 mls/hr IVPB DAILY [facility] Stop: 04/17/17 10:01 Ceftriaxone Sodium (Rocephin 2 Gm Ivpb) 2 gm in 100 mls @ 100 mls/hr IVPB DAILY [facility] PRN Reason: Protocol Metoprolol Tartrate (Lopressor) 12.5 mg PO DAILY [facility] Last Admin: 04/07/17 10:04 Dose: Not Given Mycophenolate Mofetil (Cellcept Cap) 1,000 mg PO BID [facility] Last Admin: 04/07/17 10:05 Dose: 1,000 mg Prednisone (Prednisone Tab) 60 mg PO DAILY [facility] Sevelamer HCl (Renagel) 1,600 mg PO TID [facility] Last Admin: 04/07/17 13:43 Dose: 1,600 mg - Labs Labs: 04/08/17 06:30 04/08/17 06:30 PT 13.9 Seconds (9.9-11.8) H 04/04/17 17:20 INR 1.29 (0.93-1.08) H 04/04/17 17:20 APTT 26.8 Seconds (23.7-30.8) 04/04/17 17:20
--- NOTE | 2017-04-08 10:20 | CP.PCM.PN ---
Subjective - Date & Time of Evaluation Date of Evaluation: 04/08/17 Time of Evaluation: 10:00 - Subjective Subjective: seen in bed slept fair now w/ a mid upset stomache and uncomfortable no cp no sob not hungry Objective - Vital Signs/Intake and Output Vital Signs (last 24 hours): Temp Pulse Resp BP Pulse Ox 98 F 86 20 124/72 97 04/08/17 06:00 04/08/17 06:00 04/08/17 06:00 04/08/17 06:00 04/08/17 06:00 Intake and Output: 04/08/17 04/08/17 06:59 18:59 Intake Total 360 Balance 360 - Medications Medications: Current Medications Amlodipine Besylate (Norvasc) 10 mg PO DAILY [facility] Last Admin: 04/07/17 10:05 Dose: 10 mg Aspirin (Aspirin Chewable) 81 mg PO DAILY [facility] Last Admin: 04/07/17 10:05 Dose: 81 mg Ergocalciferol (Drisdol 50,000 Intl Units Cap) 1 cap PO Q7D [facility] Stop: 05/25/17 12:46 Last Admin: 04/06/17 18:36 Dose: 1 cap Guaifenesin (Robitussin) 100 mg PO Q4H PRN PRN Reason: Cough Iron Sucrose 100 mg/ Sodium (Chloride) 105 mls @ 210 mls/hr IVPB DAILY [facility] Stop: 04/17/17 10:01 Ceftriaxone Sodium (Rocephin 2 Gm Ivpb) 2 gm in 100 mls @ 100 mls/hr IVPB DAILY [facility] PRN Reason: Protocol Metoprolol Tartrate (Lopressor) 12.5 mg PO DAILY [facility] Last Admin: 04/07/17 10:04 Dose: Not Given Mycophenolate Mofetil (Cellcept Cap) 1,000 mg PO BID [facility] Last Admin: 04/07/17 10:05 Dose: 1,000 mg Prednisone (Prednisone Tab) 60 mg PO DAILY [facility] Sevelamer HCl (Renagel) 1,600 mg PO TID [facility] Last Admin: 04/07/17 13:43 Dose: 1,600 mg - Labs Labs: 04/08/17 06:30 04/08/17 06:30 PT 13.9 Seconds (9.9-11.8) H 04/04/17 17:20 INR 1.29 (0.93-1.08) H 04/04/17 17:20 APTT 26.8 Seconds (23.7-30.8) 04/04/17 17:20 - Constitutional Appears: No Acute Distress - Head Exam Head Exam: NORMAL INSPECTION - ENT Exam ENT Exam: Mucous Membranes Moist - Respiratory Exam Respiratory Exam: Decreased Breath Sounds, NORMAL BREATHING PATTERN - Cardiovascular Exam Cardiovascular Exam: REGULAR RHYTHM - GI/Abdominal Exam GI & Abdominal Exam: Hypoactive Bowel Sounds Additional comments: mild discomfort mid abd - Extremities Exam Extremities Exam: Normal Inspection - Neurological Exam Neurological Exam: Alert, Oriented x3 - Psychiatric Exam Psychiatric exam: Normal Affect - Skin Skin Exam: Warm Assessment and Plan - Assessment and Plan (Free Text) Assessment: hermilo uti abd upset liver cirrhosis thrombocytopenia htn Plan: went over meds labs tmt will add hematology eval and reeval w/ gi checking labs
[2017-04-08] MEDS: cefTRIAXone 2 GM IN NS 2 GM/100 ML BAG IVPB SCH (10:42)
[2017-04-09 07:41] LABS: HEPATITIS B SURFACE AG NEGATIVE (NEGATIVE)
[2017-04-09 07:45] LABS: GRAN # 10.59 (1.4-6.5); GRAN % 97.1 % (50.0-68.0); HEMOGLOBIN 10.4 gm/dL (14.0-18.0); LYMPH # 0.1 (1.2-3.4); LYMPH % 1.3 % (22.0-35.0); MEAN CELL VOLUME 83.5 fL (80.0-105.0); MEAN CORPUSCULAR HEMOGLOBIN 28.1 pg (25.0-35.0); MEAN CORPUSCULAR HGB CONC 33.7 g/dl (31.0-37.0); MONO # 0.2 (0.1-0.6); MONO % 1.6 % (1.0-6.0); RED CELL DISTRIBUTION WIDTH 17.6 % (11.5-14.5); WHITE BLOOD COUNT 10.9 10^3/ul (4.5-11.0)
[2017-04-09 07:46] LABS: HEPATITIS A IGM NEGATIVE (NEGATIVE)
[2017-04-09 07:47] LABS: HEPATITIS B CORE AB NEGATIVE (NEGATIVE)
[2017-04-09 07:58] LABS: HEPATITIS C ANTIBODY NEGATIVE (NEGATIVE)
[2017-04-09 08:02] LABS: PLATELET COUNT 32 10^3/uL (120.0-450.0)
[2017-04-09 08:11] LABS: ALB/GLOB RATIO 0.9 (1.1-1.8); ALBUMIN 2.6 g/dL (3.0-4.8); CALCIUM 9.1 mg/dL (8.4-10.5); MAGNESIUM 2.2 mg/dL (1.7-2.2)
[2017-04-09] MEDS: cefTRIAXone 2 GM IN NS 2 GM/100 ML BAG IVPB SCH (10:36)
--- NOTE | 2017-04-09 11:36 | CP.PCM.PN ---
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 Suspect multi-system autoimmune pathology such as seronegative Lupus or IgG4 related disease which can explain his skin lesion, lymphadenopathy, hepatobiliary and renal involvement, hypocomplementemia. Acute Kidney Injury (N17.9) likely due to progression of underlying renal disease started on dialysis 04/05/17 Chronic Kidney Disease (N18.3) Stage 3 (baseline cr 1.4-1.9) with 600 mg proteinuria (R80.9) likely due to KELLI in 2016 Iron def Anemia (D64.9), Hyperphosphatemia (E83.39), HTN (I12.9), DM, CAD, VItiligo, Cirrhosis with portal HTN and ascites, mediastinal and upper abdomen lymphadenopathy Vitamin D def Thombocytopenia Plan will plan for dialysis today, no evidence of renal recovery as of yet. Hypertension control with meds as ordered. Patient not on ACEI/ARB due to KELLI. d /c norvasc as BP on low side started on renagel 1600 mg TID with meals: increased to 2400 TID and added phoslo as well. Dietary consult for restricting his phos intake. s/p pulse steroid 1000 mg x 3 doses and started on cellcept 1000 mg bid in hope of renal recovery. prednisone 60 mg/day started weekly vit D and IV iron 100 mg x 10 doses and aransep 40 mcg Monitor Input/Output, daily weights and renal function with basic metabolic panel. will need to monitor for signs of renal recovery during the hospitalization. Ordered iPTH Lupus serology, IgG and IgG4 level, ANCA Dose meds/antibiotics for reduced GFR <10 and dialysis status. Avoid fleets enema/magnesium based laxatives. Avoid nephrotoxins/NSAIDs/ iodinated contrast ( unless needed emergently) Glycemic control. Further work up/management as per primary team. heme eval for low plat counts. d/w primary team. Thanks for allowing me to participate in care of your patient. Will follow patient with you. Please call if any Qs. once other active medical issues resolves then he can be planned for d/c and will f/up on renal recovery status as outpt while continue with dialysis in the interim. spoke to daughter Princess today [phone] and updated about his condition. she is fine with him getting HD at [place] [facility] as outpt Dr Paco Cadet Office: [phone] HPI: Pt is a 66 y/o M with hx of diabetes Mellitus, hypertension, CAD, vitiligo , mediastinal lymphadenopathy (seen by heme/onc) cirrhosis of unknown etiology with portal HTN and recurrent ascites (s/p EGD and colonoscopy) and recent hospitalization for ascites, KELLI on CKD 3 (cr 1.3-1.9 range) with peaked creatinine 4-5 range s/p kidney bipsy: ATIN and secondary membranous neprhopathy (unknown trigger) pulse steroids 500 mg daily x 3 doses then 60 mg PO prednisone daily presented with complaints of abdomen distension and found to have worsening KELLI hence renal consulted. ROS: Denies chest pain, palpitation, shortness of breath, leg swelling. says making little urine. he is s/p 9 L ascites fluid removal c/o GI symptoms such as upset stomach, acid. Physical Examination: General Appearance: Comfortable, in no acute respiratory distress, co-operative .hard of hearing Vitals reviewed and noted as below Lungs: Normal respiratory rate/effort. Breath sounds bilateral equal and has occasional basal crackles Heart: Normal rate. s1s2 normal. No rub or gallop. Extremities: 1+ edema. No varicose veins Neurological: Patient is alert, awake and oriented to person, place and time. No focal deficit. Strength bilateral appropriate and equal Skin: Warm and dry. Normal turgor. No rash. Palpitation: Normal elasticity for age. has vitiligo patches in hand Abdomen: Abdomen is soft. Bowel sounds +. There is no abdominal tenderness, no guarding/rigidity no organomegaly. abdomen is distended/ascitic Psych: limited insight and has normal affect/mood MSK: no joint tenderness or swelling. Digits and nails normal, no deformity : kidney or bladder not palpable but limited exam due to ascites Labs/imaging/EKG reviewed. Past medical history, past surgical history, family history, social history, allergy reviewed and noted as below Family hx: no hx of CKD. Rest non-contributory. daughter had reported hx of lupus in family WORK up Renal sono: b/l echogenic kidneys, cirrhosis PSA 0.8 Ferriitn /TSAT 54/15% IgG 1300 C3: 58 C4: 10 [place]/lambda 1.3 SAEED/DNA/cryoglobulin/HIV/Hep B and C neg UA: large blood with small protein, 238 mg albuminuria Objective - Vital Signs/Intake and Output Vital Signs (last 24 hours): Temp Pulse Resp BP Pulse Ox 98.2 F 67 16 109/66 99 04/09/17 06:00 04/09/17 10:36 04/09/17 09:09 04/09/17 10:36 04/09/17 09:09 Intake and Output: 04/09/17 04/09/17 06:59 18:59 Intake Total 1260 Balance 1260 - Medications Medications: Current Medications Aspirin (Aspirin Chewable) 81 mg PO DAILY [facility] Last Admin: 04/09/17 10:35 Dose: Not Given Calcium Acetate (Phoslo) 667 mg PO [facility] Ergocalciferol (Drisdol 50,000 Intl Units Cap) 1 cap PO Q7D [facility] Stop: 05/25/17 12:46 Last Admin: 04/06/17 18:36 Dose: 1 cap Famotidine (Pepcid) 20 mg PO HS [facility] Guaifenesin (Robitussin) 100 mg PO Q4H PRN PRN Reason: Cough Iron Sucrose 100 mg/ Sodium (Chloride) 105 mls @ 210 mls/hr IVPB DAILY [facility] Stop: 04/17/17 10:01 Last Admin: 04/09/17 10:37 Dose: Not Given Ceftriaxone Sodium (Rocephin 2 Gm Ivpb) 2 gm in 100 mls @ 100 mls/hr IVPB DAILY [facility] PRN Reason: Protocol Last Admin: 04/09/17 10:36 Dose: Not Given Metoprolol Tartrate (Lopressor) 12.5 mg PO DAILY [facility] Last Admin: 04/09/17 10:36 Dose: Not Given Mycophenolate Mofetil (Cellcept Cap) 1,000 mg PO BID [facility] Last Admin: 04/09/17 10:35 Dose: Not Given Prednisone (Prednisone Tab) 60 mg PO DAILY [facility] Last Admin: 04/09/17 10:36 Dose: Not Given Sevelamer HCl (Renagel) 2,400 mg PO TID [facility] Sucralfate (Carafate Oral Susp) 1 gm PO 0600,1600 LEIGHANN - Labs Labs: 04/09/17 07:41 04/09/17 07:41 PT 13.9 Seconds (9.9-11.8) H 04/04/17 17:20 INR 1.29 (0.93-1.08) H 04/04/17 17:20 APTT 26.8 Seconds (23.7-30.8) 04/04/17 17:20
--- NOTE | 2017-04-09 12:45 | CP.PCM.PN ---
<Emy Erwin - Last Filed: 04/09/17 12:44> Subjective - Date & Time of Evaluation Date of Evaluation: 04/09/17 Time of Evaluation: 10:00 - Subjective Subjective: Seen and examined at the bedside earlier today, the chart was reviewed. Bark Tanner at bedside, patient speaks [place]. Patient complaining of abdominal pain mostly after eating, no nausea or vomiting. No reports of any overt GI bleed. Denies shortness of breath or chest pain. Objective - Vital Signs/Intake and Output Vital Signs (last 24 hours): Temp Pulse Resp BP Pulse Ox 97.6 F 88 19 115/67 99 04/09/17 12:00 04/09/17 12:00 04/09/17 12:00 04/09/17 12:00 04/09/17 09:09 Intake and Output: 04/09/17 04/09/17 06:59 18:59 Intake Total 1260 Balance 1260 - Medications Medications: Current Medications Aspirin (Aspirin Chewable) 81 mg PO DAILY [facility] Last Admin: 04/09/17 10:35 Dose: Not Given Calcium Acetate (Phoslo) 667 mg PO WM [facility] Last Admin: 04/09/17 11:40 Dose: Not Given Ergocalciferol (Drisdol 50,000 Intl Units Cap) 1 cap PO Q7D [facility] Stop: 05/25/17 12:46 Last Admin: 04/06/17 18:36 Dose: 1 cap Famotidine (Pepcid) 20 mg PO HS [facility] Guaifenesin (Robitussin) 100 mg PO Q4H PRN PRN Reason: Cough Hydrocortisone (Cortizone 1% Oint) 0 gm TOP BID [facility] Iron Sucrose 100 mg/ Sodium (Chloride) 105 mls @ 210 mls/hr IVPB DAILY [facility] Stop: 04/17/17 10:01 Last Admin: 04/09/17 10:37 Dose: Not Given Metoprolol Tartrate (Lopressor) 12.5 mg PO DAILY [facility] Last Admin: 04/09/17 10:36 Dose: Not Given Mycophenolate Mofetil (Cellcept Cap) 1,000 mg PO BID [facility] Last Admin: 04/09/17 10:35 Dose: Not Given Prednisone (Prednisone Tab) 60 mg PO DAILY [facility] Last Admin: 04/09/17 10:36 Dose: Not Given Sevelamer HCl (Renagel) 2,400 mg PO TID [facility] Last Admin: 04/09/17 11:40 Dose: Not Given Sucralfate (Carafate Oral Susp) 1 gm PO 0600,1600 [facility] - Labs Labs: 04/09/17 07:41 04/09/17 07:41 PT 13.9 Seconds (9.9-11.8) H 04/04/17 17:20 INR 1.29 (0.93-1.08) H 04/04/17 17:20 APTT 26.8 Seconds (23.7-30.8) 04/04/17 17:20 - Constitutional Appears: No Acute Distress - Head Exam Head Exam: NORMAL INSPECTION - Eye Exam Eye Exam: Normal appearance. absent: Scleral icterus - ENT Exam ENT Exam: Mucous Membranes Moist - Neck Exam Neck Exam: Normal Inspection - Respiratory Exam Respiratory Exam: NORMAL BREATHING PATTERN. absent: Respiratory Distress - Cardiovascular Exam Cardiovascular Exam: +S1, +S2 - GI/Abdominal Exam GI & Abdominal Exam: Distended (s/p paracentesis, dressing D&I), Soft, Normal Bowel Sounds. 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 Hay. <Pawel Hay V - Last Filed: 04/09/17 23:53> Objective - Vital Signs/Intake and Output Vital Signs (last 24 hours): Temp Pulse Resp BP Pulse Ox 97.8 F 58 L 19 125/69 99 04/09/17 17:45 04/09/17 21:41 04/09/17 17:45 04/09/17 17:45 04/09/17 09:09 - Medications Medications: Current Medications Aspirin (Aspirin Chewable) 81 mg PO DAILY [facility] Last Admin: 07/03/17 15:53 Dose: 81 mg Calcium Acetate (Phoslo) 667 mg PO WM [facility] Last Admin: 04/09/17 17:30 Dose: 667 mg Ergocalciferol (Drisdol 50,000 Intl Units Cap) 1 cap PO Q7D [facility] Stop: 05/25/17 12:46 Last Admin: 04/06/17 18:36 Dose: 1 cap Famotidine (Pepcid) 20 mg PO HS [facility] Last Admin: 04/09/17 21:25 Dose: 20 mg Guaifenesin (Robitussin) 100 mg PO Q4H PRN PRN Reason: Cough Hydrocortisone (Cortizone 1% Oint) 0 gm TOP BID [facility] Last Admin: 04/09/17 21:25 Dose: Not Given Iron Sucrose 100 mg/ Sodium (Chloride) 105 mls @ 210 mls/hr IVPB DAILY [facility] Stop: 04/17/17 10:01 Last Admin: 04/09/17 15:49 Dose: 210 mls/hr Metoprolol Tartrate (Lopressor) 12.5 mg PO DAILY [facility] Last Admin: 04/09/17 15:55 Dose: 12.5 mg Mycophenolate Mofetil (Cellcept Cap) 1,000 mg PO BID [facility] Last Admin: 04/09/17 17:30 Dose: 1,000 mg Prednisone (Prednisone Tab) 60 mg PO DAILY [facility] Last Admin: 04/09/17 15:54 Dose: 60 mg Sevelamer HCl (Renagel) 2,400 mg PO TID [facility] Last Admin: 04/09/17 17:29 Dose: 2,400 mg Sucralfate (Carafate Oral Susp) 1 gm PO 0600,1600 [facility] Last Admin: 04/09/17 15:53 Dose: 1 gm - Labs Labs: 04/09/17 07:41 04/09/17 07:41 PT 13.9 Seconds (9.9-11.8) H 04/04/17 17:20 INR 1.29 (0.93-1.08) H 04/04/17 17:20 APTT 26.8 Seconds (23.7-30.8) 04/04/17 17:20 Attending/Attestation - Attestation I have personally seen and examined this patient.: Yes I have fully participated in the care of the patient.: Yes I have reviewed all pertinent clinical information, including history, physical exam and plan: Yes Notes (Text): this
[2017-04-09] MEDS: Sucralfate 1 gm/10 ml Oral Susp UD PO SCH (15:53)
--- NOTE | 2017-04-09 22:06 | CP.PCM.PN ---
Addendum entered and electronically signed by Wale Flowers DO 04/09/17 23:31: Seen and discussed with Dr. Moise. Agree with assessment and plan. Discussed with Dr. Helio Pisano. Work up underway. Pending hematology consultation. Clinically improved. Wale Flowers D.O. PGY-2 Original Note: <CHAR MOISE - Last Filed: 04/09/17 22:43> Subjective - Date & Time of Evaluation Date of Evaluation: 04/09/17 Time of Evaluation: 06:45 - Subjective Subjective: Patient seen and evaluated at the bedside. Today is hospital day 6. No acute events overnight. Patient is complaining of burning pain with defecation and requesting a cream. He is also complaining of heartburn. Patient denies any CP, SOB, abdominal pain, dizziness, fever, or chills. Objective - Vital Signs/Intake and Output Vital Signs (last 24 hours): Temp Pulse Resp BP Pulse Ox 97.8 F 58 L 19 125/69 99 04/09/17 17:45 04/09/17 21:41 04/09/17 17:45 04/09/17 17:45 04/09/17 09:09 - Medications Medications: Current Medications Aspirin (Aspirin Chewable) 81 mg PO DAILY [facility] Last Admin: 04/09/17 15:53 Dose: 81 mg Calcium Acetate (Phoslo) 667 mg PO WM [facility] Last Admin: 04/09/17 17:30 Dose: 667 mg Ergocalciferol (Drisdol 50,000 Intl Units Cap) 1 cap PO Q7D [facility] Stop: 05/25/17 12:46 Last Admin: 04/06/17 18:36 Dose: 1 cap Famotidine (Pepcid) 20 mg PO HS [facility] Last Admin: 04/09/17 21:25 Dose: 20 mg Guaifenesin (Robitussin) 100 mg PO Q4H PRN PRN Reason: Cough Hydrocortisone (Cortizone 1% Oint) 0 gm TOP BID [facility] Last Admin: 04/09/17 21:25 Dose: Not Given Iron Sucrose 100 mg/ Sodium (Chloride) 105 mls @ 210 mls/hr IVPB DAILY [facility] Stop: 04/17/17 10:01 Last Admin: 04/09/17 15:49 Dose: 210 mls/hr Metoprolol Tartrate (Lopressor) 12.5 mg PO DAILY [facility] Last Admin: 04/09/17 15:55 Dose: 12.5 mg Mycophenolate Mofetil (Cellcept Cap) 1,000 mg PO BID [facility] Last Admin: 04/09/17 17:30 Dose: 1,000 mg Prednisone (Prednisone Tab) 60 mg PO DAILY [facility] Last Admin: 04/09/17 15:54 Dose: 60 mg Sevelamer HCl (Renagel) 2,400 mg PO TID [facility] Last Admin: 04/09/17 17:29 Dose: 2,400 mg Sucralfate (Carafate Oral Susp) 1 gm PO 0600,1600 [facility] Last Admin: 04/09/17 15:53 Dose: 1 gm - Labs Labs: 04/09/17 07:41 04/09/17 07:41 PT 13.9 Seconds (9.9-11.8) H 04/04/17 17:20 INR 1.29 (0.93-1.08) H 04/04/17 17:20 APTT 26.8 Seconds (23.7-30.8) 04/04/17 17:20 - Constitutional Appears: Non-toxic, No Acute Distress, Chronically Ill - Head Exam Head Exam: ATRAUMATIC, NORMOCEPHALIC - Eye Exam Eye Exam: EOMI, PERRL - ENT Exam ENT Exam: Mucous Membranes Moist - Neck Exam Neck Exam: Full ROM. absent: Tenderness - Respiratory Exam Respiratory Exam: Clear to Ausculation Bilateral, NORMAL BREATHING PATTERN. absent: Rales, Rhonchi, Wheezes, Respiratory Distress - Cardiovascular Exam Cardiovascular Exam: REGULAR RHYTHM, +S1, +S2. absent: JVD, +S4, Murmur - GI/Abdominal Exam GI & Abdominal Exam: Distended (No fluid wave, no shifting dullness), Soft, Normal Bowel Sounds. absent: Firm, Guarding, Rigid, Tenderness - Extremities Exam Extremities Exam: Pedal Edema. absent: Calf Tenderness - Back Exam Back Exam: absent: CVA tenderness (L), CVA tenderness (R) - Neurological Exam Neurological Exam: Alert, Awake, CN II-XII Intact, Oriented x3 - Psychiatric Exam Psychiatric exam: Normal Affect, Normal Mood - Skin Skin Exam: Dry, Intact, Normal Color, Warm Assessment and Plan - Assessment and Plan (Free Text) Assessment: This is a 66 yo M with PMH of cirrhosis, chronic kidney disease, HTN, CAD, and recent AIN on PO steroids who presented with complaint of acutely worsening abdominal distention, and was found to have worsening renal function concerning for possible renal failure. He is s/p paracentesis (9L removed) and temporary dialysis catheter placement. S/p 3 rounds of HD, pending another today. Plan: 1. Acute on chronic kidney injury secondary to acute interstitial nephritis - Cr still unstable, will continue to monitor - With new liver cirrhosis, concern for possible hepato-renal syndrome vs autoimmune etiology - Nephrology was consulted and full workup is pending: C3, C4, IGG subclass 4, microalbumin, IGG, urine creatinine, urine sodium - Renal US consistent with cirrhosis - As per Nephro: AIN (possibly 2/2 to recent bactrim+levaquin) + secondary membranous nephroapthy (unclear etiology), possibly multi-system autoimmune pathology such as seronegative Lupus or IgG4 related disease; HD again today, attempting renal recovery with 3x 1g IV solumedrol and celcept 1g BID 2. Liver cirrhosis - MELD-Na score of 24 on admission - As per Nephro, cirrhosis may be multi-system autoimmune pathology such as seronegative Lupus or IgG4 related disease, given involvement of renal and hepatic systems, and skin lesions - Hepatitis panel negative on 04/07 - Lactulose/Xifaxin currently on hold given low ammonia and no clinical indication of hepatic encephalopathy at this time, recheck ammonia in AM - GI consulted - Dr. Hay, appreciate all recs - As per Nephro, may need Liver biopsy, will discuss with GI - s/p 9L paracentesis on 04/05 3. Hypertension - Discontinued norvasc, as per nephro. Continue metoprolol - BP stable, continue to monitor for hypotension, will hold anti-HTN meds as needed 4. Anemia - Stable - Continue Venofer 5. Rectal pain - Start Preparation H 6. GERD - Start Pepcid Patient was seen and examined and discussed in detail with PGY2 Dr. Flowers and attending Dr. Madrid <Juan Carlos Madrid - Last Filed: 04/19/17 11:49> Objective - Vital Signs/Intake and Output Vital Signs (last 24 hours): Temp Pulse Resp BP Pulse Ox 98 F 87 26 H 89/35 L 85 L 04/17/17 02:35 04/17/17 08:03 04/17/17 08:03 04/17/17 08:00 04/17/17 08:00 - Labs Labs: 04/17/17 07:00 04/17/17 07:00 PT 24.4 Seconds (9.9-11.8) H 04/17/17 07:00 INR 2.26 (0.93-1.08) H 04/17/17 07:00 APTT 74.2 Seconds (23.7-30.8) H* 04/17/17 07:00 Attending/Attestation - Attestation I have personally seen and examined this patient.: Yes I have fully participated in the care of the patient.: Yes I have reviewed all pertinent clinical information, including history, physical exam and plan: Yes Notes (Text): 04/19/17 11:49 Medical record note made by resident after discussion with my direction and input after patient personally seen and examined by me. I have reviewed the chart and agree that the record accurately reflects my personal performance of the history, physical, data review and medical decision making for the course of this patient.
[2017-04-10] MEDS: Sucralfate 1 gm/10 ml Oral Susp UD PO SCH ×2 (05:10→17:54)
[2017-04-10 07:31] LABS: ALBUMIN 2.9 g/dL (3.0-4.8); CALCIUM 9.2 mg/dL (8.4-10.5); MAGNESIUM 2.2 mg/dL (1.7-2.2)
[2017-04-10 07:37] LABS: HEMOGLOBIN 10.8 gm/dL (14.0-18.0); MEAN CELL VOLUME 83.7 fL (80.0-105.0); MEAN CORPUSCULAR HEMOGLOBIN 27.9 pg (25.0-35.0); MEAN CORPUSCULAR HGB CONC 33.3 g/dl (31.0-37.0); PLATELET COUNT 37 10^3/uL (120.0-450.0); RBC 3.87 10^6/uL (3.5-6.1); RED CELL DISTRIBUTION WIDTH 17.6 % (11.5-14.5); WHITE BLOOD COUNT 12.9 10^3/ul (4.5-11.0)
[2017-04-10 08:30] LABS: LYMPHOCYTE 2 % (22.0-35.0); MONOCYTE 2 % (1.0-6.0); NEUTROPHIL 96 % (50.0-70.0); NUCLEATED RED BLOOD CELL 1 %; PLATELET ESTIMATE LOW (NORMAL); POIKILOCYTOSIS 1+
[2017-04-10 08:31] LABS: ANISOCYTOSIS 1+; LARGE PLATELETS PRESENT; OVALOCYTES SLIGHT; TARGET CELLS SLIGHT; TEAR DROP CELLS SLIGHT
--- NOTE | 2017-04-10 10:02 | CP.PCM.PN ---
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 Suspect multi-system autoimmune pathology such as seronegative Lupus or IgG4 related disease which can explain his skin lesion, lymphadenopathy, hepatobiliary and renal involvement, hypocomplementemia. Acute Kidney Injury (N17.9) likely due to progression of underlying renal disease started on dialysis 04/05/17 Chronic Kidney Disease (N18.3) Stage 3 (baseline cr 1.4-1.9) with 600 mg proteinuria (R80.9) likely due to KELLI in 2016 Iron def Anemia (D64.9), Hyperphosphatemia (E83.39), HTN (I12.9), DM, CAD, Vitiligo, Cirrhosis with portal HTN and ascites, mediastinal and upper abdomen lymphadenopathy Vitamin D def Thombocytopenia ? side effects of cellcept as cause of GI symptoms Plan will plan for dialysis today as tolerated, no evidence of renal recovery as of yet. hold BP meds due to low BP continue with renagel 2400 mg TID with meals, added amphojel as well. Dietary consult for restricting his phos intake. s/p pulse steroid 1000 mg x 3 doses, now on prednisone 60 mg/day and started on cellcept 1000 mg bid: lower down to 500 mg bid as not tolerating higher doses. Myfortic not available. started weekly vit D and IV iron 100 mg x 10 doses and aransep 40 mcg Monitor Input/Output, daily weights and renal function with basic metabolic panel. will need to monitor for signs of renal recovery during the hospitalization. Ordered iPTH Lupus serology Dose meds/antibiotics for reduced GFR <10 and dialysis status. Avoid fleets enema/magnesium based laxatives. Avoid nephrotoxins/NSAIDs/ iodinated contrast ( unless needed emergently) Glycemic control. Further work up/management as per primary team. heme eval for low plat counts. d/w primary team. Thanks for allowing me to participate in care of your patient. Will follow patient with you. Please call if any Qs. spoke to daughter Princess today and updated about his condition. Dr Paco Cadet Office: [phone] HPI: Pt is a 66 y/o M with hx of diabetes Mellitus, hypertension, CAD, vitiligo , mediastinal lymphadenopathy (seen by heme/onc) cirrhosis of unknown etiology with portal HTN and recurrent ascites (s/p EGD and colonoscopy) and recent hospitalization for ascites, KELLI on CKD 3 (cr 1.3-1.9 range) with peaked creatinine 4-5 range s/p kidney bipsy: ATIN and secondary membranous neprhopathy (unknown trigger) pulse steroids 500 mg daily x 3 doses then 60 mg PO prednisone daily presented with complaints of abdomen distension and found to have worsening KELLI hence renal consulted. ROS: Feels sick. reports gas pain, stomach upset, loose stool and lower abdomen discomfort. yesterday didn't tolerate HD due to low bp. Denies chest pain, palpitation, shortness of breath, leg swelling. Physical Examination: General Appearance: uncomfortable, in no acute respiratory distress, co- operative .hard of hearing. ill appearing Vitals reviewed and noted as below Lungs: Normal respiratory rate/effort. Breath sounds bilateral equal and has occasional basal crackles Heart: Normal rate. s1s2 normal. No rub or gallop. Extremities: trace edema. No varicose veins Neurological: Patient is alert, awake and oriented to person, place and time. No focal deficit. Strength bilateral appropriate and equal Skin: Warm and dry. Normal turgor. No rash. Palpitation: Normal elasticity for age. has vitiligo patches in hand Abdomen: Abdomen is soft. Bowel sounds +. There is no abdominal tenderness, no guarding/rigidity no organomegaly. abdomen is distended/ascitic. Psych: limited insight and has normal affect/mood MSK: no joint tenderness or swelling. Digits and nails normal, no deformity : kidney or bladder not palpable but limited exam due to ascites Labs/imaging/EKG reviewed. Past medical history, past surgical history, family history, social history, allergy reviewed and noted as below Family hx: no hx of CKD. Rest non-contributory. daughter had reported hx of lupus in family WORK up Renal sono: b/l echogenic kidneys, cirrhosis PSA 0.8 Ferriitn /TSAT 54/15% IgG 1300 C3: 58 C4: 10 [place]/lambda 1.3 SAEED/DNA/cryoglobulin/HIV/Hep B and C neg UA: large blood with small protein, 238 mg albuminuria Objective - Vital Signs/Intake and Output Vital Signs (last 24 hours): Temp Pulse Resp BP Pulse Ox 97.8 F 65 19 103/72 94 L 04/10/17 06:00 04/10/17 06:00 04/10/17 06:00 04/10/17 06:00 04/10/17 06:00 Intake and Output: 04/10/17 04/10/17 06:59 18:59 Intake Total 1730 Balance 1730 - Medications Medications: Current Medications Aluminum Hydroxide (Aluminum Hydroxide Gel 320mg /5ml Susp (Bulk)) 5 ml PO QID [facility] Stop: 04/14/17 10:01 Aspirin (Aspirin Chewable) 81 mg PO DAILY [facility] Last Admin: 04/09/17 15:53 Dose: 81 mg Ergocalciferol (Drisdol 50,000 Intl Units Cap) 1 cap PO Q7D [facility] Stop: 05/25/17 12:46 Last Admin: 04/06/17 18:36 Dose: 1 cap Famotidine (Pepcid) 20 mg PO HS [facility] Last Admin: 04/09/17 21:25 Dose: 20 mg Guaifenesin (Robitussin) 100 mg PO Q4H PRN PRN Reason: Cough Hydrocortisone (Cortizone 1% Oint) 0 gm TOP BID [facility] Last Admin: 04/09/17 21:25 Dose: Not Given Iron Sucrose 100 mg/ Sodium (Chloride) 105 mls @ 210 mls/hr IVPB DAILY [facility] Stop: 04/17/17 10:01 Last Admin: 04/09/17 15:49 Dose: 210 mls/hr Metoprolol Tartrate (Lopressor) 12.5 mg PO DAILY [facility] Last Admin: 04/09/17 15:55 Dose: 12.5 mg Mycophenolate Mofetil (Cellcept Cap) 500 mg PO BID [facility] Prednisone (Prednisone Tab) 60 mg PO DAILY [facility] Last Admin: 04/09/17 15:54 Dose: 60 mg Sevelamer HCl (Renagel) 2,400 mg PO TID [facility] Last Admin: 04/09/17 17:29 Dose: 2,400 mg Sucralfate (Carafate Oral Susp) 1 gm PO 0600,1600 [facility] Last Admin: 04/10/17 05:10 Dose: 1 gm - Labs Labs: 04/10/17 07:15 04/10/17 07:15 PT 13.9 Seconds (9.9-11.8) H 04/04/17 17:20 INR 1.29 (0.93-1.08) H 04/04/17 17:20 APTT 26.8 Seconds (23.7-30.8) 04/04/17 17:20
[2017-04-10] MEDS: Aluminum Hydrox Gel 320 mg/5 ml Susp(480 ml) PO SCH ×4 (10:07→22:55)
[2017-04-10] MEDS ORDERED: Pantoprazole 40mg/100ml IVPB 40 MG/100 ML BAG IVPB SCH (12:15)
--- NOTE | 2017-04-10 12:31 | CP.PCM.PN ---
<CHAR MOISE - Last Filed: 04/10/17 16:32> Subjective - Date & Time of Evaluation Date of Evaluation: 04/10/17 Time of Evaluation: 06:45 - Subjective Subjective: Patient seen and evaluated at the bedside. Today is hospital day 7. No acute events overnight. Patient's burning pain with defecation is improved after starting preparation H. Patient continues to complain of worsening burning abdominal pain radiating to chest and throat, with meals, radiates to back, lasts minutes to hours, resolves with bowel movement. He is having difficulty tolerating PO due to this pain. Patient admits to weakness and fatigue. Patient AOx3, in NAD, and was not in any pain during the encounter. Patient denies any SOB, dizziness, fever, or chills. Objective - Vital Signs/Intake and Output Vital Signs (last 24 hours): Temp Pulse Resp BP Pulse Ox 97.8 F 65 19 103/72 94 L 04/10/17 06:00 04/10/17 06:00 04/10/17 06:00 04/10/17 06:00 04/10/17 06:00 Intake and Output: 04/10/17 04/10/17 06:59 18:59 Intake Total 1730 Balance 1730 - Medications Medications: Current Medications Aluminum Hydroxide (Aluminum Hydroxide Gel 320mg /5ml Susp (Bulk)) 5 ml PO QID [facility] Stop: 04/14/17 10:01 Last Admin: 04/10/17 10:07 Dose: 5 ml Aspirin (Aspirin Chewable) 81 mg PO DAILY [facility] Last Admin: 04/09/17 15:53 Dose: 81 mg Ergocalciferol (Drisdol 50,000 Intl Units Cap) 1 cap PO Q7D [facility] Stop: 05/25/17 12:46 Last Admin: 04/06/17 18:36 Dose: 1 cap Guaifenesin (Robitussin) 100 mg PO Q4H PRN PRN Reason: Cough Hydrocortisone (Cortizone 1% Oint) 0 gm TOP BID [facility] Last Admin: 04/09/17 21:25 Dose: Not Given Iron Sucrose 100 mg/ Sodium (Chloride) 105 mls @ 210 mls/hr IVPB DAILY [facility] Stop: 04/17/17 10:01 Last Admin: 04/09/17 15:49 Dose: 210 mls/hr Pantoprazole Sodium (Protonix 40mg Ivpb) 40 mg in 100 mls @ 20 mls/hr IVPB .Q5H [facility] Metoprolol Tartrate (Lopressor) 12.5 mg PO DAILY [facility] Last Admin: 04/09/17 15:55 Dose: 12.5 mg Mycophenolate Mofetil (Cellcept Cap) 500 mg PO BID [facility] Prednisone (Prednisone Tab) 60 mg PO DAILY [facility] Last Admin: 04/09/17 15:54 Dose: 60 mg Sevelamer HCl (Renagel) 2,400 mg PO TID [facility] Last Admin: 04/09/17 17:29 Dose: 2,400 mg Sucralfate (Carafate Oral Susp) 1 gm PO 0600,1600 [facility] Last Admin: 04/10/17 05:10 Dose: 1 gm - Labs Labs: 04/10/17 07:15 04/10/17 07:15 PT 13.9 Seconds (9.9-11.8) H 04/04/17 17:20 INR 1.29 (0.93-1.08) H 04/04/17 17:20 APTT 26.8 Seconds (23.7-30.8) 04/04/17 17:20 - Constitutional Appears: Non-toxic, Chronically Ill - Head Exam Head Exam: ATRAUMATIC, NORMOCEPHALIC - Eye Exam Eye Exam: EOMI, Normal appearance, PERRL - ENT Exam ENT Exam: Mucous Membranes Moist - Neck Exam Neck Exam: Full ROM. absent: Lymphadenopathy, Thyromegaly - Respiratory Exam Respiratory Exam: Clear to Ausculation Bilateral. absent: Rales, Rhonchi, Wheezes - Cardiovascular Exam Cardiovascular Exam: RRR, +S1, +S2. absent: Murmur - GI/Abdominal Exam GI & Abdominal Exam: Distended, Soft, Tenderness (Mild, diffuse). absent: Firm - Rectal Exam Rectal Exam: Deferred - Extremities Exam Extremities Exam: Full ROM. absent: Calf Tenderness - Neurological Exam Neurological Exam: Alert, Awake, Oriented x3 - Psychiatric Exam Psychiatric exam: Normal Affect, Normal Mood - Skin Skin Exam: Dry, Intact, Warm Assessment and Plan - Assessment and Plan (Free Text) Assessment: This is a 66 yo M with PMH of cirrhosis, chronic kidney disease, HTN, CAD, and recent AIN on PO steroids who presented with complaint of acutely worsening abdominal distention, and was found to have worsening renal function concerning for possible renal failure. He is s/p paracentesis (9L removed) and temporary dialysis catheter placement. S/p 3 rounds of HD, pending another today. Plan: 1. Acute on chronic kidney injury secondary to acute interstitial nephritis - HD yesterday was stopped midway because patient became hypotensive; HD again today, attempting renal recovery with 3x 1g IV solumedrol and celcept 1g BID - Cr still unstable, will continue to monitor - With new liver cirrhosis, concern for possible hepato-renal syndrome vs autoimmune etiology - Nephrology was consulted and full workup is pending: C3, C4, IGG subclass 4, microalbumin, IGG, urine creatinine, urine sodium - Renal US consistent with cirrhosis - As per Nephro: AIN (possibly 2/2 to recent bactrim+levaquin) + secondary membranous nephroapthy (unclear etiology), possibly multi-system autoimmune pathology such as seronegative Lupus or IgG4 related disease 2. Liver cirrhosis - MELD-Na score of 24 on admission - As per Nephro, cirrhosis may be multi-system autoimmune pathology such as seronegative Lupus or IgG4 related disease, given involvement of renal and hepatic systems, and skin lesions; workup is pending - Hepatitis panel negative on 04/07 - Lactulose/Xifaxin currently on hold given low ammonia and no clinical indication of hepatic encephalopathy at this time, today Ammonia was 21 - GI consulted - Dr. Hay, appreciate all recs - As per Nephro, may need Liver biopsy, will discuss with GI - s/p 9L paracentesis on 04/05 3. Hypertension - Continue metoprolol - BP stable, continue to monitor for hypotension, will hold anti-HTN meds as needed 4. Anemia - Stable - Continue Venofer 5. Rectal pain - improved - Patient reports long history of painful bleeding hemorrhoids, declined rectal exam - Continue Preparation H 6. Abdominal pain - Stop pepcid, start protonix 20mg QD IVP - Start full liquid diet - Ordered amylase and lipase, as per GI Patient was seen, examined, and discussed in detail with attending Dr. Johnson <Bravo Johnson - Last Filed: 04/11/17 15:31> Objective - Vital Signs/Intake and Output Vital Signs (last 24 hours): Temp Pulse Resp BP Pulse Ox 99.1 F 75 19 118/68 97 04/11/17 12:00 04/11/17 12:00 04/11/17 12:00 04/11/17 12:00 04/11/17 10:00 Intake and Output: 04/11/17 04/11/17 06:59 18:59 Intake Total 720 Output Total 735 Balance -15 - Medications Medications: Current Medications Aluminum Hydroxide (Aluminum Hydroxide Gel 320mg /5ml Susp (Bulk)) 5 ml PO QID [facility] Stop: 04/14/17 10:01 Last Admin: 04/11/17 11:06 Dose: 5 ml Aspirin (Aspirin Chewable) 81 mg PO DAILY [facility] Last Admin: 04/10/17 13:02 Dose: Not Given Ergocalciferol (Drisdol 50,000 Intl Units Cap) 1 cap PO Q7D [facility] Stop: 05/25/17 12:46 Last Admin: 04/06/17 18:36 Dose: 1 cap Guaifenesin (Robitussin) 100 mg PO Q4H PRN PRN Reason: Cough Hydrocortisone (Cortizone 1% Oint) 0 gm TOP BID [facility] Last Admin: 04/11/17 10:24 Dose: 2 applic Iron Sucrose 100 mg/ Sodium (Chloride) 105 mls @ 210 mls/hr IVPB DAILY [facility] Stop: 04/17/17 10:01 Last Admin: 04/11/17 12:20 Dose: 210 mls/hr Metoprolol Tartrate (Lopressor) 12.5 mg PO DAILY [facility] Last Admin: 04/10/17 13:03 Dose: Not Given Morphine Sulfate (Morphine) 2 mg IVP Q4H PRN PRN Reason: Pain, severe (8-10) Mycophenolate Mofetil (Cellcept Cap) 500 mg PO BID [facility] Last Admin: 04/11/17 10:25 Dose: 500 mg Nystatin (Nystatin Oral Susp) 5 ml PO QID [facility] Stop: 04/18/17 10:01 Last Admin: 04/11/17 10:25 Dose: 5 ml Pantoprazole Sodium (Protonix Inj) 20 mg IVP 0600 [facility] Last Admin: 04/11/17 05:33 Dose: 20 mg Prednisone (Prednisone Tab) 50 mg PO DAILY [facility] Sevelamer HCl (Renagel) 2,400 mg PO TID [facility] Last Admin: 04/11/17 10:25 Dose: 1,600 mg Sucralfate (Carafate Oral Susp) 1 gm PO 0600,1600 [facility] Last Admin: 04/11/17 05:32 Dose: 1 gm - Labs Labs: 04/11/17 07:10 04/11/17 07:10 PT 13.9 Seconds (9.9-11.8) H 04/04/17 17:20 INR 1.29 (0.93-1.08) H 04/04/17 17:20 APTT 26.8 Seconds (23.7-30.8) 04/04/17 17:20 Attending/Attestation - Attestation I have personally seen and examined this patient.: Yes I have fully participated in the care of the patient.: Yes I have reviewed all pertinent clinical information, including history, physical exam and plan: Yes Notes (Text): 04/11/17 15:31 Medical record note made by the resident after discussion with my direction and input after the patient was personally seen and examined by me. I have reviewed the chart and agree that the record accurately reflects by personal performance of the history, physical exam, data review, and medical decision-making, in the course for the patient. I have also personally directed the plan of care.
--- NOTE | 2017-04-10 16:10 | CP.PCM.PN ---
Subjective - Date & Time of Evaluation Date of Evaluation: 04/10/17 Time of Evaluation: 12:30 - Subjective Subjective: this patient was seen in dialysis unit. Complaining of lowback pain at that time. He did complain of epigastric and lower ches burning sensation before. He was on Pepcid 20 mg along with Carafate. The patient has been onCellCept and also prednisone 60 mg daily for his interstitial nephritis.history of cirrhosis of the liver etiology unclear probably Cook history of EtOH in the past. Status post large- volume paracentesis. Nearly 9 L of fluid drained. Objective - Vital Signs/Intake and Output Vital Signs (last 24 hours): Temp Pulse Resp BP Pulse Ox 97.8 F 75 19 103/72 94 L 04/10/17 06:00 04/10/17 10:00 04/10/17 06:00 04/10/17 06:00 04/10/17 06:00 Intake and Output: 04/10/17 04/10/17 06:59 18:59 Intake Total 1730 240 Output Total 0 Balance 1730 240 - Medications Medications: Current Medications Aluminum Hydroxide (Aluminum Hydroxide Gel 320mg /5ml Susp (Bulk)) 5 ml PO QID [facility] Stop: 04/14/17 10:01 Last Admin: 04/10/17 10:07 Dose: 5 ml Aspirin (Aspirin Chewable) 81 mg PO DAILY [facility] Last Admin: 04/10/17 13:02 Dose: Not Given Ergocalciferol (Drisdol 50,000 Intl Units Cap) 1 cap PO Q7D [facility] Stop: 05/25/17 12:46 Last Admin: 04/06/17 18:36 Dose: 1 cap Guaifenesin (Robitussin) 100 mg PO Q4H PRN PRN Reason: Cough Hydrocortisone (Cortizone 1% Oint) 0 gm TOP BID [facility] Last Admin: 04/09/17 21:25 Dose: Not Given Iron Sucrose 100 mg/ Sodium (Chloride) 105 mls @ 210 mls/hr IVPB DAILY [facility] Stop: 04/17/17 10:01 Last Admin: 04/09/17 15:49 Dose: 210 mls/hr Metoprolol Tartrate (Lopressor) 12.5 mg PO DAILY [facility] Last Admin: 04/10/17 13:03 Dose: Not Given Mycophenolate Mofetil (Cellcept Cap) 500 mg PO BID [facility] Pantoprazole Sodium (Protonix Inj) 40 mg IVP DAILY [facility] Prednisone (Prednisone Tab) 60 mg PO DAILY [facility] Last Admin: 04/10/17 13:04 Dose: Not Given Sevelamer HCl (Renagel) 2,400 mg PO TID [facility] Last Admin: 04/10/17 13:05 Dose: Not Given Sucralfate (Carafate Oral Susp) 1 gm PO 0600,1600 [facility] Last Admin: 04/10/17 05:10 Dose: 1 gm - Labs Labs: 04/10/17 07:15 04/10/17 07:15 PT 13.9 Seconds (9.9-11.8) H 04/04/17 17:20 INR 1.29 (0.93-1.08) H 04/04/17 17:20 APTT 26.8 Seconds (23.7-30.8) 04/04/17 17:20 - Head Exam Head Exam: ATRAUMATIC, NORMOCEPHALIC - Eye Exam Eye Exam: EOMI Pupil Exam: NORMAL ACCOMODATION, PERRL - ENT Exam ENT Exam: Mucous Membranes Dry, Mucous Membranes Moist, Normal External Ear Exam - Neck Exam Neck Exam: Full ROM. absent: Lymphadenopathy - Respiratory Exam Respiratory Exam: NORMAL BREATHING PATTERN. absent: Rales - Cardiovascular Exam Cardiovascular Exam: REGULAR RHYTHM, +S1, +S2 - GI/Abdominal Exam GI & Abdominal Exam: Soft, Normal Bowel Sounds. absent: Tenderness Additional comments: I could not appreciate any focal tenderness in at the time of examinat - Rectal Exam Rectal Exam: Deferred - Extremities Exam Extremities Exam: Full ROM. absent: Tenderness - Back Exam Back Exam: Full ROM - Psychiatric Exam Psychiatric exam: Anxious, Normal Mood Assessment and Plan - Assessment and Plan (Free Text) Assessment: 1. Epigastric and lower chest discomfo. Differential diagnose, pancreatitis and SBP also should patient did have endosco recently had only total hypertensive gastropath and a grade 1 esophageal varice. 2. Interstitial nephritis on CellCept and prednisone 3. Cirrhosis of the liver etiology unclear probably Cook negative autoimmune markers negat serology 4. Anemia status post EGD colon done recently portal colopathy, portal hypertensive gastropathy, 5. Refractory ascites status post large volume paracentesis Plan: 1. Would continue Protonix consider reducing it to in the office end-stage 2. Patient is on predniso and CellCept will request pancreatic enzyme level as a differential diagn for epigastric discomfort 3.change diet to full liqu 4. If further worsening symptoms would consider CT scan of abdomen and pelvis.
[2017-04-10 17:08] LABS: AMYLASE 208 U/L (35-125); LIPASE 271 U/L (23-300)
--- NOTE | 2017-04-10 18:30 | CP.PCM.CON ---
History of Present Illness - History of Present Illness History of Present Illness: HEmatology Consult Referred by Dr. Madrid for anemia, thrombocytopenia HPI- Mr Crowell is 66 y/o M who is known to Dr. Toledo from prior admission. He has h/o HTN, CAD, CKD s/p renal biopsy showing acute tubulointerstitial nephritis with secondary membranous nephropathy. He has h/o cirrhosis (?alcohol induced), portal gastropathy and grade 1 esophageal varices. He was admitted now with worsening abdominal distension that was found to be due to ascites. He underwent paracentesis and was started on dialysis during this admission. Review of his blood counts show baseline Hb between 9.8-10.8 (mostly stable), normal WBC and thrombocytopenia between 23-83. Platelet count initially dropped during admission to 23 but has been slowly improving for the last two days. His platelet count was fluctuating between 70-100 in March of this year. He denies bleeding except for occasional "hemorrhoidal bleed". He feels tired, denies abdominal pain now. Denies nausea, vomiting. He was started on pulse dose of steroids and cellcept. He also has h/o around 10 lbs weight loss this year, though its hard to say if it was fluid weight. PMHx: HTN, CAD, UT s/p stent placement, DMT2, Cirrhosis, CKD PSHx: Stent placement, right inguinal hernia repair Allergies: NKDA Family Hx: Father: Gastric cancer; Mother: Renal cancer Social Hx: Denies alcohol, tobacco and illicit drug use Review of Systems - Review of Systems All systems: reviewed and no additional remarkable complaints except Review of Systems: as in HPI Past Patient History - Infectious Disease Hx of Infectious Diseases: None - Tetanus Immunizations Tetanus Immunization: Unknown - Past Medical History & Family History Past Medical History?: Yes - Past Social History Smoking Status: Former Smoker - CARDIAC Hx Cardiac Disorders: Yes (mi with stents) Hx Congestive Heart Failure: Yes Hx Hypertension: Yes - PULMONARY Hx Respiratory Disorders: No - NEUROLOGICAL HX Cerebrovascular Accident: Yes (many years ago) - HEENT Hx HEENT Problems: No - RENAL Hx Chronic Kidney Disease: Yes Hx Dialysis: No - ENDOCRINE/METABOLIC Hx Diabetes Mellitus Type 2: Yes - HEMATOLOGICAL/ONCOLOGICAL Hx Blood Transfusions: Yes Hx Blood Transfusion Reaction: No - INTEGUMENTARY Hx Dermatological Problems: Yes Other/Comment: white and pink skin discolorations both hands and r arm began about 7 months ago cause unknown, brown discolorations ble,dry brown scabbed wound posterior right lowr leg starts below calf to lower leg then dry brown skin to posterior ankle, +2 edema right ankle, dry flakey skin both feet - MUSCULOSKELETAL/RHEUMATOLOGICAL Hx Falls: Yes (recent frequent) - GASTROINTESTINAL Hx Gastrointestinal Disorders: Yes Hx Gastroesophageal Reflux: Yes Hx Liver Failure: (cirrhosis, mild ascites) Other/Comment: colonoscopy 07/17/2016 dx diverticulitis, colitis, rectal polyp - GENITOURINARY/GYNECOLOGICAL Hx Genitourinary Disorders: No - PSYCHIATRIC Hx Psychophysiologic Disorder: No Hx Substance Use: No - SURGICAL HISTORY Hx Coronary Stent: Yes (ptca with stent) - ANESTHESIA Hx Anesthesia: Yes Hx Anesthesia Reactions: No Hx Malignant Hyperthermia: No Meds Allergies/Adverse Reactions: Allergies Allergy/AdvReac Type Severity Reaction Status Date / Time No Known Allergies Allergy Verified 04/04/17 20:21 - Medications Medications: Current Medications Aluminum Hydroxide (Aluminum Hydroxide Gel 320mg /5ml Susp (Bulk)) 5 ml PO QID [facility] Stop: 04/14/17 10:01 Last Admin: 04/10/17 17:00 Dose: Not Given Aspirin (Aspirin Chewable) 81 mg PO DAILY [facility] Last Admin: 04/10/17 13:02 Dose: Not Given Ergocalciferol (Drisdol 50,000 Intl Units Cap) 1 cap PO Q7D [facility] Stop: 05/25/17 12:46 Last Admin: 04/06/17 18:36 Dose: 1 cap Guaifenesin (Robitussin) 100 mg PO Q4H PRN PRN Reason: Cough Hydrocortisone (Cortizone 1% Oint) 0 gm TOP BID [facility] Last Admin: 04/10/17 17:53 Dose: 2 applic Iron Sucrose 100 mg/ Sodium (Chloride) 105 mls @ 210 mls/hr IVPB DAILY [facility] Stop: 04/17/17 10:01 Last Admin: 04/09/17 15:49 Dose: 210 mls/hr Metoprolol Tartrate (Lopressor) 12.5 mg PO DAILY [facility] Last Admin: 04/10/17 13:03 Dose: Not Given Mycophenolate Mofetil (Cellcept Cap) 500 mg PO BID [facility] Pantoprazole Sodium (Protonix Inj) 20 mg IVP 0600 [facility] Prednisone (Prednisone Tab) 60 mg PO DAILY [facility] Last Admin: 04/10/17 13:04 Dose: Not Given Sevelamer HCl (Renagel) 2,400 mg PO TID [facility] Last Admin: 04/10/17 17:54 Dose: 2,400 mg Sucralfate (Carafate Oral Susp) 1 gm PO 0600,1600 [facility] Last Admin: 04/10/17 17:54 Dose: 1 gm Physical Exam - Head Exam Head Exam: ATRAUMATIC, NORMAL INSPECTION - Eye Exam Eye Exam: EOMI, PERRL - ENT Exam ENT Exam: Mucous Membranes Moist - Neck Exam Neck exam: Negative for: Lymphadenopathy - Respiratory Exam Respiratory Exam: Clear to Auscultation Bilateral - Cardiovascular Exam Cardiovascular Exam: REGULAR RHYTHM - GI/Abdominal Exam GI & Abdominal Exam: Distended, Normal Bowel Sounds, Soft. absent: Organomegaly , Tenderness - Extremities Exam Extremities exam: Negative for: pedal edema - Neurological Exam Neurological exam: Alert, Oriented x3 Results - Vital Signs Recent Vital Signs: Last Vital Signs Temp 97.5 F L 04/10/17 17:30 Pulse 72 04/10/17 17:30 Resp 18 04/10/17 17:30 BP 115/80 04/10/17 17:30 Pulse Ox 94 L 04/10/17 06:00 - Labs Result Diagrams: 04/10/17 07:15 04/10/17 07:15 Labs: Laboratory Results - last 24 hr 04/05/17 04/06/17 04/09/17 12:45 06:30 21:01 WBC RBC Hgb Hct MCV MCH MCHC RDW Plt Count Neutrophils % (Manual) Lymphocytes % (Manual) Monocytes % (Manual) Nucleated RBC % Platelet Evaluation Large Platelets Poikilocytosis (manual Basophilic Stippling Anisocytosis (manual) Target Cells Tear Drop Cells Ovalocytes Sodium Potassium Chloride Carbon Dioxide Anion Gap BUN Creatinine Est GFR ( Amer) Est GFR (Non-Af Amer) POC Glucose (mg/dL) 114 H Random Glucose Calcium Phosphorus Magnesium Total Bilirubin AST ALT Alkaline Phosphatase Ammonia Total Protein Albumin Globulin Albumin/Globulin Ratio Amylase Lipase SAEED Screen Negative SAEED Titer TNP SAEED Pattern TNP Proteinase 3 (PR3) <1.0 Myeloperoxidase Ab 1.7 H Actin IgG Antibody 31 H Thyroperoxidase Ab 3 04/10/17 04/10/17 04/10/17 07:15 07:15 07:15 WBC 12.9 H RBC 3.87 Hgb 10.8 L Hct 32.4 L MCV 83.7 MCH 27.9 MCHC 33.3 RDW 17.6 H Plt Count 37 L* Neutrophils % (Manual) 96 H Lymphocytes % (Manual) 2 L Monocytes % (Manual) 2 Nucleated RBC % 1 Platelet Evaluation Low Large Platelets Present Poikilocytosis (manual 1+ Basophilic Stippling Slight Anisocytosis (manual) 1+ Target Cells Slight Tear Drop Cells Slight Ovalocytes Slight Sodium 135 Potassium 5.3 H Chloride 102 Carbon Dioxide 20 L Anion Gap 18 BUN 113 H Creatinine 5.8 H Est GFR ( Amer) 12 Est GFR (Non-Af Amer) 10 POC Glucose (mg/dL) Random Glucose 107 Calcium 9.2 Phosphorus 10.8 H Magnesium 2.2 Total Bilirubin 2.0 H AST 43 ALT 69 H Alkaline Phosphatase 123 Ammonia Total Protein 5.7 L Albumin 2.9 L Globulin 2.8 Albumin/Globulin Ratio 1.0 L Amylase 208 H Lipase 271 SAEED Screen SAEED Titer SAEED Pattern Proteinase 3 (PR3) Myeloperoxidase Ab Actin IgG Antibody Thyroperoxidase Ab 04/10/17 04/10/17 04/10/17 07:17 07:18 16:02 WBC RBC Hgb Hct MCV MCH MCHC RDW Plt Count Neutrophils % (Manual) Lymphocytes % (Manual) Monocytes % (Manual) Nucleated RBC % Platelet Evaluation Large Platelets Poikilocytosis (manual Basophilic Stippling Anisocytosis (manual) Target Cells Tear Drop Cells Ovalocytes Sodium Potassium Chloride Carbon Dioxide Anion Gap BUN Creatinine Est GFR ( Amer) Est GFR (Non-Af Amer) POC Glucose (mg/dL) 123 H 157 H Random Glucose Calcium Phosphorus Magnesium Total Bilirubin AST ALT Alkaline Phosphatase Ammonia 21 Total Protein Albumin Globulin Albumin/Globulin Ratio Amylase Lipase SAEED Screen SAEED Titer SAEED Pattern Proteinase 3 (PR3) Myeloperoxidase Ab Actin IgG Antibody Thyroperoxidase Ab Assessment & Plan - Assessment and Plan (Free Text) Assessment: Normocytic anemia with thrombocytopenia The cause of his low blood counts are likely multifactorial including nutritional def, chronic kidney disease, liver cirrhosis, drug induced (cellcept ), bone marrow dysfunction etc. Review of outpatient blood work shows unremarkable serum protein electrophoresis. I agree with IV iron and Aranesp during dialysis. Can continue cellcept for now with a close watch on his platelet count. Monitor for bleeding. Can transfuse platelets if <10k or if <50k and bleeding. Eventually, he may need bone marrow biopsy to rule out myelodysplasia or other bone marrow pathology. Thank you for the consult Brayden Levin - Date & Time Date: 04/10/17 Time: 16:30
[2017-04-11] MEDS: Sucralfate 1 gm/10 ml Oral Susp UD PO SCH ×2 (05:32→16:16)
[2017-04-11 07:46] LABS: GRAN # 13.39 (1.4-6.5); HEMOGLOBIN 10.9 gm/dL (14.0-18.0); LYMPH # 0.2 (1.2-3.4); LYMPH % 1.4 % (22.0-35.0); MEAN CELL VOLUME 83.9 fL (80.0-105.0); MEAN CORPUSCULAR HEMOGLOBIN 28.4 pg (25.0-35.0); MEAN CORPUSCULAR HGB CONC 33.9 g/dl (31.0-37.0); MONO # 0.2 (0.1-0.6); MONO % 1.6 % (1.0-6.0); RBC 3.84 10^6/uL (3.5-6.1); RED CELL DISTRIBUTION WIDTH 17.5 % (11.5-14.5); WHITE BLOOD COUNT 13.8 10^3/ul (4.5-11.0)
[2017-04-11 08:02] LABS: ALB/GLOB RATIO 1.1 (1.1-1.8); ALBUMIN 2.7 g/dL (3.0-4.8); MAGNESIUM 2.1 mg/dL (1.7-2.2)
[2017-04-11 08:18] LABS: PLATELET COUNT 35 10^3/uL (120.0-450.0)
--- NOTE | 2017-04-11 09:07 | US ---
HISTORY: Abdominal pain, dyspepsia, right flank pain COMPARISON: 03/23/2017 TECHNIQUE: Sonographic evaluation of the abdomen. FINDINGS: LIVER: Measures 12.4 cm. Diffuse increased heterogeneous echotexture with nodular contour No mass. No intrahepatic bile duct dilatation. GALLBLADDER: Gallbladder is small with low level echoes within it and a diffusely thickened wall. No technologist reported positive ultrasound Samaniego sign was elicited. Gallbladder sludge is suggested. The gallbladder wall thickening may be due to the ascites / -inferred hypo albuminemia in this patient with cirrhosis . COMMON BILE DUCT: Measures 4 mm. No stones. No dilatation. PANCREAS: Not visualized due to obscuring bowel gas RIGHT KIDNEY: Measures 9.3 x 4.7 x 5.6cm. Diffuse increased echogenicity. No calculus, mass, or hydronephrosis. Medical renal disease suspect LEFT KIDNEY: Measures 10.5 x 5.5 x 6.8cm. Diffuse increased echogenicity. No calculus, mass, or hydronephrosis. . Medical renal disease suspect SPLEEN: 12.4 cm size and contour. Borderline splenomegaly AORTA: No aneurysmal dilatation. IVC: Unremarkable. OTHER FINDINGS: Ascites present most of this fluid is seen in the right upper quadrant IMPRESSION: Ascites. Cirrhotic appearing liver. Gallbladder appearance consistent with ascites/ with inferred hypo albuminemia. No hydronephrosis. Medical renal disease suspect. No hydronephrosis
--- NOTE | 2017-04-11 10:17 | CP.PCM.PN ---
Subjective - Date & Time of Evaluation Date of Evaluation: 04/11/17 Time of Evaluation: 09:30 - Subjective Subjective: Seen and examined at bedside, chart reviewed. Patient c/o epigastric pain and throat discomfort usually after eating. No N/V. No sob or chest pain. No reports of overt GI bleed. Nursing polysilicon preparation worker at bedside, JORGE Reyna. Abdominal US: Ascites, cirrhosis, GB sludge, CBD 4mm, GB consistent w/ascites w inferred hypoalbunemia Objective - Vital Signs/Intake and Output Vital Signs (last 24 hours): Temp Pulse Resp BP Pulse Ox 97.9 F 72 19 120/62 96 04/11/17 06:00 04/11/17 06:00 04/11/17 06:00 04/11/17 06:00 04/11/17 06:00 Intake and Output: 04/11/17 04/11/17 06:59 18:59 Intake Total 720 Output Total 735 Balance -15 - Medications Medications: Current Medications Aluminum Hydroxide (Aluminum Hydroxide Gel 320mg /5ml Susp (Bulk)) 5 ml PO QID [facility] Stop: 04/14/17 10:01 Last Admin: 04/10/17 22:55 Dose: 5 ml Aspirin (Aspirin Chewable) 81 mg PO DAILY [facility] Last Admin: 04/10/17 13:02 Dose: Not Given Ergocalciferol (Drisdol 50,000 Intl Units Cap) 1 cap PO Q7D [facility] Stop: 05/25/17 12:46 Last Admin: 04/06/17 18:36 Dose: 1 cap Guaifenesin (Robitussin) 100 mg PO Q4H PRN PRN Reason: Cough Hydrocortisone (Cortizone 1% Oint) 0 gm TOP BID [facility] Last Admin: 04/10/17 17:53 Dose: 2 applic Iron Sucrose 100 mg/ Sodium (Chloride) 105 mls @ 210 mls/hr IVPB DAILY [facility] Stop: 04/17/17 10:01 Last Admin: 04/10/17 10:00 Dose: Not Given Metoprolol Tartrate (Lopressor) 12.5 mg PO DAILY [facility] Last Admin: 04/10/17 13:03 Dose: Not Given Mycophenolate Mofetil (Cellcept Cap) 500 mg PO BID [facility] Nystatin (Nystatin Oral Susp) 5 ml PO QID [facility] Stop: 04/18/17 10:01 Pantoprazole Sodium (Protonix Inj) 20 mg IVP 0600 [facility] Last Admin: 04/11/17 05:33 Dose: 20 mg Prednisone (Prednisone Tab) 60 mg PO DAILY [facility] Last Admin: 04/10/17 13:04 Dose: Not Given Sevelamer HCl (Renagel) 2,400 mg PO TID [facility] Last Admin: 04/10/17 17:54 Dose: 2,400 mg Sucralfate (Carafate Oral Susp) 1 gm PO 0600,1600 [facility] Last Admin: 04/11/17 05:32 Dose: 1 gm - Labs Labs: 04/11/17 07:10 04/11/17 07:10 PT 13.9 Seconds (9.9-11.8) H 04/04/17 17:20 INR 1.29 (0.93-1.08) H 04/04/17 17:20 APTT 26.8 Seconds (23.7-30.8) 04/04/17 17:20 - Constitutional Appears: No Acute Distress - Head Exam Head Exam: NORMOCEPHALIC - Eye Exam Eye Exam: Normal appearance. absent: Scleral icterus - ENT Exam ENT Exam: Mucous Membranes Moist Additional comments: oral exam, back throat, notice small white dots and tongue - Neck Exam Neck Exam: Normal Inspection - Respiratory Exam Respiratory Exam: NORMAL BREATHING PATTERN. absent: Respiratory Distress - Cardiovascular Exam Cardiovascular Exam: +S1, +S2 - GI/Abdominal Exam GI & Abdominal Exam: Distended, Soft, Tenderness (epigastric), Normal Bowel Sounds. absent: Guarding, Rebound - Extremities Exam Extremities Exam: Pedal Edema. absent: Calf Tenderness - Neurological Exam Neurological Exam: Alert, Awake, Oriented x3 - Skin Skin Exam: Dry, Warm Assessment and Plan - Assessment and Plan (Free Text) Assessment: Assessment: Epigastric and lower chest discomfo. Differential diagnose, pancreatitis and SBP also should patient did have endoscopy recently had only portal hypertensive gastropathy and a grade 1 esophageal varices., Likely may consider oral candadiasis, patient on high dose oral steroids Acute kidney injury, status post recent renal biopsy, interstitial nephritis Liver cirrhosis Anemia,post EGD & colon done recently portal colopathy, portal hypertensive gastropathy Thrombocytopenia Refaractory Ascites, status post paracentesis, 9 L Hypertension Elevating LFT. s/p abdominla US:Ascites, cirrhosis, GB sludge, CBD 4mm, GB consistent w/ascites w inferred hypoalbunemia Plan: continue Carafate twice a day on low dose PPI Monitor H&H on IV iron On aspirin trend LFT On prednisone and cellcept start Nystatin, see orders on full liquids, if improve can consider to advance If further worsening symptoms would consider CT scan of abdomen and pelvis. Seen and discussed with Dr. Hay.
[2017-04-11] MEDS: Nystatin 100,000 Units/ml Oral Susp 5 ml UD PO SCH ×4 (10:25→22:00)
[2017-04-11] MEDS: Aluminum Hydrox Gel 320 mg/5 ml Susp(480 ml) PO SCH ×4 (11:06→22:00)
--- NOTE | 2017-04-11 11:47 | CP.PCM.PN ---
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 Suspect multi-system autoimmune pathology such as seronegative Lupus or IgG4 related disease which can explain his skin lesion, lymphadenopathy, hepatobiliary and renal involvement, hypocomplementemia. Acute Kidney Injury (N17.9) likely due to progression of underlying renal disease started on dialysis 04/05/17 Chronic Kidney Disease (N18.3) Stage 3 (baseline cr 1.4-1.9) with 600 mg proteinuria (R80.9) likely due to KELLI in 2016 Iron def Anemia (D64.9), Hyperphosphatemia (E83.39), HTN (I12.9), DM, CAD, Vitiligo, Cirrhosis with portal HTN and ascites, mediastinal and upper abdomen lymphadenopathy Vitamin D def with secondary hyperparathyroidism Thombocytopenia ? side effects of cellcept as cause of GI symptoms Plan no evidence of renal recovery as of yet, continue with dialysis TTS schedule. no acute need today hold BP meds due to low BP continue with renagel 2400 mg TID with meals, added amphojel (short course) as well. Dietary consult for restricting his phos intake. s/p pulse steroid 1000 mg x 3 doses, change to prednisone 50 mg/day and cellcept 500 mg bid. Myfortic not available. started weekly vit D and IV iron 100 mg x 10 doses and dosed with aransep 40 mcg Monitor Input/Output, daily weights and renal function with basic metabolic panel. can monitor for signs of renal recovery as outpt. Dose meds/antibiotics for reduced GFR <10 and dialysis status. Avoid fleets enema/magnesium based laxatives. Avoid nephrotoxins/NSAIDs/ iodinated contrast ( unless needed emergently) Glycemic control. Further work up/management as per primary team. heme eval for low plat counts. d/w primary team. Thanks for allowing me to participate in care of your patient. Will follow patient with you. Please call if any Qs. if pt planned for d/c stable from renal perspective for outpt follow up. from renal perspective please d/c on prednisone 50 mg/day, Myfortic 360 mg bid if covered by insurance, otherwise alternatively cellcept 500 mg bid, renvela 0.8 gm 3 packet TID with meals and weekly vit D x [address] Paco Cadet Office: [phone] HPI: Pt is a 66 y/o M with hx of diabetes Mellitus, hypertension, CAD, vitiligo , mediastinal lymphadenopathy (seen by heme/onc) cirrhosis of unknown etiology with portal HTN and recurrent ascites (s/p EGD and colonoscopy) and recent hospitalization for ascites, KELLI on CKD 3 (cr 1.3-1.9 range) with peaked creatinine 4-5 range s/p kidney bipsy: ATIN and secondary membranous neprhopathy (unknown trigger) pulse steroids 500 mg daily x 3 doses then 60 mg PO prednisone daily presented with complaints of abdomen distension and found to have worsening KELLI hence renal consulted. ROS: Feels sick. reports gas pain, stomach upset, loose stool and lower abdomen discomfort. c/o difficulty swallowing Physical Examination: General Appearance: in no acute respiratory distress, co-operative .hard of hearing. has oral thrush Vitals reviewed and noted as below Lungs: Normal respiratory rate/effort. Breath sounds bilateral equal and has occasional basal crackles Heart: Normal rate. s1s2 normal. No rub or gallop. Extremities: + edema. No varicose veins Neurological: Patient is alert, awake and oriented to person, place and time. No focal deficit. Strength bilateral appropriate and equal Skin: Warm and dry. Normal turgor. No rash. Palpitation: Normal elasticity for age. has vitiligo patches in hand Abdomen: Abdomen is soft. Bowel sounds +. There is no abdominal tenderness, no guarding/rigidity no organomegaly. abdomen is distended/ascitic. Psych: limited insight and has normal affect/mood MSK: no joint tenderness or swelling. Digits and nails normal, no deformity : kidney or bladder not palpable but limited exam due to ascites Labs/imaging/EKG reviewed. Past medical history, past surgical history, family history, social history, allergy reviewed and noted as below Family hx: no hx of CKD. Rest non-contributory. daughter had reported hx of lupus in family WORK up Renal sono: b/l echogenic kidneys, cirrhosis PSA 0.8 Ferriitn /TSAT 54/15% IgG 1300 C3: 58 C4: 10 [place]/lambda 1.3 SAEED/DNA/cryoglobulin/HIV/Hep B and C neg UA: large blood with small protein, 238 mg albuminuria Objective - Vital Signs/Intake and Output Vital Signs (last 24 hours): Temp Pulse Resp BP Pulse Ox 97.9 F 72 19 120/62 96 04/11/17 06:00 04/11/17 06:00 04/11/17 06:00 04/11/17 06:00 04/11/17 06:00 Intake and Output: 04/11/17 04/11/17 06:59 18:59 Intake Total 720 Output Total 735 Balance -15 - Medications Medications: Current Medications Aluminum Hydroxide (Aluminum Hydroxide Gel 320mg /5ml Susp (Bulk)) 5 ml PO QID [facility] Stop: 04/14/17 10:01 Last Admin: 04/11/17 11:06 Dose: 5 ml Aspirin (Aspirin Chewable) 81 mg PO DAILY [facility] Last Admin: 04/10/17 13:02 Dose: Not Given Ergocalciferol (Drisdol 50,000 Intl Units Cap) 1 cap PO Q7D ON [facility] Stop: 05/25/17 12:46 Last Admin: 04/06/17 18:36 Dose: 1 cap Guaifenesin (Robitussin) 100 mg PO Q4H PRN PRN Reason: Cough Hydrocortisone (Cortizone 1% Oint) 0 gm TOP BID ON [facility] Last Admin: 04/11/17 10:24 Dose: 2 applic Iron Sucrose 100 mg/ Sodium (Chloride) 105 mls @ 210 mls/hr IVPB DAILY [facility] Stop: 04/17/17 10:01 Last Admin: 04/10/17 10:00 Dose: Not Given Metoprolol Tartrate (Lopressor) 12.5 mg PO DAILY [facility] Last Admin: 04/10/17 13:03 Dose: Not Given Mycophenolate Mofetil (Cellcept Cap) 500 mg PO BID [facility] Last Admin: 04/11/17 10:25 Dose: 500 mg Nystatin (Nystatin Oral Susp) 5 ml PO QID [facility] Stop: 04/18/17 10:01 Last Admin: 04/11/17 10:25 Dose: 5 ml Pantoprazole Sodium (Protonix Inj) 20 mg IVP 0600 [facility] Last Admin: 04/11/17 05:33 Dose: 20 mg Prednisone (Prednisone Tab) 50 mg PO DAILY [facility] Sevelamer HCl (Renagel) 2,400 mg PO TID ON [facility] Last Admin: 04/11/17 10:25 Dose: 2,400 mg Sucralfate (Carafate Oral Susp) 1 gm PO 0600,1600 [facility] Last Admin: 04/11/17 05:32 Dose: 1 gm - Labs Labs: 04/11/17 07:10 04/11/17 07:10 PT 13.9 Seconds (9.9-11.8) H 04/04/17 17:20 INR 1.29 (0.93-1.08) H 04/04/17 17:20 APTT 26.8 Seconds (23.7-30.8) 04/04/17 17:20
[2017-04-11] MEDS ORDERED: HYDROmorphone 1 mg/ml ISec IVP STA (12:58)
[2017-04-11] MEDS: Hemorrohoidal Ointment (2 oz) TOP SCH (16:35)
[2017-04-11] MEDS: Morphine 2 mg/ml ISec IVP PRN (19:36)
--- NOTE | 2017-04-11 20:10 | CP.PCM.PN ---
Addendum entered and electronically signed by Wale Flowers DO 04/13/17 10:20: Patient was seen and examined and discussed at length with Dr. Moise. Multiple medical issues at this time, issues with HD where patient gets hypotensive, has continued to have increasing ascites, may speak with IR about taping fluid again. Wale Flowers D.O. PGY-2 Original Note: <BEENA MOISE - Last Filed: 04/11/17 20:07> Subjective - Date & Time of Evaluation Date of Evaluation: 04/11/17 Time of Evaluation: 06:45 - Subjective Subjective: Beena Moise DO PGY1 - Internal Medicine Progress Note - [facility] Service Patient seen and evaluated at the bedside. Today is hospital day 8. No acute events overnight. Patient has been complaining of RUQ abdominal pain and left sided LBP. He is tolerating PO, but with some difficulty due to pain. Patient AOx3, in NAD, and was not in any pain during the encounter. Patient denies any SOB, dizziness, fever, or chills. Objective - Vital Signs/Intake and Output Vital Signs (last 24 hours): Temp Pulse Resp BP Pulse Ox 97.3 F L 86 20 114/55 L 93 L 04/11/17 18:31 04/11/17 18:31 04/11/17 18:31 04/11/17 18:31 04/11/17 18:00 - Medications Medications: Current Medications Aluminum Hydroxide (Aluminum Hydroxide Gel 320mg /5ml Susp (Bulk)) 5 ml PO QID [facility] Stop: 04/14/17 10:01 Last Admin: 04/11/17 19:15 Dose: 5 ml Aspirin (Aspirin Chewable) 81 mg PO DAILY [facility] Last Admin: 04/10/17 13:02 Dose: Not Given Ergocalciferol (Drisdol 50,000 Intl Units Cap) 1 cap PO Q7D [facility] Stop: 05/25/17 12:46 Last Admin: 04/06/17 18:36 Dose: 1 cap Guaifenesin (Robitussin) 100 mg PO Q4H PRN PRN Reason: Cough Hydrocortisone (Cortizone 1% Oint) 0 gm TOP BID [facility] Last Admin: 04/11/17 19:16 Dose: 2 applic Iron Sucrose 100 mg/ Sodium (Chloride) 105 mls @ 210 mls/hr IVPB DAILY [facility] Stop: 04/17/17 10:01 Last Admin: 04/11/17 12:20 Dose: 210 mls/hr Metoprolol Tartrate (Lopressor) 12.5 mg PO DAILY [facility] Last Admin: 04/10/17 13:03 Dose: Not Given Morphine Sulfate (Morphine) 2 mg IVP Q4H PRN PRN Reason: Pain, severe (8-10) Last Admin: 04/11/17 19:36 Dose: 2 mg Multi-Ingredient Ointment (Prep-Hem) 1 ea TOP Q8H [facility] Last Admin: 04/11/17 16:35 Dose: 3 applic Mycophenolate Mofetil (Cellcept Cap) 500 mg PO BID [facility] Last Admin: 04/11/17 18:13 Dose: Not Given Nystatin (Nystatin Oral Susp) 5 ml PO QID [facility] Stop: 04/18/17 10:01 Last Admin: 04/11/17 19:15 Dose: 5 ml Pantoprazole Sodium (Protonix Inj) 20 mg IVP 0600 [facility] Last Admin: 04/11/17 05:33 Dose: 20 mg Prednisone (Prednisone Tab) 50 mg PO DAILY [facility] Sevelamer HCl (Renagel) 2,400 mg PO TID [facility] Last Admin: 04/11/17 18:14 Dose: Not Given Sucralfate (Carafate Oral Susp) 1 gm PO 0600,1600 [facility] Last Admin: 04/11/17 16:16 Dose: 1 gm - Labs Labs: 04/11/17 07:10 04/11/17 07:10 PT 13.9 Seconds (9.9-11.8) H 04/04/17 17:20 INR 1.29 (0.93-1.08) H 04/04/17 17:20 APTT 26.8 Seconds (23.7-30.8) 04/04/17 17:20 - Constitutional Appears: Non-toxic, Chronically Ill - Head Exam Head Exam: ATRAUMATIC, NORMOCEPHALIC - Eye Exam Eye Exam: EOMI, Normal appearance - ENT Exam ENT Exam: Mucous Membranes Moist Additional comments: Thrush - Neck Exam Neck Exam: absent: Lymphadenopathy, Thyromegaly - Respiratory Exam Respiratory Exam: Clear to Ausculation Bilateral. absent: Rales, Rhonchi, Wheezes - Cardiovascular Exam Cardiovascular Exam: RRR, +S1, +S2. absent: Murmur - GI/Abdominal Exam GI & Abdominal Exam: Distended. absent: Firm, Guarding, Rigid, Tenderness - Rectal Exam Rectal Exam: Deferred - Extremities Exam Extremities Exam: absent: Calf Tenderness, Pedal Edema - Back Exam Back Exam: CVA tenderness (L). absent: CVA tenderness (R) - Neurological Exam Neurological Exam: Alert, Awake, Oriented x3 - Psychiatric Exam Psychiatric exam: Normal Affect, Normal Mood - Skin Skin Exam: Dry, Intact, Warm Assessment and Plan - Assessment and Plan (Free Text) Assessment: This is a 66 yo M with PMH of cirrhosis, chronic kidney disease, HTN, CAD, and recent AIN on PO steroids who presented with complaint of acutely worsening abdominal distention, and was found to have worsening renal function concerning for possible renal failure. He is s/p paracentesis (9L removed) and temporary dialysis catheter placement. S/p 3 rounds of HD, pending another today. He is also being observed for anemia and thrombocytopenia. Plan: 1. Acute on chronic kidney injury secondary to acute interstitial nephritis - CVA tenderness on exam; ordered renal US - HD yesterday was again stopped midway because patient became hypotensive; Attempting renal recovery with 3x 1g IV solumedrol and celcept 1g BID - Cr improving over the past two days, remains elevated, will continue to monitor - With new liver cirrhosis, concern for possible hepato-renal syndrome vs autoimmune etiology - Nephrology was consulted and full workup is pending: C3, C4, IGG subclass 4, microalbumin, IGG, urine creatinine, urine sodium - As per Nephro: AIN (possibly 2/2 to recent bactrim+levaquin) + secondary membranous nephroapthy (unclear etiology), possibly multi-system autoimmune pathology such as seronegative Lupus or IgG4 related disease 2. Liver cirrhosis - MELD-Na score of 24 on admission - As per Nephro, cirrhosis may be multi-system autoimmune pathology such as seronegative Lupus or IgG4 related disease, given involvement of renal and hepatic systems, and skin lesions; workup is pending - Hepatitis panel negative on 04/07 - Lactulose/Xifaxin currently on hold given low ammonia and no clinical indication of hepatic encephalopathy at this time, yesterday Ammonia was 21 - GI consulted - Dr. Hay, appreciate all recs - As per Nephro, may need Liver biopsy, will discuss with GI - s/p 9L paracentesis on 04/05, will conduct paracentesis again tomorrow - Ordered PT and OT 3. Hypertension - Hold metoprolol - BP stable, continue to monitor for hypotension, will hold anti-HTN meds as needed 4. Anemia and thrombocytopenia - Stable - Continue Venofer - Consented for platelet transfusion, ordered one bag with FFP, recheck AM labs 5. Rectal pain - improved - Patient reports long history of painful bleeding hemorrhoids, declined rectal exam - Continue Preparation H 6. Abdominal pain - Continue protonix 20mg QD IVP - Continue full liquid diet; pain persists, but patient is tolerating PO slightly better - Amylase slightly elevated, lipase WNL, unlikely acute pancreatitis 7. Thrush - This is likely contributing to his pain with meals - Start PO nystatin swish and swallow Patient was seen, examined, and discussed in detail with senior resident Dr. Flowers PGY2 and attending Dr. Johnson <Bravo Johnson - Last Filed: 04/30/17 16:47> Objective - Vital Signs/Intake and Output Vital Signs (last 24 hours): Temp Pulse Resp BP Pulse Ox 98 F 87 26 H 89/35 L 85 L 04/17/17 02:35 04/17/17 08:03 04/17/17 08:03 04/17/17 08:00 04/17/17 08:00 - Labs Labs: 04/17/17 07:00 04/17/17 07:00 PT 24.4 Seconds (9.9-11.8) H 04/17/17 07:00 INR 2.26 (0.93-1.08) H 04/17/17 07:00 APTT 74.2 Seconds (23.7-30.8) H* 04/17/17 07:00 Attending/Attestation - Attestation I have personally seen and examined this patient.: Yes I have fully participated in the care of the patient.: Yes I have reviewed all pertinent clinical information, including history, physical exam and plan: Yes Notes (Text): 04/30/17 16:47 Medical record note made by the resident after discussion with my direction and input after the patient was personally seen and examined by me. I have reviewed the chart and agree that the record accurately reflects by personal performance of the history, physical exam, data review, and medical decision-making, in the course for the patient. I have also personally directed the plan of care.
[2017-04-12] MEDS: Hemorrohoidal Ointment (2 oz) TOP SCH ×2 (01:00→09:46)
[2017-04-12] MEDS: Sucralfate 1 gm/10 ml Oral Susp UD PO SCH ×2 (06:07→19:06)
[2017-04-12 07:28] LABS: GRAN # 10.36 (1.4-6.5); GRAN % 96.7 % (50.0-68.0); HEMOGLOBIN 9.7 gm/dL (14.0-18.0); LYMPH # 0.1 (1.2-3.4); LYMPH % 1.3 % (22.0-35.0); MEAN CELL VOLUME 82.2 fL (80.0-105.0); MEAN CORPUSCULAR HEMOGLOBIN 27.8 pg (25.0-35.0); MEAN CORPUSCULAR HGB CONC 33.8 g/dl (31.0-37.0); MONO # 0.2 (0.1-0.6); PLATELET COUNT 64 10^3/uL (120.0-450.0); RBC 3.49 10^6/uL (3.5-6.1); RED CELL DISTRIBUTION WIDTH 17.4 % (11.5-14.5); WHITE BLOOD COUNT 10.7 10^3/ul (4.5-11.0)
[2017-04-12 07:50] LABS: ALB/GLOB RATIO 1.1 (1.1-1.8); ALBUMIN 2.9 g/dL (3.0-4.8); CALCIUM 9.3 mg/dL (8.4-10.5); MAGNESIUM 2.3 mg/dL (1.7-2.2)
--- NOTE | 2017-04-12 09:42 | CP.PCM.PN ---
<Emy Erwin - Last Filed: 04/12/17 16:05> Subjective - Date & Time of Evaluation Date of Evaluation: 04/12/17 Time of Evaluation: 08:15 - Subjective Subjective: S&E at bedside, chart was reviewed. Patient c/o throat and epigastric discomfort is much improved today, he does not have pain when eating. He was started on Nystatin yesterday. Reported to have bloody BM yesterday per nursing staff, had 1 unit of FFP/platelets yesterday. No N/V, or SOB or CP. C/o poor urination, patient on dialysis /. No hematuria. Objective - Vital Signs/Intake and Output Vital Signs (last 24 hours): Temp Pulse Resp BP Pulse Ox 98.9 F 83 18 122/75 95 04/12/17 06:00 04/12/17 06:00 04/12/17 06:00 04/12/17 06:00 04/12/17 06:00 Intake and Output: 04/12/17 04/12/17 06:59 18:59 Intake Total 240 500 Output Total 1 Balance 239 500 - Medications Medications: Current Medications Aluminum Hydroxide (Aluminum Hydroxide Gel 320mg /5ml Susp (Bulk)) 5 ml PO QID [facility] Stop: 04/14/17 10:01 Last Admin: 04/11/17 22:00 Dose: Not Given Aspirin (Aspirin Chewable) 81 mg PO DAILY [facility] Last Admin: 04/10/17 13:02 Dose: Not Given Ergocalciferol (Drisdol 50,000 Intl Units Cap) 1 cap PO Q7D [facility] Stop: 05/25/17 12:46 Last Admin: 04/06/17 18:36 Dose: 1 cap Guaifenesin (Robitussin) 100 mg PO Q4H PRN PRN Reason: Cough Hydrocortisone (Cortizone 1% Oint) 0 gm TOP BID [facility] Last Admin: 04/11/17 19:16 Dose: 2 applic Iron Sucrose 100 mg/ Sodium (Chloride) 105 mls @ 210 mls/hr IVPB DAILY [facility] Stop: 04/17/17 10:01 Last Admin: 04/11/17 12:20 Dose: 210 mls/hr Metoprolol Tartrate (Lopressor) 12.5 mg PO DAILY [facility] Last Admin: 04/10/17 13:03 Dose: Not Given Morphine Sulfate (Morphine) 2 mg IVP Q4H PRN PRN Reason: Pain, severe (8-10) Last Admin: 04/11/17 19:36 Dose: 2 mg Multi-Ingredient Ointment (Prep-Hem) 1 ea TOP Q8H [facility] Last Admin: 04/12/17 01:00 Dose: Not Given Mycophenolate Mofetil (Cellcept Cap) 500 mg PO BID [facility] Last Admin: 04/11/17 18:13 Dose: Not Given Nystatin (Nystatin Oral Susp) 5 ml PO QID [facility] Stop: 04/18/17 10:01 Last Admin: 04/11/17 22:00 Dose: Not Given Pantoprazole Sodium (Protonix Inj) 20 mg IVP 0600 [facility] Last Admin: 04/12/17 06:05 Dose: 20 mg Prednisone (Prednisone Tab) 50 mg PO DAILY [facility] Sevelamer HCl (Renagel) 2,400 mg PO TID [facility] Last Admin: 04/11/17 18:14 Dose: Not Given Sucralfate (Carafate Oral Susp) 1 gm PO 0600,1600 [facility] Last Admin: 04/12/17 06:07 Dose: 1 gm - Labs Labs: 04/12/17 06:20 04/12/17 06:20 PT 13.9 Seconds (9.9-11.8) H 04/04/17 17:20 INR 1.29 (0.93-1.08) H 04/04/17 17:20 APTT 26.8 Seconds (23.7-30.8) 04/04/17 17:20 - Constitutional Appears: No Acute Distress - Head Exam Head Exam: NORMOCEPHALIC - Eye Exam Eye Exam: Normal appearance. absent: Scleral icterus - ENT Exam ENT Exam: Mucous Membranes Moist - Neck Exam Neck Exam: Normal Inspection - Respiratory Exam Respiratory Exam: Decreased Breath Sounds, NORMAL BREATHING PATTERN. absent: Rales, Wheezes, Respiratory Distress - Cardiovascular Exam Cardiovascular Exam: +S1, +S2 - GI/Abdominal Exam GI & Abdominal Exam: Distended, Soft, Normal Bowel Sounds. absent: Guarding, Tenderness, Rebound - Rectal Exam Rectal Exam: Hemorrhoids (large external hemorrhoids, fissure, no melena or BRB , lots of rectal discomfort insertion of digit,no mass palpated abrasion on right buttock w/optifoam) - Extremities Exam Extremities Exam: Pedal Edema. absent: Calf Tenderness - Neurological Exam Neurological Exam: Alert, Awake, Oriented x3 - Skin Skin Exam: Dry, Warm Assessment and Plan - Assessment and Plan (Free Text) Assessment: Assessment: Epigastric and lower chest discomfort now improved likely secondary to oral candadiasis, patient on high dose oral steroids, patient did have endoscopy recently had only portal hypertensive gastropathy and a grade 1 esophageal varices. Acute kidney injury, status post recent renal biopsy, interstitial nephritis, on HD Liver cirrhosis, maybe secondary to CARR, also have H/O ETOH Anemia,post EGD & colon done recently portal colopathy, portal hypertensive gastropathy Thrombocytopenia, s/p FFP/Platelets Refaractory Ascites, status post paracentesis, 9 L Hypertension Elevating LFT. s/p abdominla US:Ascites, cirrhosis, GB sludge, CBD 4mm, GB consistent w/ascites w inferred hypoalbunemia Plan: continue Carafate twice a day on low dose PPI Monitor cbc on IV iron aspirin on hold trend LFT check PT/PTT On prednisone, dose cut down to 50,g and cellcept continue Nystatin on full liquids, if improve can consider to advance plan for paracentesis today Seen and discussed with Dr. Hay. <Pawel Hay V - Last Filed: 04/13/17 01:08> Objective - Vital Signs/Intake and Output Vital Signs (last 24 hours): Temp Pulse Resp BP Pulse Ox 97.8 F 81 18 133/75 95 04/12/17 17:09 04/12/17 17:09 04/12/17 17:09 04/12/17 17:09 04/12/17 06:00 Intake and Output: 04/12/17 04/13/17 18:59 06:59 Intake Total 1260 Balance 1260 - Medications Medications: Current Medications Aluminum Hydroxide (Aluminum Hydroxide Gel 320mg /5ml Susp (Bulk)) 5 ml PO QID [facility] Stop: 04/14/17 10:01 Last Admin: 04/12/17 22:13 Dose: Not Given Aspirin (Aspirin Chewable) 81 mg PO DAILY [facility] Last Admin: 04/10/17 13:02 Dose: Not Given Darbepoetin Lio (Aranesp) 40 mcg IVP ONCE ONE Stop: 07/08/17 08:01 Ergocalciferol (Drisdol 50,000 Intl Units Cap) 1 cap PO Q7D [facility] Stop: 05/25/17 12:46 Last Admin: 04/06/17 18:36 Dose: 1 cap Guaifenesin (Robitussin) 100 mg PO Q4H PRN PRN Reason: Cough Hydrocortisone (Cortizone 1% Oint) 0 gm TOP BID [facility] Last Admin: 04/12/17 19:06 Dose: 2 applic Iron Sucrose 100 mg/ Sodium (Chloride) 105 mls @ 210 mls/hr IVPB DAILY [facility] Stop: 04/17/17 10:01 Last Admin: 04/12/17 13:22 Dose: 210 mls/hr Metoprolol Tartrate (Lopressor) 12.5 mg PO DAILY [facility] Last Admin: 04/10/17 13:03 Dose: Not Given Morphine Sulfate (Morphine) 2 mg IVP Q4H PRN PRN Reason: Pain, severe (8-10) Last Admin: 04/12/17 11:50 Dose: 2 mg Multi-Ingredient Ointment (Prep-Hem) 1 ea TOP Q8H [facility] Last Admin: 04/12/17 09:46 Dose: 2 applic Nystatin (Nystatin Oral Susp) 5 ml PO QID [facility] Stop: 04/18/17 10:01 Last Admin: 04/12/17 22:13 Dose: Not Given Pantoprazole Sodium (Protonix Inj) 20 mg IVP 0600 [facility] Last Admin: 04/12/17 06:05 Dose: 20 mg Sevelamer HCl (Renagel) 2,400 mg PO TID [facility] Last Admin: 04/12/17 18:55 Dose: Not Given Sucralfate (Carafate Oral Susp) 1 gm PO 0600,1600 [facility] Last Admin: 04/12/17 19:06 Dose: 1 gm - Labs Labs: 04/12/17 06:20 04/12/17 19:32 PT 18.0 Seconds (9.9-11.8) H 04/12/17 09:35 INR 1.67 (0.93-1.08) H 04/12/17 09:35 APTT 32.9 Seconds (23.7-30.8) H 04/12/17 09:35 Attending/Attestation - Attestation I have personally seen and examined this patient.: Yes I have fully participated in the care of the patient.: Yes I have reviewed all pertinent clinical information, including history, physical exam and plan: Yes Notes (Text): this patient was seen and evaluated earlier. Discussed with the tack cleaner and also with the Dr Madrid.he was seen in dialysis unit he was complaining of low back pain. The nursing staff mentioned that he had dark stool. Patient also complaining "hemorrhoida,. The rectal examinatio subsequently revealed increasing anal tone and suggests a possible fiss no mass palpable. Dark brown stool presen with streakis of blood the paracentesis was deferrred in view of coagulopathy Follow up with the hemogl consider diagnostic K paracentesis to rule out after further optimizati will continue to treat liquid diet continue PPI
[2017-04-12] MEDS: Nystatin 100,000 Units/ml Oral Susp 5 ml UD PO SCH ×4 (09:46→22:13)
[2017-04-12] MEDS: Aluminum Hydrox Gel 320 mg/5 ml Susp(480 ml) PO SCH ×4 (09:47→22:13)
[2017-04-12 09:57] LABS: INR 1.67 (0.93-1.08); PARTIAL THROMBOPLASTIN TIME 32.9 Seconds (23.7-30.8)
--- NOTE | 2017-04-12 11:23 | CP.PCM.PN ---
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 Suspect multi-system autoimmune pathology such as seronegative Lupus or IgG4 related disease which can explain his skin lesion, lymphadenopathy, hepatobiliary and renal involvement, hypocomplementemia. Acute Kidney Injury (N17.9) likely due to progression of underlying renal disease started on dialysis 04/05/17 Chronic Kidney Disease (N18.3) Stage 3 (baseline cr 1.4-1.9) with 600 mg proteinuria (R80.9) likely due to KELLI in 2016 Iron def Anemia (D64.9), Hyperphosphatemia (E83.39), HTN (I12.9), DM, CAD, Vitiligo, Cirrhosis with portal HTN and ascites, mediastinal and upper abdomen lymphadenopathy Vitamin D def with secondary hyperparathyroidism Thombocytopenia ? side effects of cellcept as cause of GI symptoms Plan no evidence of renal recovery as of yet, continue with dialysis TTS schedule. dialysis today as ordered hold BP meds due to low BP continue with renagel 2400 mg TID with meals, added amphojel (short course) as well. Dietary consult for restricting his phos intake. s/p pulse steroid 1000 mg x 3 doses, continue with prednisone 50 mg/day and cellcept 500 mg bid. Myfortic not available. started weekly vit D and IV iron 100 mg x 10 doses and dose with aransep 40 mcg every sunday Monitor Input/Output, daily weights and renal function with basic metabolic panel. can monitor for signs of renal recovery as outpt. Dose meds/antibiotics for reduced GFR <10 and dialysis status. Avoid fleets enema/magnesium based laxatives. Avoid nephrotoxins/NSAIDs/ iodinated contrast ( unless needed emergently) Glycemic control. Further work up/management as per primary team. heme eval for low plat counts. d/w primary team. Thanks for allowing me to participate in care of your patient. Will follow patient with you. Please call if any Qs. if pt planned for d/c stable from renal perspective for outpt follow up. from renal perspective please d/c on prednisone 50 mg/day, Myfortic 360 mg bid if covered by insurance, otherwise alternatively cellcept 500 mg bid, renvela 0.8 gm 3 packet TID with meals and weekly vit D x [address] Paco Cadet Office: [phone] HPI: Pt is a 66 y/o M with hx of diabetes Mellitus, hypertension, CAD, vitiligo , mediastinal lymphadenopathy (seen by heme/onc) cirrhosis of unknown etiology with portal HTN and recurrent ascites (s/p EGD and colonoscopy) and recent hospitalization for ascites, KELLI on CKD 3 (cr 1.3-1.9 range) with peaked creatinine 4-5 range s/p kidney bipsy: ATIN and secondary membranous neprhopathy (unknown trigger) pulse steroids 500 mg daily x 3 doses then 60 mg PO prednisone daily presented with complaints of abdomen distension and found to have worsening KELLI hence renal consulted. ROS: c/o back pain. denies SOB, nausea/vomitting or difficulty in swallowing. Used [facility] Physical Examination: General Appearance: in no acute respiratory distress, co-operative.hard of hearing. has oral thrush improved Vitals reviewed and noted as below Lungs: Normal respiratory rate/effort. Breath sounds bilateral decreased at bases Heart: Normal rate. s1s2 normal. No rub or gallop. Extremities: + edema. No varicose veins Neurological: Patient is alert, awake. No focal deficit. Strength bilateral appropriate and equal Skin: Warm and dry. Normal turgor. No rash. Palpitation: Normal elasticity for age. has vitiligo patches in hand Abdomen: Abdomen is soft. Bowel sounds +. There is no abdominal tenderness, no guarding/rigidity no organomegaly. abdomen is distended/ascitic. Psych: limited insight and has normal affect/mood : kidney or bladder not palpable but limited exam due to ascites Labs/imaging/EKG reviewed. Past medical history, past surgical history, family history, social history, allergy reviewed and noted as below Family hx: no hx of CKD. Rest non-contributory. daughter had reported hx of lupus in family WORK up Renal sono: b/l echogenic kidneys, cirrhosis PSA 0.8 Ferriitn /TSAT 54/15% IgG 1300 C3: 58 C4: 10 [place]/lambda 1.3 SAEED/DNA/cryoglobulin/HIV/Hep B and C neg UA: large blood with small protein, 238 mg albuminuria Objective - Vital Signs/Intake and Output Vital Signs (last 24 hours): Temp Pulse Resp BP Pulse Ox 98.9 F 83 18 122/75 95 04/12/17 06:00 04/12/17 06:00 04/12/17 06:00 04/12/17 06:00 04/12/17 06:00 Intake and Output: 04/12/17 04/12/17 06:59 18:59 Intake Total 240 500 Output Total 1 Balance 239 500 - Medications Medications: Current Medications Aluminum Hydroxide (Aluminum Hydroxide Gel 320mg /5ml Susp (Bulk)) 5 ml PO QID [facility] Stop: 04/14/17 10:01 Last Admin: 04/12/17 09:47 Dose: 5 ml Aspirin (Aspirin Chewable) 81 mg PO DAILY [facility] Last Admin: 04/10/17 13:02 Dose: Not Given Ergocalciferol (Drisdol 50,000 Intl Units Cap) 1 cap PO Q7D [facility] Stop: 05/25/17 12:46 Last Admin: 04/06/17 18:36 Dose: 1 cap Guaifenesin (Robitussin) 100 mg PO Q4H PRN PRN Reason: Cough Hydrocortisone (Cortizone 1% Oint) 0 gm TOP BID [facility] Last Admin: 04/12/17 09:48 Dose: 2 applic Iron Sucrose 100 mg/ Sodium (Chloride) 105 mls @ 210 mls/hr IVPB DAILY [facility] Stop: 04/17/17 10:01 Last Admin: 04/11/17 12:20 Dose: 210 mls/hr Metoprolol Tartrate (Lopressor) 12.5 mg PO DAILY [facility] Last Admin: 04/10/17 13:03 Dose: Not Given Morphine Sulfate (Morphine) 2 mg IVP Q4H PRN PRN Reason: Pain, severe (8-10) Last Admin: 04/11/17 19:36 Dose: 2 mg Multi-Ingredient Ointment (Prep-Hem) 1 ea TOP Q8H [facility] Last Admin: 04/12/17 09:46 Dose: 2 applic Mycophenolate Mofetil (Cellcept Cap) 500 mg PO BID [facility] Last Admin: 04/11/17 18:13 Dose: Not Given Nystatin (Nystatin Oral Susp) 5 ml PO QID [facility] Stop: 04/18/17 10:01 Last Admin: 04/12/17 09:46 Dose: 5 ml Pantoprazole Sodium (Protonix Inj) 20 mg IVP 0600 [facility] Last Admin: 04/12/17 06:05 Dose: 20 mg Prednisone (Prednisone Tab) 50 mg PO DAILY [facility] Sevelamer HCl (Renagel) 2,400 mg PO TID [facility] Last Admin: 04/11/17 18:14 Dose: Not Given Sucralfate (Carafate Oral Susp) 1 gm PO 0600,1600 [facility] Last Admin: 04/12/17 06:07 Dose: 1 gm - Labs Labs: 04/12/17 06:20 04/12/17 06:20 PT 18.0 Seconds (9.9-11.8) H 04/12/17 09:35 INR 1.67 (0.93-1.08) H 04/12/17 09:35 APTT 32.9 Seconds (23.7-30.8) H 04/12/17 09:35
[2017-04-12] MEDS: Morphine 2 mg/ml ISec IVP PRN (11:50)
[2017-04-12 15:55] LABS: BODY FLUID TYPE PERITONEAL
--- NOTE | 2017-04-12 15:59 | US ---
PROCEDURE: Ultrasound of the Kidneys HISTORY: Flank pain COMPARISON: None available. TECHNIQUE: Sonogram of the kidneys. FINDINGS: RIGHT KIDNEY: Measures: 11.4 cm. Normal in size, contour and echogenicity. No stone, solid mass lesion or hydronephrosis visualized. LEFT KIDNEY: Measures: 11.0 cm. Normal in size, contour and echogenicity. No stone, solid mass lesion or hydronephrosis visualized. OTHER FINDINGS: Extensive ascites IMPRESSION: Unremarkable kidneys. Extensive ascites.
--- NOTE | 2017-04-12 16:11 | US ---
PROCEDURE: Ultrasound guided paracentesis. HISTORY: Cirrhosis. End-stage renal disease. Recurrent ascites with abdominal pain and distention. PHYSICIAN(S): Vitaly Sylvester MD. TECHNIQUE: The relative risks and indications for the procedure were explained to the patient and informed written consent obtained. Sonography of the abdomen was performed in a supine position. This revealed a moderate to large amount of non-loculated ascites, greatest in the right lower quadrant. A puncture site was selected and the area was prepped and draped in the usual sterile fashion. 1% Xylocaine was used to anesthetize the skin and soft tissues. A 7 Mosoth[place] paracentesis catheter was trocared into the right lower quadrantand 7200 cc of clear, straw-colored fluid aspirated. The appropriate labs were sent. IMPRESSION: Ultrasound-guided paracentesis in the right lower quadrant. 7200 cc of fluid were aspirated. Labs were sent
[2017-04-12 16:42] LABS: BODY FLUID TOTAL COUNT 100 (0-0)
[2017-04-12 16:44] LABS: BF GROSS APPEARANCE CLEAR (CLEAR)
--- NOTE | 2017-04-12 19:20 | CP.PCM.PN ---
Addendum entered and electronically signed by Wale Flowers DO 04/13/17 10:25: Patient was seen and examined and discussed at length with Dr. Moise. Discussed with Dr. Sylvester about repeat paracentesis for fluid analysis and symptomatic improvement. Patient somewhat upset today as was having discomfort during dialysis and stopped early. I discussed with him at length the importance of dialysis and we also discussed his other medical issues at this time including his cirrhosis, thrombocytopenia, and electrolyte abnormalities. Patient verbalized understanding. Spoke with daughter yesterday about his current medical condition. Wale Flowers D.O. PGY-2 Original Note: <BEENA MOISE - Last Filed: 04/12/17 19:35> Subjective - Date & Time of Evaluation Date of Evaluation: 04/12/17 Time of Evaluation: 06:45 - Subjective Subjective: Beena Moise DO PGY1 - Internal Medicine Progress Note - [facility] Service Patient seen and evaluated at the bedside. Today is hospital day 9. Nurse reported one episode of melena overnight, though this is not new for the patient. He also received one unit of platelets without any problems. He is tolerating PO, but with less difficulty after starting the nystatin. Patient AOx3, in NAD, and was not in any pain during the encounter. Patient denies any SOB, dizziness, fever, or chills. Objective - Vital Signs/Intake and Output Vital Signs (last 24 hours): Temp Pulse Resp BP Pulse Ox 97.8 F 81 18 133/75 95 04/12/17 17:09 04/12/17 17:09 04/12/17 17:09 04/12/17 17:09 04/12/17 06:00 Intake and Output: 04/12/17 04/13/17 18:59 06:59 Intake Total 500 Balance 500 - Medications Medications: Current Medications Aluminum Hydroxide (Aluminum Hydroxide Gel 320mg /5ml Susp (Bulk)) 5 ml PO QID [facility] Stop: 04/14/17 10:01 Last Admin: 04/12/17 13:19 Dose: 5 ml Aspirin (Aspirin Chewable) 81 mg PO DAILY [facility] Last Admin: 04/10/17 13:02 Dose: Not Given Darbepoetin Lio (Aranesp) 40 mcg IVP ONCE ONE Stop: 04/14/17 08:01 Ergocalciferol (Drisdol 50,000 Intl Units Cap) 1 cap PO Q7D [facility] Stop: 05/25/17 12:46 Last Admin: 04/06/17 18:36 Dose: 1 cap Guaifenesin (Robitussin) 100 mg PO Q4H PRN PRN Reason: Cough Hydrocortisone (Cortizone 1% Oint) 0 gm TOP BID [facility] Last Admin: 04/12/17 19:06 Dose: 2 applic Iron Sucrose 100 mg/ Sodium (Chloride) 105 mls @ 210 mls/hr IVPB DAILY [facility] Stop: 04/17/17 10:01 Last Admin: 04/12/17 13:22 Dose: 210 mls/hr Metoprolol Tartrate (Lopressor) 12.5 mg PO DAILY [facility] Last Admin: 04/10/17 13:03 Dose: Not Given Morphine Sulfate (Morphine) 2 mg IVP Q4H PRN PRN Reason: Pain, severe (8-10) Last Admin: 04/12/17 11:50 Dose: 2 mg Multi-Ingredient Ointment (Prep-Hem) 1 ea TOP Q8H [facility] Last Admin: 04/12/17 09:46 Dose: 2 applic Nystatin (Nystatin Oral Susp) 5 ml PO QID [facility] Stop: 04/18/17 10:01 Last Admin: 04/12/17 19:06 Dose: 5 ml Pantoprazole Sodium (Protonix Inj) 20 mg IVP 0600 [facility] Last Admin: 04/12/17 06:05 Dose: 20 mg Sevelamer HCl (Renagel) 2,400 mg PO TID [facility] Last Admin: 04/12/17 18:55 Dose: Not Given Sucralfate (Carafate Oral Susp) 1 gm PO 0600,1600 [facility] Last Admin: 04/12/17 19:06 Dose: 1 gm - Labs Labs: 04/12/17 06:20 04/12/17 06:20 PT 18.0 Seconds (9.9-11.8) H 04/12/17 09:35 INR 1.67 (0.93-1.08) H 04/12/17 09:35 APTT 32.9 Seconds (23.7-30.8) H 04/12/17 09:35 - Constitutional Appears: Non-toxic, Chronically Ill - Head Exam Head Exam: ATRAUMATIC, NORMOCEPHALIC - Eye Exam Eye Exam: EOMI, Normal appearance - ENT Exam ENT Exam: Mucous Membranes Moist - Neck Exam Neck Exam: Full ROM, Normal Inspection - Respiratory Exam Respiratory Exam: Clear to Ausculation Bilateral. absent: Rales, Rhonchi, Wheezes - Cardiovascular Exam Cardiovascular Exam: RRR, +S1, +S2 - GI/Abdominal Exam GI & Abdominal Exam: Distended, Soft. absent: Firm, Guarding, Tenderness Additional comments: Positive fluid wave. - Rectal Exam Additional comments: Small superficial tears surrounding anus. No black stool or blood. - Extremities Exam Extremities Exam: Full ROM. absent: Pedal Edema - Back Exam Back Exam: CVA tenderness (L). absent: CVA tenderness (R) - Neurological Exam Neurological Exam: Alert, Awake, Oriented x3 - Psychiatric Exam Psychiatric exam: Normal Affect, Normal Mood - Skin Skin Exam: Intact, Normal Color Assessment and Plan - Assessment and Plan (Free Text) Assessment: This is a 66 yo M with PMH of cirrhosis, chronic kidney disease, HTN, CAD, and recent AIN on PO steroids who presented with complaint of acutely worsening abdominal distention, and was found to have worsening renal function concerning for possible renal failure. He is s/p paracentesis (9L removed) and temporary dialysis catheter placement. S/p 5 rounds of HD, pending another today. He is also being treated for anemia and thrombocytopenia. Plan: 1. 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 Hay, appreciate all recs - As per Nephro, may need Liver biopsy, will discuss with GI - s/p 9L paracentesis on 04/05, consult IR for paracentesis today - Ordered PT and OT 3. Hypertension - Hold metoprolol - BP stable, continue to monitor for hypotension, will hold anti-HTN meds as needed 4. Anemia and thrombocytopenia - Improving - Patient is on multiple medications that are known to cause thrombocytopenia including high dose steroids and cellcept - Continue Venofer - Platelets transfused last night. Plt count improved to 64 today from 35 yesterday. Will recheck AM labs - Hematology consulted (Dr. Levin), appreciate all recs - Continue to monitor 5. Rectal pain - Improved - Patient reports long history of painful bleeding hemorrhoids, rectal exam significant for small superficial tears - Continue Preparation H 6. Abdominal pain - Likely 2/2 to thrush vs gastritis vs medication adverse effect - Continue protonix 20mg QD IVP - Continue full liquid diet; pain persists, but patient is tolerating PO slightly better - Amylase slightly elevated, lipase WNL, unlikely acute pancreatitis 7. Thrush - Improving - This is likely contributing to his pain with meals - Continue PO nystatin swish and swallow Patient was seen, examined, and discussed in detail with senior resident Dr. Flowers PGY2 and attending Dr. Madrid <Juan Carlos Madrid - Last Filed: 04/19/17 11:50> Objective - Vital Signs/Intake and Output Vital Signs (last 24 hours): Temp Pulse Resp BP Pulse Ox 98 F 87 26 H 89/35 L 85 L 04/17/17 02:35 04/17/17 08:03 04/17/17 08:03 04/17/17 08:00 04/17/17 08:00 - Labs Labs: 04/17/17 07:00 04/17/17 07:00 PT 24.4 Seconds (9.9-11.8) H 04/17/17 07:00 INR 2.26 (0.93-1.08) H 04/17/17 07:00 APTT 74.2 Seconds (23.7-30.8) H* 04/17/17 07:00 Attending/Attestation - Attestation I have personally seen and examined this patient.: Yes I have fully participated in the care of the patient.: Yes I have reviewed all pertinent clinical information, including history, physical exam and plan: Yes Notes (Text): 04/19/17 11:50 Medical record note made by resident after discussion with my direction and input after patient personally seen and examined by me. I have reviewed the chart and agree that the record accurately reflects my personal performance of the history, physical, data review and medical decision making for the course of this patient.
[2017-04-12 20:18] LABS: ALBUMIN 2.8 g/dL (3.0-4.8); CALCIUM 8.9 mg/dL (8.4-10.5)
[2017-04-13] MEDS: Hemorrohoidal Ointment (2 oz) TOP SCH ×3 (01:42→17:41)
[2017-04-13] MEDS: Sucralfate 1 gm/10 ml Oral Susp UD PO SCH ×2 (05:21→16:23)
[2017-04-13 07:12] LABS: EOS % 0.3 % (1.5-5.0); GRAN # 6.37 (1.4-6.5); GRAN % 90.6 % (50.0-68.0); HEMOGLOBIN 9.5 gm/dL (14.0-18.0); LYMPH # 0.4 (1.2-3.4); MEAN CELL VOLUME 82.2 fL (80.0-105.0); MEAN CORPUSCULAR HEMOGLOBIN 28.2 pg (25.0-35.0); MEAN CORPUSCULAR HGB CONC 34.3 g/dl (31.0-37.0); MONO # 0.3 (0.1-0.6); MONO % 4.1 % (1.0-6.0); PLATELET COUNT 35 10^3/uL (120.0-450.0); RBC 3.37 10^6/uL (3.5-6.1); RED CELL DISTRIBUTION WIDTH 17.3 % (11.5-14.5)
[2017-04-13 07:28] LABS: ALB/GLOB RATIO 1.1 (1.1-1.8); ALBUMIN 2.6 g/dL (3.0-4.8); CALCIUM 8.9 mg/dL (8.4-10.5); MAGNESIUM 2.3 mg/dL (1.7-2.2)
[2017-04-13] MEDS: Aluminum Hydrox Gel 320 mg/5 ml Susp(480 ml) PO SCH ×5 (09:31→22:34)
[2017-04-13] MEDS: Nystatin 100,000 Units/ml Oral Susp 5 ml UD PO SCH ×5 (09:33→22:33)
--- NOTE | 2017-04-13 10:13 | CP.PCM.PN ---
Subjective - Date & Time of Evaluation Date of Evaluation: 04/13/17 Time of Evaluation: 08:35 - Subjective Subjective: S&E at bedside, chart reviewed. Patient sleepy this am but arousable, had paracentesis yesterday removed 7200cc clear fluid and labs sent. He denies SOB, CP N/V. Had abdominal discomfort on right side post paracentesis but is gone this am, no c/o odynphagia or epigastric pain, no more rectal bleeding or pain last night or this am. No new complaints. Objective - Vital Signs/Intake and Output Vital Signs (last 24 hours): Temp Pulse Resp BP Pulse Ox 98.2 F 76 20 103/70 93 L 04/13/17 06:00 04/13/17 06:00 04/13/17 06:00 04/13/17 06:00 04/13/17 06:00 Intake and Output: 04/13/17 04/13/17 06:59 18:59 Intake Total 850 Balance 850 - Medications Medications: Current Medications Aluminum Hydroxide (Aluminum Hydroxide Gel 320mg /5ml Susp (Bulk)) 5 ml PO QID [facility] Stop: 04/14/17 10:01 Last Admin: 04/13/17 09:47 Dose: Not Given Aspirin (Aspirin Chewable) 81 mg PO DAILY [facility] Last Admin: 04/10/17 13:02 Dose: Not Given Darbepoetin Lio (Aranesp) 40 mcg IVP ONCE [facility] Stop: 04/14/17 08:01 Ergocalciferol (Drisdol 50,000 Intl Units Cap) 1 cap PO Q7D [facility] Stop: 05/25/17 12:46 Last Admin: 04/06/17 18:36 Dose: 1 cap Guaifenesin (Robitussin) 100 mg PO Q4H PRN PRN Reason: Cough Hydrocortisone (Cortizone 1% Oint) 0 gm TOP BID [facility] Last Admin: 04/13/17 09:35 Dose: 2 applic Iron Sucrose 100 mg/ Sodium (Chloride) 105 mls @ 210 mls/hr IVPB DAILY [facility] Stop: 04/17/17 10:01 Last Admin: 04/13/17 09:32 Dose: 210 mls/hr Morphine Sulfate (Morphine) 2 mg IVP Q4H PRN PRN Reason: Pain, severe (8-10) Last Admin: 04/12/17 11:50 Dose: 2 mg Multi-Ingredient Ointment (Prep-Hem) 1 ea TOP Q8H [facility] Last Admin: 04/13/17 09:34 Dose: 2 applic Nystatin (Nystatin Oral Susp) 5 ml PO QID [facility] Stop: 04/18/17 10:01 Last Admin: 04/12/17 22:13 Dose: Not Given Pantoprazole Sodium (Protonix Inj) 20 mg IVP 0600 [facility] Last Admin: 04/13/17 05:21 Dose: 20 mg Sevelamer HCl (Renagel) 2,400 mg PO TID [facility] Last Admin: 04/12/17 18:55 Dose: Not Given Sucralfate (Carafate Oral Susp) 1 gm PO 0600,1600 [facility] Last Admin: 04/13/17 05:21 Dose: 1 gm - Labs Labs: 04/13/17 05:30 04/13/17 05:30 PT 18.0 Seconds (9.9-11.8) H 04/12/17 09:35 INR 1.67 (0.93-1.08) H 04/12/17 09:35 APTT 32.9 Seconds (23.7-30.8) H 04/12/17 09:35 - Constitutional Appears: No Acute Distress - Head Exam Head Exam: NORMAL INSPECTION - Eye Exam Eye Exam: Normal appearance, Scleral icterus - ENT Exam ENT Exam: Mucous Membranes Moist - Neck Exam Neck Exam: Normal Inspection - Respiratory Exam Respiratory Exam: Decreased Breath Sounds, NORMAL BREATHING PATTERN. absent: Rales, Wheezes, Respiratory Distress - Cardiovascular Exam Cardiovascular Exam: +S1, +S2 - GI/Abdominal Exam GI & Abdominal Exam: Distended (less, s/p paracentesis, 7200cc removed.), Soft, Normal Bowel Sounds. absent: Guarding, Tenderness, Rebound - Neurological Exam Neurological Exam: Awake (sleepy this am but arousable), Oriented x3 - Skin Skin Exam: Dry, Warm Assessment and Plan - Assessment and Plan (Free Text) Assessment: Assessment: Resolved Epigastric and lower chest discomfort likely secondary to oral candadiasis, patient on high dose oral steroids, patient did have endoscopy recently had only portal hypertensive gastropathy and a grade 1 esophageal varices. Acute kidney injury, status post recent renal biopsy, interstitial nephritis, on HD Liver cirrhosis, maybe secondary to CARR, also have H/O ETOH Anemia,post EGD & colon done recently portal colopathy, portal hypertensive gastropathy Thrombocytopenia, s/p FFP/Platelets Refaractory Ascites, status post paracentesis X2:1st 9L & 2nd 7200cc Hypertension Elevated LFT, s/p abdominal US:Ascites, cirrhosis, GB sludge, CBD 4mm, GB consistent w/ascites w inferred hypoalbunemia External Hemorrhoids Plan: continue Carafate twice a day on low dose PPI Monitor cbc on IV iron aspirin on hold trend LFT OFF prednisone/cellcept continue Nystatin patient does not want dialysis check ammonia level, <9 Hemorrhoidal cream Seen and discussed with Dr. Hay.
--- NOTE | 2017-04-13 13:44 | CP.PCM.PN ---
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 now favors lupus nephritis as with DNA Ab+, hypocomplementemia Acute Kidney Injury (N17.9) likely due to progression of underlying renal disease started on dialysis 04/05/17 Chronic Kidney Disease (N18.3) Stage 3 (baseline cr 1.4-1.9) with 600 mg proteinuria (R80.9) likely due to KELLI in 2016 Iron def Anemia (D64.9), Hyperphosphatemia (E83.39), HTN (I12.9), DM, CAD, Vitiligo, Cirrhosis with portal HTN and ascites, mediastinal and upper abdomen lymphadenopathy Vitamin D def with secondary hyperparathyroidism Thombocytopenia refractory ascites s/p 16 L fluid removed Plan no evidence of renal recovery as of yet, plan for dialysis tomorrow if patient agreeable. hold BP meds due to low BP continue with renagel 2400 mg TID with meals, added amphojel (short course) as well. Dietary consult for restricting his phos intake. started weekly vit D and IV iron 100 mg x 10 doses and dose with aransep 40 mcg every sunday Monitor Input/Output, daily weights and renal function with basic metabolic panel. can monitor for signs of renal recovery as outpt. Dose meds/antibiotics for reduced GFR <10 and dialysis status. Avoid fleets enema/magnesium based laxatives. Avoid nephrotoxins/NSAIDs/ iodinated contrast ( unless needed emergently) Glycemic control. Further work up/management as per primary team. d/w primary team. s/p pulse steroid 1000 mg x 3 doses and thereafter prednisone 60 mg/day, cellcept 1000 mg bid lowered to 500 bid: all eventually stopped 04/12/17 as pt not tolerating it with concerns for low plat count, melena, GI symptoms/side effects and risk of infection Thanks for allowing me to participate in care of your patient. Will follow patient with you. Please call if any Qs. Dr Paco Cadet Office: [phone] HPI: Pt is a 66 y/o M with hx of diabetes Mellitus, hypertension, CAD, vitiligo , mediastinal lymphadenopathy (seen by heme/onc) cirrhosis of unknown etiology with portal HTN and recurrent ascites (s/p EGD and colonoscopy) and recent hospitalization for ascites, KELLI on CKD 3 (cr 1.3-1.9 range) with peaked creatinine 4-5 range s/p kidney bipsy: ATIN and secondary membranous neprhopathy (unknown trigger) pulse steroids 500 mg daily x 3 doses then 60 mg PO prednisone daily presented with complaints of abdomen distension and found to have worsening KELLI hence renal consulted. ROS: c/o loose stool and burning in abdomen. feels sick, denies back pain. denies SOB, nausea/vomitting or difficulty in swallowing. Used [employer]. refused to go for dialysis, says rather will . explained and educated about need/rationale of dialysis. He was very resistant to continuing with dialysis, eventually said he will d/w his daughter and then decide. He was made aware that with severe kidney failure and without dialysis, he will likely soon. s/p 7.2 L ascitic fluid drained 04/12/17 and 9 L earlier. Physical Examination: General Appearance: in no acute respiratory distress, hard of hearing. has oral thrush improved Vitals reviewed and noted as below Lungs: Normal respiratory rate/effort. Breath sounds bilateral decreased at bases Heart: Normal rate. s1s2 normal. No rub or gallop. Extremities: no edema. No varicose veins Neurological: Patient is alert, awake. No focal deficit. Strength bilateral appropriate and equal Skin: Warm and dry. Normal turgor. No rash. Palpitation: Normal elasticity for age. has vitiligo patches in hand Abdomen: Abdomen is soft. Bowel sounds +. There is no abdominal tenderness, no guarding/rigidity no organomegaly. Psych: limited insight and has normal affect/mood : kidney or bladder not palpable but limited exam due to ascites Labs/imaging/EKG reviewed. Past medical history, past surgical history, family history, social history, allergy reviewed and noted as below Family hx: no hx of CKD. Rest non-contributory. daughter had reported hx of lupus in family WORK up Renal sono: b/l echogenic kidneys, cirrhosis PSA 0.8 Ferriitn /TSAT 54/15% IgG 1300 C3: 58 C4: 10 [place]/lambda 1.3 SAEED/cryoglobulin/HIV/Hep B and C neg UA: large blood with small protein, 238 mg albuminuria DNA ab + IgG4 level: 95 Objective - Vital Signs/Intake and Output Vital Signs (last 24 hours): Temp Pulse Resp BP Pulse Ox 98 F 79 18 123/82 93 L 04/13/17 11:32 04/13/17 11:32 04/13/17 11:32 04/13/17 11:32 04/13/17 06:00 Intake and Output: 04/13/17 04/13/17 06:59 18:59 Intake Total 850 Balance 850 - Medications Medications: Current Medications Aluminum Hydroxide (Aluminum Hydroxide Gel 320mg /5ml Susp (Bulk)) 5 ml PO QID [facility] Stop: 04/14/17 10:01 Last Admin: 04/13/17 09:47 Dose: Not Given Aspirin (Aspirin Chewable) 81 mg PO DAILY [facility] Last Admin: 04/10/17 13:02 Dose: Not Given Darbepoetin Lio (Aranesp) 40 mcg IVP ONCE ONE Stop: 04/14/17 08:01 Ergocalciferol (Drisdol 50,000 Intl Units Cap) 1 cap PO Q7D [facility] Stop: 05/25/17 12:46 Last Admin: 04/06/17 18:36 Dose: 1 cap Guaifenesin (Robitussin) 100 mg PO Q4H PRN PRN Reason: Cough Hydrocortisone (Cortizone 1% Oint) 0 gm TOP BID [facility] Last Admin: 04/13/17 09:35 Dose: 2 applic Iron Sucrose 100 mg/ Sodium (Chloride) 105 mls @ 210 mls/hr IVPB DAILY [facility] Stop: 04/17/17 10:01 Last Admin: 04/13/17 09:32 Dose: 210 mls/hr Morphine Sulfate (Morphine) 2 mg IVP Q4H PRN PRN Reason: Pain, severe (8-10) Last Admin: 04/12/17 11:50 Dose: 2 mg Multi-Ingredient Ointment (Prep-Hem) 1 ea TOP Q8H [facility] Last Admin: 04/13/17 09:34 Dose: 2 applic Nystatin (Nystatin Oral Susp) 5 ml PO QID [facility] Stop: 04/18/17 10:01 Last Admin: 04/13/17 10:43 Dose: Not Given Ondansetron HCl (Zofran Inj) 4 mg IVP Q8H PRN PRN Reason: Nausea/Vomiting Pantoprazole Sodium (Protonix Inj) 20 mg IVP 0600 [facility] Last Admin: 04/13/17 05:21 Dose: 20 mg Sevelamer HCl (Renagel) 2,400 mg PO TID [facility] Last Admin: 04/13/17 10:43 Dose: Not Given Sucralfate (Carafate Oral Susp) 1 gm PO 0600,1600 [facility] Last Admin: 04/13/17 05:21 Dose: 1 gm - Labs Labs: 04/13/17 05:30 04/13/17 05:30 PT 18.0 Seconds (9.9-11.8) H 04/12/17 09:35 INR 1.67 (0.93-1.08) H 04/12/17 09:35 APTT 32.9 Seconds (23.7-30.8) H 04/12/17 09:35
[2017-04-13] MEDS: Ergocalciferol 50,000 Intl Units Cap PO SCH ×2 (14:34→16:23)
[2017-04-13] MEDS: Morphine 2 mg/ml ISec IVP PRN (16:16)
--- NOTE | 2017-04-13 17:22 | CP.PCM.PN ---
Addendum entered and electronically signed by Wale Flowers DO 04/15/17 14:57: Patient was seen and examined and discussed at length with Dr. Moise. Patient with multiple medical problems including cirrhosis, AIN with renal failure on HD , unable to finish due to hypotensive episodes. Discussed case at length with daughter Princess. Somewhat better today after having second paracentesis yesterday. Wale Flowers D.O. PGY-2 Original Note: <BEENA MOISE - Last Filed: 04/13/17 17:19> Subjective - Date & Time of Evaluation Date of Evaluation: 04/13/17 Time of Evaluation: 06:45 - Subjective Subjective: Beena Moise DO PGY1 - Internal Medicine Progress Note - [facility] Service Patient seen and evaluated at the bedside. Today is hospital day 10. Patient is still complaining of abdominal pain with meals. He is also complaining of discomfort during dialysis. Patient AOx3, in NAD, and was not in any pain during the encounter. Patient denies any SOB, dizziness, fever, or chills. Objective - Vital Signs/Intake and Output Vital Signs (last 24 hours): Temp Pulse Resp BP Pulse Ox 98 F 85 18 123/82 93 L 04/13/17 11:32 04/13/17 14:00 04/13/17 11:32 04/13/17 11:32 04/13/17 06:00 Intake and Output: 04/13/17 04/13/17 06:59 18:59 Intake Total 850 420 Output Total 0 Balance 850 420 - Medications Medications: Current Medications Aluminum Hydroxide (Aluminum Hydroxide Gel 320mg /5ml Susp (Bulk)) 5 ml PO QID [facility] Stop: 04/18/17 14:01 Last Admin: 04/13/17 14:34 Dose: Not Given Aspirin (Aspirin Chewable) 81 mg PO DAILY [facility] Last Admin: 04/10/17 13:02 Dose: Not Given Darbepoetin Lio (Aranesp) 40 mcg IVP ONCE ONE Stop: 04/14/17 08:01 Ergocalciferol (Drisdol 50,000 Intl Units Cap) 1 cap PO Q7D [facility] Stop: 05/25/17 12:46 Last Admin: 04/13/17 16:23 Dose: 1 cap Guaifenesin (Robitussin) 100 mg PO Q4H PRN PRN Reason: Cough Hydrocortisone (Cortizone 1% Oint) 0 gm TOP BID [facility] Last Admin: 04/13/17 09:35 Dose: 2 applic Iron Sucrose 100 mg/ Sodium (Chloride) 105 mls @ 210 mls/hr IVPB DAILY [facility] Stop: 04/17/17 10:01 Last Admin: 04/13/17 09:32 Dose: 210 mls/hr Lorazepam (Ativan) 2 mg IVP DAILY PRN; Protocol PRN Reason: BEFORE GOING TO DIALYSIS Morphine Sulfate (Morphine) 2 mg IVP Q4H PRN PRN Reason: Pain, severe (8-10) Last Admin: 04/13/17 16:16 Dose: 2 mg Multi-Ingredient Ointment (Prep-Hem) 1 ea TOP Q8H [facility] Last Admin: 04/13/17 09:34 Dose: 2 applic Nystatin (Nystatin Oral Susp) 5 ml PO QID [facility] Stop: 04/18/17 10:01 Last Admin: 04/13/17 14:34 Dose: Not Given Ondansetron HCl (Zofran Inj) 4 mg IVP Q8H PRN PRN Reason: Nausea/Vomiting Pantoprazole Sodium (Protonix Inj) 20 mg IVP 0600 [facility] Last Admin: 04/13/17 05:21 Dose: 20 mg Sevelamer HCl (Renagel) 2,400 mg PO TID [facility] Last Admin: 04/13/17 14:34 Dose: Not Given Sucralfate (Carafate Oral Susp) 1 gm PO 0600,1600 [facility] Last Admin: 04/13/17 16:23 Dose: 1 gm - Labs Labs: 04/13/17 05:30 04/13/17 05:30 PT 18.0 Seconds (9.9-11.8) H 04/12/17 09:35 INR 1.67 (0.93-1.08) H 04/12/17 09:35 APTT 32.9 Seconds (23.7-30.8) H 04/12/17 09:35 - Constitutional Appears: Non-toxic, Chronically Ill - Head Exam Head Exam: ATRAUMATIC, NORMOCEPHALIC - Eye Exam Eye Exam: EOMI, Normal appearance - ENT Exam ENT Exam: Mucous Membranes Moist - Neck Exam Neck Exam: Full ROM, Normal Inspection - Respiratory Exam Respiratory Exam: Clear to Ausculation Bilateral. absent: Rales, Rhonchi, Wheezes - Cardiovascular Exam Cardiovascular Exam: RRR, +S1, +S2. absent: JVD - GI/Abdominal Exam GI & Abdominal Exam: Distended (improved since yesterday), Soft. absent: Firm, Tenderness - Extremities Exam Extremities Exam: absent: Calf Tenderness, Pedal Edema - Back Exam Back Exam: absent: CVA tenderness (L), CVA tenderness (R) - Neurological Exam Neurological Exam: Alert, Awake - Psychiatric Exam Psychiatric exam: Normal Affect, Normal Mood - Skin Skin Exam: Dry, Intact, Normal Color Additional comments: Irregular diffuse vitiligo noted both hands. Raised erythematous scaly plaques noted on flexural surafces of joints of both hands. Assessment and Plan - Assessment and Plan (Free Text) Assessment: This is a 66 yo M with PMH of cirrhosis, chronic kidney disease, HTN, CAD, and recent AIN on PO steroids who presented with complaint of acutely worsening abdominal distention, and was found to have worsening renal function concerning for possible renal failure. He is s/p paracentesis (9L removed then 7.2L removed) and temporary dialysis catheter placement. S/p 5 rounds of HD, pending another today. S/p one unit of platelets transfused. He is also being treated for anemia, thrombocytopenia, GERD, and thrush. Plan: 1. 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 - Cr remains elevated, will continue to monitor 2. Liver cirrhosis - As per Nephro, cirrhosis likely multi-system autoimmune pathology such as seronegative Lupus or IgG4 related disease - Lactulose/Xifaxin currently on hold given low ammonia and no clinical indication of hepatic encephalopathy at this time - GI consulted - Dr. Hay, appreciate all recs; may require futher intervention such as TIPS - s/p 9L paracentesis on 04/05, and 7.2L on 04/12 for a total of 16.2L. Ascitic fluid was tested for concern for SBP, but was unremarkable, still pending albumin - Ordered PT and OT 3. Hypertension - Discontinue metoprolol - BP stable, continue to monitor for hypotension 4. Anemia and thrombocytopenia - Patient was on multiple medications that are known to cause thrombocytopenia including high dose steroids and cellcept - Continue Venofer - Platelets transfused on 04/12. Plt count dropped to 48 today from 64 yesterday. Will recheck AM labs - Hematology consulted (Dr. Levin), appreciate all recs - Continue to monitor 5. Rectal pain - Improved - Patient reports long history of painful bleeding hemorrhoids, rectal exam significant for small superficial tears - Continue Preparation H 6. Abdominal pain - Likely 2/2 to thrush vs gastritis vs medication adverse effect - Continue protonix 20mg QD IVP, carafate - Resume regular diet; pain persists, but patient is tolerating PO slightly better 7. Thrush - Improving - This is likely contributing to his pain with meals - Continue PO nystatin swish and swallow Dispo: Patient was informed that [facility] 24[facility]48 hours if no improvement. Diagnoses, management, and prognosis were discussed with the patient and his daughter Patient was seen, examined, and discussed in detail with senior resident Dr. Flowers PGY2 and attending Dr. Johnson <Bravo Johnson - Last Filed: 04/30/17 16:54> Objective - Vital Signs/Intake and Output Vital Signs (last 24 hours): Temp Pulse Resp BP Pulse Ox 98 F 87 26 H 89/35 L 85 L 04/17/17 02:35 04/17/17 08:03 04/17/17 08:03 04/17/17 08:00 04/17/17 08:00 - Labs Labs: 04/17/17 07:00 04/17/17 07:00 PT 24.4 Seconds (9.9-11.8) H 04/17/17 07:00 INR 2.26 (0.93-1.08) H 04/17/17 07:00 APTT 74.2 Seconds (23.7-30.8) H* 04/17/17 07:00 Attending/Attestation - Attestation I have personally seen and examined this patient.: Yes I have fully participated in the care of the patient.: Yes I have reviewed all pertinent clinical information, including history, physical exam and plan: Yes Notes (Text): 04/30/17 16:54 Medical record note made by the resident after discussion with my direction and input after the patient was personally seen and examined by me. I have reviewed the chart and agree that the record accurately reflects by personal performance of the history, physical exam, data review, and medical decision-making, in the course for the patient. I have also personally directed the plan of care.
--- NOTE | 2017-04-13 23:55 | CP.PCM.PN ---
Objective - Vital Signs/Intake and Output Vital Signs (last 24 hours): Temp Pulse Resp BP Pulse Ox 97.6 F 84 20 113/75 93 L 04/13/17 18:00 04/13/17 22:00 04/13/17 18:00 04/13/17 18:00 04/13/17 06:00 Intake and Output: 04/13/17 04/14/17 18:59 06:59 Intake Total 420 240 Output Total 0 Balance 420 240 - Medications Medications: Current Medications Aluminum Hydroxide (Aluminum Hydroxide Gel 320mg /5ml Susp (Bulk)) 5 ml PO QID [facility] Stop: 04/18/17 14:01 Last Admin: 04/13/17 22:34 Dose: 5 ml Aspirin (Aspirin Chewable) 81 mg PO DAILY [facility] Last Admin: 04/10/17 13:02 Dose: Not Given Darbepoetin Lio (Aranesp) 40 mcg IVP ONCE ONE Stop: 04/14/17 08:01 Ergocalciferol (Drisdol 50,000 Intl Units Cap) 1 cap PO Q7D [facility] Stop: 05/25/17 12:46 Last Admin: 04/13/17 16:23 Dose: 1 cap Guaifenesin (Robitussin) 100 mg PO Q4H PRN PRN Reason: Cough Hydrocortisone (Cortizone 1% Oint) 0 gm TOP BID [facility] Last Admin: 04/13/17 17:40 Dose: 2 applic Iron Sucrose 100 mg/ Sodium (Chloride) 105 mls @ 210 mls/hr IVPB DAILY [facility] Stop: 04/17/17 10:01 Last Admin: 04/13/17 09:32 Dose: 210 mls/hr Lorazepam (Ativan) 2 mg IVP DAILY PRN; Protocol PRN Reason: BEFORE GOING TO DIALYSIS Morphine Sulfate (Morphine) 2 mg IVP Q4H PRN PRN Reason: Pain, severe (8-10) Last Admin: 04/13/17 16:16 Dose: 2 mg Multi-Ingredient Ointment (Prep-Hem) 1 ea TOP Q8H [facility] Last Admin: 04/13/17 17:41 Dose: 2 applic Nystatin (Nystatin Oral Susp) 5 ml PO QID [facility] Stop: 04/18/17 10:01 Last Admin: 04/13/17 22:33 Dose: 5 ml Ondansetron HCl (Zofran Inj) 4 mg IVP Q8H PRN PRN Reason: Nausea/Vomiting Pantoprazole Sodium (Protonix Inj) 20 mg IVP 0600 [facility] Last Admin: 04/13/17 05:21 Dose: 20 mg Sevelamer HCl (Renagel) 2,400 mg PO TID [facility] Last Admin: 04/13/17 17:42 Dose: 2,400 mg Sucralfate (Carafate Oral Susp) 1 gm PO 0600,1600 [facility] Last Admin: 04/13/17 16:23 Dose: 1 gm - Labs Labs: 04/13/17 05:30 04/13/17 05:30 PT 18.0 Seconds (9.9-11.8) H 04/12/17 09:35 INR 1.67 (0.93-1.08) H 04/12/17 09:35 APTT 32.9 Seconds (23.7-30.8) H 04/12/17 09:35 Attending/Attestation - Attestation I have personally seen and examined this patient.: Yes I have fully participated in the care of the patient.: Yes I have reviewed all pertinent clinical information, including history, physical exam and plan: Yes Notes (Text): this
[2017-04-14] MEDS: Hemorrohoidal Ointment (2 oz) TOP SCH ×4 (00:23→20:42)
[2017-04-14] MEDS: Sucralfate 1 gm/10 ml Oral Susp UD PO SCH ×2 (05:09→18:14)
[2017-04-14 07:26] LABS: EOS # 0.1 (0.0-0.7); EOS % 1.1 % (1.5-5.0); GRAN # 3.88 (1.4-6.5); GRAN % 87.2 % (50.0-68.0); HEMOGLOBIN 9.5 gm/dL (14.0-18.0); LYMPH # 0.3 (1.2-3.4); LYMPH % 7.2 % (22.0-35.0); MEAN CELL VOLUME 81.5 fL (80.0-105.0); MEAN CORPUSCULAR HEMOGLOBIN 27.9 pg (25.0-35.0); MEAN CORPUSCULAR HGB CONC 34.2 g/dl (31.0-37.0); MONO # 0.2 (0.1-0.6); MONO % 4.5 % (1.0-6.0); PLATELET COUNT 36 10^3/uL (120.0-450.0); RBC 3.41 10^6/uL (3.5-6.1); RED CELL DISTRIBUTION WIDTH 17.4 % (11.5-14.5); WHITE BLOOD COUNT 4.5 10^3/ul (4.5-11.0)
[2017-04-14 07:39] LABS: INR 1.55 (0.93-1.08); PROTHROMBIN TIME 16.7 Seconds (9.9-11.8)
[2017-04-14 07:41] LABS: ALBUMIN 2.6 g/dL (3.0-4.8); CALCIUM 8.8 mg/dL (8.4-10.5); MAGNESIUM 2.4 mg/dL (1.7-2.2)
[2017-04-14] MEDS ORDERED: Darbepoetin Alfa 40 mcg/ml Inj IVP ONE (08:00)
[2017-04-14] MEDS: Aluminum Hydrox Gel 320 mg/5 ml Susp(480 ml) PO SCH ×4 (09:01→22:52)
[2017-04-14] MEDS: Nystatin 100,000 Units/ml Oral Susp 5 ml UD PO SCH ×4 (09:05→22:53)
--- NOTE | 2017-04-14 10:04 | CP.PCM.PN ---
Subjective - Date & Time of Evaluation Date of Evaluation: 04/14/17 Time of Evaluation: 09:52 - Subjective Subjective: seen in follow up resting comfortably just received ativan Objective - Vital Signs/Intake and Output Vital Signs (last 24 hours): Temp Pulse Resp BP Pulse Ox 97.5 F L 82 18 113/67 93 L 04/14/17 06:00 04/14/17 06:00 04/14/17 06:00 04/14/17 06:00 04/14/17 06:00 Intake and Output: 04/14/17 04/14/17 06:59 18:59 Intake Total 980 Balance 980 - Medications Medications: Current Medications Aluminum Hydroxide (Aluminum Hydroxide Gel 320mg /5ml Susp (Bulk)) 5 ml PO QID [facility] Stop: 04/18/17 14:01 Last Admin: 04/14/17 09:01 Dose: 5 ml Aspirin (Aspirin Chewable) 81 mg PO DAILY [facility] Last Admin: 04/10/17 13:02 Dose: Not Given Ergocalciferol (Drisdol 50,000 Intl Units Cap) 1 cap PO Q7D [facility] Stop: 05/25/17 12:46 Last Admin: 04/13/17 16:23 Dose: 1 cap Guaifenesin (Robitussin) 100 mg PO Q4H PRN PRN Reason: Cough Hydrocortisone (Cortizone 1% Oint) 0 gm TOP BID [facility] Last Admin: 04/14/17 09:22 Dose: 2 applic Iron Sucrose 100 mg/ Sodium (Chloride) 105 mls @ 210 mls/hr IVPB DAILY [facility] Stop: 04/17/17 10:01 Last Admin: 04/14/17 09:04 Dose: 210 mls/hr Lorazepam (Ativan) 2 mg IVP DAILY PRN; Protocol PRN Reason: BEFORE GOING TO DIALYSIS Last Admin: 04/14/17 09:06 Dose: 2 mg Morphine Sulfate (Morphine) 2 mg IVP Q4H PRN PRN Reason: Pain, severe (8-10) Last Admin: 04/13/17 16:16 Dose: 2 mg Multi-Ingredient Ointment (Prep-Hem) 1 ea TOP Q8H [facility] Last Admin: 04/14/17 09:05 Dose: Not Given Nystatin (Nystatin Oral Susp) 5 ml PO QID [facility] Stop: 04/18/17 10:01 Last Admin: 04/14/17 09:05 Dose: 5 ml Ondansetron HCl (Zofran Inj) 4 mg IVP Q8H PRN PRN Reason: Nausea/Vomiting Pantoprazole Sodium (Protonix Inj) 20 mg IVP 0600 [facility] Last Admin: 04/14/17 05:10 Dose: Not Given Sevelamer HCl (Renagel) 2,400 mg PO TID [facility] Last Admin: 04/14/17 09:52 Dose: Not Given Sucralfate (Carafate Oral Susp) 1 gm PO 0600,1600 [facility] Last Admin: 04/14/17 05:09 Dose: Not Given - Labs Labs: 04/14/17 07:20 04/14/17 07:22 PT 16.7 Seconds (9.9-11.8) H 04/14/17 07:20 INR 1.55 (0.93-1.08) H 04/14/17 07:20 APTT 33.0 Seconds (23.7-30.8) H 04/14/17 07:20 - Constitutional Appears: Non-toxic - Head Exam Head Exam: ATRAUMATIC - Eye Exam Eye Exam: Normal appearance - ENT Exam ENT Exam: Mucous Membranes Moist - Neck Exam Neck Exam: Normal Inspection - Respiratory Exam Respiratory Exam: Clear to Ausculation Bilateral - Cardiovascular Exam Cardiovascular Exam: +S1, +S2 - GI/Abdominal Exam GI & Abdominal Exam: Normal Bowel Sounds Additional comments: distended - Extremities Exam Additional comments: no edema - Neurological Exam Additional comments: follows commands - Psychiatric Exam Psychiatric exam: Flat Affect - Skin Skin Exam: Normal Color Assessment and Plan - Assessment and Plan (Free Text) Assessment: s/p Kidney Biopsy: Acute Tubulointerstitial Nephritis (recent antibiotics as bactrim+levaquin) and 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, full house pattern, w/ dsDNA ab + , hypocomplementemia Acute Kidney Injury (N17.9) likely due to progression of underlying renal disease started on dialysis 04/05/17 Chronic Kidney Disease (N18.3) Stage 3 (baseline cr 1.4-1.9) with 600 mg proteinuria (R80.9) likely due to KELLI in 2016 Iron def Anemia (D64.9), Hyperphosphatemia (E83.39), HTN (I12.9), DM, CAD, Vitiligo, Cirrhosis with portal HTN and ascites, mediastinal and upper abdomen lymphadenopathy Vitamin D def with secondary hyperparathyroidism Thombocytopenia refractory ascites s/p 16 L fluid removed Plan KELLI - its not clear as to why kidney function progressed so rapidly to failure - his biopsy did not show rpgn or proliferative pattern of injury (ie class 3/4 lupus) but what is evident is the decompensation of his liver disease w/ development of massive ascites. I suspect that a component of the ARF may be related to hepatorenal syndrome in addition to his underlying glomerulopathy. His glomerular disease is not clear - possible lupus nephritis but it would be class II/5 which is not typically associated w/ a rapid reduction in function and his last UPCR was only 500 mg. Perhaps IgG4 systemic related disorder - which is typically very steroid responsive and which he received pulse steroids for x 2 in addition to oral pred. The hypocomplementemia may be misleading - this could be reduced from reduction of synthetic function of liver v immune complex disease. They were treated w/ pulse steroids and cellcept - which have been subsequently discontinued due to intolerance. Its not clear yet if any additionally trial of immunosuppression would be tolerated. Given his decompensated liver disease rather acutely perhaps it would be reasonable to transfer to a center that offers liver transplant evaluation. Re: hyperphos: continue with renagel 2400 mg TID & amphojel for a couple more days. On aranesp.
[2017-04-14] MEDS ORDERED: Sodium Chloride 0.9% 1,000 ML IV STA ×2 (11:45→13:10)
[2017-04-14 11:53] LABS: ARTERIAL BLOOD GAS HCO3 17.6 mmol/L (21-28); ARTERIAL BLOOD GAS HEMOGLOBIN 8.5 g/dL (11.7-17.4); ARTERIAL BLOOD GAS O2 CAPACITY 11.8 mL/dl (16-24); ARTERIAL BLOOD GAS O2 CONTENT 11.7 ML/dl (15-23); ARTERIAL BLOOD GAS O2 SAT 99.1 % (95-98); ARTERIAL BLOOD GAS PCO2 29 mm/Hg (35-45); ARTERIAL BLOOD GAS TCO2 18.5 mmol.L (22-28)
[2017-04-14 11:58] LABS: ARTERIAL BLOOD GAS PH 7.39 (7.35-7.45)
[2017-04-14 12:16] LABS: EOS % 0.7 % (1.5-5.0); GRAN # 3.67 (1.4-6.5); LYMPH # 0.3 (1.2-3.4); LYMPH % 7.2 % (22.0-35.0); MEAN CELL VOLUME 80.3 fL (80.0-105.0); MEAN CORPUSCULAR HEMOGLOBIN 28.2 pg (25.0-35.0); MEAN CORPUSCULAR HGB CONC 35.2 g/dl (31.0-37.0); MONO # 0.2 (0.1-0.6); MONO % 4.1 % (1.0-6.0); RBC 3.19 10^6/uL (3.5-6.1); RED CELL DISTRIBUTION WIDTH 17.2 % (11.5-14.5); WHITE BLOOD COUNT 4.2 10^3/ul (4.5-11.0)
[2017-04-14 12:20] LABS: PLATELET COUNT 24 10^3/uL (120.0-450.0)
[2017-04-14 12:23] LABS: ALBUMIN 2.4 g/dL (3.0-4.8); CALCIUM 8.5 mg/dL (8.4-10.5)
[2017-04-14 12:34] LABS: TROPONIN I 0.07 ng/mL
--- NOTE | 2017-04-14 13:19 | CP.PCM.PN ---
<SAVANNAH GIBSON - Last Filed: 04/14/17 13:38> Subjective - Date & Time of Evaluation Date of Evaluation: 04/14/17 Time of Evaluation: 11:30 - Subjective Subjective: Rapid Response NOTE Rapid Response was called at 1129 and responded STAT to AEROSPACE MANAGER call @1131. Patient was 1 hour into dialysis (159cc removed) when he was noted to be hypotensive and non-responsive by the dialysis nurses. The patient was given 2mg Ativan at his request prior to dialysis at 0906, and was noted by nurses to be sleeping the entire time and then began to be restless. Blood pressure was 74 /41 at 1122 and dropped to 59/27 at 1130 when AEROSPACE MANAGER arrived. Patient had already received [id number] NS boluses and another 1L NS was hung when AEROSPACE MANAGER arrived for a total of 2L. FS 143. Vitals at 1138 were 111/63, Pulse 82, O2Sat 100%. EKG was done at 1142 and showed NSR, LVH, inferior infarct, which was unchanged from his last EKG in 03/20/17. Dr. Marshall was present and saw the EKG. CBC, CMP, Troponin, ABG, blood cultures, and CT head stat were all ordered. BP was 99/52 before being sent to get CT scan at 1220. PMH cirrhosis, CKD, HTN, CAD, and suspected AIN on PO steroids Objective - Vital Signs/Intake and Output Vital Signs (last 24 hours): Temp Pulse Resp BP Pulse Ox 97.5 F L 84 18 113/67 93 L 04/14/17 06:00 04/14/17 10:00 04/14/17 06:00 04/14/17 06:00 04/14/17 06:00 Intake and Output: 04/14/17 04/14/17 06:59 18:59 Intake Total 980 Balance 980 - Medications Medications: Current Medications Aluminum Hydroxide (Aluminum Hydroxide Gel 320mg /5ml Susp (Bulk)) 5 ml PO QID [facility] Stop: 04/18/17 14:01 Last Admin: 04/14/17 09:01 Dose: 5 ml Aspirin (Aspirin Chewable) 81 mg PO DAILY [facility] Last Admin: 04/10/17 13:02 Dose: Not Given Ergocalciferol (Drisdol 50,000 Intl Units Cap) 1 cap PO Q7D [facility] Stop: 05/25/17 12:46 Last Admin: 04/13/17 16:23 Dose: 1 cap Guaifenesin (Robitussin) 100 mg PO Q4H PRN PRN Reason: Cough Hydrocortisone (Cortizone 1% Oint) 0 gm TOP BID [facility] Last Admin: 04/14/17 09:22 Dose: 2 applic Iron Sucrose 100 mg/ Sodium (Chloride) 105 mls @ 210 mls/hr IVPB DAILY [facility] Stop: 04/17/17 10:01 Last Admin: 04/14/17 09:04 Dose: 210 mls/hr Lorazepam (Ativan) 2 mg IVP DAILY PRN; Protocol PRN Reason: BEFORE GOING TO DIALYSIS Last Admin: 04/14/17 09:06 Dose: 2 mg Morphine Sulfate (Morphine) 2 mg IVP Q4H PRN PRN Reason: Pain, severe (8-10) Last Admin: 04/13/17 16:16 Dose: 2 mg Multi-Ingredient Ointment (Prep-Hem) 1 ea TOP Q8H [facility] Last Admin: 04/14/17 09:05 Dose: Not Given Nystatin (Nystatin Oral Susp) 5 ml PO QID [facility] Stop: 04/18/17 10:01 Last Admin: 04/14/17 09:05 Dose: 5 ml Ondansetron HCl (Zofran Inj) 4 mg IVP Q8H PRN PRN Reason: Nausea/Vomiting Pantoprazole Sodium (Protonix Inj) 20 mg IVP 0600 [facility] Last Admin: 04/14/17 05:10 Dose: Not Given Sevelamer HCl (Renagel) 2,400 mg PO TID [facility] Last Admin: 04/14/17 09:52 Dose: Not Given Sucralfate (Carafate Oral Susp) 1 gm PO 0600,1600 [facility] Last Admin: 04/14/17 05:09 Dose: Not Given - Labs Labs: 04/14/17 12:10 04/14/17 12:10 PT 16.7 Seconds (9.9-11.8) H 04/14/17 07:20 INR 1.55 (0.93-1.08) H 04/14/17 07:20 APTT 33.0 Seconds (23.7-30.8) H 04/14/17 07:20 - Constitutional Appears: No Acute Distress, Older Than Stated Age, Confused, Other (pt grimaces to pain and sternal rub) - Head Exam Head Exam: ATRAUMATIC, NORMOCEPHALIC - Eye Exam Eye Exam: Normal appearance, PERRL Pupil Exam: NORMAL ACCOMODATION - ENT Exam ENT Exam: Mucous Membranes Moist, Normal Exam - Respiratory Exam Respiratory Exam: Clear to Ausculation Bilateral, NORMAL BREATHING PATTERN. absent: Rales, Rhonchi, Wheezes, Respiratory Distress - Cardiovascular Exam Cardiovascular Exam: REGULAR RHYTHM, RRR. absent: Gallop, JVD, Murmur - GI/Abdominal Exam GI & Abdominal Exam: Soft, Normal Bowel Sounds. absent: Distended, Guarding, Rigid, Rebound - Neurological Exam Neurological Exam: Altered (pt grimaces to pain and sternal rub, snoring). absent: Awake, Oriented x3 - Skin Skin Exam: Normal Color. absent: Warm - Additional Findings Additional findings: IV in place R wrist Assessment and Plan - Assessment and Plan (Free Text) Assessment: 1. Altered mental status likely due to Ativan 2. Hypotension Plan: 1. Altered mental status likely due to Ativan - CT Head w/o contrast STAT - Neuro checks q4 - CBC, CMP, ABG, blood cultures ordered 2. Hypotension - EKG showed NSR, LVH and inferior infarct NOT changed from prior EKG - Tropnins ordered - Received 2L NS and BP stabilized - Return pt to Telemetry unit for management, if patient condition worsens, pt should be transferred to ICU <Renae Lan - Last Filed: 04/14/17 15:11> Objective - Vital Signs/Intake and Output Vital Signs (last 24 hours): Temp Pulse Resp BP Pulse Ox 97.5 F L 84 18 113/67 93 L 04/14/17 06:00 04/14/17 10:00 04/14/17 06:00 04/14/17 06:00 04/14/17 06:00 Intake and Output: 04/14/17 04/14/17 06:59 18:59 Intake Total 980 Balance 980 - Medications Medications: Current Medications Aluminum Hydroxide (Aluminum Hydroxide Gel 320mg /5ml Susp (Bulk)) 5 ml PO QID [facility] Stop: 04/18/17 14:01 Last Admin: 04/14/17 09:01 Dose: 5 ml Aspirin (Aspirin Chewable) 81 mg PO DAILY [facility] Last Admin: 04/10/17 13:02 Dose: Not Given Ergocalciferol (Drisdol 50,000 Intl Units Cap) 1 cap PO Q7D [facility] Stop: 05/25/17 12:46 Last Admin: 04/13/17 16:23 Dose: 1 cap Guaifenesin (Robitussin) 100 mg PO Q4H PRN PRN Reason: Cough Hydrocortisone (Cortizone 1% Oint) 0 gm TOP BID [facility] Last Admin: 04/14/17 09:22 Dose: 2 applic Iron Sucrose 100 mg/ Sodium (Chloride) 105 mls @ 210 mls/hr IVPB DAILY [facility] Stop: 04/17/17 10:01 Last Admin: 04/14/17 09:04 Dose: 210 mls/hr Lactulose (Enulose) 30 gm PO Q2 [facility] Lorazepam (Ativan) 2 mg IVP DAILY PRN; Protocol PRN Reason: BEFORE GOING TO DIALYSIS Last Admin: 04/14/17 09:06 Dose: 2 mg Morphine Sulfate (Morphine) 2 mg IVP Q4H PRN PRN Reason: Pain, severe (8-10) Last Admin: 04/13/17 16:16 Dose: 2 mg Multi-Ingredient Ointment (Prep-Hem) 1 ea TOP Q8H [facility] Last Admin: 04/14/17 09:05 Dose: Not Given Nystatin (Nystatin Oral Susp) 5 ml PO QID [facility] Stop: 04/18/17 10:01 Last Admin: 04/14/17 09:05 Dose: 5 ml Ondansetron HCl (Zofran Inj) 4 mg IVP Q8H PRN PRN Reason: Nausea/Vomiting Pantoprazole Sodium (Protonix Inj) 20 mg IVP 0600 [facility] Last Admin: 04/14/17 05:10 Dose: Not Given Sevelamer HCl (Renagel) 2,400 mg PO TID [facility] Last Admin: 04/14/17 09:52 Dose: Not Given Sucralfate (Carafate Oral Susp) 1 gm PO 0600,1600 [facility] Last Admin: 04/14/17 05:09 Dose: Not Given - Labs Labs: 04/14/17 12:10 04/14/17 12:10 PT 16.7 Seconds (9.9-11.8) H 04/14/17 07:20 INR 1.55 (0.93-1.08) H 04/14/17 07:20 APTT 33.0 Seconds (23.7-30.8) H 04/14/17 07:20 Attending/Attestation - Attestation I have personally seen and examined this patient.: Yes I have fully participated in the care of the patient.: Yes I have reviewed all pertinent clinical information, including history, physical exam and plan: Yes Notes (Text): 04/14/17 14:55 Note: pt 's Dx also includes ESRD on HD Troponin to be done Q 8 h x 2 Consult was requested with Dr Robin Bueno(Photography Manager) for possible transfer to the ICU. Pt was seen by Dr Johnson in the renal dept during Rapid response evaluation by RRteam Cat scan of the head could not be done as pt became restless after te was placed on the table.
[2017-04-14 14:35] LABS: ARTERIAL BLOOD GAS O2 SAT 97.5 % (95-98); ARTERIAL BLOOD GAS PCO2 33 mm/Hg (35-45); ARTERIAL BLOOD GAS PH 7.39 (7.35-7.45)
--- NOTE | 2017-04-14 14:50 | CP.PCM.PN ---
Subjective - Date & Time of Evaluation Date of Evaluation: 04/14/17 Time of Evaluation: 14:30 - Subjective Subjective: 66 y/o M w/ new onset of encephalopathy earlier this afternoon after HD was initiated . The patient has been on a workup for new Liver and renal failure . Earlier today in HD he had a brief drop in BP which responded to IV fluids. This afternoon after returning from HD the patient has been lethargic and confused. I was called due to AMS. Objective - Vital Signs/Intake and Output Vital Signs (last 24 hours): Temp Pulse Resp BP Pulse Ox 97.5 F L 84 18 113/67 93 L 04/14/17 06:00 04/14/17 10:00 04/14/17 06:00 04/14/17 06:00 04/14/17 06:00 Intake and Output: 04/14/17 04/14/17 06:59 18:59 Intake Total 980 Balance 980 - Medications Medications: Current Medications Aluminum Hydroxide (Aluminum Hydroxide Gel 320mg /5ml Susp (Bulk)) 5 ml PO QID [facility] Stop: 04/18/17 14:01 Last Admin: 04/14/17 09:01 Dose: 5 ml Aspirin (Aspirin Chewable) 81 mg PO DAILY [facility] Last Admin: 04/10/17 13:02 Dose: Not Given Ergocalciferol (Drisdol 50,000 Intl Units Cap) 1 cap PO Q7D [facility] Stop: 05/25/17 12:46 Last Admin: 04/13/17 16:23 Dose: 1 cap Guaifenesin (Robitussin) 100 mg PO Q4H PRN PRN Reason: Cough Hydrocortisone (Cortizone 1% Oint) 0 gm TOP BID [facility] Last Admin: 04/14/17 09:22 Dose: 2 applic Iron Sucrose 100 mg/ Sodium (Chloride) 105 mls @ 210 mls/hr IVPB DAILY [facility] Stop: 04/17/17 10:01 Last Admin: 04/14/17 09:04 Dose: 210 mls/hr Lactulose (Enulose) 20 gm PO Q4 [facility] Lorazepam (Ativan) 2 mg IVP DAILY PRN; Protocol PRN Reason: BEFORE GOING TO DIALYSIS Last Admin: 04/14/17 09:06 Dose: 2 mg Morphine Sulfate (Morphine) 2 mg IVP Q4H PRN PRN Reason: Pain, severe (8-10) Last Admin: 04/13/17 16:16 Dose: 2 mg Multi-Ingredient Ointment (Prep-Hem) 1 ea TOP Q8H [facility] Last Admin: 04/14/17 09:05 Dose: Not Given Nystatin (Nystatin Oral Susp) 5 ml PO QID [facility] Stop: 04/18/17 10:01 Last Admin: 04/14/17 09:05 Dose: 5 ml Ondansetron HCl (Zofran Inj) 4 mg IVP Q8H PRN PRN Reason: Nausea/Vomiting Pantoprazole Sodium (Protonix Inj) 20 mg IVP 0600 [facility] Last Admin: 04/14/17 05:10 Dose: Not Given Sevelamer HCl (Renagel) 2,400 mg PO TID [facility] Last Admin: 04/14/17 09:52 Dose: Not Given Sucralfate (Carafate Oral Susp) 1 gm PO 0600,1600 [facility] Last Admin: 04/14/17 05:09 Dose: Not Given - Labs Labs: 04/14/17 12:10 04/14/17 12:10 PT 16.7 Seconds (9.9-11.8) H 04/14/17 07:20 INR 1.55 (0.93-1.08) H 04/14/17 07:20 APTT 33.0 Seconds (23.7-30.8) H 04/14/17 07:20 - Constitutional Appears: Confused - Head Exam Head Exam: ATRAUMATIC - Eye Exam Eye Exam: EOMI, Normal appearance, PERRL Pupil Exam: NORMAL ACCOMODATION - ENT Exam ENT Exam: Mucous Membranes Moist, Normal Exam - Neck Exam Neck Exam: Full ROM, Normal Inspection - Respiratory Exam Respiratory Exam: Clear to Ausculation Bilateral, NORMAL BREATHING PATTERN - Cardiovascular Exam Cardiovascular Exam: REGULAR RHYTHM - GI/Abdominal Exam GI & Abdominal Exam: Normal Bowel Sounds - Exam External exam: NORMAL EXTERNAL EXAM Speculum exam: NORMAL SPECULUM EXAM Bimanual exam: NORMAL BIMANUAL EXAM - Extremities Exam Extremities Exam: Full ROM - Back Exam Back Exam: NORMAL INSPECTION - Neurological Exam Neurological Exam: Alert, Altered, Awake, Oriented x3 Assessment and Plan - Assessment and Plan (Free Text) Assessment: 66 y/o M w/ New Renal failure and New Heaptic failure Currently suffering from Likely hepatic encephalopathy and / or uremia . ABG reviewed without any new findings . PH and PCO2 is WNL. Would plan to start NGT Lactulose until BM . Also need to discuss with Nephrology about possibly trying SCUFF and/or SLED. With also low platelet counts, the chance of spont bleed could be likely if < 20K. Head CT would be needed if mental status doesn't improve. hold all anticoagulation. Elevated lactate due to poor lactate clearance from Liver failure. poor prognosis, family at bedside. cc time 65 min
--- NOTE | 2017-04-14 15:10 | RAD ---
HISTORY: Indication of location of NGT COMPARISON: No prior. FINDINGS: LUNGS: No active pulmonary disease. PLEURA: No significant pleural effusion identified, no pneumothorax apparent. CARDIOVASCULAR: Normal. OSSEOUS STRUCTURES: No significant abnormalities. VISUALIZED UPPER ABDOMEN: Normal. OTHER FINDINGS: None. IMPRESSION: The nasogastric tube is in satisfactory position terminating in the body of the stomach
[2017-04-14 18:53] LABS: VENOUS BLOOD GAS BASE EXCESS -3.5 mmol/L (0.0-2.0); VENOUS BLOOD GAS PO2 37 mm/Hg (30-55); VENOUS BLOOD PH 7.37 (7.32-7.43)
--- NOTE | 2017-04-14 23:17 | CP.PCM.PN ---
<Adam Nava - Last Filed: 04/14/17 23:02> Subjective - Date & Time of Evaluation Date of Evaluation: 04/14/17 Time of Evaluation: 08:25 - Subjective Subjective: Internal Medicine Progress Note for Dr. Madrid/Dr. Johnson service Patient seen and evaluated at bedside. Today is hospital day 11. No acute events overnight. Complains of some malaise, only feeling "so-so" today, some abdominal discomfort due to distention. Anxious about dialysis today, wants ativan prior to HD. Addendum: Patient became acutely hypotensive during dialysis, Systolic BP down to high 50' s before recovering. Somnolent/obtunded, so Rapid Response called (please see rapid response note for today for further details). SBP later improved to 100' s. Attempted to obtain head CT, but as patient recovering from somnolent/ hypotensive state, became agitated, not following commands, thrashing and hitting hands off CT device, so CT head unable to be obtained. After discussion with ICU attending (Dr. Bueno), patient hemodynamically stable, can return to telemetry, close monitoring, re-assess for ICU if becomes hypotensive again off of HD. Patient became somnolent again, minimally responsive except to noxious pain stimuli. In discussion with ICU attending, concern for hepatic encephalopathy. NG tube placed and secured, and patient started on Lactulose 30mg NG q2H until BM obtained and patient less encephalopathic/disoriented/somnolent. Objective - Vital Signs/Intake and Output Vital Signs (last 24 hours): Temp Pulse Resp BP Pulse Ox 97.3 F L 93 H 20 130/68 93 L 04/14/17 16:58 04/14/17 20:00 04/14/17 20:00 04/14/17 20:00 04/14/17 06:00 Intake and Output: 04/14/17 04/15/17 18:59 06:59 Intake Total 120 Output Total 0 Balance 120 - Medications Medications: Current Medications Aluminum Hydroxide (Aluminum Hydroxide Gel 320mg /5ml Susp (Bulk)) 5 ml PO QID [facility] Stop: 04/18/17 14:01 Last Admin: 04/14/17 22:52 Dose: Not Given Aspirin (Aspirin Chewable) 81 mg PO DAILY [facility] Last Admin: 04/10/17 13:02 Dose: Not Given Ergocalciferol (Drisdol 50,000 Intl Units Cap) 1 cap PO Q7D [facility] Stop: 05/25/17 12:46 Last Admin: 04/13/17 16:23 Dose: 1 cap Guaifenesin (Robitussin) 100 mg PO Q4H PRN PRN Reason: Cough Hydrocortisone (Cortizone 1% Oint) 0 gm TOP BID [facility] Last Admin: 04/14/17 18:15 Dose: 2 applic Iron Sucrose 100 mg/ Sodium (Chloride) 105 mls @ 210 mls/hr IVPB DAILY [facility] Stop: 04/17/17 10:01 Last Admin: 04/14/17 09:04 Dose: 210 mls/hr Lactulose (Enulose) 30 gm NG Q2 [facility] Stop: 04/15/17 16:01 Last Admin: 04/14/17 22:52 Dose: Not Given Lorazepam (Ativan) 2 mg IVP DAILY PRN; Protocol PRN Reason: BEFORE GOING TO DIALYSIS Last Admin: 04/14/17 09:06 Dose: 2 mg Morphine Sulfate (Morphine) 2 mg IVP Q4H PRN PRN Reason: Pain, severe (8-10) Last Admin: 04/13/17 16:16 Dose: 2 mg Multi-Ingredient Ointment (Prep-Hem) 1 ea TOP Q8H [facility] Last Admin: 04/14/17 20:42 Dose: Not Given Nystatin (Nystatin Oral Susp) 5 ml PO QID [facility] Stop: 04/18/17 10:01 Last Admin: 04/14/17 22:53 Dose: Not Given Ondansetron HCl (Zofran Inj) 4 mg IVP Q8H PRN PRN Reason: Nausea/Vomiting Pantoprazole Sodium (Protonix Inj) 20 mg IVP 0600 [facility] Last Admin: 04/14/17 05:10 Dose: Not Given Sevelamer HCl (Renagel) 2,400 mg PO TID [facility] Last Admin: 04/14/17 18:15 Dose: Not Given Sucralfate (Carafate Oral Susp) 1 gm PO 0600,1600 [facility] Last Admin: 04/14/17 18:14 Dose: Not Given - Labs Labs: 04/14/17 12:10 04/14/17 12:10 PT 16.7 Seconds (9.9-11.8) H 04/14/17 07:20 INR 1.55 (0.93-1.08) H 04/14/17 07:20 APTT 33.0 Seconds (23.7-30.8) H 04/14/17 07:20 - Additional Findings Additional findings: AM Exam prior to Rapid Response - Constitutional Appears: Non-toxic, No Acute Distress but fatigued, Chronically Ill - Head Exam Head Exam: ATRAUMATIC, NORMAL INSPECTION, NORMOCEPHALIC - Eye Exam Eye Exam: EOMI, Normal appearance. absent: Conjunctival injection, Scleral icterus Pupil Exam: absent: Irregular, Unequal - ENT Exam ENT Exam: Mucous Membranes Moist - Neck Exam Neck Exam: Full ROM. absent: Tenderness - Respiratory Exam Respiratory Exam: Clear to Ausculation Bilateral, NORMAL BREATHING PATTERN. absent: Accessory Muscle Use, Chest Wall Tenderness, Decreased Breath Sounds, Rales, Rhonchi, Wheezes - Cardiovascular Exam Cardiovascular Exam: REGULAR RHYTHM, RRR, +S1, +S2. absent: Bradycardia, Tachycardia, JVD, +S4 - GI/Abdominal Exam GI & Abdominal Exam: Distended (improved from presentation on admission but worsening over last 4-5 days, no fluid wave), Firm, Tenderness (mild diffuse tenderness), Faint/distant sounding bowel sounds. absent: Guarding, Rigid, Soft , Normal Bowel Sounds, Pulsatile Mass - Extremities Exam Extremities Exam: Pedal Edema (+1-2 pitting edema in bilateral LE up to mid- shins). absent: Calf Tenderness, Tenderness - Back Exam Back Exam: absent: CVA tenderness (L), CVA tenderness (R) - Neurological Exam Neurological Exam: Alert, Awake - Psychiatric Exam Psychiatric exam: Normal Affect, Normal Mood - Skin Skin Exam: Dry, Intact, Normal Color (except for multiple irregular patches of de-pigmentation in hands, likely vitiligo), Warm Assessment and Plan - Assessment and Plan (Free Text) Assessment: This is a 66 yo M with PMH of cirrhosis, chronic kidney disease, HTN, CAD, and recent AIN on PO steroids who presented with complaint of acutely worsening abdominal distention, and was found to have worsening renal function concerning for possible renal failure. He is s/p paracentesis x2 (9L removed then 5L removed) and temporary dialysis catheter placement. S/p 5 rounds of HD , unable to tolerate a 6th today. S/p one unit of platelets transfused. He is also being treated for anemia, thrombocytopenia, GERD, and thrush. Plan: 1. 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, which is the likely cause of AIN vs hepatorenal syndrome; concern from primary team that this is not lupus, may be pre-renal insult, will discuss with nephro team - Attempted HD with Ativan prior to latest HD, but became acutely hypotensive and somnolent/obtunded 1 hour into HD (see Rapid Response Note for further details); As per Nephro SLED/SCUF dialysis are not available options here, will attempt dialysis again tomorrow - Patient should also be on steroids and immunosuppressants (was on Cellcept) but is not tolerating due to problems with abdominal pain and thrush, so discontinued at this time as per his request, despite explaining to the patient the risks, benefits, and alternatives of these medications. - Cr remains elevated, will continue to monitor - May require transfer to [facility] for further management of renal failure and for possible liver transplant workup 2. Liver cirrhosis - As per Nephro, cirrhosis likely multi-system autoimmune pathology such as seronegative Lupus or IgG4 related disease - Xifaxin currently on hold given low ammonia and no clinical indication of hepatic encephalopathy at this time - As per Senior Budget Analyst (Dr. Bueno), Lactulose restarted after rapid response as patient remained somnolent, concerning for hepatic encephalopathy, 30mg NG q2h until BM and more awake/alert - GI consulted - Dr. Hay, appreciate all recs; may require futher intervention such as TIPS; will discuss with GI possibility of hepatic biopsy given unclear etiology of cirrhosis - s/p 9L paracentesis on 04/05, and 7.2L on 04/12 for a total of 16.2L. Ascitic fluid was tested for concern for SBP, but was unremarkable, still pending albumin - Ordered PT and OT 3. Hypertension - Currently experiencing hypotensive issues 2/2 HD - hold home antihypertensives as this time, can resume as BP improves - continue to monitor 4. Anemia and thrombocytopenia - Patient was on multiple medications that are known to cause thrombocytopenia including high dose steroids and cellcept; currently off steroids and cellcept due to inability to tolerate - Continue Venofer, received dose prior to HD today - Platelets transfused on 04/12. Plt count dropped to 24 today from 36 yesterday - Hematology consulted (Dr. Levin), appreciate all recs - Continue to monitor 5. Rectal pain - Improved - Patient reports long history of painful bleeding hemorrhoids, rectal exam significant for small superficial tears - Continue Preparation H 6. Abdominal pain - Likely 2/2 to thrush vs gastritis vs medication adverse effect - Continue protonix 20mg QD IVP, carafate - Resume regular diet; pain persists, but patient is tolerating PO slightly better 7. Thrush - Improving - This is likely contributing to his pain with meals - Continue PO nystatin swish and swallow Dispo: Telemetry, Q2 Lactulose until BM/improved mentation, pending another possible HD tomorrow as per Nephro, pending possible transfer to [facility] for liver transplant workup FEN: Renal diet Access: Peripheral IV, Temporary HD cath Consults: GI, Heme-onc, Nephro, IR, ICU Ppx: Low dose protonix for GI (avoid higher dose given potential effect on platelets), SCDs for DVT Patient seen, reviewed, and discussed with attending, Dr Johnson. <Bravo Johnson - Last Filed: 04/30/17 16:52> Objective - Vital Signs/Intake and Output Vital Signs (last 24 hours): Temp Pulse Resp BP Pulse Ox 98 F 87 26 H 89/35 L 85 L 04/17/17 02:35 04/17/17 08:03 04/17/17 08:03 04/17/17 08:00 04/17/17 08:00 - Labs Labs: 04/17/17 07:00 04/17/17 07:00 PT 24.4 Seconds (9.9-11.8) H 04/17/17 07:00 INR 2.26 (0.93-1.08) H 04/17/17 07:00 APTT 74.2 Seconds (23.7-30.8) H* 04/17/17 07:00 Attending/Attestation - Attestation I have personally seen and examined this patient.: Yes I have fully participated in the care of the patient.: Yes I have reviewed all pertinent clinical information, including history, physical exam and plan: Yes Notes (Text): 04/30/17 16:52 Medical record note made by the resident after discussion with my direction and input after the patient was personally seen and examined by me. I have reviewed the chart and agree that the record accurately reflects by personal performance of the history, physical exam, data review, and medical decision-making, in the course for the patient. I have also personally directed the plan of care.
--- NOTE | 2017-04-14 23:18 | CP.PCM.PN ---
Subjective - Date & Time of Evaluation Date of Evaluation: 04/13/17 Time of Evaluation: 17:30 - Subjective Subjective: today's years earlier events were reviewed and a discussed with the nursi. Patient lethargic and not responsive to ve. Patient has NG tube received a lactulose. Objective - Vital Signs/Intake and Output Vital Signs (last 24 hours): Temp Pulse Resp BP Pulse Ox 97.3 F L 93 H 20 130/68 93 L 04/14/17 16:58 04/14/17 20:00 04/14/17 20:00 04/14/17 20:00 04/14/17 06:00 Intake and Output: 04/14/17 04/15/17 18:59 06:59 Intake Total 120 Output Total 0 Balance 120 - Medications Medications: Current Medications Aluminum Hydroxide (Aluminum Hydroxide Gel 320mg /5ml Susp (Bulk)) 5 ml PO QID [facility] Stop: 04/18/17 14:01 Last Admin: 04/14/17 22:52 Dose: Not Given Aspirin (Aspirin Chewable) 81 mg PO DAILY [facility] Last Admin: 04/10/17 13:02 Dose: Not Given Ergocalciferol (Drisdol 50,000 Intl Units Cap) 1 cap PO Q7D [facility] Stop: 05/25/17 12:46 Last Admin: 04/13/17 16:23 Dose: 1 cap Guaifenesin (Robitussin) 100 mg PO Q4H PRN PRN Reason: Cough Hydrocortisone (Cortizone 1% Oint) 0 gm TOP BID [facility] Last Admin: 04/14/17 18:15 Dose: 2 applic Iron Sucrose 100 mg/ Sodium (Chloride) 105 mls @ 210 mls/hr IVPB DAILY [facility] Stop: 04/17/17 10:01 Last Admin: 04/14/17 09:04 Dose: 210 mls/hr Lactulose (Enulose) 30 gm NG Q2 [facility] Stop: 04/15/17 16:01 Last Admin: 04/14/17 22:52 Dose: Not Given Lorazepam (Ativan) 2 mg IVP DAILY PRN; Protocol PRN Reason: BEFORE GOING TO DIALYSIS Last Admin: 04/14/17 09:06 Dose: 2 mg Morphine Sulfate (Morphine) 2 mg IVP Q4H PRN PRN Reason: Pain, severe (8-10) Last Admin: 04/13/17 16:16 Dose: 2 mg Multi-Ingredient Ointment (Prep-Hem) 1 ea TOP Q8H [facility] Last Admin: 04/14/17 20:42 Dose: Not Given Nystatin (Nystatin Oral Susp) 5 ml PO QID [facility] Stop: 04/18/17 10:01 Last Admin: 04/14/17 22:53 Dose: Not Given Ondansetron HCl (Zofran Inj) 4 mg IVP Q8H PRN PRN Reason: Nausea/Vomiting Pantoprazole Sodium (Protonix Inj) 20 mg IVP 0600 [facility] Last Admin: 04/14/17 05:10 Dose: Not Given Sevelamer HCl (Renagel) 2,400 mg PO TID [facility] Last Admin: 04/14/17 18:15 Dose: Not Given Sucralfate (Carafate Oral Susp) 1 gm PO 0600,1600 [facility] Last Admin: 04/14/17 18:14 Dose: Not Given - Labs Labs: 04/14/17 12:10 04/14/17 12:10 PT 16.7 Seconds (9.9-11.8) H 04/14/17 07:20 INR 1.55 (0.93-1.08) H 04/14/17 07:20 APTT 33.0 Seconds (23.7-30.8) H 04/14/17 07:20 - Constitutional Appears: No Acute Distress, Confused - Head Exam Head Exam: ATRAUMATIC, NORMOCEPHALIC - Eye Exam Eye Exam: PERRL, Scleral icterus - ENT Exam ENT Exam: Normal External Ear Exam, Normal Oropharynx - Neck Exam Neck Exam: Full ROM - Respiratory Exam Respiratory Exam: NORMAL BREATHING PATTERN - Cardiovascular Exam Cardiovascular Exam: REGULAR RHYTHM, +S1, +S2 - GI/Abdominal Exam GI & Abdominal Exam: Distended, Soft, Normal Bowel Sounds - Extremities Exam Extremities Exam: absent: Joint Swelling - Neurological Exam Neurological Exam: absent: Alert Assessment and Plan - Assessment and Plan (Free Text) Assessment: 1. Change of mental status etiology is uncle. The differential diagnosis should include metabolic encephalopathy, hepatic encephalopathy his ammonia level has bee normal clinically he did not have asterixis before 2. renal failure on hemodialysis 3.rectal discomfort improving 4. other problems include Hypertension , dyslipidemia,pulmonary hypertension Plan: 1. On lactulose. follow-up ammonia levels 2. Follow up with the platelet count 3.followup of plaatelets count.
[2017-04-15] MEDS: Hemorrohoidal Ointment (2 oz) TOP SCH ×3 (01:53→17:16)
[2017-04-15] MEDS: Sucralfate 1 gm/10 ml Oral Susp UD PO SCH (05:32)
[2017-04-15] MEDS ORDERED: Albumin Human 25% (12.5 gm/50 ml) IV ONE ×2 (07:39→08:00)
[2017-04-15 08:10] LABS: EOS # 0.1 (0.0-0.7); EOS % 1.8 % (1.5-5.0); GRAN # 3.78 (1.4-6.5); GRAN % 84.2 % (50.0-68.0); HEMOGLOBIN 8.9 gm/dL (14.0-18.0); LYMPH # 0.4 (1.2-3.4); LYMPH % 9.1 % (22.0-35.0); MEAN CELL VOLUME 81.7 fL (80.0-105.0); MEAN CORPUSCULAR HEMOGLOBIN 28.1 pg (25.0-35.0); MEAN CORPUSCULAR HGB CONC 34.4 g/dl (31.0-37.0); MONO # 0.2 (0.1-0.6); MONO % 4.9 % (1.0-6.0); RBC 3.17 10^6/uL (3.5-6.1); RED CELL DISTRIBUTION WIDTH 17.2 % (11.5-14.5); WHITE BLOOD COUNT 4.5 10^3/ul (4.5-11.0)
[2017-04-15 08:21] LABS: PLATELET COUNT 21 10^3/uL (120.0-450.0)
[2017-04-15 08:25] LABS: ALBUMIN 2.5 g/dL (3.0-4.8); CALCIUM 9.1 mg/dL (8.4-10.5); MAGNESIUM 2.4 mg/dL (1.7-2.2)
--- NOTE | 2017-04-15 08:28 | CARD ---
APPROVED REPORT EKG Measurement Heart [id number] <Conclusion> Normal sinus rhythm Left ventricular hypertrophy with repolarization abnormality Inferior infarct, age undetermined C/W prior ECG 03/20/17: there are tall R waves in V 4 - 6 now
[2017-04-15 08:32] LABS: TROPONIN I 0.08 ng/mL
[2017-04-15 08:45] LABS: PLATELET ESTIMATE 24 (NORMAL)
--- NOTE | 2017-04-15 10:16 | CP.PCM.PN ---
<Wale Flowers - Last Filed: 04/15/17 13:57> Subjective - Date & Time of Evaluation Date of Evaluation: 04/15/17 Time of Evaluation: 07:00 - Subjective Subjective: Wale Flowers D.O. PGY-2, Internal Medicine, Dr. Madrid/Elizabeth Rodarte, Progress Note 66 year old male with a PMH of cirrhosis, chronic kidney disease, HTN, CAD, and recent diagnosis of acute interstitial nephritis on PO steroids who [place] [facility] [place] complaint of acutely worsening abdominal distention and was found to have worsening renal function, placed on hemodialysis. Extensive conversation was had with patient in his [place] language: [place]. Patient was seen and examined at bedside. Patient is doing somewhat better than yesterday, was able to swallow without difficulty today and so his NGT was removed. Patient had a liquid brown bowel movement (Andrews 7) yesterday and so his lactulose was discontinued. Patient continues to complain of some abdominal pain , generalized, but otherwise is about the same and just keeps asking for grape juice. Objective - Vital Signs/Intake and Output Vital Signs (last 24 hours): Temp Pulse Resp BP Pulse Ox 98.2 F 91 H 19 117/70 100 04/15/17 06:00 04/15/17 06:00 04/15/17 06:00 04/15/17 06:00 04/15/17 06:00 Intake and Output: 04/15/17 04/15/17 06:59 18:59 Intake Total 240 Balance 240 - Medications Medications: Current Medications Aluminum Hydroxide (Aluminum Hydroxide Gel 320mg /5ml Susp (Bulk)) 5 ml PO QID [facility] Stop: 04/18/17 14:01 Last Admin: 04/14/17 22:52 Dose: Not Given Aspirin (Aspirin Chewable) 81 mg PO DAILY [facility] Last Admin: 04/10/17 13:02 Dose: Not Given Ergocalciferol (Drisdol 50,000 Intl Units Cap) 1 cap PO Q7D [facility] Stop: 05/25/17 12:46 Last Admin: 04/13/17 16:23 Dose: 1 cap Guaifenesin (Robitussin) 100 mg PO Q4H PRN PRN Reason: Cough Hydrocortisone (Cortizone 1% Oint) 0 gm TOP BID [facility] Last Admin: 04/14/17 18:15 Dose: 2 applic Iron Sucrose 100 mg/ Sodium (Chloride) 105 mls @ 210 mls/hr IVPB DAILY [facility] Stop: 04/17/17 10:01 Last Admin: 04/14/17 09:04 Dose: 210 mls/hr Morphine Sulfate (Morphine) 2 mg IVP Q4H PRN PRN Reason: Pain, severe (8-10) Last Admin: 04/13/17 16:16 Dose: 2 mg Multi-Ingredient Ointment (Prep-Hem) 1 ea TOP Q8H [facility] Last Admin: 04/15/17 01:53 Dose: Not Given Nystatin (Nystatin Oral Susp) 5 ml PO QID [facility] Stop: 04/18/17 10:01 Last Admin: 04/14/17 22:53 Dose: Not Given Ondansetron HCl (Zofran Inj) 4 mg IVP Q8H PRN PRN Reason: Nausea/Vomiting Pantoprazole Sodium (Protonix Inj) 20 mg IVP 0600 [facility] Last Admin: 04/15/17 05:40 Dose: 20 mg Sevelamer HCl (Renagel) 2,400 mg PO TID [facility] Last Admin: 04/14/17 18:15 Dose: Not Given Sucralfate (Carafate Oral Susp) 1 gm PO 0600,1600 [facility] Last Admin: 04/15/17 05:32 Dose: Not Given - Labs Labs: 04/15/17 07:30 04/15/17 07:30 PT 16.7 Seconds (9.9-11.8) H 04/14/17 07:20 INR 1.55 (0.93-1.08) H 04/14/17 07:20 APTT 33.0 Seconds (23.7-30.8) H 04/14/17 07:20 - Constitutional Appears: Chronically Ill, Other (well developed, large abdomen, in NAD but somewhat restless) - Head Exam Head Exam: ATRAUMATIC, NORMOCEPHALIC - Eye Exam Eye Exam: EOMI, Normal appearance - ENT Exam ENT Exam: Mucous Membranes Moist, Normal Oropharynx - Neck Exam Additional comments: soft, supple - Respiratory Exam Respiratory Exam: Clear to Ausculation Bilateral. absent: Rales, Rhonchi, Wheezes Additional comments: + fluid wave - Cardiovascular Exam Cardiovascular Exam: RRR, +S1, +S2. absent: Gallop, Rubs, Murmur - GI/Abdominal Exam GI & Abdominal Exam: Distended (more than yesterday, tighter but NOT firm), Soft , Tenderness (diffusely on deep palpation), Normal Bowel Sounds (distant) - Rectal Exam Additional comments: small amount liquid stool, no perirectal tenderness, no signs of perirectal abscess, small excoriations of skin near rectum with optofoam in place - Extremities Exam Extremities Exam: Pedal Edema (+1). absent: Calf Tenderness - Neurological Exam Neurological Exam: Alert, Awake, CN II-XII Intact, Oriented x3 - Skin Skin Exam: Warm. absent: Rash Assessment and Plan - Assessment and Plan (Free Text) Assessment: 66 year old male with a PMH of cirrhosis, CKD, HTN, CAD, and recent AIN on PO steroids, who presented with worsening ascites, subsequently found to have an KELLI and going into renal failure, started on HD through dialysis catheter, then found to have portal vein thrombosis. Plan: 1. Acute kidney injury on chronic kidney disease 2/2 to acute interstitial nephritis Bx confirmed AIN, etiology unknown, appears autoimmune, possible seronegative lupus vs IgG4RD Nephrology following, appreciate recs, on HD thru temp catheter scheduled for today Presence of hepatorenal syndrome cannot be excluded Given 1 amp albumin to help maintain intravascular volume and pressure during dialysis Cont renagel and amphogel Currently off all steroids and cellcept due to complaints of heartburn and thrush per patient preference despite discussing benefits and risks Discussed with nephro, may need to make changes to dialysis given continued hypotensive episodes that terminate his dialysis sessions early 2. Liver cirrhosis of unclear etiology with recurrent ascites - MELD 31, DF 36.6 Likely multifactorial from about 12 years of heavy binge drinking from 1972- 1984 per daughter, as well some form of multi-system autoimmune disease such as seronegative Lupus or IgG4 related disease GI following, appreciate recs Low ammonia so no xifaxan or lactulose Pending albumin from ascitic fluid 3. Portal venous thrombosis US showed no flow through portal vein Discussed this at length with GI and Hematology consultants, given thrombocytopenia and coagulopathy at this time will not start on heparin drip, discussed with patient and daughter extensively as well 4. Bacteremia and diarrhea ID consulted for this complicated patient C. Diff antigen positive and tox negative, possibly false negative given low specificity (~75%), recent diarrhea from lactulose use BCx 1/2 + for G+ cocci Afebrile with no leukocytosis 5. Anemia and thrombocytopenia Likely secondary to bone marrow suppression from heavy steroid dosing and cellcept for AIN, currently off these as per above, or possible from other medication, discontinued protonix, or even possibly HIT from heparin used during HD, HIT panel ordered Hem/onc consulted, appreciate recs Continue Venofer, received dose prior to HD today Monitoring closely for signs of bleeding 6. Hemorrhoids with rectal pain - improved Cont prep H 7. Dysphagia with thrush Cont PO nystatin swish and swallow Cont carafate D/C'ed protonix due to potential for thrombocytopenic etiology, started on pepcid BID instead 8. Hx of Hypertension All meds off due to continued hypotension during dialysis Monitoring 9. Vitamin D deficiency Cont D2 5k IUs Qwk Patient was seen and examined and case was discussed at length with attending physician. <Bravo Johnson - Last Filed: 04/30/17 16:53> Objective - Vital Signs/Intake and Output Vital Signs (last 24 hours): Temp Pulse Resp BP Pulse Ox 98 F 87 26 H 89/35 L 85 L 04/17/17 02:35 04/17/17 08:03 04/17/17 08:03 04/17/17 08:00 04/17/17 08:00 - Labs Labs: 04/17/17 07:00 04/17/17 07:00 PT 24.4 Seconds (9.9-11.8) H 04/17/17 07:00 INR 2.26 (0.93-1.08) H 04/17/17 07:00 APTT 74.2 Seconds (23.7-30.8) H* 04/17/17 07:00 Attending/Attestation - Attestation I have personally seen and examined this patient.: Yes I have fully participated in the care of the patient.: Yes I have reviewed all pertinent clinical information, including history, physical exam and plan: Yes Notes (Text): 04/30/17 16:52 Medical record note made by the resident after discussion with my direction and input after the patient was personally seen and examined by me. I have reviewed the chart and agree that the record accurately reflects by personal performance of the history, physical exam, data review, and medical decision-making, in the course for the patient. I have also personally directed the plan of care.
[2017-04-15] MEDS: Aluminum Hydrox Gel 320 mg/5 ml Susp(480 ml) PO SCH ×2 (10:25→14:18)
[2017-04-15] MEDS: Nystatin 100,000 Units/ml Oral Susp 5 ml UD PO SCH ×4 (10:29→21:06)
[2017-04-15] MEDS: Morphine 2 mg/ml ISec IVP PRN (11:12)
--- NOTE | 2017-04-15 14:00 | CP.PCM.PN ---
Subjective - Date & Time of Evaluation Date of Evaluation: 04/15/17 Time of Evaluation: 09:00 - Subjective Subjective: seen at ultrasound pt still letheargic Objective - Vital Signs/Intake and Output Vital Signs (last 24 hours): Temp Pulse Resp BP Pulse Ox 98.2 F 91 H 19 117/70 100 04/15/17 06:00 04/15/17 06:00 04/15/17 06:00 04/15/17 06:00 04/15/17 06:00 Intake and Output: 04/15/17 04/15/17 06:59 18:59 Intake Total 240 Balance 240 - Medications Medications: Current Medications Aluminum Hydroxide (Aluminum Hydroxide Gel 320mg /5ml Susp (Bulk)) 5 ml PO QID [facility] Stop: 04/18/17 14:01 Last Admin: 04/15/17 10:25 Dose: 5 ml Aspirin (Aspirin Chewable) 81 mg PO DAILY [facility] Last Admin: 04/10/17 13:02 Dose: Not Given Ergocalciferol (Drisdol 50,000 Intl Units Cap) 1 cap PO Q7D [facility] Stop: 05/25/17 12:46 Last Admin: 04/13/17 16:23 Dose: 1 cap Famotidine (Pepcid) 20 mg IVP BID [facility] Guaifenesin (Robitussin) 100 mg PO Q4H PRN PRN Reason: Cough Hydrocortisone (Cortizone 1% Oint) 0 gm TOP BID [facility] Last Admin: 04/15/17 10:27 Dose: 1 applic Iron Sucrose 100 mg/ Sodium (Chloride) 105 mls @ 210 mls/hr IVPB DAILY [facility] Stop: 04/17/17 10:01 Last Admin: 04/15/17 10:22 Dose: 210 mls/hr Metronidazole (Flagyl) 500 mg PO Q8 [facility] PRN Reason: Protocol Stop: 04/25/17 14:01 Morphine Sulfate (Morphine) 2 mg IVP Q4H PRN PRN Reason: Pain, severe (8-10) Last Admin: 04/15/17 11:12 Dose: 2 mg Multi-Ingredient Ointment (Prep-Hem) 1 ea TOP Q8H [facility] Last Admin: 04/15/17 10:29 Dose: 1 applic Nystatin (Nystatin Oral Susp) 5 ml PO QID [facility] Stop: 04/18/17 10:01 Last Admin: 04/15/17 10:29 Dose: 5 ml Ondansetron HCl (Zofran Inj) 4 mg IVP Q8H PRN PRN Reason: Nausea/Vomiting Sevelamer HCl (Renagel) 2,400 mg PO TID [facility] Last Admin: 04/15/17 10:35 Dose: 2,400 mg Sucralfate (Carafate Oral Susp) 1 gm PO 0600,1600 [facility] Last Admin: 04/15/17 05:32 Dose: Not Given - Labs Labs: 04/15/17 07:30 04/15/17 07:30 PT 16.7 Seconds (9.9-11.8) H 04/14/17 07:20 INR 1.55 (0.93-1.08) H 04/14/17 07:20 APTT 33.0 Seconds (23.7-30.8) H 04/14/17 07:20 - Constitutional Appears: No Acute Distress, Chronically Ill - Head Exam Head Exam: ATRAUMATIC - Eye Exam Additional comments: icteric - ENT Exam ENT Exam: Mucous Membranes Dry - Neck Exam Neck Exam: Normal Inspection - Respiratory Exam Additional comments: cta anteriorly - GI/Abdominal Exam Additional comments: distended but soft - Extremities Exam Additional comments: no edema - Neurological Exam Additional comments: opens eyes to voice - Psychiatric Exam Psychiatric exam: Flat Affect - Skin Additional comments: mild jaundice Assessment and Plan - Assessment and Plan (Free Text) Assessment: s/p Kidney Biopsy: Acute Tubulointerstitial Nephritis (recent antibiotics as bactrim+levaquin) and 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, full house pattern, w/ dsDNA ab + , hypocomplementemia Acute Kidney Injury (N17.9) likely due to progression of underlying renal disease started on dialysis 04/05/17 Chronic Kidney Disease (N18.3) Stage 3 (baseline cr 1.4-1.9) with 600 mg proteinuria (R80.9) likely due to KELLI in 2016 Iron def Anemia (D64.9), Hyperphosphatemia (E83.39), HTN (I12.9), DM, CAD, Vitiligo, Cirrhosis with portal HTN and ascites, mediastinal and upper abdomen lymphadenopathy Vitamin D def with secondary hyperparathyroidism Thombocytopenia refractory ascites s/p 16 L fluid removed Plan KELLI - his biopsy did not show rpgn or proliferative pattern of injury (ie class 3/4 lupus) but likely suspect hepatorenal syndrome on top of his glomerulopathy causing the ARF requring HD. 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 WIll d/c sucralafate which has some aluminum. On aranesp. Recc consider transfer to center that offers liver transplant discussed w/ primary attending
--- NOTE | 2017-04-15 18:49 | US ---
PROCEDURE: Portal vein duplex ultrasound. CLINICAL HISTORY: Cirrhosis. Deteriorating liver function. Evaluate for portal vein thrombosis. PHYSICIAN(S): Vitaly Sylvester M.D. FINDINGS: Hepatic parenchyma is heterogeneous and cirrhotic in appearance. No flow is demonstrated in the extrahepatic portal vein. This is consistent with portal vein thrombosis. No cavernous transformation is appreciated. The hepatic artery is hypertrophied. There is a moderate amount of ascites in the upper abdomen IMPRESSION: 1. Thrombosed extrahepatic portal vein. 2. Cirrhotic liver. 3. Moderate amount of ascites in the upper abdomen.
[2017-04-16] MEDS: Hemorrohoidal Ointment (2 oz) TOP SCH ×3 (00:35→18:29)
[2017-04-16 08:20] LABS: EOS # 0.1 (0.0-0.7); EOS % 3.6 % (1.5-5.0); GRAN # 2.92 (1.4-6.5); GRAN % 80.9 % (50.0-68.0); HEMOGLOBIN 8.3 gm/dL (14.0-18.0); LYMPH # 0.4 (1.2-3.4); LYMPH % 10.5 % (22.0-35.0); MEAN CELL VOLUME 81.7 fL (80.0-105.0); MEAN CORPUSCULAR HEMOGLOBIN 28.1 pg (25.0-35.0); MEAN CORPUSCULAR HGB CONC 34.4 g/dl (31.0-37.0); MONO # 0.2 (0.1-0.6); RBC 2.95 10^6/uL (3.5-6.1); RED CELL DISTRIBUTION WIDTH 17.3 % (11.5-14.5); WHITE BLOOD COUNT 3.6 10^3/ul (4.5-11.0)
--- NOTE | 2017-04-16 08:22 | CP.PCM.PN ---
Subjective - Date & Time of Evaluation Date of Evaluation: 04/15/17 Time of Evaluation: 17:45 - Subjective Subjective: Seen and examined at bedside. Patient is lethargic jaundice. Objective - Vital Signs/Intake and Output Vital Signs (last 24 hours): Temp Pulse Resp BP Pulse Ox 98.5 F 84 18 97/57 L 100 04/15/17 16:51 04/15/17 22:00 04/15/17 16:51 04/15/17 16:51 04/15/17 06:00 - Medications Medications: Current Medications Aspirin (Aspirin Chewable) 81 mg PO DAILY [facility] Last Admin: 04/10/17 13:02 Dose: Not Given Ergocalciferol (Drisdol 50,000 Intl Units Cap) 1 cap PO Q7D [facility] Stop: 05/25/17 12:46 Last Admin: 04/13/17 16:23 Dose: 1 cap Famotidine (Pepcid) 20 mg IVP BID [facility] Last Admin: 04/15/17 17:16 Dose: 20 mg Guaifenesin (Robitussin) 100 mg PO Q4H PRN PRN Reason: Cough Hydrocortisone (Cortizone 1% Oint) 0 gm TOP BID [facility] Last Admin: 04/15/17 17:16 Dose: 1 applic Iron Sucrose 100 mg/ Sodium (Chloride) 105 mls @ 210 mls/hr IVPB DAILY [facility] Stop: 04/17/17 10:01 Last Admin: 04/15/17 10:22 Dose: 210 mls/hr Metronidazole (Flagyl) 500 mg PO Q8 [facility] PRN Reason: Protocol Stop: 04/25/17 14:01 Last Admin: 04/15/17 21:05 Dose: 500 mg Morphine Sulfate (Morphine) 2 mg IVP Q4H PRN PRN Reason: Pain, severe (8-10) Last Admin: 04/15/17 11:12 Dose: 2 mg Multi-Ingredient Ointment (Prep-Hem) 1 ea TOP Q8H [facility] Last Admin: 04/15/17 17:16 Dose: 1 applic Nystatin (Nystatin Oral Susp) 5 ml PO QID [facility] Stop: 04/18/17 10:01 Last Admin: 04/15/17 21:06 Dose: 5 ml Ondansetron HCl (Zofran Inj) 4 mg IVP Q8H PRN PRN Reason: Nausea/Vomiting Sevelamer HCl (Renagel) 2,400 mg PO TID [facility] Last Admin: 04/15/17 17:17 Dose: 2,400 mg - Labs Labs: 04/15/17 07:30 04/15/17 07:30 PT 16.7 Seconds (9.9-11.8) H 04/14/17 07:20 INR 1.55 (0.93-1.08) H 04/14/17 07:20 APTT 33.0 Seconds (23.7-30.8) H 04/14/17 07:20 - Constitutional Appears: No Acute Distress - Head Exam Head Exam: NORMOCEPHALIC - Eye Exam Eye Exam: Scleral icterus - ENT Exam ENT Exam: Mucous Membranes Moist - Neck Exam Neck Exam: Normal Inspection - Respiratory Exam Respiratory Exam: NORMAL BREATHING PATTERN. absent: Respiratory Distress - Cardiovascular Exam Cardiovascular Exam: +S1, +S2 - GI/Abdominal Exam GI & Abdominal Exam: Distended, Soft, Normal Bowel Sounds. absent: Guarding, Rebound - Extremities Exam Extremities Exam: Pedal Edema. absent: Calf Tenderness - Neurological Exam Neurological Exam: Altered (lethargic) - Skin Skin Exam: Dry, Warm Additional comments: jaundice Assessment and Plan - Assessment and Plan (Free Text) Assessment: Assessment: Decompensated Liver Failure S/P Abdominal doppler: portal angela thrombosis Oral Thrush likely secondary to high dose oral steroids, patient did have endoscopy recently had only portal hypertensive gastropathy and a grade 1 esophageal varices. 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
[2017-04-16 08:29] LABS: INR 1.87 (0.93-1.08); PARTIAL THROMBOPLASTIN TIME 46.4 Seconds (23.7-30.8); PLATELET COUNT 21 10^3/uL (120.0-450.0); PROTHROMBIN TIME 20.2 Seconds (9.9-11.8)
[2017-04-16 08:30] LABS: ALB/GLOB RATIO 1.1 (1.1-1.8); ALBUMIN 2.5 g/dL (3.0-4.8); CALCIUM 8.8 mg/dL (8.4-10.5); MAGNESIUM 2.2 mg/dL (1.7-2.2)
[2017-04-16] MEDS: Nystatin 100,000 Units/ml Oral Susp 5 ml UD PO SCH ×5 (09:40→21:56)
[2017-04-16] MEDS: Morphine 2 mg/ml ISec IVP PRN (09:49)
--- NOTE | 2017-04-16 11:12 | CP.PCM.CON ---
History of Present Illness - History of Present Illness History of Present Illness: 66 year old male with PMH of right leg ulcer with associated cellulitis, with Serratia growing from the wound, HTN, DM, CAD S/P PCI, chronic renal failure, history of liver cirrhosis with portal gastropathy and esophageal varices was initially admitted for worsening abdominal distention and was found to have transudative ascites and paracentesis was done. He has been having some loose bowel movement and stool for C. diff. showed positive antigen. Infectious Diseases consult is requested to further evaluate and manage. Currently the patient denies fever or chills, no nausea or vomiting, occasional abdominal pain (left lower quadrant, crampy, associated with bowel movement), no headache or dizziness, no dysuria, no chest pain, no SOB at rest, no dysphagia, no sore throat, no cough or colds. Review of Systems - Review of Systems All systems: reviewed and no additional remarkable complaints except (as per HPI ) Past Patient History - Infectious Disease Hx of Infectious Diseases: None - Tetanus Immunizations Tetanus Immunization: Unknown - Past Medical History & Family History Past Medical History?: Yes - Past Social History Smoking Status: Former Smoker - CARDIAC Hx Cardiac Disorders: Yes (mi with stents) Hx Congestive Heart Failure: Yes Hx Hypertension: Yes - PULMONARY Hx Respiratory Disorders: No - NEUROLOGICAL HX Cerebrovascular Accident: Yes (many years ago) - HEENT Hx HEENT Problems: No - RENAL Hx Chronic Kidney Disease: Yes Hx Dialysis: No - ENDOCRINE/METABOLIC Hx Diabetes Mellitus Type 2: Yes - HEMATOLOGICAL/ONCOLOGICAL Hx Blood Transfusions: Yes Hx Blood Transfusion Reaction: No - INTEGUMENTARY Hx Dermatological Problems: Yes Other/Comment: white and pink skin discolorations both hands and r arm began about 7 months ago cause unknown, brown discolorations ble,dry brown scabbed wound posterior right lowr leg starts below calf to lower leg then dry brown skin to posterior ankle, +2 edema right ankle, dry flakey skin both feet - MUSCULOSKELETAL/RHEUMATOLOGICAL Hx Falls: Yes (recent frequent) - GASTROINTESTINAL Hx Gastrointestinal Disorders: Yes Hx Gastroesophageal Reflux: Yes Hx Liver Failure: (cirrhosis, mild ascites) Other/Comment: colonoscopy 07/17/2016 dx diverticulitis, colitis, rectal polyp - GENITOURINARY/GYNECOLOGICAL Hx Genitourinary Disorders: No - PSYCHIATRIC Hx Psychophysiologic Disorder: No Hx Substance Use: No - SURGICAL HISTORY Hx Coronary Stent: Yes (ptca with stent) - ANESTHESIA Hx Anesthesia: Yes Hx Anesthesia Reactions: No Hx Malignant Hyperthermia: No Meds Allergies/Adverse Reactions: Allergies Allergy/AdvReac Type Severity Reaction Status Date / Time No Known Allergies Allergy Verified 04/04/17 20:21 - Medications Medications: Current Medications Aspirin (Aspirin Chewable) 81 mg PO DAILY [facility] Last Admin: 04/10/17 13:02 Dose: Not Given Ergocalciferol (Drisdol 50,000 Intl Units Cap) 1 cap PO Q7D [facility] Stop: 05/25/17 12:46 Last Admin: 04/13/17 16:23 Dose: 1 cap Famotidine (Pepcid) 20 mg IVP BID [facility] Last Admin: 04/15/17 17:16 Dose: 20 mg Guaifenesin (Robitussin) 100 mg PO Q4H PRN PRN Reason: Cough Hydrocortisone (Cortizone 1% Oint) 0 gm TOP BID [facility] Last Admin: 04/15/17 17:16 Dose: 1 applic Iron Sucrose 100 mg/ Sodium (Chloride) 105 mls @ 210 mls/hr IVPB DAILY [facility] Stop: 04/17/17 10:01 Last Admin: 04/15/17 10:22 Dose: 210 mls/hr Metronidazole (Flagyl) 500 mg PO Q8 LEIGHANN PRN Reason: Protocol Stop: 04/25/17 14:01 Last Admin: 04/15/17 15:16 Dose: 500 mg Morphine Sulfate (Morphine) 2 mg IVP Q4H PRN PRN Reason: Pain, severe (8-10) Last Admin: 04/15/17 11:12 Dose: 2 mg Multi-Ingredient Ointment (Prep-Hem) 1 ea TOP Q8H [facility] Last Admin: 04/15/17 17:16 Dose: 1 applic Nystatin (Nystatin Oral Susp) 5 ml PO QID [facility] Stop: 04/18/17 10:01 Last Admin: 04/15/17 17:16 Dose: 5 ml Ondansetron HCl (Zofran Inj) 4 mg IVP Q8H PRN PRN Reason: Nausea/Vomiting Sevelamer HCl (Renagel) 2,400 mg PO TID [facility] Last Admin: 04/15/17 17:17 Dose: 2,400 mg Physical Exam - Constitutional Appears: Non-toxic, No Acute Distress - Head Exam Head Exam: NORMAL INSPECTION - ENT Exam ENT Exam: Mucous Membranes Moist - Neck Exam Neck exam: Negative for: Lymphadenopathy, Meningismus - Respiratory Exam Respiratory Exam: Decreased Breath Sounds - Cardiovascular Exam Cardiovascular Exam: +S1, +S2 - GI/Abdominal Exam GI & Abdominal Exam: Distended, Soft, Tenderness (mild, left lower quadrant). absent: Firm, Guarding, Rigid Results - Vital Signs Recent Vital Signs: Last Vital Signs Temp 98.5 F 04/15/17 16:51 Pulse 73 04/15/17 16:51 Resp 18 04/15/17 16:51 BP 97/57 L 04/15/17 16:51 Pulse Ox 100 04/15/17 06:00 - Labs Result Diagrams: 04/16/17 07:40 04/16/17 07:40 Labs: Laboratory Results - last 24 hr 04/12/17 04/14/17 04/14/17 15:55 21:38 22:00 WBC RBC Hgb Hct MCV MCH MCHC RDW Plt Count Gran % Lymph % (Auto) [place] % (Auto) Eos % (Auto) Baso % (Auto) Gran # Lymph # [place] # Eos # Baso # Platelet Evaluation Sodium Potassium Chloride Carbon Dioxide Anion Gap BUN Creatinine Est GFR ( Amer) Est GFR (Non-Af Amer) POC Glucose (mg/dL) 115 H Random Glucose Calcium Phosphorus Magnesium Total Bilirubin AST ALT Alkaline Phosphatase Ammonia Troponin I 0.07 Total Protein Albumin Globulin Albumin/Globulin Ratio Peritoneal Lipase 53.0 H 04/15/17 04/15/17 04/15/17 07:25 07:30 07:30 WBC 4.5 RBC 3.17 L Hgb 8.9 L Hct 25.9 L MCV 81.7 MCH 28.1 MCHC 34.4 RDW 17.2 H Plt Count 21 L* Gran % 84.2 H Lymph % (Auto) 9.1 L [place] % (Auto) 4.9 Eos % (Auto) 1.8 Baso % (Auto) 0.0 Gran # 3.78 Lymph # 0.4 L [place] # 0.2 Eos # 0.1 Baso # 0.00 Platelet Evaluation 24 Sodium 137 Potassium 4.9 Chloride 103 Carbon Dioxide 18 L Anion Gap 21 H BUN 131 H* Creatinine 7.3 H Est GFR ( Amer) 9 Est GFR (Non-Af Amer) 8 POC Glucose (mg/dL) 111 H Random Glucose 91 Calcium 9.1 Phosphorus 8.9 H Magnesium 2.4 H Total Bilirubin 5.1 H AST 96 H ALT 202 H Alkaline Phosphatase 124 Ammonia Troponin I 0.08 Total Protein 5.0 L Albumin 2.5 L Globulin 2.6 Albumin/Globulin Ratio 1.0 L Peritoneal Lipase 04/15/17 04/15/17 04/15/17 10:00 13:55 16:15 WBC RBC Hgb Hct MCV MCH MCHC RDW Plt Count Gran % Lymph % (Auto) [place] % (Auto) Eos % (Auto) Baso % (Auto) Gran # Lymph # [place] # Eos # Baso # Platelet Evaluation Sodium Potassium Chloride Carbon Dioxide Anion Gap BUN Creatinine Est GFR ( Amer) Est GFR (Non-Af Amer) POC Glucose (mg/dL) 122 H 149 H Random Glucose Calcium Phosphorus Magnesium Total Bilirubin AST ALT Alkaline Phosphatase Ammonia < 9 L Troponin I Total Protein Albumin Globulin Albumin/Globulin Ratio Peritoneal Lipase Assessment & Plan - Assessment and Plan (Free Text) Plan: Assessment Consider C. diff. associated diarrhea history of liver cirrhosis with portal gastropathy and esophageal varices history of right leg ulcer with associated cellulitis, with Serratia growing from the wound HTN DM CAD S/P PCI chronic renal failure Plan started patient on PO Flagyl and will monitor clinical response; should target 10 days of therapy
[2017-04-16] MEDS ORDERED: Prostat 15 g packet GT SCH (14:00)
--- NOTE | 2017-04-16 15:05 | CP.PCM.PN ---
Subjective - Date & Time of Evaluation Date of Evaluation: 04/16/17 Time of Evaluation: 11:15 - Subjective Subjective: Follow up Nephrology Consultation: Assessment: worsening s/p Kidney Biopsy: Acute Tubulointerstitial Nephritis (recent antibiotics as bactrim+levaquin) and secondary membranous nephroapthy (? etiology) which is Anti-PLA2R neg and with predominant IgG4 deposition, full house pattern. now favors lupus nephritis as with DNA Ab+, hypocomplementemia Acute Kidney Injury (N17.9) likely due to progression of underlying renal disease and/or possible superimposed hepatorenal syndrome (difficult to prove or exclude) started on dialysis 04/05/17 Intra-dialyctic hypotension: concerns for allergic response to polysulphone dialyzer. not getting IV heparin except lock for catheter. has been on IV iron in past. not much UF on HD. Chronic Kidney Disease (N18.3) Stage 3 (baseline cr 1.4-1.9) with 600 mg proteinuria (R80.9) likely due to KELLI in 2016 Iron def Anemia (D64.9), Hyperphosphatemia (E83.39), HTN (I12.9), DM, CAD, Vitiligo, Cirrhosis with portal HTN and ascites, Portal vein thrombosis mediastinal and upper abdomen lymphadenopathy Vitamin D def with secondary hyperparathyroidism Thombocytopenia refractory ascites s/p 16 L fluid removed Plan no evidence of renal recovery as of yet, plan for dialysis tomorrow. Will use Exeltra dialyzer which is a cellulose triacetate membrane dialyzer. d/c IV iron. no heparin locks either. hold BP meds due to low BP continue with renagel 2400 mg TID with meals. continue with weekly vit D and weekly aransep 40 mcg management of cirrhosis: as per GI and primary team. consideration for transfer to tertiary care center is being pursued. Monitor Input/Output, daily weights and renal function with basic metabolic panel. Dose meds/antibiotics for reduced GFR <10 and dialysis status. Avoid fleets enema/magnesium based laxatives. Avoid nephrotoxins/NSAIDs/ iodinated contrast ( unless needed emergently) Glycemic control. Further work up/management as per primary team, GI, ID. d/w primary team. s/p pulse steroid 1000 mg x 3 doses and thereafter prednisone 60 mg/day, cellcept 1000 mg bid lowered to 500 bid: all eventually stopped 04/12/17 as pt not tolerating it with concerns for low plat count, melena, GI symptoms/side effects and risk of infection Thanks for allowing me to participate in care of your patient. Will follow patient with you. Please call if any Qs. Dr Paco Cadet Office: [phone] HPI: Pt is a 66 y/o M with hx of diabetes Mellitus, hypertension, CAD, vitiligo , mediastinal lymphadenopathy (seen by heme/onc) cirrhosis of unknown etiology with portal HTN and recurrent ascites (s/p EGD and colonoscopy) and recent hospitalization for ascites, KELLI on CKD 3 (cr 1.3-1.9 range) with peaked creatinine 4-5 range s/p kidney bipsy: ATIN and secondary membranous neprhopathy (unknown trigger) pulse steroids 500 mg daily x 3 doses then 60 mg PO prednisone daily presented with complaints of abdomen distension and found to have worsening KELLI hence renal consulted. ROS: Feels sick. c/o loose stool. denies CP/SOB. c/o abdomen swelling and burning sensation. 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 mostly not tolerating dialysis due to severe hypotensive episodes on dialysis. had HD for 2 hr yesterday but BP dropped to 70s Physical Examination: General Appearance: in no acute respiratory distress, hard of hearing. somewhat sleepy but arousable Vitals reviewed and noted as below Lungs: Normal respiratory rate/effort. Breath sounds bilateral decreased at bases Heart: Normal rate. s1s2 normal. No rub or gallop. Extremities: no edema. No varicose veins Neurological: Patient is somewhat sleepy but arousable. oriented x 2 Skin: Warm and dry. Normal turgor. No rash. Palpitation: Normal elasticity for age. has vitiligo patches in hand Abdomen: Abdomen is soft/distended Bowel sounds +. There is no abdominal tenderness, no guarding/rigidity no organomegaly. : kidney or bladder not palpable but limited exam due to ascites Labs/imaging/EKG reviewed. Past medical history, past surgical history, family history, social history, allergy reviewed and noted as below Family hx: no hx of CKD. Rest non-contributory. daughter had reported hx of lupus in family WORK up Renal sono: b/l echogenic kidneys, cirrhosis PSA 0.8 Ferriitn /TSAT 54/15% IgG 1300 C3: 58 C4: 10 Pablo/lambda 1.3 SAEED/cryoglobulin/HIV/Hep B and C neg UA: large blood with small protein, 238 mg albuminuria DNA ab + IgG4 level: 95 Objective - Vital Signs/Intake and Output Vital Signs (last 24 hours): Temp Pulse Resp BP Pulse Ox 98.1 F 76 18 116/68 93 L 04/16/17 12:00 04/16/17 12:00 04/16/17 12:00 04/16/17 12:00 04/16/17 05:57 Intake and Output: 04/16/17 04/16/17 06:59 18:59 Intake Total 900 Output Total 0 Balance 900 - Medications Medications: Current Medications Aspirin (Aspirin Chewable) 81 mg PO DAILY [facility] Last Admin: 04/10/17 13:02 Dose: Not Given Ergocalciferol (Drisdol 50,000 Intl Units Cap) 1 cap PO Q7D [facility] Stop: 05/25/17 12:46 Last Admin: 04/13/17 16:23 Dose: 1 cap Famotidine (Pepcid) 20 mg IVP BID [facility] Last Admin: 04/16/17 09:40 Dose: 20 mg Guaifenesin (Robitussin) 100 mg PO Q4H PRN PRN Reason: Cough Hydrocortisone (Cortizone 1% Oint) 0 gm TOP BID [facility] Last Admin: 04/16/17 09:40 Dose: 1 applic Albumin Human (Albumin Human 25% (25 Gm/100 Ml)) 100 mls @ 1 mls/min IVPB DAILY [facility] Stop: 04/18/17 11:39 Last Admin: 04/16/17 13:25 Dose: 1 mls/min Metronidazole (Flagyl) 500 mg PO Q8 LEIGHANN PRN Reason: Protocol Stop: 04/25/17 14:01 Last Admin: 04/16/17 13:23 Dose: 500 mg Morphine Sulfate (Morphine) 2 mg IVP Q4H PRN PRN Reason: Pain, severe (8-10) Last Admin: 04/16/17 09:49 Dose: 2 mg Multi-Ingredient Ointment (Prep-Hem) 1 ea TOP Q8H [facility] Last Admin: 04/16/17 09:40 Dose: Not Given Nystatin (Nystatin Oral Susp) 5 ml PO QID [facility] Stop: 04/18/17 10:01 Last Admin: 04/16/17 13:24 Dose: 5 ml Ondansetron HCl (Zofran Inj) 4 mg IVP Q8H PRN PRN Reason: Nausea/Vomiting Sevelamer HCl (Renagel) 2,400 mg PO TID [facility] Last Admin: 04/16/17 13:23 Dose: 2,400 mg - Labs Labs: 04/16/17 07:40 04/16/17 07:40 PT 20.2 Seconds (9.9-11.8) H 04/16/17 07:40 INR 1.87 (0.93-1.08) H 04/16/17 07:40 APTT 46.4 Seconds (23.7-30.8) H 04/16/17 07:40
[2017-04-16] MEDS: Prostat 15 g packet PO SCH ×2 (17:47→20:00)
--- NOTE | 2017-04-16 18:19 | CP.PCM.PN ---
<BEENA MCKINNEY - Last Filed: 04/16/17 18:07> Subjective - Date & Time of Evaluation Date of Evaluation: 04/16/17 Time of Evaluation: 06:45 - Subjective Subjective: Beena Mckinney DO PGY1 - Internal Medicine Progress Note - [place] Service Patient seen and evaluated at the bedside. Today is hospital day 13. Patient's pain is improving, tolerating PO. Patient AOx3, in NAD, and was not in any pain during the encounter. Patient denies any SOB, dizziness, fever, or chills. Objective - Vital Signs/Intake and Output Vital Signs (last 24 hours): Temp Pulse Resp BP Pulse Ox 98 F 101 H 20 122/83 93 L 04/16/17 16:12 04/16/17 17:29 04/16/17 16:12 04/16/17 16:12 04/16/17 05:57 Intake and Output: 04/16/17 04/16/17 06:59 18:59 Intake Total 900 0 Output Total 0 Balance 900 0 - Medications Medications: Current Medications Aspirin (Aspirin Chewable) 81 mg PO DAILY [facility] Last Admin: 04/10/17 13:02 Dose: Not Given Darbepoetin Lio (Aranesp) 60 mcg IVP ONCE ONE Stop: 04/21/17 06:01 Ergocalciferol (Drisdol 50,000 Intl Units Cap) 1 cap PO Q7D [facility] Stop: 05/25/17 12:46 Last Admin: 04/13/17 16:23 Dose: 1 cap Famotidine (Pepcid) 20 mg IVP BID [facility] Last Admin: 04/16/17 17:47 Dose: 20 mg Guaifenesin (Robitussin) 100 mg PO Q4H PRN PRN Reason: Cough Hydrocortisone (Cortizone 1% Oint) 0 gm TOP BID [facility] Last Admin: 04/16/17 17:47 Dose: 1 applic Albumin Human (Albumin Human 25% (25 Gm/100 Ml)) 100 mls @ 1 mls/min IVPB DAILY [facility] Stop: 04/18/17 11:39 Last Admin: 04/16/17 13:25 Dose: 1 mls/min Metronidazole (Flagyl) 500 mg PO Q8 LEIGHANN PRN Reason: Protocol Stop: 04/25/17 14:01 Last Admin: 04/16/17 13:23 Dose: 500 mg Morphine Sulfate (Morphine) 2 mg IVP Q4H PRN PRN Reason: Pain, severe (8-10) Last Admin: 04/16/17 09:49 Dose: 2 mg Multi-Ingredient Ointment (Prep-Hem) 1 ea TOP Q8H [facility] Last Admin: 04/16/17 09:40 Dose: Not Given Nystatin (Nystatin Oral Susp) 5 ml PO QID [facility] Stop: 04/18/17 10:01 Last Admin: 04/16/17 17:47 Dose: 5 ml Ondansetron HCl (Zofran Inj) 4 mg IVP Q8H PRN PRN Reason: Nausea/Vomiting Sevelamer HCl (Renagel) 2,400 mg PO TID [facility] Last Admin: 04/16/17 13:23 Dose: 2,400 mg - Labs Labs: 04/16/17 07:40 04/16/17 07:40 PT 20.2 Seconds (9.9-11.8) H 04/16/17 07:40 INR 1.87 (0.93-1.08) H 04/16/17 07:40 APTT 46.4 Seconds (23.7-30.8) H 04/16/17 07:40 - Constitutional Appears: Non-toxic, No Acute Distress, Chronically Ill - Head Exam Head Exam: ATRAUMATIC, NORMOCEPHALIC - Eye Exam Eye Exam: EOMI, Normal appearance - ENT Exam ENT Exam: Mucous Membranes Moist - Respiratory Exam Respiratory Exam: Clear to Ausculation Bilateral. absent: Rales, Rhonchi, Wheezes - Cardiovascular Exam Cardiovascular Exam: RRR, +S1, +S2 - GI/Abdominal Exam GI & Abdominal Exam: Distended, Soft, Normal Bowel Sounds. absent: Tenderness Additional comments: Positive fluid wave. - Back Exam Back Exam: absent: CVA tenderness (L), CVA tenderness (R) - Neurological Exam Neurological Exam: Alert, Awake - Psychiatric Exam Psychiatric exam: Normal Affect, Normal Mood - Skin Skin Exam: Dry, Intact Assessment and Plan - Assessment and Plan (Free Text) Assessment: 66 year old male with a PMH of cirrhosis, CKD, HTN, CAD, and recent AIN on PO steroids, who presented with worsening ascites, subsequently found to have an KELLI and going into renal failure, started on HD through dialysis catheter, then found to have portal vein thrombosis. Plan: 1. 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 Liver cirrhosis of unclear etiology with recurrent ascites - MELD 33, DF 36.6 - Likely multifactorial from about 12 years of heavy binge drinking from 1972- 1984 per daughter, as well some form of multi-system autoimmune disease such as seronegative Lupus or IgG4 related disease - GI following, appreciate recs; discussed possibility of transfer to [place] for liver transplant, will start that process, meanwhile, optimize and stabilize other medical conditions - Low ammonia so no xifaxan or lactulose - Pending albumin from ascitic fluid 3. Portal venous thrombosis - US showed no flow through portal vein - Discussed this at length with GI and Hematology consultants, given thrombocytopenia and coagulopathy at this time will not start on heparin drip, discussed with patient and daughter extensively as well - Hematology on consult, appreciate all recs 4. Bacteremia and diarrhea - ID consulted for this complicated patient, appreciate all recs - Started on PO flagyl D2 for possible C. diff related diarrhea - C. Diff antigen positive and tox negative, possibly false negative given low specificity (~75%), recent diarrhea from lactulose use - Blood cultures positive 1/2 + for G+ cocci - Afebrile with no leukocytosis 5. Anemia and thrombocytopenia - Acutely worsening - Likely secondary to bone marrow suppression from heavy steroid dosing and cellcept for AIN, currently off these as per above, or possible from other medication, discontinued protonix, or even possibly HIT from heparin used during HD, HIT panel ordered - Ordered peripheral smear, direct and indirect chante - Ordered one unit of PRBCs after type and cross - Hem/onc consulted, appreciate recs - Discontinue Venofer, as per nephro - Monitoring closely for signs of bleeding 6. Hemorrhoids with rectal pain - improved - Cont prep H 7. Dysphagia with thrush - Continue PO nystatin swish and swallow - Continue carafate - Continue pepcid BID 8. Hx of Hypertension - All meds off due to continued hypotension during dialysis - Monitoring 9. Vitamin D deficiency - Cont D2 5k IUs Qwk Patient was seen and examined and case was discussed at length with attending Dr. Madrid. <Juan Carlos Madrid - Last Filed: 04/19/17 11:53> Subjective - Subjective Subjective: Patient with noted deterioration and debilitation. Objective - Vital Signs/Intake and Output Vital Signs (last 24 hours): Temp Pulse Resp BP Pulse Ox 98 F 87 26 H 89/35 L 85 L 04/17/17 02:35 04/17/17 08:03 04/17/17 08:03 04/17/17 08:00 04/17/17 08:00 - Labs Labs: 04/17/17 07:00 04/17/17 07:00 PT 24.4 Seconds (9.9-11.8) H 04/17/17 07:00 INR 2.26 (0.93-1.08) H 04/17/17 07:00 APTT 74.2 Seconds (23.7-30.8) H* 04/17/17 07:00 Attending/Attestation - Attestation I have personally seen and examined this patient.: Yes I have fully participated in the care of the patient.: Yes I have reviewed all pertinent clinical information, including history, physical exam and plan: Yes Notes (Text): 04/19/17 11:52 This patient with deteriioration and multisystme failure. Medical record note made by resident adjusted after discussion with my direction and input after patient personally seen and examined by me. I have reviewed the chart and agree that the record accurately reflects my personal performance of the history , physical, data review and medical decision making for the course of this patient.
[2017-04-16 22:44] LABS: EOS % 0.4 % (1.5-5.0); GRAN % 81.4 % (50.0-68.0); LYMPH # 0.2 (1.2-3.4); LYMPH % 9.3 % (22.0-35.0); MEAN CELL VOLUME 82.4 fL (80.0-105.0); MEAN CORPUSCULAR HEMOGLOBIN 28.1 pg (25.0-35.0); MEAN CORPUSCULAR HGB CONC 34.1 g/dl (31.0-37.0); MONO # 0.2 (0.1-0.6); MONO % 8.9 % (1.0-6.0); RED CELL DISTRIBUTION WIDTH 17.7 % (11.5-14.5)
[2017-04-16] MEDS ORDERED: Dextrose 5%/0.45% NS 1,000 ML IV SCH (22:45)
[2017-04-16 22:50] LABS: HEMOGLOBIN 5.9 gm/dL (14.0-18.0); PLATELET COUNT 8 10^3/uL (120.0-450.0); WHITE BLOOD COUNT 2.5 10^3/ul (4.5-11.0)
[2017-04-16 22:56] LABS: ALB/GLOB RATIO 1.1 (1.1-1.8); ALBUMIN 1.8 g/dL (3.0-4.8); CALCIUM 8.2 mg/dL (8.4-10.5)
[2017-04-16 23:07] LABS: TROPONIN I 0.07 ng/mL
[2017-04-16 23:15] LABS: MEAN CELL VOLUME 83.3 fL (80.0-105.0); MEAN CORPUSCULAR HEMOGLOBIN 27.9 pg (25.0-35.0); MEAN CORPUSCULAR HGB CONC 33.5 g/dl (31.0-37.0); RBC 2.33 10^6/uL (3.5-6.1); RED CELL DISTRIBUTION WIDTH 17.9 % (11.5-14.5)
[2017-04-16] MEDS ORDERED: Sodium Chloride 0.9% 1,000 ML IV STA (23:37)
[2017-04-16 23:41] LABS: HEMOGLOBIN 6.5 gm/dL (14.0-18.0); PLATELET COUNT 13 10^3/uL (120.0-450.0); WHITE BLOOD COUNT 2.1 10^3/ul (4.5-11.0)
[2017-04-16 23:43] LABS: ALB/GLOB RATIO 1.1 (1.1-1.8); CALCIUM 8.5 mg/dL (8.4-10.5)
--- NOTE | 2017-04-16 23:48 | CP.PCM.PN ---
Subjective - Date & Time of Evaluation Date of Evaluation: 04/16/17 Time of Evaluation: 23:44 - Subjective Subjective: DRAFT: Patient was seen when attend to a RAPID RESPONSE announcement. Patient awake, did not answer when asked if he had sob, CP, nausea, palpitation. FSBS was 61 and Blood pressure was 92/ After bolus of 500 CC NS. BP came up to 106/ But it dropped to 83/ Recently has had paracentesis done when 7L and 9L fluid was extracted. 66 year old male was admitted with progressive worsening of abdominal distension. Has PMH of CKD, Cirrhosis, CAD, HTN, S/P Stents , NH, DM II. Objective - Vital Signs/Intake and Output Vital Signs (last 24 hours): Temp Pulse Resp BP Pulse Ox 98.5 F 103 H 20 106/67 93 L 04/16/17 18:20 04/16/17 18:20 04/16/17 18:20 04/16/17 18:20 04/16/17 05:57 Intake and Output: 04/16/17 04/17/17 18:59 06:59 Intake Total 350 Balance 350 - Medications Medications: Current Medications Aspirin (Aspirin Chewable) 81 mg PO DAILY [facility] Last Admin: 04/10/17 13:02 Dose: Not Given Darbepoetin Lio (Aranesp) 60 mcg IVP ONCE ONE Stop: 04/21/17 06:01 Ergocalciferol (Drisdol 50,000 Intl Units Cap) 1 cap PO Q7D [facility] Stop: 05/25/17 12:46 Last Admin: 04/13/17 16:23 Dose: 1 cap Famotidine (Pepcid) 20 mg IVP BID [facility] Last Admin: 04/16/17 17:47 Dose: 20 mg Guaifenesin (Robitussin) 100 mg PO Q4H PRN PRN Reason: Cough Hydrocortisone (Cortizone 1% Oint) 0 gm TOP BID [facility] Last Admin: 04/16/17 17:47 Dose: 1 applic Albumin Human (Albumin Human 25% (25 Gm/100 Ml)) 100 mls @ 1 mls/min IVPB DAILY [facility] Stop: 04/18/17 11:39 Last Admin: 04/16/17 13:25 Dose: 1 mls/min Dextrose/Sodium Chloride (Dextrose 5%/0.45% Ns 1000 Ml) 1,000 mls @ 80 mls/hr IV .[id number] LEIGHANN Stop: 04/17/17 11:14 Last Admin: 04/16/17 22:59 Dose: 80 mls/hr Sodium Chloride (Sodium Chloride 0.9%) 1,000 mls @ 999 mls/hr IV .Q1H1M STA Stop: 04/17/17 00:37 Metronidazole (Flagyl) 500 mg PO Q8 LEIGHANN PRN Reason: Protocol Stop: 04/25/17 14:01 Last Admin: 04/16/17 21:56 Dose: Not Given Morphine Sulfate (Morphine) 2 mg IVP Q4H PRN PRN Reason: Pain, severe (8-10) Last Admin: 04/16/17 09:49 Dose: 2 mg Multi-Ingredient Ointment (Prep-Hem) 1 ea TOP Q8H [facility] Last Admin: 04/16/17 18:29 Dose: Not Given Nystatin (Nystatin Oral Susp) 5 ml PO QID [facility] Stop: 04/18/17 10:01 Last Admin: 04/16/17 21:56 Dose: Not Given Ondansetron HCl (Zofran Inj) 4 mg IVP Q8H PRN PRN Reason: Nausea/Vomiting Sevelamer HCl (Renagel) 2,400 mg PO TID [facility] Last Admin: 04/16/17 18:41 Dose: Not Given - Labs Labs: 04/16/17 23:13 04/16/17 22:35 PT 20.2 Seconds (9.9-11.8) H 04/16/17 07:40 INR 1.87 (0.93-1.08) H 04/16/17 07:40 APTT 46.4 Seconds (23.7-30.8) H 04/16/17 07:40 Microbiology Studies 04/14/17 12:00 Blood Culture - Preliminary Blood-During Dialysis NO GROWTH AFTER 48 HOURS 04/12/17 15:55 Gram Stain - Final Ascitic Fluid Anaerobic Culture - Final NO ANAEROBES ISOLATED. Body Fluid Culture - Final No growth. Fungal Culture - Preliminary Lab Studies 04/16/17 04/16/17 04/16/17 Range/Units 23:13 23:13 23:13 WBC 2.1 L* (4.5-11.0) 10^3/ul RBC 2.33 L (3.5-6.1) 10^6/uL Hgb 6.5 L* (14.0-18.0) gm/dL Hct 19.4 L* (42.0-52.0) % MCV 83.3 (80.0-105.0) fL MCH 27.9 (25.0-35.0) pg MCHC 33.5 (31.0-37.0) g/dl RDW 17.9 H (11.5-14.5) % Plt Count 13 L* (120.0-450.0) 10^3/uL Gran % (50.0-68.0) % Lymph % (Auto) (22.0-35.0) % Swisher % (Auto) (1.0-6.0) % Eos % (Auto) (1.5-5.0) % Baso % (Auto) (0.0-3.0) % Gran # (1.4-6.5) Lymph # (1.2-3.4) Swisher # (0.1-0.6) Eos # (0.0-0.7) Baso # (0.0-2.0) K/mm3 Retic Count (0.5-1.5) % PT (9.9-11.8) Seconds INR (0.93-1.08) APTT (23.7-30.8) Seconds Sodium (132-148) mmol/L Potassium (3.6-5.0) mmol/L Chloride (95-110) mmol/L Carbon Dioxide (21-33) mmol/L Anion Gap (10-20) BUN (7-21) mg/dL Creatinine (0.5-1.4) mg/dL Est GFR ( Amer) Est GFR (Non-Af Amer) POC Glucose (mg/dL) (65-110) mg/dL Random Glucose (70-110) mg/dL Lactic Acid 7.3 H* (0.7-2.1) mmol/L Calcium (8.4-10.5) mg/dL Phosphorus (2.5-4.5) mg/dL Magnesium (1.7-2.2) mg/dL Iron (45-180) ug/dL Total Bilirubin (0.2-1.3) mg/dL AST (15-59) U/L ALT (7-56) U/L Alkaline Phosphatase (38-133) U/L Ammonia 118 H (9-33) umol/L Troponin I ng/mL Total Protein (5.8-8.3) g/dL Albumin (3.0-4.8) g/dL Globulin gm/dL Albumin/Globulin Ratio (1.1-1.8) Fluid Albumin g/dL Blood Type Antibody Screen KIKE, Poly Interpret (NEGATIVE) Indirect Antiglob Test Crossmatch BBK History Checked 04/16/17 04/16/17 04/16/17 Range/Units 22:58 22:35 22:35 WBC 2.5 L* D (4.5-11.0) 10^3/ul RBC 2.10 L (3.5-6.1) 10^6/uL Hgb 5.9 L* D (14.0-18.0) gm/dL Hct 17.3 L* (42.0-52.0) % MCV 82.4 (80.0-105.0) fL MCH 28.1 (25.0-35.0) pg MCHC 34.1 (31.0-37.0) g/dl RDW 17.7 H (11.5-14.5) % Plt Count 8 L* (120.0-450.0) 10^3/uL Gran % 81.4 H (50.0-68.0) % Lymph % (Auto) 9.3 L (22.0-35.0) % Swisher % (Auto) 8.9 H (1.0-6.0) % Eos % (Auto) 0.4 L (1.5-5.0) % Baso % (Auto) 0.0 (0.0-3.0) % Gran # 2.00 (1.4-6.5) Lymph # 0.2 L (1.2-3.4) Swisher # 0.2 (0.1-0.6) Eos # 0.0 (0.0-0.7) Baso # 0.00 (0.0-2.0) K/mm3 Retic Count (0.5-1.5) % PT (9.9-11.8) Seconds INR (0.93-1.08) APTT (23.7-30.8) Seconds Sodium 135 (132-148) mmol/L Potassium 4.4 (3.6-5.0) mmol/L Chloride 104 (95-110) mmol/L Carbon Dioxide 15 L (21-33) mmol/L Anion Gap 20 (10-20) BUN 99 H (7-21) mg/dL Creatinine 7.0 H (0.5-1.4) mg/dL Est GFR ( Amer) 10 Est GFR (Non-Af Amer) 8 POC Glucose (mg/dL) 107 (65-110) mg/dL Random Glucose 215 H (70-110) mg/dL Lactic Acid (0.7-2.1) mmol/L Calcium 8.2 L (8.4-10.5) mg/dL Phosphorus (2.5-4.5) mg/dL Magnesium (1.7-2.2) mg/dL Iron (45-180) ug/dL Total Bilirubin 4.6 H (0.2-1.3) mg/dL AST 93 H (15-59) U/L ALT 125 H (7-56) U/L Alkaline Phosphatase 107 (38-133) U/L Ammonia (9-33) umol/L Troponin I 0.07 ng/mL Total Protein 3.5 L (5.8-8.3) g/dL Albumin 1.8 L (3.0-4.8) g/dL Globulin 1.7 gm/dL Albumin/Globulin Ratio 1.1 (1.1-1.8) Fluid Albumin g/dL Blood Type Antibody Screen KIEK, Poly Interpret (NEGATIVE) Indirect Antiglob Test Crossmatch BBK History Checked 04/16/17 04/16/17 04/16/17 Range/Units 22:09 21:54 21:09 WBC (4.5-11.0) 10^3/ul RBC (3.5-6.1) 10^6/uL Hgb (14.0-18.0) gm/dL Hct (42.0-52.0) % MCV (80.0-105.0) fL MCH (25.0-35.0) pg MCHC (31.0-37.0) g/dl RDW (11.5-14.5) % Plt Count (120.0-450.0) 10^3/uL Gran % (50.0-68.0) % Lymph % (Auto) (22.0-35.0) % Swisher % (Auto) (1.0-6.0) % Eos % (Auto) (1.5-5.0) % Baso % (Auto) (0.0-3.0) % Gran # (1.4-6.5) Lymph # (1.2-3.4) Swisher # (0.1-0.6) Eos # (0.0-0.7) Baso # (0.0-2.0) K/mm3 Retic Count (0.5-1.5) % PT (9.9-11.8) Seconds INR (0.93-1.08) APTT (23.7-30.8) Seconds Sodium (132-148) mmol/L Potassium (3.6-5.0) mmol/L Chloride (95-110) mmol/L Carbon Dioxide (21-33) mmol/L Anion Gap (10-20) BUN (7-21) mg/dL Creatinine (0.5-1.4) mg/dL Est GFR ( Amer) Est GFR (Non-Af Amer) POC Glucose (mg/dL) 68 70 61 L (65-110) mg/dL Random Glucose (70-110) mg/dL Lactic Acid (0.7-2.1) mmol/L Calcium (8.4-10.5) mg/dL Phosphorus (2.5-4.5) mg/dL Magnesium (1.7-2.2) mg/dL Iron (45-180) ug/dL Total Bilirubin (0.2-1.3) mg/dL AST (15-59) U/L ALT (7-56) U/L Alkaline Phosphatase (38-133) U/L Ammonia (9-33) umol/L Troponin I ng/mL Total Protein (5.8-8.3) g/dL Albumin (3.0-4.8) g/dL Globulin gm/dL Albumin/Globulin Ratio (1.1-1.8) Fluid Albumin g/dL Blood Type Antibody Screen KIKE, Poly Interpret (NEGATIVE) Indirect Antiglob Test Crossmatch BBK History Checked 04/16/17 04/16/1717 Range/Units 16:29 11:40 11:35 WBC (4.5-11.0) 10^3/ul RBC (3.5-6.1) 10^6/uL Hgb (14.0-18.0) gm/dL Hct (42.0-52.0) % MCV (80.0-105.0) fL MCH (25.0-35.0) pg MCHC (31.0-37.0) g/dl RDW (11.5-14.5) % Plt Count (120.0-450.0) 10^3/uL Gran % (50.0-68.0) % Lymph % (Auto) (22.0-35.0) % Swisher % (Auto) (1.0-6.0) % Eos % (Auto) (1.5-5.0) % Baso % (Auto) (0.0-3.0) % Gran # (1.4-6.5) Lymph # (1.2-3.4) Swisher # (0.1-0.6) Eos # (0.0-0.7) Baso # (0.0-2.0) K/mm3 Retic Count (0.5-1.5) % PT (9.9-11.8) Seconds INR (0.93-1.08) APTT (23.7-30.8) Seconds Sodium (132-148) mmol/L Potassium (3.6-5.0) mmol/L Chloride (95-110) mmol/L Carbon Dioxide (21-33) mmol/L Anion Gap (10-20) BUN (7-21) mg/dL Creatinine (0.5-1.4) mg/dL Est GFR ( Amer) Est GFR (Non-Af Amer) POC Glucose (mg/dL) 141 H 116 H (65-110) mg/dL Random Glucose (70-110) mg/dL Lactic Acid (0.7-2.1) mmol/L Calcium (8.4-10.5) mg/dL Phosphorus (2.5-4.5) mg/dL Magnesium (1.7-2.2) mg/dL Iron (45-180) ug/dL Total Bilirubin (0.2-1.3) mg/dL AST (15-59) U/L ALT (7-56) U/L Alkaline Phosphatase (38-133) U/L Ammonia (9-33) umol/L Troponin I ng/mL Total Protein (5.8-8.3) g/dL Albumin (3.0-4.8) g/dL Globulin gm/dL Albumin/Globulin Ratio (1.1-1.8) Fluid Albumin g/dL Blood Type O POSITIVE Antibody Screen Negative KIKE, Poly Interpret Negative (NEGATIVE) Indirect Antiglob Test Crossmatch See Detail BBK History Checked Patient has bt 04/16/17 04/16/17 04/16/17 Range/Units 10:30 07:52 07:40 WBC (4.5-11.0) 10^3/ul RBC (3.5-6.1) 10^6/uL Hgb (14.0-18.0) gm/dL Hct (42.0-52.0) % MCV (80.0-105.0) fL MCH (25.0-35.0) pg MCHC (31.0-37.0) g/dl RDW (11.5-14.5) % Plt Count (120.0-450.0) 10^3/uL Gran % (50.0-68.0) % Lymph % (Auto) (22.0-35.0) % Swisher % (Auto) (1.0-6.0) % Eos % (Auto) (1.5-5.0) % Baso % (Auto) (0.0-3.0) % Gran # (1.4-6.5) Lymph # (1.2-3.4) Swisher # (0.1-0.6) Eos # (0.0-0.7) Baso # (0.0-2.0) K/mm3 Retic Count 1.40 (0.5-1.5) % PT (9.9-11.8) Seconds INR (0.93-1.08) APTT (23.7-30.8) Seconds Sodium (132-148) mmol/L Potassium (3.6-5.0) mmol/L Chloride (95-110) mmol/L Carbon Dioxide (21-33) mmol/L Anion Gap (10-20) BUN (7-21) mg/dL Creatinine (0.5-1.4) mg/dL Est GFR ( Amer) Est GFR (Non-Af Amer) POC Glucose (mg/dL) 170 H (65-110) mg/dL Random Glucose (70-110) mg/dL Lactic Acid (0.7-2.1) mmol/L Calcium (8.4-10.5) mg/dL Phosphorus (2.5-4.5) mg/dL Magnesium (1.7-2.2) mg/dL Iron 56 (45-180) ug/dL Total Bilirubin (0.2-1.3) mg/dL AST (15-59) U/L ALT (7-56) U/L Alkaline Phosphatase (38-133) U/L Ammonia (9-33) umol/L Troponin I ng/mL Total Protein (5.8-8.3) g/dL Albumin (3.0-4.8) g/dL Globulin gm/dL Albumin/Globulin Ratio (1.1-1.8) Fluid Albumin g/dL Blood Type Antibody Screen KIKE, Poly Interpret (NEGATIVE) Indirect Antiglob Test Crossmatch BBK History Checked 04/16/17 04/16/17 04/16/17 Range/Units 07:40 07:40 07:40 WBC 3.6 L (4.5-11.0) 10^3/ul RBC 2.95 L (3.5-6.1) 10^6/uL Hgb 8.3 L (14.0-18.0) gm/dL Hct 24.1 L (42.0-52.0) % MCV 81.7 (80.0-105.0) fL MCH 28.1 (25.0-35.0) pg MCHC 34.4 (31.0-37.0) g/dl RDW 17.3 H (11.5-14.5) % Plt Count 21 L* (120.0-450.0) 10^3/uL Gran % 80.9 H (50.0-68.0) % Lymph % (Auto) 10.5 L (22.0-35.0) % Swisher % (Auto) 5.0 (1.0-6.0) % Eos % (Auto) 3.6 (1.5-5.0) % Baso % (Auto) 0.0 (0.0-3.0) % Gran # 2.92 (1.4-6.5) Lymph # 0.4 L (1.2-3.4) Swisher # 0.2 (0.1-0.6) Eos # 0.1 (0.0-0.7) Baso # 0.00 (0.0-2.0) K/mm3 Retic Count (0.5-1.5) % PT 20.2 H (9.9-11.8) Seconds INR 1.87 H (0.93-1.08) APTT 46.4 H (23.7-30.8) Seconds Sodium 137 (132-148) mmol/L Potassium 4.4 (3.6-5.0) mmol/L Chloride 103 (95-110) mmol/L Carbon Dioxide 21 (21-33) mmol/L Anion Gap 17 (10-20) BUN 103 H (7-21) mg/dL Creatinine 6.6 H (0.5-1.4) mg/dL Est GFR ( Amer) 10 Est GFR (Non-Af Amer) 8 POC Glucose (mg/dL) (65-110) mg/dL Random Glucose 108 (70-110) mg/dL Lactic Acid (0.7-2.1) mmol/L Calcium 8.8 (8.4-10.5) mg/dL Phosphorus 5.8 H (2.5-4.5) mg/dL Magnesium 2.2 (1.7-2.2) mg/dL Iron (45-180) ug/dL Total Bilirubin 5.0 H (0.2-1.3) mg/dL AST 89 H (15-59) U/L ALT 173 H (7-56) U/L Alkaline Phosphatase 122 (38-133) U/L Ammonia (9-33) umol/L Troponin I ng/mL Total Protein 4.7 L (5.8-8.3) g/dL Albumin 2.5 L (3.0-4.8) g/dL Globulin 2.2 gm/dL Albumin/Globulin Ratio 1.1 (1.1-1.8) Fluid Albumin g/dL Blood Type Antibody Screen KIKE, Poly Interpret (NEGATIVE) Indirect Antiglob Test Crossmatch BBK History Checked 04/12/17 Range/Units 15:55 WBC (4.5-11.0) 10^3/ul RBC (3.5-6.1) 10^6/uL Hgb (14.0-18.0) gm/dL Hct (42.0-52.0) % MCV (80.0-105.0) fL MCH (25.0-35.0) pg MCHC (31.0-37.0) g/dl RDW (11.5-14.5) % Plt Count (120.0-450.0) 10^3/uL Gran % (50.0-68.0) % Lymph % (Auto) (22.0-35.0) % Swisher % (Auto) (1.0-6.0) % Eos % (Auto) (1.5-5.0) % Baso % (Auto) (0.0-3.0) % Gran # (1.4-6.5) Lymph # (1.2-3.4) Swisher # (0.1-0.6) Eos # (0.0-0.7) Baso # (0.0-2.0) K/mm3 Retic Count (0.5-1.5) % PT (9.9-11.8) Seconds INR (0.93-1.08) APTT (23.7-30.8) Seconds Sodium (132-148) mmol/L Potassium (3.6-5.0) mmol/L Chloride (95-110) mmol/L Carbon Dioxide (21-33) mmol/L Anion Gap (10-20) BUN (7-21) mg/dL Creatinine (0.5-1.4) mg/dL Est GFR ( Amer) Est GFR (Non-Af Amer) POC Glucose (mg/dL) (65-110) mg/dL Random Glucose (70-110) mg/dL Lactic Acid (0.7-2.1) mmol/L Calcium (8.4-10.5) mg/dL Phosphorus (2.5-4.5) mg/dL Magnesium (1.7-2.2) mg/dL Iron (45-180) ug/dL Total Bilirubin (0.2-1.3) mg/dL AST (15-59) U/L ALT (7-56) U/L Alkaline Phosphatase (38-133) U/L Ammonia (9-33) umol/L Troponin I ng/mL Total Protein (5.8-8.3) g/dL Albumin (3.0-4.8) g/dL Globulin gm/dL Albumin/Globulin Ratio (1.1-1.8) Fluid Albumin 0.2 g/dL Blood Type Antibody Screen KKIE, Poly Interpret (NEGATIVE) Indirect Antiglob Test Crossmatch BBK History Checked - Constitutional Appears: Other (Ill looking.) - Head Exam Head Exam: ATRAUMATIC, NORMAL INSPECTION, NORMOCEPHALIC - Eye Exam Eye Exam: Normal appearance - ENT Exam ENT Exam: Mucous Membranes Dry - Neck Exam Neck Exam: Normal Inspection - Respiratory Exam Respiratory Exam: NORMAL BREATHING PATTERN - Cardiovascular Exam Cardiovascular Exam: absent: JVD - GI/Abdominal Exam GI & Abdominal Exam: Distended (++) - Rectal Exam Rectal Exam: Deferred - Exam Additional comments: Deferred. - Extremities Exam Extremities Exam: absent: Pedal Edema Additional comments: Right calf tenderness + - Back Exam Back Exam: NORMAL INSPECTION - Neurological Exam Neurological Exam: Alert, Awake - Psychiatric Exam Psychiatric exam: Normal Affect - Skin Skin Exam: Dry Assessment and Plan - Assessment and Plan (Free Text) Assessment: Hypoglycemia. Hypotension.-Hypovolemic? -R/O NH. -Septic? CKD DM II CAD. Cirrhosis. Anemia. S/P paracentesis. Plan: Normal saline bolus of 500 CC. D5 1/2 NS @ 80 CC/hr. Hydration. CBC,CMP,Trop, EKG,S.Lactate level, Ammonia level. S.Lactate came back elevated. Code sepsis protocols. Discussed with . Transfer to ICU. CRITICAL CARE TIME SPENT: 30 Minutes.
[2017-04-16 23:54] LABS: TROPONIN I 0.08 ng/mL
--- NOTE | 2017-04-16 23:55 | CP.PCM.PN ---
Subjective - Date & Time of Evaluation Date of Evaluation: 04/16/17 Time of Evaluation: 09:30 - Subjective Subjective: alert .oriented at the time of exam.tolerating the diet Objective - Vital Signs/Intake and Output Vital Signs (last 24 hours): Temp Pulse Resp BP Pulse Ox 98.5 F 103 H 20 106/67 93 L 04/16/17 18:20 04/16/17 18:20 04/16/17 18:20 04/16/17 18:20 04/16/17 05:57 Intake and Output: 04/16/17 04/17/17 18:59 06:59 Intake Total 350 Balance 350 - Medications Medications: Current Medications Aspirin (Aspirin Chewable) 81 mg PO DAILY [facility] Last Admin: 04/10/17 13:02 Dose: Not Given Darbepoetin Lio (Aranesp) 60 mcg IVP ONCE ONE Stop: 04/21/17 06:01 Ergocalciferol (Drisdol 50,000 Intl Units Cap) 1 cap PO Q7D [facility] Stop: 05/25/17 12:46 Last Admin: 04/13/17 16:23 Dose: 1 cap Famotidine (Pepcid) 20 mg IVP BID [facility] Last Admin: 04/16/17 17:47 Dose: 20 mg Guaifenesin (Robitussin) 100 mg PO Q4H PRN PRN Reason: Cough Hydrocortisone (Cortizone 1% Oint) 0 gm TOP BID [facility] Last Admin: 04/16/17 17:47 Dose: 1 applic Albumin Human (Albumin Human 25% (25 Gm/100 Ml)) 100 mls @ 1 mls/min IVPB DAILY LEIGHANN Stop: 04/18/17 11:39 Last Admin: 04/16/17 13:25 Dose: 1 mls/min Dextrose/Sodium Chloride (Dextrose 5%/0.45% Ns 1000 Ml) 1,000 mls @ 80 mls/hr IV .[id number] LEIGHANN Stop: 04/17/17 11:14 Last Admin: 04/16/17 22:59 Dose: 80 mls/hr Sodium Chloride (Sodium Chloride 0.9%) 1,000 mls @ 999 mls/hr IV .Q1H1M STA Stop: 04/17/17 00:37 Metronidazole (Flagyl) 500 mg PO Q8 LEIGHANN PRN Reason: Protocol Stop: 04/25/17 14:01 Last Admin: 04/16/17 21:56 Dose: Not Given Morphine Sulfate (Morphine) 2 mg IVP Q4H PRN PRN Reason: Pain, severe (8-10) Last Admin: 04/16/17 09:49 Dose: 2 mg Multi-Ingredient Ointment (Prep-Hem) 1 ea TOP Q8H [facility] Last Admin: 04/16/17 18:29 Dose: Not Given Nystatin (Nystatin Oral Susp) 5 ml PO QID [facility] Stop: 04/18/17 10:01 Last Admin: 04/16/17 21:56 Dose: Not Given Ondansetron HCl (Zofran Inj) 4 mg IVP Q8H PRN PRN Reason: Nausea/Vomiting Sevelamer HCl (Renagel) 2,400 mg PO TID [facility] Last Admin: 04/16/17 18:41 Dose: Not Given - Labs Labs: 04/16/17 23:13 04/16/17 22:35 PT 20.2 Seconds (9.9-11.8) H 04/16/17 07:40 INR 1.87 (0.93-1.08) H 04/16/17 07:40 APTT 46.4 Seconds (23.7-30.8) H 04/16/17 07:40 - Constitutional Appears: No Acute Distress - Head Exam Head Exam: ATRAUMATIC, NORMOCEPHALIC - Eye Exam Eye Exam: PERRL, Scleral icterus - ENT Exam ENT Exam: Mucous Membranes Moist - Neck Exam Neck Exam: Full ROM. absent: Lymphadenopathy - Respiratory Exam Respiratory Exam: absent: Wheezes, Respiratory Distress Additional comments: AE slightly reduced at base reduced - Cardiovascular Exam Cardiovascular Exam: REGULAR RHYTHM, +S1, +S2 - GI/Abdominal Exam GI & Abdominal Exam: Distended, Soft. absent: Tenderness - Extremities Exam Extremities Exam: Pedal Edema. absent: Calf Tenderness - Neurological Exam Neurological Exam: Alert, Awake Assessment and Plan - Assessment and Plan (Free Text) Assessment: Decompensated Liver Failure S/P Abdominal doppler: portal angela thrombosis Oral Thrush patient did have endoscopy recently had only portal hypertensive gastropathy and a grade 1 esophageal varices. Acute kidney injury, status post recent renal biopsy, interstitial nephritis, on HD Liver cirrhosis, maybe secondary to CARR, also have H/O ETOH Anemia,post EGD & colon done recently portal colopathy, portal hypertensive gastropathy Thrombocytopenia, s/p FFP/Platelets Refractory Ascites, status post paracentesis X2:1st 9L & 2nd 7200cc Hypertension Elevated LFT, s/p abdominal US:Ascites, cirrhosis, GB sludge, CBD 4mm, GB consistent w/ascites w inferred hypoalbunemia External Hemorrhoids Plan: Aspirin on hold Pepcid 20 mg BID trend LFT OFF prednisone/cellcept continue Nystatin follow up ammonia level and electrolytes This patient"s recent sono was revealed portal vein thrombosis. The previous sono was also reviewed and it was limited doppler study Portal vein thrombosis in the seeting of portal hypertension with cirrhosis anticoagulation is considered cautioysly than patient without underling cirrhoses This patient has cirrhosis with portal hypertension.H/o GI bleeding in the past. Patient has portal hypertensive gastropathy and portal colopathy Thrombocytopenia. In this clinical setting anticoagulation carries higher risk of bleeding complications.MELD score 33resident Followup hematology consult Discussed with PCP and resident Prognosis is guarded
[2017-04-17] MEDS ORDERED: Vancomycin 500mg in NS 500 MG/100 ML BAG IVPB STA (00:26)
[2017-04-17] MEDS ORDERED: Piperacillin/Tazobact 2.25gm 2.25 GM/100 ML BAG IVPB STA (00:28)
[2017-04-17] MEDS: Hemorrohoidal Ointment (2 oz) TOP SCH (01:08)
[2017-04-17 01:34] VITALS: TEMP 98
--- NOTE | 2017-04-17 02:46 | CT ---
EXAM: CT Abdomen and Pelvis Without Intravenous Contrast CLINICAL HISTORY: 66 years old, male; Screening exam; Other: Eval for bleed; Additional info: Evaluate for acute intra-abdominal bleed TECHNIQUE: Axial computed tomography images of the abdomen and pelvis without intravenous contrast. This CT exam was performed using one or more of the following dose reduction techniques: automated exposure control, adjustment of the mA and/or kV according to patient size, and/or use of iterative reconstruction technique. Coronal and sagittal reformatted images were created and reviewed. COMPARISON: CT GUIDED KIDNEY BIOPSY 03/23/2017 2:20:01 PM FINDINGS: Lower thorax: Patchy bibasilar consolidation. The heart is enlarged and demonstrates significant vascular calcifications. ABDOMEN: Liver: The liver is decreased in size, and nodular. Gallbladder and bile ducts: No acute finding. No calcified stones. No intra-extrahepatic biliary ductal dilation. Pancreas: Limited evaluation secondary to the lack of intravenous contrast. Spleen: No acute findings. Adrenals: No acute findings. Kidneys and ureters: No obstructing stones. No hydronephrosis. PELVIS: Bladder: No acute findings. Reproductive: Moderate right-sided hydrocele. ABDOMEN and PELVIS: Stomach and bowel: No acute findings. Peritoneum: Moderate intra-abdominal ascites. Lymph nodes: Limited evaluation without intravenous contrast. Vasculature: No aortic aneurysm. Extensive calcified atherosclerotic disease. Bones: No acute fracture. IMPRESSION: Moderate intra-abdominal ascites, without acute intra-abdominal hemorrhage, as detailed above.
[2017-04-17] MEDS ORDERED: Dextrose 50% SYRINGE Inj (50 ml) IV STA (03:09)
[2017-04-17] MEDS ORDERED: Dextrose 50% SYRINGE Inj (50 ml) IVP ONE ×3 (03:09→05:35)
[2017-04-17] MEDS ORDERED: NOREPINEPHRINE BIT/0.9 % NACL 4 MG/250 ML BAG IV PRN (03:19)
[2017-04-17] MEDS ORDERED: NOREPINEPHRINE BIT/0.9 % NACL 4 MG/250 ML BAG IV ONE (03:21)
--- NOTE | 2017-04-17 03:38 | CP.PCM.PN ---
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 Dx:Poor venous access. Objective - Vital Signs/Intake and Output Vital Signs (last 24 hours): Temp Pulse Resp BP Pulse Ox 98 F 96 H 24 78/41 L 91 L 04/17/17 02:35 04/17/17 02:35 04/17/17 02:35 04/17/17 02:35 04/16/17 23:19 Intake and Output: 04/16/17 04/17/17 18:59 06:59 Intake Total 350 1625 Balance 350 1625 - Medications Medications: Current Medications Aspirin (Aspirin Chewable) 81 mg PO DAILY [facility] Last Admin: 04/10/17 13:02 Dose: Not Given Darbepoetin Lio (Aranesp) 60 mcg IVP ONCE ONE Stop: 04/21/17 06:01 Ergocalciferol (Drisdol 50,000 Intl Units Cap) 1 cap PO Q7D [facility] Stop: 05/25/17 12:46 Last Admin: 04/13/17 16:23 Dose: 1 cap Famotidine (Pepcid) 20 mg IVP BID [facility] Last Admin: 04/16/17 17:47 Dose: 20 mg Guaifenesin (Robitussin) 100 mg PO Q4H PRN PRN Reason: Cough Hydrocortisone (Cortizone 1% Oint) 0 gm TOP BID [facility] Last Admin: 04/16/17 17:47 Dose: 1 applic Dextrose/Sodium Chloride (Dextrose 5%/0.45% Ns 1000 Ml) 1,000 mls @ 80 mls/hr IV .[id number] [facility] Stop: 04/17/17 11:14 Last Admin: 04/16/17 22:59 Dose: 80 mls/hr Albumin Human (Albumin Human 25% (25 Gm/100 Ml)) 100 mls @ 1 mls/min IVPB Q8 [facility] Last Admin: 04/17/17 01:09 Dose: 1 mls/min Vancomycin HCl (Vancomycin 1gm) 1 gm in 250 mls @ 167 mls/hr IVPB DAILY [facility] PRN Reason: Protocol Piperacillin Sod/Tazobactam Sod (Zosyn 2.25 Gm In 0.9% 100 Ml) 2.25 gm in 100 mls @ 100 mls/hr IVPB Q6 [facility] PRN Reason: Protocol Stop: 04/17/17 12:59 NOREPINEPHRINE BIT/0.9 % NACL (Levophed 4 Mg/ 250 Ml Ns Premixed) 4 mg in 250 mls @ 15 mls/hr IV .[id number] PRN; Protocol; 4 MCG/MIN PRN Reason: TITRATE PER MD ORDER Metronidazole (Flagyl) 500 mg PO Q8 [facility]IGHANN PRN Reason: Protocol Stop: 04/25/17 14:01 Last Admin: 04/16/17 21:56 Dose: Not Given Morphine Sulfate (Morphine) 2 mg IVP Q4H PRN PRN Reason: Pain, severe (8-10) Last Admin: 04/16/17 09:49 Dose: 2 mg Multi-Ingredient Ointment (Prep-Hem) 1 ea TOP Q8H [facility] Last Admin: 04/17/17 01:08 Dose: Not Given Nystatin (Nystatin Oral Susp) 5 ml PO QID [facility] Stop: 04/18/17 10:01 Last Admin: 04/16/17 21:56 Dose: Not Given Ondansetron HCl (Zofran Inj) 4 mg IVP Q8H PRN PRN Reason: Nausea/Vomiting Last Admin: 04/16/17 23:25 Dose: 4 mg Sevelamer HCl (Renagel) 2,400 mg PO TID [facility] Last Admin: 04/16/17 18:41 Dose: Not Given - Labs Labs: 04/16/17 23:13 04/16/17 23:13 PT 20.2 Seconds (9.9-11.8) H 04/16/17 07:40 INR 1.87 (0.93-1.08) H 04/16/17 07:40 APTT 46.4 Seconds (23.7-30.8) H 04/16/17 07:40
--- NOTE | 2017-04-17 03:38 | CP.PCM.PCO ---
Physician Communication Note - Physician Communication Note Physician Communication Note: Daughter confirms via phone at 3:15am that pt's DNI (RN Shannan witness)
--- NOTE | 2017-04-17 04:58 | CP.PCM.CON ---
<JAKE RASHID - Last Filed: 04/17/17 04:53> History of Present Illness - History of Present Illness History of Present Illness: CC: Hypotension and Hypoglycemia 66 year old male presents to the ICU today from the floor with hypotension. Despite adequate fluid resuscitation, patient was not responsive to fluids. Patient also had consistently decreasing blood glucose levels which warranted ICU transfer. Patient has a past medical history of portal vein thrombosis, ascites, HTN, and KELLI with CKD. The nurse working with the patient was trying to get the patient to eat/drink to increase glucose levels but patient refused. Patient is mainly Malagasy speaking and hard of hearing. PMH: Portal vein thrombosis, KELLI, CKD, CAD, [place] s/p stent placement PSH: Stent placement, right inguinal hernia repair, Allergies:NKDA Family history: Mother: renal cancer, father: gastric cancer Social history: denies tobacco, alcohol, illict drug consumption Meds: see med list Past Patient History - Infectious Disease Hx of Infectious Diseases: None - Tetanus Immunizations Tetanus Immunization: Unknown - Past Medical History & Family History Past Medical History?: Yes - Past Social History Smoking Status: Former Smoker - CARDIAC Hx Cardiac Disorders: Yes (mi with stents) Hx Congestive Heart Failure: Yes Hx Hypertension: Yes - PULMONARY Hx Respiratory Disorders: No - NEUROLOGICAL HX Cerebrovascular Accident: Yes (many years ago) - HEENT Hx HEENT Problems: No - RENAL Hx Chronic Kidney Disease: Yes Hx Dialysis: No - ENDOCRINE/METABOLIC Hx Diabetes Mellitus Type 2: Yes - HEMATOLOGICAL/ONCOLOGICAL Hx Blood Transfusions: Yes Hx Blood Transfusion Reaction: No - INTEGUMENTARY Hx Dermatological Problems: Yes Other/Comment: white and pink skin discolorations both hands and r arm began about 7 months ago cause unknown, brown discolorations ble,dry brown scabbed wound posterior right lowr leg starts below calf to lower leg then dry brown skin to posterior ankle, +2 edema right ankle, dry flakey skin both feet - MUSCULOSKELETAL/RHEUMATOLOGICAL Hx Falls: Yes (recent frequent) - GASTROINTESTINAL Hx Gastrointestinal Disorders: Yes Hx Gastroesophageal Reflux: Yes Hx Liver Failure: (cirrhosis, mild ascites) Other/Comment: colonoscopy 07/17/2016 dx diverticulitis, colitis, rectal polyp - GENITOURINARY/GYNECOLOGICAL Hx Genitourinary Disorders: No - PSYCHIATRIC Hx Psychophysiologic Disorder: No Hx Substance Use: No - SURGICAL HISTORY Hx Coronary Stent: Yes (ptca with stent) - ANESTHESIA Hx Anesthesia: Yes Hx Anesthesia Reactions: No Hx Malignant Hyperthermia: No Meds Allergies/Adverse Reactions: Allergies Allergy/AdvReac Type Severity Reaction Status Date / Time No Known Allergies Allergy Verified 04/04/17 20:21 - Medications Medications: Current Medications Aspirin (Aspirin Chewable) 81 mg PO DAILY [facility] Last Admin: 04/10/17 13:02 Dose: Not Given Darbepoetin Lio (Aranesp) 60 mcg IVP ONCE ONE Stop: 04/21/17 06:01 Ergocalciferol (Drisdol 50,000 Intl Units Cap) 1 cap PO Q7D [facility] Stop: 05/25/17 12:46 Last Admin: 04/13/17 16:23 Dose: 1 cap Famotidine (Pepcid) 20 mg IVP BID [facility] Last Admin: 04/16/17 17:47 Dose: 20 mg Guaifenesin (Robitussin) 100 mg PO Q4H PRN PRN Reason: Cough Hydrocortisone (Cortizone 1% Oint) 0 gm TOP BID [facility] Last Admin: 04/16/17 17:47 Dose: 1 applic Albumin Human (Albumin Human 25% (25 Gm/100 Ml)) 100 mls @ 1 mls/min IVPB Q8 [facility] Last Admin: 04/17/17 01:09 Dose: 1 mls/min Vancomycin HCl (Vancomycin 1gm) 1 gm in 250 mls @ 167 mls/hr IVPB DAILY [facility] PRN Reason: Protocol Piperacillin Sod/Tazobactam Sod (Zosyn 2.25 Gm In 0.9% 100 Ml) 2.25 gm in 100 mls @ 100 mls/hr IVPB Q6 [facility] PRN Reason: Protocol Stop: 04/17/17 12:59 NOREPINEPHRINE BIT/0.9 % NACL (Levophed 4 Mg/ 250 Ml Ns Premixed) 4 mg in 250 mls @ 15 mls/hr IV .[id number] PRN; Protocol; 4 MCG/MIN PRN Reason: TITRATE PER MD ORDER Metronidazole (Flagyl) 500 mg PO Q8 [facility] PRN Reason: Protocol Stop: 04/25/17 14:01 Last Admin: 04/16/17 21:56 Dose: Not Given Morphine Sulfate (Morphine) 2 mg IVP Q4H PRN PRN Reason: Pain, severe (8-10) Last Admin: 04/16/17 09:49 Dose: 2 mg Multi-Ingredient Ointment (Prep-Hem) 1 ea TOP Q8H [facility] Last Admin: 04/17/17 01:08 Dose: Not Given Nystatin (Nystatin Oral Susp) 5 ml PO QID [facility] Stop: 04/18/17 10:01 Last Admin: 04/16/17 21:56 Dose: Not Given Ondansetron HCl (Zofran Inj) 4 mg IVP Q8H PRN PRN Reason: Nausea/Vomiting Last Admin: 04/16/17 23:25 Dose: 4 mg Sevelamer HCl (Renagel) 2,400 mg PO TID [facility] Last Admin: 04/16/17 18:41 Dose: Not Given Physical Exam - Constitutional Appears: In Acute Distress, Confused - Head Exam Head Exam: ATRAUMATIC, NORMAL INSPECTION, NORMOCEPHALIC - Eye Exam Eye Exam: Normal appearance - ENT Exam ENT Exam: Mucous Membranes Moist, Normal Exam - Neck Exam Neck exam: Positive for: Normal Inspection - Respiratory Exam Respiratory Exam: Clear to Auscultation Bilateral, NORMAL BREATHING PATTERN - Cardiovascular Exam Cardiovascular Exam: REGULAR RHYTHM, +S1, +S2 - GI/Abdominal Exam GI & Abdominal Exam: Diminished Bowel Sounds, Distended Results - Vital Signs Recent Vital Signs: Last Vital Signs Temp 98 F 04/17/17 02:35 Pulse 96 H 04/17/17 02:35 Resp 24 04/17/17 02:35 BP 78/41 L 04/17/17 02:35 Pulse Ox 91 L 04/16/17 23:19 - Labs Result Diagrams: 04/16/17 23:13 04/16/17 23:13 Labs: Laboratory Results - last 24 hr 04/12/17 04/16/17 04/16/17 15:55 07:40 07:40 WBC 3.6 L RBC 2.95 L Hgb 8.3 L Hct 24.1 L MCV 81.7 MCH 28.1 MCHC 34.4 RDW 17.3 H Plt Count 21 L* Gran % 80.9 H Lymph % (Auto) 10.5 L [place] % (Auto) 5.0 Eos % (Auto) 3.6 Baso % (Auto) 0.0 Gran # 2.92 Lymph # 0.4 L [place] # 0.2 Eos # 0.1 Baso # 0.00 Retic Count PT INR APTT Sodium 137 Potassium 4.4 Chloride 103 Carbon Dioxide 21 Anion Gap 17 BUN 103 H Creatinine 6.6 H Est GFR ( Amer) 10 Est GFR (Non-Af Amer) 8 POC Glucose (mg/dL) Random Glucose 108 Lactic Acid Calcium 8.8 Phosphorus 5.8 H Magnesium 2.2 Iron Total Bilirubin 5.0 H AST 89 H ALT 173 H Alkaline Phosphatase 122 Ammonia Troponin I Total Protein 4.7 L Albumin 2.5 L Globulin 2.2 Albumin/Globulin Ratio 1.1 Fluid Albumin 0.2 Blood Type Antibody Screen KIKE, Poly Interpret Indirect Antiglob Test Crossmatch BBK History Checked 04/16/17 04/16/17 04/16/17 07:40 07:40 07:52 WBC RBC Hgb Hct MCV MCH MCHC RDW Plt Count Gran % Lymph % (Auto) [place] % (Auto) Eos % (Auto) Baso % (Auto) Gran # Lymph # [place] # Eos # Baso # Retic Count 1.40 PT 20.2 H INR 1.87 H APTT 46.4 H Sodium Potassium Chloride Carbon Dioxide Anion Gap BUN Creatinine Est GFR ( Amer) Est GFR (Non-Af Amer) POC Glucose (mg/dL) 170 H Random Glucose Lactic Acid Calcium Phosphorus Magnesium Iron Total Bilirubin AST ALT Alkaline Phosphatase Ammonia Troponin I Total Protein Albumin Globulin Albumin/Globulin Ratio Fluid Albumin Blood Type Antibody Screen KIKE, Poly Interpret Indirect Antiglob Test Crossmatch BBK History Checked 04/16/17 04/16/17 04/16/17 10:30 11:35 11:40 WBC RBC Hgb Hct MCV MCH MCHC RDW Plt Count Gran % Lymph % (Auto) [place] % (Auto) Eos % (Auto) Baso % (Auto) Gran # Lymph # [place] # Eos # Baso # Retic Count PT INR APTT Sodium Potassium Chloride Carbon Dioxide Anion Gap BUN Creatinine Est GFR ( Amer) Est GFR (Non-Af Amer) POC Glucose (mg/dL) 116 H Random Glucose Lactic Acid Calcium Phosphorus Magnesium Iron 56 Total Bilirubin AST ALT Alkaline Phosphatase Ammonia Troponin I Total Protein Albumin Globulin Albumin/Globulin Ratio Fluid Albumin Blood Type O POSITIVE Antibody Screen Negative KIKE, Poly Interpret Negative Indirect Antiglob Test Crossmatch See Detail BBK History Checked Patient has bt 04/16/17 04/16/17 04/16/17 16:29 21:09 21:54 WBC RBC Hgb Hct MCV MCH MCHC RDW Plt Count Gran % Lymph % (Auto) [place] % (Auto) Eos % (Auto) Baso % (Auto) Gran # Lymph # [place] # Eos # Baso # Retic Count PT INR APTT Sodium Potassium Chloride Carbon Dioxide Anion Gap BUN Creatinine Est GFR ( Amer) Est GFR (Non-Af Amer) POC Glucose (mg/dL) 141 H 61 L 70 Random Glucose Lactic Acid Calcium Phosphorus Magnesium Iron Total Bilirubin AST ALT Alkaline Phosphatase Ammonia Troponin I Total Protein Albumin Globulin Albumin/Globulin Ratio Fluid Albumin Blood Type Antibody Screen KIKE, Poly Interpret Indirect Antiglob Test Crossmatch BBK History Checked 04/16/17 04/16/17 04/16/17 22:09 22:35 22:35 WBC 2.5 L* D RBC 2.10 L Hgb 5.9 L* D Hct 17.3 L* MCV 82.4 MCH 28.1 MCHC 34.1 RDW 17.7 H Plt Count 8 L* Gran % 81.4 H Lymph % (Auto) 9.3 L [place] % (Auto) 8.9 H Eos % (Auto) 0.4 L Baso % (Auto) 0.0 Gran # 2.00 Lymph # 0.2 L [place] # 0.2 Eos # 0.0 Baso # 0.00 Retic Count PT INR APTT Sodium 135 Potassium 4.4 Chloride 104 Carbon Dioxide 15 L Anion Gap 20 BUN 99 H Creatinine 7.0 H Est GFR ( Amer) 10 Est GFR (Non-Af Amer) 8 POC Glucose (mg/dL) 68 Random Glucose 215 H Lactic Acid Calcium 8.2 L Phosphorus Magnesium Iron Total Bilirubin 4.6 H AST 93 H ALT 125 H Alkaline Phosphatase 107 Ammonia Troponin I 0.07 Total Protein 3.5 L Albumin 1.8 L Globulin 1.7 Albumin/Globulin Ratio 1.1 Fluid Albumin Blood Type Antibody Screen KIKE, Poly Interpret Indirect Antiglob Test Crossmatch BBK History Checked 04/16/17 04/16/17 04/16/17 22:58 23:13 23:13 WBC 2.1 L* RBC 2.33 L Hgb 6.5 L* Hct 19.4 L* MCV 83.3 MCH 27.9 MCHC 33.5 RDW 17.9 H Plt Count 13 L* Gran % Lymph % (Auto) [place] % (Auto) Eos % (Auto) Baso % (Auto) Gran # Lymph # [place] # Eos # Baso # Retic Count PT INR APTT Sodium 136 Potassium 4.3 Chloride 104 Carbon Dioxide 14 L Anion Gap 22 H BUN 101 H Creatinine 7.3 H Est GFR ( Amer) 9 Est GFR (Non-Af Amer) 8 POC Glucose (mg/dL) 107 Random Glucose 75 Lactic Acid Calcium 8.5 Phosphorus Magnesium Iron Total Bilirubin 5.0 H AST 118 H ALT 142 H Alkaline Phosphatase 113 Ammonia Troponin I 0.08 Total Protein 4.0 L Albumin 2.0 L Globulin 1.9 Albumin/Globulin Ratio 1.1 Fluid Albumin Blood Type Antibody Screen KIKE, Poly Interpret Indirect Antiglob Test Crossmatch BBK History Checked 04/16/17 04/16/17 04/17/17 23:13 23:13 03:04 WBC RBC Hgb Hct MCV MCH MCHC RDW Plt Count Gran % Lymph % (Auto) [place] % (Auto) Eos % (Auto) Baso % (Auto) Gran # Lymph # [place] # Eos # Baso # Retic Count PT INR APTT Sodium Potassium Chloride Carbon Dioxide Anion Gap BUN Creatinine Est GFR ( Amer) Est GFR (Non-Af Amer) POC Glucose (mg/dL) 50 L Random Glucose Lactic Acid 7.3 H* Calcium Phosphorus Magnesium Iron Total Bilirubin AST ALT Alkaline Phosphatase Ammonia 118 H Troponin I Total Protein Albumin Globulin Albumin/Globulin Ratio Fluid Albumin Blood Type Antibody Screen KIKE, Poly Interpret Indirect Antiglob Test Crossmatch BBK History Checked Assessment & Plan - Assessment and Plan (Free Text) Assessment: 66 year old male PMH CAD s/p stent, KELLI, CKD transferred to ICU for BP control and hypoglycemia. Plan: Neuro:no acute measures to be taken at this time, patietn is alert and asks what is going on from time to time Pulm:no acute measures need to be taken at this point CVS:Will continue to administer fluids to maintain blood pressure, norepinephrnine 4mg also administered for BP control. EKG reveals sinus tach with inferior infarcts and left ventricular hypertrophy consistent with previous EKG. GI:patient's abdomen is firm to touch; paracentesis might be necessary, will follow up with IR regarding this Renal:BUN 101; most likely secondary to dehydration, continue to monitor strict i's and o's daily weights Urology:patient is unable to urinate, might be due partially to volume depleted state, will continue to monitor. ID:afebrile, no leukocytosis, sepsis candidate; will administer Zosyn 2.25 gm in 100 ml IVPB for empiric coverage, Vancomycin 1 gm q24. Ordered procalcitonin for sepsis criteria, MRSA screen. Heme: Anemia and leukopenia, most likely due to anemia of chronic disease. Patient has received 1 unit of packed red blood cells; will continue to monitor H&H. Thrombocytopenia; FFP and pheresis platelets Endo: last checked glucose was 50, continue with accucheck q 2 hours Psych: unable to assess at this time <Doe Metcalf MD - Last Filed: 04/23/17 10:11> Results - Vital Signs Recent Vital Signs: Last Vital Signs Temp 98 F 04/17/17 02:35 Pulse 87 04/17/17 08:03 Resp 26 H 04/17/17 08:03 BP 89/35 L 04/17/17 08:00 Pulse Ox 85 L 04/17/17 08:00 - Labs Result Diagrams: 04/17/17 07:00 04/17/17 07:00 Attending/Attestation - Attestation I have personally seen and examined this patient.: Yes I have fully participated in the care of the patient.: Yes I have reviewed all pertinent clinical information: Yes Notes (Text): 04/23/17 10:02 -I agree with the above ICU consult note completed by the resident physician with the following changes and/or additions: 66 yo M with a history of CKD, liver cirrhosis (with severe pancytopenia), portal vein thrombosis and C.Diff, suddenly developed septic shock overnight ( refractory to IVF boluses). Consequently, he will be transferred to the ICU and started in Levophed drip (initially via PIV, since TLC currently carries to high of bleed risk given platelet count of 13 at this time). Will also transfuse FFP's, platelets and PRBC's; Will also give IV Albumin ATC. Will also start empiric IV Vanco and Meropenem. Recent negative paracentesis likely rules out SBP as underlying etiology. Of note, I spoke via speaker telephone (with RN witness next to me) to the patient's , who confirms that the patient definitely wants DNI status (of note patient himself currently too altered to confirm). Sister states that she will bring advanced directive to [facility] in AM which the patient already had made previously, that states his adamant wishes to be DNI (but no DNR). This conversation was witnessed via speaker telephone by pt's RN and therefore pt's resuscitation status will be changed to DNI at this time.
[2017-04-17] MEDS: Dextrose 50% SYRINGE Inj (50 ml) IVP ONE (05:55)
[2017-04-17] MEDS ORDERED: Piperacillin/Tazobact 2.25gm 2.25 GM/100 ML BAG IVPB SCH (06:00)
[2017-04-17] MEDS ORDERED: Meropenem 500 MG in Sodium Chloride 0.9% 100 ML IVPB SCH (06:11)
[2017-04-17 07:25] LABS: MEAN CELL VOLUME 86.4 fL (80.0-105.0); MEAN CORPUSCULAR HGB CONC 32.4 g/dl (31.0-37.0); RBC 2.14 10^6/uL (3.5-6.1); RED CELL DISTRIBUTION WIDTH 17.3 % (11.5-14.5)
[2017-04-17 07:36] LABS: ALB/GLOB RATIO 1.2 (1.1-1.8); ALBUMIN 2.2 g/dL (3.0-4.8); CALCIUM 8.6 mg/dL (8.4-10.5)
[2017-04-17 07:38] LABS: VENOUS BLOOD GAS BASE EXCESS -19.5 mmol/L (0.0-2.0); VENOUS BLOOD GAS PO2 163 mm/Hg (30-55)
[2017-04-17 07:40] LABS: VENOUS BLOOD PH 7.03 (7.32-7.43)
--- NOTE | 2017-04-17 07:45 | CP.PCM.PN ---
Subjective - Date & Time of Evaluation Date of Evaluation: 04/16/17 Time of Evaluation: 09:00 - Subjective Subjective: S&E at bedside, A/A/O, eating breakfast on 1:1, no BM as of yet. Patient no N/V or abdominal pain. Had dialysis yesterday. Objective - Vital Signs/Intake and Output Vital Signs (last 24 hours): Temp Pulse Resp BP Pulse Ox 97.7 F 88 20 110/67 93 L 04/16/17 05:57 04/16/17 05:57 04/16/17 05:57 04/16/17 05:57 04/16/17 05:57 Intake and Output: 04/16/17 04/16/17 06:59 18:59 Intake Total 900 Output Total 0 Balance 900 - Medications Medications: Current Medications Aspirin (Aspirin Chewable) 81 mg PO DAILY [facility] Last Admin: 04/10/17 13:02 Dose: Not Given Ergocalciferol (Drisdol 50,000 Intl Units Cap) 1 cap PO Q7D [facility] Stop: 05/25/17 12:46 Last Admin: 04/13/17 16:23 Dose: 1 cap Famotidine (Pepcid) 20 mg IVP BID [facility] Last Admin: 04/16/17 09:40 Dose: 20 mg Guaifenesin (Robitussin) 100 mg PO Q4H PRN PRN Reason: Cough Hydrocortisone (Cortizone 1% Oint) 0 gm TOP BID [facility] Last Admin: 04/16/17 09:40 Dose: 1 applic Iron Sucrose 100 mg/ Sodium (Chloride) 105 mls @ 210 mls/hr IVPB DAILY [facility] Stop: 04/17/17 10:01 Last Admin: 04/15/17 10:22 Dose: 210 mls/hr Albumin Human (Albumin Human 25% (25 Gm/100 Ml)) 100 mls @ 1 mls/min IVPB DAILY [facility] Stop: 04/18/17 11:39 Metronidazole (Flagyl) 500 mg PO Q8 [facility] PRN Reason: Protocol Stop: 04/25/17 14:01 Last Admin: 04/16/17 05:36 Dose: 500 mg Morphine Sulfate (Morphine) 2 mg IVP Q4H PRN PRN Reason: Pain, severe (8-10) Last Admin: 04/16/17 09:49 Dose: 2 mg Multi-Ingredient Ointment (Prep-Hem) 1 ea TOP Q8H [facility] Last Admin: 04/16/17 09:40 Dose: Not Given Nystatin (Nystatin Oral Susp) 5 ml PO QID [facility] Stop: 04/18/17 10:01 Last Admin: 04/16/17 09:40 Dose: 5 ml Ondansetron HCl (Zofran Inj) 4 mg IVP Q8H PRN PRN Reason: Nausea/Vomiting Sevelamer HCl (Renagel) 2,400 mg PO TID [facility] Last Admin: 04/16/17 09:40 Dose: 2,400 mg - Labs Labs: 04/16/17 07:40 04/16/17 07:40 PT 20.2 Seconds (9.9-11.8) H 04/16/17 07:40 INR 1.87 (0.93-1.08) H 04/16/17 07:40 APTT 46.4 Seconds (23.7-30.8) H 04/16/17 07:40 - Constitutional Appears: No Acute Distress - Head Exam Head Exam: NORMOCEPHALIC - Eye Exam Eye Exam: Scleral icterus - ENT Exam ENT Exam: Mucous Membranes Moist - Neck Exam Neck Exam: Normal Inspection - Respiratory Exam Respiratory Exam: NORMAL BREATHING PATTERN. absent: Respiratory Distress - Cardiovascular Exam Cardiovascular Exam: +S1, +S2 - GI/Abdominal Exam GI & Abdominal Exam: Distended, Soft, Normal Bowel Sounds. absent: Guarding, Tenderness, Rebound - Extremities Exam Extremities Exam: Pedal Edema. absent: Calf Tenderness - Neurological Exam Neurological Exam: Alert, Awake, Oriented x3 Assessment and Plan - Assessment and Plan (Free Text) Assessment: Assessment: Decompensated Liver Failure C diff antigen positive S/P Abdominal doppler: portal vein thrombosis Oral Thrush likely secondary to high dose oral steroids, patient did have endoscopy recently had only portal hypertensive gastropathy and a grade 1 esophageal varices. Acute kidney injury, status post recent renal biopsy, interstitial nephritis, on HD Liver cirrhosis, maybe secondary to CARR, also have H/O ETOH Anemia,post EGD & colon done recently portal colopathy, portal hypertensive gastropathy Thrombocytopenia, s/p FFP/Platelets Refractory Ascites, status post paracentesis X2:1st 9L & 2nd 7200cc Hypertension Elevated LFT, s/p abdominal US:Ascites, cirrhosis, GB sludge, CBD 4mm, GB consistent w/ascites w inferred hypoalbunemia External Hemorrhoids Plan: as per ID started on Flagyl Aspirin on hold Pepcid 20 mg BID on IV iron trend LFT OFF prednisone/cellcept continue Nystatin hematology FU
[2017-04-17 07:47] LABS: TROPONIN I 0.07 ng/mL
[2017-04-17 07:50] LABS: WHITE BLOOD COUNT 1.2 10^3/ul (4.5-11.0)
[2017-04-17 07:51] LABS: PLATELET COUNT 24 10^3/uL (120.0-450.0)
--- NOTE | 2017-04-17 07:51 | RAD ---
HISTORY: cough COMPARISON: 04/14/2017 FINDINGS: LUNGS: There is dense consolidation in the right apex consistent with pneumonia PLEURA: No significant pleural effusion identified, no pneumothorax apparent. CARDIOVASCULAR: Normal. OSSEOUS STRUCTURES: No significant abnormalities. VISUALIZED UPPER ABDOMEN: Normal. OTHER FINDINGS: None. IMPRESSION: Right upper lobe pneumonia
[2017-04-17 08:04] VITALS: PULSE 87
[2017-04-17 08:05] LABS: INR 2.26 (0.93-1.08); PROTHROMBIN TIME 24.4 Seconds (9.9-11.8)
[2017-04-17 08:07] VITALS: BP 89/35; RESP 26; O2SAT 85
[2017-04-17 08:09] LABS: PARTIAL THROMBOPLASTIN TIME 74.2 Seconds (23.7-30.8)
[2017-04-17 09:02] LABS: ANISOCYTOSIS 1+; HYPOCHROMIA 3+; LYMPHOCYTE 18 % (22.0-35.0); MICROCYTOSIS 1+; NEUTROPHIL 62 % (50.0-70.0); PLATELET ESTIMATE LOW (NORMAL); POIKILOCYTOSIS 1+
[2017-04-17 09:03] LABS: BAND 20 % (0-2)
--- NOTE | 2017-04-17 09:35 | CP.PCM.CON ---
History of Present Illness - History of Present Illness History of Present Illness: Consult requested by Dr Lynn Johnson Reason: Goals of care/hospice 66 year male who presented with abdominal distention, diarrhea. Workup revealed sepsis, ascites. He s/p paracentisis. Subsequently developed acute renal failure. Unable to tolerate dialysis, becomes extremely hypotensive. He was transferred to ICU for management of hypotension, hypoglycemia,renal and respiratory insufficiency. PMHx: HTN, DN, CKD, Cad s/p PCI,cirrhosis portal gastropathy, esophageal varices , right lower leg ulcer positive for Serratia. Social History:Former smoker, denies alcohol or illicit drug use. Lives with daughter Family History: Mother renal cancer, father Daughter reports history of Lupus in family Advance Care Planning: The patient is DNR/DNI. Review of Systems; The patient is agitated and has altered mental status Past Patient History - Infectious Disease Hx of Infectious Diseases: None - Tetanus Immunizations Tetanus Immunization: Unknown - Past Medical History & Family History Past Medical History?: Yes - Past Social History Smoking Status: Former Smoker - CARDIAC Hx Cardiac Disorders: Yes (mi with stents) Hx Congestive Heart Failure: Yes Hx Hypertension: Yes - PULMONARY Hx Respiratory Disorders: No - NEUROLOGICAL HX Cerebrovascular Accident: Yes (many years ago) - HEENT Hx HEENT Problems: No - RENAL Hx Chronic Kidney Disease: Yes Hx Dialysis: No - ENDOCRINE/METABOLIC Hx Diabetes Mellitus Type 2: Yes - HEMATOLOGICAL/ONCOLOGICAL Hx Blood Transfusions: Yes Hx Blood Transfusion Reaction: No - INTEGUMENTARY Hx Dermatological Problems: Yes Other/Comment: white and pink skin discolorations both hands and r arm began about 7 months ago cause unknown, brown discolorations ble,dry brown scabbed wound posterior right lowr leg starts below calf to lower leg then dry brown skin to posterior ankle, +2 edema right ankle, dry flakey skin both feet - MUSCULOSKELETAL/RHEUMATOLOGICAL Hx Falls: Yes (recent frequent) - GASTROINTESTINAL Hx Gastrointestinal Disorders: Yes Hx Gastroesophageal Reflux: Yes Hx Liver Failure: (cirrhosis, mild ascites) Other/Comment: colonoscopy 07/17/2016 dx diverticulitis, colitis, rectal polyp - GENITOURINARY/GYNECOLOGICAL Hx Genitourinary Disorders: No - PSYCHIATRIC Hx Psychophysiologic Disorder: No Hx Substance Use: No - SURGICAL HISTORY Hx Coronary Stent: Yes (ptca with stent) - ANESTHESIA Hx Anesthesia: Yes Hx Anesthesia Reactions: No Hx Malignant Hyperthermia: No Meds Allergies/Adverse Reactions: Allergies Allergy/AdvReac Type Severity Reaction Status Date / Time No Known Allergies Allergy Verified 04/04/17 20:21 - Medications Medications: Current Medications Aspirin (Aspirin Chewable) 81 mg PO DAILY [facility] Last Admin: 04/10/17 13:02 Dose: Not Given Darbepoetin Lio (Aranesp) 60 mcg IVP ONCE ONE Stop: 04/21/17 06:01 Ergocalciferol (Drisdol 50,000 Intl Units Cap) 1 cap PO Q7D [facility] Stop: 05/25/17 12:46 Last Admin: 04/13/17 16:23 Dose: 1 cap Famotidine (Pepcid) 20 mg IVP BID [facility] Last Admin: 04/16/17 17:47 Dose: 20 mg Guaifenesin (Robitussin) 100 mg PO Q4H PRN PRN Reason: Cough Hydrocortisone (Cortizone 1% Oint) 0 gm TOP BID [facility] Last Admin: 04/16/17 17:47 Dose: 1 applic Albumin Human (Albumin Human 25% (25 Gm/100 Ml)) 100 mls @ 1 mls/min IVPB Q8 [facility] Last Admin: 04/17/17 05:22 Dose: 1 mls/min Vancomycin HCl (Vancomycin 1gm) 1 gm in 250 mls @ 167 mls/hr IVPB DAILY [facility] PRN Reason: Protocol NOREPINEPHRINE BIT/0.9 % NACL (Levophed 4 Mg/ 250 Ml Ns Premixed) 4 mg in 250 mls @ 15 mls/hr IV .[id number] PRN; Protocol; 4 MCG/MIN PRN Reason: TITRATE PER MD ORDER Daptomycin 570 mg/ Sodium (Chloride) 100 mls @ 200 mls/hr IV Q48H [facility] Stop: 04/27/17 10:01 Meropenem 500 mg/ Sodium (Chloride) 100 mls @ 100 mls/hr IVPB Q12 [facility] PRN Reason: Protocol Stop: 04/24/17 06:12 Metronidazole (Flagyl) 500 mg PO Q8 [facility] PRN Reason: Protocol Stop: 04/25/17 14:01 Last Admin: 04/17/17 05:24 Dose: Not Given Morphine Sulfate (Morphine) 2 mg IVP Q4H PRN PRN Reason: Pain, severe (8-10) Last Admin: 04/16/17 09:49 Dose: 2 mg Multi-Ingredient Ointment (Prep-Hem) 1 ea TOP Q8H [facility] Last Admin: 04/17/17 01:08 Dose: Not Given Nystatin (Nystatin Oral Susp) 5 ml PO QID [facility] Stop: 04/18/17 10:01 Last Admin: 04/16/17 21:56 Dose: Not Given Ondansetron HCl (Zofran Inj) 4 mg IVP Q8H PRN PRN Reason: Nausea/Vomiting Last Admin: 04/16/17 23:25 Dose: 4 mg Sevelamer HCl (Renagel) 2,400 mg PO TID [facility] Last Admin: 04/16/17 18:41 Dose: Not Given Physical Exam - Constitutional Appears: Agitated, Chronically Ill - Head Exam Head Exam: NORMOCEPHALIC - Eye Exam Eye Exam: Normal appearance, PERRL - ENT Exam ENT Exam: Mucous Membranes Moist, Normal Oropharynx - Neck Exam Neck exam: Positive for: Normal Inspection - Respiratory Exam Respiratory Exam: Decreased Breath Sounds - Cardiovascular Exam Cardiovascular Exam: Tachycardia, +S1, +S2 - GI/Abdominal Exam GI & Abdominal Exam: Diminished Bowel Sounds, Distended - Back Exam Back exam: NORMAL INSPECTION - Neurological Exam Neurological exam: Altered - Skin Skin Exam: Dry - Additional Findings Additional findings: Palliative perofrmance scale rating 20% Results - Vital Signs Recent Vital Signs: Last Vital Signs Temp 98 F 04/17/17 02:35 Pulse 87 04/17/17 08:03 Resp 26 H 04/17/17 08:03 BP 89/35 L 04/17/17 08:00 Pulse Ox 85 L 04/17/17 08:00 - Labs Result Diagrams: 04/17/17 07:00 04/17/17 07:00 Labs: Laboratory Results - last 24 hr 04/12/17 04/16/17 04/16/17 15:55 07:52 10:30 WBC RBC Hgb Hct MCV MCH MCHC RDW Plt Count Gran % Lymph % (Auto) Caldwell % (Auto) Eos % (Auto) Baso % (Auto) Gran # Lymph # Caldwell # Eos # Baso # Neutrophils % (Manual) Band Neutrophils % Lymphocytes % (Manual) Monocytes % (Manual) Platelet Evaluation Hypochromasia Poikilocytosis (manual Anisocytosis (manual) Microcytosis (manual) PT INR APTT pO2 VBG pH VBG pCO2 VBG HCO3 VBG Total CO2 VBG O2 Sat (Calc) VBG Base Excess VBG Potassium Glucose Lactate FiO2 Sodium Potassium Chloride Carbon Dioxide Anion Gap BUN Creatinine Est GFR ( Amer) Est GFR (Non-Af Amer) POC Glucose (mg/dL) 170 H Random Glucose Lactic Acid Calcium Iron 56 Total Bilirubin AST ALT Alkaline Phosphatase Ammonia Troponin I Total Protein Albumin Globulin Albumin/Globulin Ratio Venous Blood Potassium Fluid Albumin 0.2 Blood Type Antibody Screen KIKE, Poly Interpret Indirect Antiglob Test Crossmatch BBK History Checked 04/16/17 04/16/17 04/16/17 11:35 11:40 16:29 WBC RBC Hgb Hct MCV MCH MCHC RDW Plt Count Gran % Lymph % (Auto) Caldwell % (Auto) Eos % (Auto) Baso % (Auto) Gran # Lymph # [place]dwell # Eos # Baso # Neutrophils % (Manual) Band Neutrophils % Lymphocytes % (Manual) Monocytes % (Manual) Platelet Evaluation Hypochromasia Poikilocytosis (manual Anisocytosis (manual) Microcytosis (manual) PT INR APTT pO2 VBG pH VBG pCO2 VBG HCO3 VBG Total CO2 VBG O2 Sat (Calc) VBG Base Excess VBG Potassium Glucose Lactate FiO2 Sodium Potassium Chloride Carbon Dioxide Anion Gap BUN Creatinine Est GFR ( Amer) Est GFR (Non-Af Amer) POC Glucose (mg/dL) 116 H 141 H Random Glucose Lactic Acid Calcium Iron Total Bilirubin AST ALT Alkaline Phosphatase Ammonia Troponin I Total Protein Albumin Globulin Albumin/Globulin Ratio Venous Blood Potassium Fluid Albumin Blood Type O POSITIVE Antibody Screen Negative KIKE, Poly Interpret Negative Indirect Antiglob Test Crossmatch See Detail BBK History Checked Patient has bt 04/16/17 04/16/17 04/16/17 21:09 21:54 22:09 WBC RBC Hgb Hct MCV MCH MCHC RDW Plt Count Gran % Lymph % (Auto) Caldwell % (Auto) Eos % (Auto) Baso % (Auto) Gran # Lymph # Caldwell # Eos # Baso # Neutrophils % (Manual) Band Neutrophils % Lymphocytes % (Manual) Monocytes % (Manual) Platelet Evaluation Hypochromasia Poikilocytosis (manual Anisocytosis (manual) Microcytosis (manual) PT INR APTT pO2 VBG pH VBG pCO2 VBG HCO3 VBG Total CO2 VBG O2 Sat (Calc) VBG Base Excess VBG Potassium Glucose Lactate FiO2 Sodium Potassium Chloride Carbon Dioxide Anion Gap BUN Creatinine Est GFR ( Amer) Est GFR (Non-Af Amer) POC Glucose (mg/dL) 61 L 70 68 Random Glucose Lactic Acid Calcium Iron Total Bilirubin AST ALT Alkaline Phosphatase Ammonia Troponin I Total Protein Albumin Globulin Albumin/Globulin Ratio Venous Blood Potassium Fluid Albumin Blood Type Antibody Screen KIKE, Poly Interpret Indirect Antiglob Test Crossmatch BBK History Checked 04/16/17 04/16/17 04/16/17 22:35 22:35 22:58 WBC 2.5 L* D RBC 2.10 L Hgb 5.9 L* D Hct 17.3 L* MCV 82.4 MCH 28.1 MCHC 34.1 RDW 17.7 H Plt Count 8 L* Gran % 81.4 H Lymph % (Auto) 9.3 L Caldwell % (Auto) 8.9 H Eos % (Auto) 0.4 L Baso % (Auto) 0.0 Gran # 2.00 Lymph # 0.2 L Caldwell # 0.2 Eos # 0.0 Baso # 0.00 Neutrophils % (Manual) Band Neutrophils % Lymphocytes % (Manual) Monocytes % (Manual) Platelet Evaluation Hypochromasia Poikilocytosis (manual Anisocytosis (manual) Microcytosis (manual) PT INR APTT pO2 VBG pH VBG pCO2 VBG HCO3 VBG Total CO2 VBG O2 Sat (Calc) VBG Base Excess VBG Potassium Glucose Lactate FiO2 Sodium 135 Potassium 4.4 Chloride 104 Carbon Dioxide 15 L Anion Gap 20 BUN 99 H Creatinine 7.0 H Est GFR ( Amer) 10 Est GFR (Non-Af Amer) 8 POC Glucose (mg/dL) 107 Random Glucose 215 H Lactic Acid Calcium 8.2 L Iron Total Bilirubin 4.6 H AST 93 H ALT 125 H Alkaline Phosphatase 107 Ammonia Troponin I 0.07 Total Protein 3.5 L Albumin 1.8 L Globulin 1.7 Albumin/Globulin Ratio 1.1 Venous Blood Potassium Fluid Albumin Blood Type Antibody Screen KIKE, Poly Interpret Indirect Antiglob Test Crossmatch BBK History Checked 04/16/17 04/16/17 04/16/17 23:13 23:13 23:13 WBC 2.1 L* RBC 2.33 L Hgb 6.5 L* Hct 19.4 L* MCV 83.3 MCH 27.9 MCHC 33.5 RDW 17.9 H Plt Count 13 L* Gran % Lymph % (Auto) Caldwell % (Auto) Eos % (Auto) Baso % (Auto) Gran # Lymph # Caldwell # Eos # Baso # Neutrophils % (Manual) Band Neutrophils % Lymphocytes % (Manual) Monocytes % (Manual) Platelet Evaluation Hypochromasia Poikilocytosis (manual Anisocytosis (manual) Microcytosis (manual) PT INR APTT pO2 VBG pH VBG pCO2 VBG HCO3 VBG Total CO2 VBG O2 Sat (Calc) VBG Base Excess VBG Potassium Glucose Lactate FiO2 Sodium 136 Potassium 4.3 Chloride 104 Carbon Dioxide 14 L Anion Gap 22 H BUN 101 H Creatinine 7.3 H Est GFR ( Amer) 9 Est GFR (Non-Af Amer) 8 POC Glucose (mg/dL) Random Glucose 75 Lactic Acid Calcium 8.5 Iron Total Bilirubin 5.0 H AST 118 H ALT 142 H Alkaline Phosphatase 113 Ammonia 118 H Troponin I 0.08 Total Protein 4.0 L Albumin 2.0 L Globulin 1.9 Albumin/Globulin Ratio 1.1 Venous Blood Potassium Fluid Albumin Blood Type Antibody Screen KIKE, Poly Interpret Indirect Antiglob Test Crossmatch BBK History Checked 04/16/17 04/17/17 04/17/17 23:13 03:04 05:00 WBC RBC Hgb Hct MCV MCH MCHC RDW Plt Count Gran % Lymph % (Auto) Caldwell % (Auto) Eos % (Auto) Baso % (Auto) Gran # Lymph # Caldwell # Eos # Baso # Neutrophils % (Manual) Band Neutrophils % Lymphocytes % (Manual) Monocytes % (Manual) Platelet Evaluation Hypochromasia Poikilocytosis (manual Anisocytosis (manual) Microcytosis (manual) PT INR APTT pO2 VBG pH VBG pCO2 VBG HCO3 VBG Total CO2 VBG O2 Sat (Calc) VBG Base Excess VBG Potassium Glucose Lactate FiO2 Sodium Potassium Chloride Carbon Dioxide Anion Gap BUN Creatinine Est GFR ( Amer) Est GFR (Non-Af Amer) POC Glucose (mg/dL) 50 L 63 L Random Glucose Lactic Acid 7.3 H* Calcium Iron Total Bilirubin AST ALT Alkaline Phosphatase Ammonia Troponin I Total Protein Albumin Globulin Albumin/Globulin Ratio Venous Blood Potassium Fluid Albumin Blood Type Antibody Screen KIKE, Poly Interpret Indirect Antiglob Test Crossmatch BBK History Checked 04/17/17 04/17/17 04/17/17 07:00 07:00 07:00 WBC 1.2 L* D RBC 2.14 L Hgb 6.0 L* Hct 18.5 L* MCV 86.4 MCH 28.0 MCHC 32.4 RDW 17.3 H Plt Count 24 L* Gran % Lymph % (Auto) Caldwell % (Auto) Eos % (Auto) Baso % (Auto) Gran # Lymph # [place]dwell # Eos # Baso # Neutrophils % (Manual) 62 Band Neutrophils % 20 H* Lymphocytes % (Manual) 18 L Monocytes % (Manual) TEST NOT PERFORMED Platelet Evaluation Low Hypochromasia 3+ Poikilocytosis (manual 1+ Anisocytosis (manual) 1+ Microcytosis (manual) 1+ PT 24.4 H INR 2.26 H APTT 74.2 H* pO2 VBG pH VBG pCO2 VBG HCO3 VBG Total CO2 VBG O2 Sat (Calc) VBG Base Excess VBG Potassium Glucose Lactate FiO2 Sodium 140 Potassium 3.9 Chloride 105 Carbon Dioxide 12 L Anion Gap 27 H BUN 100 H Creatinine 7.8 H Est GFR ( Amer) 8 Est GFR (Non-Af Amer) 7 POC Glucose (mg/dL) Random Glucose 105 Lactic Acid Calcium 8.6 Iron Total Bilirubin 4.1 H AST 191 H ALT 154 H Alkaline Phosphatase 89 Ammonia Troponin I 0.07 Total Protein 4.0 L Albumin 2.2 L Globulin 1.8 Albumin/Globulin Ratio 1.2 Venous Blood Potassium Fluid Albumin Blood Type Antibody Screen KIKE, Poly Interpret Indirect Antiglob Test Crossmatch BBK History Checked 04/17/17 07:00 WBC RBC Hgb Hct MCV MCH MCHC RDW Plt Count Gran % Lymph % (Auto) [place]dwell % (Auto) Eos % (Auto) Baso % (Auto) Gran # Lymph # [place]dwell # Eos # Baso # Neutrophils % (Manual) Band Neutrophils % Lymphocytes % (Manual) Monocytes % (Manual) Platelet Evaluation Hypochromasia Poikilocytosis (manual Anisocytosis (manual) Microcytosis (manual) PT INR APTT pO2 163 H VBG pH 7.03 L* VBG pCO2 41.0 VBG HCO3 10.8 L VBG Total CO2 12.1 L VBG O2 Sat (Calc) 99.8 H VBG Base Excess -19.5 L VBG Potassium 4.0 Glucose 112 H Lactate 12.8 H* FiO2 21.0 Sodium 138.0 Potassium Chloride 107.0 Carbon Dioxide Anion Gap BUN Creatinine Est GFR ( Amer) Est GFR (Non-Af Amer) POC Glucose (mg/dL) Random Glucose Lactic Acid Calcium Iron Total Bilirubin AST ALT Alkaline Phosphatase Ammonia Troponin I Total Protein Albumin Globulin Albumin/Globulin Ratio Venous Blood Potassium 4.0 Fluid Albumin Blood Type Antibody Screen KIKE, Poly Interpret Indirect Antiglob Test Crossmatch BBK History Checked Assessment & Plan - Assessment and Plan (Free Text) Assessment: 66 year old male admitted with severe sepsis, KELLI, thrombocytopenia, cirrhosis, ascites, hypoglycemia, hypertension, C Diff antigen positive. Patient very agitated,restless> Appears uncomfortable. Abdomen distended, tender RLQ I had a very lengthy discussion with patient's daughter. She is aware of father' s grave medical condition despite aggressive medical interventions. She states that her father did not want to be kept alive by machines. She made her father a DNR/DNI earlier. We discussed goals of care. Daughter wants to make her father comfortable. I explained that by withdrawing treatment patient will . Daughter understands and states her father is suffering and she does not want to prolong his life under these circumstances. She agrees to transitioning to comfort care. Will evaluate for hospice [facility] services today. Times spent with daughter in goals of care, hospice services discussion and end of life counseling, 45 minutes Addendum: Daughter met with [facility] hospice community liaison. Daughter signed consent and is agreeable to [facility] hospice services .
[2017-04-17] MEDS ORDERED: Vancomycin 1gm in NS 250ml 1 GM/250 ML BAG IVPB SCH (10:00)
[2017-04-17] MEDS ORDERED: DAPTOmycin 500 mg Inj (Cubicin) IV SCH (10:00)
[2017-04-17] MEDS: Prostat 15 g packet PO SCH (10:04)
--- NOTE | 2017-04-17 10:29 | CP.PCM.PN ---
Subjective - Date & Time of Evaluation Date of Evaluation: 04/17/17 Time of Evaluation: 09:00 - Subjective Subjective: Patient has been transferred to the ICU overnight because the patient was noted to be hypotensive. He currently feels weak and tires. No fevers overnight. Objective - Vital Signs/Intake and Output Vital Signs (last 24 hours): Temp Pulse Resp BP Pulse Ox 98 F 96 H 27 H 130/48 L 90 L 04/17/17 02:35 04/17/17 05:30 04/17/17 05:30 04/17/17 05:17 04/17/17 05:30 Intake and Output: 04/16/17 04/17/17 18:59 06:59 Intake Total 350 2902 Output Total 0 Balance 350 2902 - Medications Medications: Current Medications Aspirin (Aspirin Chewable) 81 mg PO DAILY [facility] Last Admin: 04/10/17 13:02 Dose: Not Given Daptomycin (Cubicin) 570 mg 6 mg/kg (570 mg) IV QOTHERDAY [facility] PRN Reason: Protocol Stop: 04/27/17 10:01 Darbepoetin Lio (Aranesp) 60 mcg IVP ONCE ONE Stop: 04/21/17 06:01 Ergocalciferol (Drisdol 50,000 Intl Units Cap) 1 cap PO Q7D [facility] Stop: 05/25/17 12:46 Last Admin: 04/13/17 16:23 Dose: 1 cap Famotidine (Pepcid) 20 mg IVP BID [facility] Last Admin: 04/16/17 17:47 Dose: 20 mg Guaifenesin (Robitussin) 100 mg PO Q4H PRN PRN Reason: Cough Hydrocortisone (Cortizone 1% Oint) 0 gm TOP BID [facility] Last Admin: 04/16/17 17:47 Dose: 1 applic Albumin Human (Albumin Human 25% (25 Gm/100 Ml)) 100 mls @ 1 mls/min IVPB Q8 [facility] Last Admin: 04/17/17 05:22 Dose: 1 mls/min Vancomycin HCl (Vancomycin 1gm) 1 gm in 250 mls @ 167 mls/hr IVPB DAILY [facility] PRN Reason: Protocol Piperacillin Sod/Tazobactam Sod (Zosyn 2.25 Gm In 0.9% 100 Ml) 2.25 gm in 100 mls @ 100 mls/hr IVPB Q6 [facility] PRN Reason: Protocol Stop: 04/24/17 06:01 Last Admin: 04/17/17 05:25 Dose: 100 mls/hr NOREPINEPHRINE BIT/0.9 % NACL (Levophed 4 Mg/ 250 Ml Ns Premixed) 4 mg in 250 mls @ 15 mls/hr IV .[id number] PRN; Protocol; 4 MCG/MIN PRN Reason: TITRATE PER MD ORDER Metronidazole (Flagyl) 500 mg PO Q8 [facility] PRN Reason: Protocol Stop: 04/25/17 14:01 Last Admin: 04/17/17 05:24 Dose: Not Given Morphine Sulfate (Morphine) 2 mg IVP Q4H PRN PRN Reason: Pain, severe (8-10) Last Admin: 04/16/17 09:49 Dose: 2 mg Multi-Ingredient Ointment (Prep-Hem) 1 ea TOP Q8H [facility] Last Admin: 04/17/17 01:08 Dose: Not Given Nystatin (Nystatin Oral Susp) 5 ml PO QID [facility] Stop: 04/18/17 10:01 Last Admin: 04/16/17 21:56 Dose: Not Given Ondansetron HCl (Zofran Inj) 4 mg IVP Q8H PRN PRN Reason: Nausea/Vomiting Last Admin: 04/16/17 23:25 Dose: 4 mg Sevelamer HCl (Renagel) 2,400 mg PO TID [facility] Last Admin: 04/16/17 18:41 Dose: Not Given - Labs Labs: 04/16/17 23:13 04/16/17 23:13 PT 20.2 Seconds (9.9-11.8) H 04/16/17 07:40 INR 1.87 (0.93-1.08) H 04/16/17 07:40 APTT 46.4 Seconds (23.7-30.8) H 04/16/17 07:40 - Constitutional Appears: Chronically Ill - Head Exam Head Exam: NORMAL INSPECTION - Neck Exam Neck Exam: absent: Meningismus - Respiratory Exam Respiratory Exam: Decreased Breath Sounds - Cardiovascular Exam Cardiovascular Exam: +S1, +S2 - GI/Abdominal Exam GI & Abdominal Exam: Distended, Soft. absent: Guarding, Rigid, Tenderness, Rebound Assessment and Plan - Assessment and Plan (Free Text) Plan: Assessment New onset systemic inflammatory response syndrome, R/O new onset sepsis Consider C. diff. associated diarrhea Pancytopenia history of liver cirrhosis with portal gastropathy and esophageal varices history of right leg ulcer with associated cellulitis, with Serratia growing from the wound HTN DM CAD S/P PCI chronic renal failure Plan gave a dose of IV Daptomycin, IV Vanco and Merrem and continue PO Flagyl (day 2 for flagyl) pending repeat blood cx, urine cx, CXR; reviewed CT abdomen and pelvis which does not show new findings Will monitor clinically Overall prognosis is poor
[2017-04-17] MEDS: Nystatin 100,000 Units/ml Oral Susp 5 ml UD PO SCH (10:33)
--- NOTE | 2017-04-17 10:52 | CP.PCM.PN ---
Subjective - Date & Time of Evaluation Date of Evaluation: 04/17/17 Time of Evaluation: 06:45 - Subjective Subjective: Beena Mckinney DO PGY1 - Internal Medicine Progress Note - Julius/Eliazbeth Service Patient seen and evaluated at the bedside. Today is hospital day 14. Patient was transferred to the ICU overnight due and code sepsis was called. In the ICU , he was hypotensive despite fluid challenge, and hypoglycemic. He was started on IV drip levophed for pressure support, but his BP remains low. This is being administered peripherally rather than starting a central line due to concern for hemorrhage. Overnight he also recieved a unit of blood, FFP, and platelets, though the unit of PRBCs appears to have extravasated into his arm. He is currently lethargic but responsive, still in the ICU, daughter was called and came to the bedside. Objective - Vital Signs/Intake and Output Vital Signs (last 24 hours): Temp Pulse Resp BP Pulse Ox 98 F 87 26 H 89/35 L 85 L 04/17/17 02:35 04/17/17 08:03 04/17/17 08:03 04/17/17 08:00 04/17/17 08:00 Intake and Output: 04/17/17 04/17/17 06:59 18:59 Intake Total 2902 Output Total 0 Balance 2902 - Medications Medications: Current Medications Aspirin (Aspirin Chewable) 81 mg PO DAILY [facility] Last Admin: 04/10/17 13:02 Dose: Not Given Darbepoetin Lio (Aranesp) 60 mcg IVP ONCE ONE Stop: 04/21/17 06:01 Ergocalciferol (Drisdol 50,000 Intl Units Cap) 1 cap PO Q7D [facility] Stop: 05/25/17 12:46 Last Admin: 04/13/17 16:23 Dose: 1 cap Famotidine (Pepcid) 20 mg IVP BID [facility] Last Admin: 04/16/17 17:47 Dose: 20 mg Guaifenesin (Robitussin) 100 mg PO Q4H PRN PRN Reason: Cough Hydrocortisone (Cortizone 1% Oint) 0 gm TOP BID [facility] Last Admin: 04/16/17 17:47 Dose: 1 applic Albumin Human (Albumin Human 25% (25 Gm/100 Ml)) 100 mls @ 1 mls/min IVPB Q8 [facility] Last Admin: 04/17/17 05:22 Dose: 1 mls/min Vancomycin HCl (Vancomycin 1gm) 1 gm in 250 mls @ 167 mls/hr IVPB DAILY [facility] PRN Reason: Protocol Last Admin: 04/17/17 10:16 Dose: 167 mls/hr NOREPINEPHRINE BIT/0.9 % NACL (Levophed 4 Mg/ 250 Ml Ns Premixed) 4 mg in 250 mls @ 15 mls/hr IV .[id number] PRN; Protocol; 4 MCG/MIN PRN Reason: TITRATE PER MD ORDER Daptomycin 570 mg/ Sodium (Chloride) 100 mls @ 200 mls/hr IV Q48H [facility] Stop: 04/27/17 10:01 Meropenem 500 mg/ Sodium (Chloride) 100 mls @ 100 mls/hr IVPB Q12 [facility] PRN Reason: Protocol Stop: 04/24/17 06:12 Metronidazole (Flagyl) 500 mg PO Q8 [facility] PRN Reason: Protocol Stop: 04/25/17 14:01 Last Admin: 04/17/17 05:24 Dose: Not Given Morphine Sulfate (Morphine) 2 mg IVP Q4H PRN PRN Reason: Pain, severe (8-10) Last Admin: 04/16/17 09:49 Dose: 2 mg Multi-Ingredient Ointment (Prep-Hem) 1 ea TOP Q8H [facility] Last Admin: 04/17/17 01:08 Dose: Not Given Nystatin (Nystatin Oral Susp) 5 ml PO QID [facility] Stop: 04/18/17 10:01 Last Admin: 04/17/17 10:33 Dose: Not Given Ondansetron HCl (Zofran Inj) 4 mg IVP Q8H PRN PRN Reason: Nausea/Vomiting Last Admin: 04/16/17 23:25 Dose: 4 mg Sevelamer HCl (Renagel) 2,400 mg PO TID [facility] Last Admin: 04/17/17 10:05 Dose: Not Given - Labs Labs: 04/17/17 07:00 04/17/17 07:00 PT 24.4 Seconds (9.9-11.8) H 04/17/17 07:00 INR 2.26 (0.93-1.08) H 04/17/17 07:00 APTT 74.2 Seconds (23.7-30.8) H* 07/11/17 07:00 - Constitutional Appears: In Acute Distress, Confused, Chronically Ill - Head Exam Head Exam: ATRAUMATIC, NORMOCEPHALIC - Eye Exam Eye Exam: EOMI, PERRL - ENT Exam ENT Exam: Mucous Membranes Moist - Neck Exam Neck Exam: Normal Inspection Additional comments: Port-catheter in place, right - Respiratory Exam Respiratory Exam: Rales, Rhonchi Additional comments: tachypnic, O2 sat wavering between 77-90 - Cardiovascular Exam Cardiovascular Exam: RRR, +S1, +S2 - GI/Abdominal Exam GI & Abdominal Exam: Distended, Soft. absent: Rigid, Tenderness - Extremities Exam Extremities Exam: Full ROM Additional comments: Large hematoma left antecubital fossa and upper arm - Neurological Exam Neurological Exam: Altered Additional comments: lethargic - Psychiatric Exam Additional comments: Lethargic, unable to assess Assessment and Plan - Assessment and Plan (Free Text) Assessment: 66 year old male with a PMH of cirrhosis, CKD, HTN, CAD, and recent AIN on PO steroids, who presented with worsening ascites. He was subsequently found to have KELLI on CKD now ESRD on HD, likely secondary to biopsy proven AIN versus hepatorenal syndrome. He also has worsening cirrhosis with refractory ascited, now with a MELD score 34
--- NOTE | 2017-04-17 11:43 | CP.PCM.PN ---
<Emy Erwin - Last Filed: 04/17/17 11:39> Subjective - Date & Time of Evaluation Date of Evaluation: 04/17/17 Time of Evaluation: 08:10 - Subjective Subjective: Seen and examined at bedside, chart reviewed. Patient became hypoglycemic and hypotensive last night and transferred to ICU, overnight events are noted. This am the patient is lethargic, daughter at bedside. Ct scan : moderate ascites Objective - Vital Signs/Intake and Output Vital Signs (last 24 hours): Temp Pulse Resp BP Pulse Ox 98 F 87 26 H 89/35 L 85 L 04/17/17 02:35 04/17/17 08:03 04/17/17 08:03 04/17/17 08:00 04/17/17 08:00 Intake and Output: 04/17/17 04/17/17 06:59 18:59 Intake Total 2902 Output Total 0 Balance 2902 - Labs Labs: 04/17/17 07:00 04/17/17 07:00 PT 24.4 Seconds (9.9-11.8) H 04/17/17 07:00 INR 2.26 (0.93-1.08) H 04/17/17 07:00 APTT 74.2 Seconds (23.7-30.8) H* 04/17/17 07:00 - Constitutional Appears: Other (lethargic) - Head Exam Head Exam: NORMOCEPHALIC - Eye Exam Eye Exam: Scleral icterus - ENT Exam ENT Exam: Mucous Membranes Moist - Neck Exam Neck Exam: Normal Inspection - Respiratory Exam Respiratory Exam: NORMAL BREATHING PATTERN. absent: Respiratory Distress - Cardiovascular Exam Cardiovascular Exam: +S1, +S2 - GI/Abdominal Exam GI & Abdominal Exam: Distended, Soft. absent: Guarding, Rebound - Extremities Exam Extremities Exam: Pedal Edema - Neurological Exam Neurological Exam: Altered - Skin Skin Exam: Dry, Warm Additional comments: jaundice Assessment and Plan - Assessment and Plan (Free Text) Assessment: Assessment: Decompensated Liver Failure,w/Refractory Ascites, status post paracentesis X2: 1st 9L & 2nd 7200cc Hypotension, s/p CODE sepsis C diff antigen positive S/P Abdominal doppler: portal vein thrombosis Oral Thrush likely secondary to high dose oral steroids, patient did have endoscopy recently had only portal hypertensive gastropathy and a grade 1 esophageal varices. 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 Hay with patient daughter and Dr. Sloan regarding patient acute condition, earlier today,patient's daughter has decided to make patient DNR/DNI and will go into hospice care. Seen and discussed with Dr. Hya. <Pawel Hay V - Last Filed: 04/17/17 23:51> Objective - Vital Signs/Intake and Output Vital Signs (last 24 hours): Temp Pulse Resp BP Pulse Ox 98 F 87 26 H 89/35 L 85 L 04/17/17 02:35 04/17/17 08:03 04/17/17 08:03 04/17/17 08:00 04/17/17 08:00 - Labs Labs: 04/17/17 07:00 04/17/17 07:00 PT 24.4 Seconds (9.9-11.8) H 04/17/17 07:00 INR 2.26 (0.93-1.08) H 04/17/17 07:00 APTT 74.2 Seconds (23.7-30.8) H* 04/17/17 07:00 Attending/Attestation - Attestation I have personally seen and examined this patient.: Yes I have fully participated in the care of the patient.: Yes I have reviewed all pertinent clinical information, including history, physical exam and plan: Yes Notes (Text): Patient was seen and evaluated earlier. Discussed with patients daughter st length.Explained.Family reqested DNR /DNI Discussed with recovery agent
--- NOTE | 2017-04-17 12:29 | CARD ---
APPROVED REPORT EKG Measurement Heart [id number] <Conclusion> Normal sinus rhythm Moderate voltage criteria for LVH, may be normal variant Inferior infarct, age undetermined ST & T wave abnormality, consider lateral ischemia Abnormal ECG
--- NOTE | 2017-04-17 12:39 | CP.PCM.DIS ---
Addendum entered and electronically signed by Wale Flowers DO 04/17/17 17:05: Patient seen and examined at bedside. Discussed with Dr. Moise, attending physician, engineering faculty, and GI at bedside. Patient to be made DNR/DNI and to be on hospice. Wale Flowers D.O. PGY-2 Original Note: <CHAR MOISE - Last Filed: 04/17/17 16:19> Provider - Provider Date of Admission: 04/04/17 18:34 Attending physician: Juan Carlos Madrid MD Primary care physician: Bravo Johnson MD Consults: RUPAL Sylvester Nephro - Helio Hem/Onc GI - Bharti Hollingsworth Time Spent in preparation of Discharge (in minutes): 50 Diagnosis - Discharge Diagnosis (1) Portal vein thrombosis Status: Acute Priority: High (2) Acute interstitial nephritis Status: Acute Priority: High (3) Acute kidney injury superimposed on CKD Status: Acute Priority: High (4) Ascites Status: Acute (5) Decompensated hepatic cirrhosis Status: Acute Priority: High (6) GI bleed Status: Acute Priority: Medium (7) Non-healing ulcer of lower leg Status: Chronic Priority: Low (8) Renal failure Status: Acute Priority: High (9) Pancytopenia Status: Acute Hospital Course - Lab Results Lab Results: Micro Results 04/16/17 10:40 Blood-Venous Blood Culture - Preliminary NO GROWTH AFTER 24 HOURS 04/16/17 10:20 Blood-Venous Blood Culture - Preliminary NO GROWTH AFTER 24 HOURS 04/14/17 12:30 Blood-During Dialysis S.aureus & Coag-Neg Staph PNA FISH - Final 04/14/17 12:30 Blood-During Dialysis Blood Culture - Final Coagulase Neg Staphylococcus 04/14/17 12:30 Blood-During Dialysis Gram Stain - Final 04/14/17 12:00 Blood-During Dialysis Blood Culture - Preliminary NO GROWTH AFTER 48 HOURS 04/12/17 15:55 Ascitic Fluid Gram Stain - Final 04/12/17 15:55 Ascitic Fluid Anaerobic Culture - Final NO ANAEROBES ISOLATED. 04/12/17 15:55 Ascitic Fluid Body Fluid Culture - Final No growth. 04/12/17 15:55 Ascitic Fluid Fungal Culture - Preliminary 04/15/17 11:20 Stool C. difficile Antigen & Toxin A,B (M - Final 04/12/17 15:55 Other: Please Indicate Mycobacterial Culture - Preliminary 04/09/17 15:00 Stool C. difficile Antigen & Toxin A,B (M - Final 04/04/17 21:56 Urine,Clean Catch Urine Culture - Final 50-100,000 CFU/ML. MULTIPLE SPECIES. SUGGEST REPEAT SPECIMEM. Most Recent Lab Values WBC 1.2 10^3/ul (4.5-11.0) L* D 04/17/17 07:00 RBC 2.14 10^6/uL (3.5-6.1) L 04/17/17 07:00 Hgb 6.0 gm/dL (14.0-18.0) L* 04/17/17 07:00 Hct 18.5 % (42.0-52.0) L* 04/17/17 07:00 MCV 86.4 fL (80.0-105.0) 04/17/17 07:00 MCH 28.0 pg (25.0-35.0) 04/17/17 07:00 MCHC 32.4 g/dl (31.0-37.0) 04/17/17 07:00 RDW 17.3 % (11.5-14.5) H 04/17/17 07:00 Plt Count 24 10^3/uL (120.0-450.0) L* 04/17/17 07:00 Manual Plt Count 48 K/mm3 (120-450) L* 04/13/17 05:30 Gran % 81.4 % (50.0-68.0) H 04/16/17 22:35 Lymph % (Auto) 9.3 % (22.0-35.0) L 04/16/17 22:35 [place] % (Auto) 8.9 % (1.0-6.0) H 04/16/17 22:35 Eos % (Auto) 0.4 % (1.5-5.0) L 04/16/17 22:35 Baso % (Auto) 0.0 % (0.0-3.0) 04/16/17 22:35 Gran # 2.00 (1.4-6.5) 04/16/17 22:35 Lymph # 0.2 (1.2-3.4) L 04/16/17 22:35 [place] # 0.2 (0.1-0.6) 04/16/17 22:35 Eos # 0.0 (0.0-0.7) 04/16/17 22:35 Baso # 0.00 K/mm3 (0.0-2.0) 04/16/17 22:35 Neutrophils % (Manual) 62 % (50.0-70.0) 04/17/17 07:00 Band Neutrophils % 20 % (0-2) H* 04/17/17 07:00 Lymphocytes % (Manual) 18 % (22.0-35.0) L 04/17/17 07:00 Monocytes % (Manual) TEST NOT PERFORMED 04/17/17 07:00 Eosinophils % (Manual) 1 % (0.0-3.0) 04/04/17 17:20 Nucleated RBC % 1 % 04/10/17 07:15 Platelet Evaluation Low (NORMAL) 04/17/17 07:00 Large Platelets Present 04/10/17 07:15 Hypochromasia 3+ 04/17/17 07:00 Poikilocytosis (manual 1+ 04/17/17 07:00 Basophilic Stippling Slight 04/10/17 07:15 Anisocytosis (manual) 1+ 04/17/17 07:00 Microcytosis (manual) 1+ 04/17/17 07:00 Target Cells Slight 04/10/17 07:15 Tear Drop Cells Slight 04/10/17 07:15 Ovalocytes Slight 04/10/17 07:15 Retic Count 1.40 % (0.5-1.5) 04/16/17 07:40 PT 24.4 Seconds (9.9-11.8) H 04/17/17 07:00 INR 2.26 (0.93-1.08) H 04/17/17 07:00 APTT 74.2 Seconds (23.7-30.8) H* 04/17/17 07:00 pCO2 33 mm/Hg (35-45) L 04/14/17 14:30 pO2 163 mm/Hg (30-55) H 04/17/17 07:00 HCO3 20.0 mmol/L (21-28) L 04/14/17 14:30 ABG pH 7.39 (7.35-7.45) 04/14/17 14:30 ABG Total CO2 21.0 mmol.L (22-28) L 04/14/17 14:30 ABG O2 Saturation 97.5 % (95-98) 04/14/17 14:30 ABG O2 Content 11.7 ML/dl (15-23) L 04/14/17 11:50 ABG Base Excess -4.1 mmol/L (-2.0-3.0) L 04/14/17 14:30 ABG Hemoglobin 8.5 g/dL (11.7-17.4) L 04/14/17 11:50 ABG Carboxyhemoglobin 1.8 % (0.5-1.5) H 04/14/17 11:50 POC ABG HHb (Measured) 0.9 % (0-5) 04/14/17 11:50 ABG Methemoglobin 0.5 % (0.0-3.0) 04/14/17 11:50 ABG O2 Capacity 11.8 mL/dl (16-24) L 04/14/17 11:50 ABG Potassium 4.8 mmol/L (3.6-5.2) 04/14/17 14:30 VBG pH 7.03 (7.32-7.43) L* 04/17/17 07:00 VBG pCO2 41.0 (40-60) 04/17/17 07:00 VBG HCO3 10.8 mmol/l (21-28) L 04/17/17 07:00 VBG Total CO2 12.1 mmol.L (22-28) L 04/17/17 07:00 VBG O2 Sat (Calc) 99.8 % (40-65) H 04/17/17 07:00 VBG Base Excess -19.5 mmol/L (0.0-2.0) L 04/17/17 07:00 VBG Potassium 4.0 mmol/L (3.6-5.2) 04/17/17 07:00 Hgb O2 Saturation 96.8 % (95.0-98.0) 04/14/17 11:50 Sodium 138.0 mmol/L (132-148) 04/17/17 07:00 Chloride 107.0 mmol/L (98-107) 04/17/17 07:00 Glucose 112 mg/dl (75-110) H 04/17/17 07:00 Lactate 12.8 mmol/L (0.7-2.1) H* 04/17/17 07:00 FiO2 21.0 % 04/17/17 07:00 Sodium 140 mmol/L (132-148) 04/17/17 07:00 Potassium 3.9 mmol/L (3.6-5.0) 04/17/17 07:00 Chloride 105 mmol/L (98-107) 04/17/17 07:00 Carbon Dioxide 12 mmol/L (21-33) L 04/17/17 07:00 Anion Gap 27 (10-20) H 04/17/17 07:00 BUN 100 mg/dL (7-21) H 04/17/17 07:00 Creatinine 7.8 mg/dL (0.5-1.4) H 04/17/17 07:00 Est GFR ( Amer) 8 04/17/17 07:00 Est GFR (Non-Af Amer) 7 04/17/17 07:00 POC Glucose (mg/dL) 139 mg/dL (65-110) H 04/17/17 06:51 Random Glucose 105 mg/dL (70-110) 04/17/17 07:00 Lactic Acid 7.3 mmol/L (0.7-2.1) H* 04/16/17 23:13 Calcium 8.6 mg/dL (8.4-10.5) 04/17/17 07:00 Phosphorus 5.8 mg/dL (2.5-4.5) H 04/16/17 07:40 Magnesium 2.2 mg/dL (1.7-2.2) 04/16/17 07:40 Iron 56 ug/dL (45-180) 04/16/17 10:30 TIBC 229 ug/dL (261-462) L 04/06/17 06:30 % Saturation 13 % (20-55) L 04/06/17 06:30 Ferritin 105.0 ng/mL 04/06/17 06:30 Total Bilirubin 4.1 mg/dL (0.2-1.3) H 04/17/17 07:00 AST 191 U/L (15-59) H 04/17/17 07:00 ALT 154 U/L (7-56) H 04/17/17 07:00 Alkaline Phosphatase 89 U/L (38-133) 04/17/17 07:00 Ammonia 118 umol/L (9-33) H 04/16/17 23:13 Troponin I 0.07 ng/mL 04/17/17 07:00 Total Protein 4.0 g/dL (5.8-8.3) L 04/17/17 07:00 Albumin 2.2 g/dL (3.0-4.8) L 04/17/17 07:00 Globulin 1.8 gm/dL 04/17/17 07:00 Albumin/Globulin Ratio 1.2 (1.1-1.8) 04/17/17 07:00 Amylase 208 U/L (35-125) H 04/10/17 07:15 Lipase 271 U/L (23-300) 04/10/17 07:15 25-OH Vitamin D Total < 12.8 NG/ML (30.0-100.0) L 04/06/17 06:30 PTH Intact Whole Molec 297 pg/mL (14-64) H 04/06/17 06:30 Arterial Blood Potassium 4.8 mmol/L (3.6-5.2) 04/14/17 14:30 Venous Blood Potassium 4.0 mmol/L (3.6-5.2) 04/17/17 07:00 Urine Color Dark yellow (YELLOW) 04/04/17 21:45 Urine Appearance Sl cloudy (CLEAR) 04/04/17 21:45 Urine pH 5.5 (4.7-8.0) 04/04/17 21:45 Ur Specific [place] 1.020 (1.005-1.035) 04/04/17 21:45 Urine Protein 30 mg/dL (<30 mg/dL) H 04/04/17 21:45 Urine Glucose (UA) Negative mg/dL (NEGATIVE) 04/04/17 21:45 Urine Ketones Negative mg/dL (NEGATIVE) 04/04/17 21:45 Urine Blood Large (NEGATIVE) H 04/04/17 21:45 Urine Nitrate Negative (NEGATIVE) 04/04/17 21:45 Urine Bilirubin Negative (NEGATIVE) 04/04/17 21:45 Urine Urobilinogen 0.2 E.U./dL (<1 E.U./dL) 04/04/17 21:45 Ur Leukocyte Esterase Large Yash/uL (NEGATIVE) H 04/04/17 21:45 Urine RBC Tntc /hpf (0-2) 04/04/17 21:45 Urine WBC 25 - 30 /hpf (0-6) 04/04/17 21:45 Ur Epithelial Cells 3 - 4 /hpf (0-5) 04/04/17 21:45 Urine Bacteria Mod (NEG) 04/04/17 21:45 Ur Random Creatinine 109 mg/dL 04/04/17 21:45 U Random Total Protein 599 mg/g creat (22-128) H 04/04/17 21:45 Ur Random Sodium 8 meq/L 04/04/17 21:45 Urine Microalbumin 260.2 mg/L (0.0-16.6) H 04/04/17 21:45 Fluid Source Peritoneal 04/12/17 15:55 Fluid Appearance Clear (CLEAR) 04/12/17 15:55 Fluid WBC 25.0 /uL (0.0-300.0) 04/12/17 15:55 Fluid RBC 80.0 /uL (0.0-0.0) H 04/12/17 15:55 Fluid Tot Cell Count 100 (0-0) H 04/12/17 15:55 Fluid Neutrophils 66.7 % (0-0) H 04/12/17 15:55 Fluid Lymphocytes 33.3 % (0-0) H 04/12/17 15:55 Fld Monocyte/Macrophag TEST NOT PERFORMED 04/12/17 15:55 Fluid Albumin 0.2 g/dL 04/12/17 15:55 Fluid Comment Light yellow 04/12/17 15:55 IgG, Serum (MS) 89.7 mg/dL (4-86) H 04/05/17 05:36 Peritoneal Lipase 53.0 U/L (<10) H 04/12/17 15:55 IgG 1302.6 mg/dL (700.0-1600.0) 04/05/17 06:15 Rheumatoid Factor 16 IU/mL (<14) H 04/05/17 12:45 SAEED Screen Negative (NEGATIVE) 04/05/17 12:45 SAEED Titer TNP 04/05/17 12:45 SAEED Pattern TNP 04/05/17 12:45 Proteinase 3 (PR3) <1.0 AI (<1.0) 04/06/17 06:30 Myeloperoxidase Ab 1.7 AI (<1.0) H 04/06/17 06:30 SS-A Antibody <1.0 neg AI (<1.0 NEGATIVE) 04/05/17 12:45 SS-B Antibody <1.0 neg AI (<1.0 NEGATIVE) 04/05/17 12:45 Sm (Sylvester) Antibody <1.0 neg AI (<1.0 NEGATIVE) 04/05/17 12:45 SM/[employer]RECTION [employer] Antibody <1.0 neg AI (<1.0 NEGATIVE) 04/05/17 12:45 Scl-70 Antibody <1.0 neg AI (<1.0 NEGATIVE) 04/05/17 12:45 Anti-ds DNA Titer (Crith) 1:40 (<1:10) H 04/05/17 12:45 Anti-ds DNA (Crithidia) Positive (NEGATIVE) H 04/05/17 12:45 Ribosomal P Prot Ab <1.0 neg AI (<1.0 NEGATIVE) 04/05/17 12:45 Anti-Mitochondrial Titr TNP 04/05/17 12:45 Anti-Mitochondrial Ab Negative (NEGATIVE) 04/05/17 12:45 Actin IgG Antibody 31 U H 04/05/17 12:45 Striated Muscle Ab TNP 04/05/17 12:45 Myocardial Ab Titer TNP 04/05/17 12:45 Anti-Myocardial Ab Negative (NEGATIVE) 04/05/17 12:45 Reticulin Ab Titer TNP 04/05/17 12:45 Reticulin IgA Antibody Negative (NEGATIVE) 04/05/17 12:45 Thyroperoxidase Ab 3 IU/mL (<9) 04/05/17 12:45 Anti-Parietal Cell Ab 70.5 U H 04/05/17 12:45 Complement C3 59 mg/dL L 04/05/17 12:45 Complement C4 11 mg/dL (ADULTS: 16-47) L 04/05/17 12:45 Hepatitis A IgM Ab Negative (NEGATIVE) 04/07/17 07:00 Hep Bs Antigen Negative (NEGATIVE) 04/07/17 14:40 Hep Bs Antibody Negative (NEGATIVE) 04/05/17 12:00 Hep B Core IgM Ab Negative (NEGATIVE) 04/07/17 07:00 Hepatitis C Antibody Negative (NEGATIVE) 04/07/17 07:00 Blood Type O POSITIVE 04/16/17 11:40 Antibody Screen Negative 04/16/17 11:40 KIKE, Poly Interpret Negative (NEGATIVE) 04/16/17 11:40 Indirect Antiglob Test 04/16/17 11:40 Crossmatch See Detail 04/16/17 11:40 BBK History Checked Patient has bt 04/16/17 11:40 - Hospital Course Hospital Course: This is a 66 yo male with past medical history of hypertension, CAD, DE s/p stent placement, renal insufficiency secondary to acute interstitial nephritis, cirrhosis that presented on 04/04 complaining of abdominal distention. On 04/05, he had paracentesis done and 9L were drawn. At the time, he was also diagnosed with KELLI on CKD and ESRD. Nephrology was consulted who started him on dialysis through a temporary portacath as well as high dose steroids and immunosuppresants to attempt renal recovery. On dialysis for 3 days, and s/p paracentesis, his symptoms improved slightly. On 04/10, HD was stopped midway when he became hypotensive. He also started complaining of worsening abdominal pain, especially with meals, likely due to thrush secondary to immunosuppression , which was managed with full liquid diet, protonix, pepcid, carafate, nystatin , and PRN morphone. He also had a worsening anemia and thrombocytopenia since 04/08, and on 04/11 he was consented for platelet transfusion, which he received. On , his platelet count improved slightly, and he had paracentesis again, this time drawing 7.2L; this fluid was analyzed with concern for SBP, but was negative. Patient remained on dialysis, but continued to have hypotensive episodes with each session. On 04/13 he was no longer tolerating the dialysis due to pain, and was also declining prednisone and cellcept, due to the abdominal pain, thrush, and body aches. 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 On the night of 04/13, a rapid-response was called when he became hypotensive and unresponsive, and appeared to be in hepatic encephalopathy, a NG tube was placed and he was started on lactulose until he had a BM. His mental status improved the following day and lactulose was discontinued and the NG tube withdrawn. On 04/15, US showed portal venous thrombosis, but heparin could not be started because he was already coagulopathic and thrombocytopenic. That day, blood cultures and stool studies also came back significant for G+ cocci and C. difficile antigen, respectively, and he was given one dose of vancomycin and started on PO flagyl by ID. Yesterday, he continued to have a downtrending anemia, and so he was given one unit of blood. He remained hypotensive as well, so IV albumin and PO protein supplement were started. Patient was transferred to the ICU overnight and code sepsis was called. In the ICU, he was hypotensive despite fluid challenge, and hypoglycemic. He was started on IV drip levophed for pressure support, but his BP remains low. This is being administered peripherally rather than starting a central line due to concern for hemorrhage. Overnight he also recieved a unit of blood, FFP, and platelets, though the first unit of PRBCs appears to have extravasated into his arm. He is currently lethargic but responsive, still in the ICU, daughter was called and came to the bedside. After a lengthy discussion with the daughter, attending, specialists, and ICU team, she decided to make the patient full DNR/ DNI and requested palliative care. Discharge Exam - Head Exam Head Exam: NORMOCEPHALIC - Eye Exam Eye Exam: EOMI, Normal appearance - ENT Exam ENT Exam: Mucous Membranes Moist - Neck Exam Neck exam: Normal Inspection Additional comments: Portacath in place, right - Respiratory Exam Respiratory Exam: Accessory Muscle Use, Rales, Rhonchi. absent: Wheezes - Cardiovascular Exam Cardiovascular Exam: RRR, +S1, +S2 - GI/Abdominal Exam GI & Abdominal Exam: Distended, Soft. absent: Guarding, Rigid - Extremities Exam Extremities exam: pedal edema - Back Exam Back exam: NORMAL INSPECTION - Neurological Exam Additional comments: Lethargic - Psychiatric Exam Additional comments: Unable to assess, patient lethargic - Skin Skin Exam: Dry, Intact Discharge Plan - Follow Up Plan Condition: CRITICAL Disposition: HOSPICE - MEDICAL FACILITY Patient education suggested?: Yes Referrals: Bravo Johnson MD [Primary Care Provider] - <Bravo Johnson - Last Filed: 04/30/17 17:05> Provider - Provider Date of Admission: 04/04/17 18:34 Attending physician: Juan Carlos Madrid MD Primary care physician: Bravo Johnson MD Hospital Course - Lab Results Lab Results: Micro Results 04/12/17 15:55 Other: Please Indicate Mycobacterial Culture - Preliminary 04/12/17 15:55 Ascitic Fluid Gram Stain - Final 04/12/17 15:55 Ascitic Fluid Anaerobic Culture - Final NO ANAEROBES ISOLATED. 04/12/17 15:55 Ascitic Fluid Body Fluid Culture - Final No growth. 04/12/17 15:55 Ascitic Fluid Fungal Culture - Preliminary NO FUNGUS GROWTH IN 1 WEEK. 04/16/17 10:40 Blood-Venous Blood Culture - Final NO GROWTH AFTER 5 DAYS 04/16/17 10:40 Blood-Venous Gram Stain - Final TEST NOT PERFORMED 04/16/17 10:20 Blood-Venous Blood Culture - Final NO GROWTH AFTER 5 DAYS 04/16/17 10:20 Blood-Venous Gram Stain - Final TEST NOT PERFORMED 04/14/17 12:00 Blood-During Dialysis Blood Culture - Final NO GROWTH AFTER 5 DAYS 04/14/17 12:00 Blood-During Dialysis Gram Stain - Final TEST NOT PERFORMED 04/17/17 01:03 Naris MRSA Culture (Admit) - Final MRSA NOT DETECTED 04/14/17 12:30 Blood-During Dialysis S.aureus & Coag-Neg Staph PNA FISH - Final 04/14/17 12:30 Blood-During Dialysis Blood Culture - Final Coagulase Neg Staphylococcus 04/14/17 12:30 Blood-During Dialysis Gram Stain - Final 04/15/17 11:20 Stool C. difficile Antigen & Toxin A,B (M - Final 04/09/17 15:00 Stool C. difficile Antigen & Toxin A,B (M - Final 04/04/17 21:56 Urine,Clean Catch Urine Culture - Final 50-100,000 CFU/ML. MULTIPLE SPECIES. SUGGEST REPEAT SPECIMEM. Most Recent Lab Values WBC 1.2 10^3/ul (4.5-11.0) L* D 04/17/17 07:00 RBC 2.14 10^6/uL (3.5-6.1) L 04/17/17 07:00 Hgb 6.0 gm/dL (14.0-18.0) L* 04/17/17 07:00 Hct 18.5 % (42.0-52.0) L* 04/17/17 07:00 MCV 86.4 fL (80.0-105.0) 04/17/17 07:00 MCH 28.0 pg (25.0-35.0) 04/17/17 07:00 MCHC 32.4 g/dl (31.0-37.0) 04/17/17 07:00 RDW 17.3 % (11.5-14.5) H 04/17/17 07:00 Plt Count 24 10^3/uL (120.0-450.0) L* 04/17/17 07:00 Manual Plt Count 48 K/mm3 (120-450) L* 04/13/17 05:30 Gran % 81.4 % (50.0-68.0) H 04/16/17 22:35 Lymph % (Auto) 9.3 % (22.0-35.0) L 04/16/17 22:35 [place] % (Auto) 8.9 % (1.0-6.0) H 04/16/17 22:35 Eos % (Auto) 0.4 % (1.5-5.0) L 04/16/17 22:35 Baso % (Auto) 0.0 % (0.0-3.0) 04/16/17 22:35 Gran # 2.00 (1.4-6.5) 04/16/17 22:35 Lymph # 0.2 (1.2-3.4) L 04/16/17 22:35 [place] # 0.2 (0.1-0.6) 04/16/17 22:35 Eos # 0.0 (0.0-0.7) 04/16/17 22:35 Baso # 0.00 K/mm3 (0.0-2.0) 04/16/17 22:35 Neutrophils % (Manual) 62 % (50.0-70.0) 04/17/17 07:00 Band Neutrophils % 20 % (0-2) H* 04/17/17 07:00 Lymphocytes % (Manual) 18 % (22.0-35.0) L 04/17/17 07:00 Monocytes % (Manual) TEST NOT PERFORMED 04/17/17 07:00 Eosinophils % (Manual) 1 % (0.0-3.0) 04/04/17 17:20 Nucleated RBC % 1 % 04/10/17 07:15 Platelet Evaluation Low (NORMAL) 04/17/17 07:00 Large Platelets Present 04/10/17 07:15 Hypochromasia 3+ 04/17/17 07:00 Poikilocytosis (manual 1+ 04/17/17 07:00 Basophilic Stippling Slight 04/10/17 07:15 Anisocytosis (manual) 1+ 04/17/17 07:00 Microcytosis (manual) 1+ 04/17/17 07:00 Target Cells Slight 04/10/17 07:15 Tear Drop Cells Slight 04/10/17 07:15 Ovalocytes Slight 04/10/17 07:15 Retic Count 1.40 % (0.5-1.5) 04/16/17 07:40 PT 24.4 Seconds (9.9-11.8) H 04/17/17 07:00 INR 2.26 (0.93-1.08) H 04/17/17 07:00 APTT 74.2 Seconds (23.7-30.8) H* 04/17/17 07:00 Hep-Marixa Thrombocytopen Negative (Negative) 04/16/17 10:30 pCO2 33 mm/Hg (35-45) L 04/14/17 14:30 pO2 163 mm/Hg (30-55) H 04/17/17 07:00 HCO3 20.0 mmol/L (21-28) L 04/14/17 14:30 ABG pH 7.39 (7.35-7.45) 04/14/17 14:30 ABG Total CO2 21.0 mmol.L (22-28) L 04/14/17 14:30 ABG O2 Saturation 97.5 % (95-98) 04/14/17 14:30 ABG O2 Content 11.7 ML/dl (15-23) L 04/14/17 11:50 ABG Base Excess -4.1 mmol/L (-2.0-3.0) L 04/14/17 14:30 ABG Hemoglobin 8.5 g/dL (11.7-17.4) L 04/14/17 11:50 ABG Carboxyhemoglobin 1.8 % (0.5-1.5) H 04/14/17 11:50 POC ABG HHb (Measured) 0.9 % (0-5) 04/14/17 11:50 ABG Methemoglobin 0.5 % (0.0-3.0) 04/14/17 11:50 ABG O2 Capacity 11.8 mL/dl (16-24) L 04/14/17 11:50 ABG Potassium 4.8 mmol/L (3.6-5.2) 04/14/17 14:30 VBG pH 7.03 (7.32-7.43) L* 04/17/17 07:00 VBG pCO2 41.0 (40-60) 04/17/17 07:00 VBG HCO3 10.8 mmol/l (21-28) L 04/17/17 07:00 VBG Total CO2 12.1 mmol.L (22-28) L 04/17/17 07:00 VBG O2 Sat (Calc) 99.8 % (40-65) H 04/17/17 07:00 VBG Base Excess -19.5 mmol/L (0.0-2.0) L 04/17/17 07:00 VBG Potassium 4.0 mmol/L (3.6-5.2) 04/17/17 07:00 Hgb O2 Saturation 96.8 % (95.0-98.0) 04/14/17 11:50 Sodium 138.0 mmol/L (132-148) 04/17/17 07:00 Chloride 107.0 mmol/L (98-107) 04/17/17 07:00 Glucose 112 mg/dl (75-110) H 04/17/17 07:00 Lactate 12.8 mmol/L (0.7-2.1) H* 04/17/17 07:00 FiO2 21.0 % 04/17/17 07:00 Sodium 140 mmol/L (132-148) 04/17/17 07:00 Potassium 3.9 mmol/L (3.6-5.0) 04/17/17 07:00 Chloride 105 mmol/L (98-107) 04/17/17 07:00 Carbon Dioxide 12 mmol/L (21-33) L 04/17/17 07:00 Anion Gap 27 (10-20) H 04/17/17 07:00 BUN 100 mg/dL (7-21) H 04/17/17 07:00 Creatinine 7.8 mg/dL (0.5-1.4) H 04/17/17 07:00 Est GFR ( Amer) 8 04/17/17 07:00 Est GFR (Non-Af Amer) 7 04/17/17 07:00 POC Glucose (mg/dL) 139 mg/dL (65-110) H 04/17/17 06:51 Random Glucose 105 mg/dL (70-110) 04/17/17 07:00 Lactic Acid 7.3 mmol/L (0.7-2.1) H* 04/16/17 23:13 Calcium 8.6 mg/dL (8.4-10.5) 04/17/17 07:00 Phosphorus 5.8 mg/dL (2.5-4.5) H 04/16/17 07:40 Magnesium 2.2 mg/dL (1.7-2.2) 04/16/17 07:40 Iron 56 ug/dL (45-180) 04/16/17 10:30 TIBC 229 ug/dL (261-462) L 04/06/17 06:30 % Saturation 13 % (20-55) L 04/06/17 06:30 Ferritin 105.0 ng/mL 04/06/17 06:30 Total Bilirubin 4.1 mg/dL (0.2-1.3) H 04/17/17 07:00 AST 191 U/L (15-59) H 04/17/17 07:00 ALT 154 U/L (7-56) H 04/17/17 07:00 Alkaline Phosphatase 89 U/L (38-133) 04/17/17 07:00 Ammonia 118 umol/L (9-33) H 04/16/17 23:13 Troponin I 0.07 ng/mL 04/17/17 07:00 Total Protein 4.0 g/dL (5.8-8.3) L 04/17/17 07:00 Albumin 2.2 g/dL (3.0-4.8) L 04/17/17 07:00 Globulin 1.8 gm/dL 04/17/17 07:00 Albumin/Globulin Ratio 1.2 (1.1-1.8) 04/17/17 07:00 Amylase 208 U/L (35-125) H 04/10/17 07:15 Lipase 271 U/L (23-300) 04/10/17 07:15 25-OH Vitamin D Total < 12.8 NG/ML (30.0-100.0) L 04/06/17 06:30 Procalcitonin 8.85 NG/ML (0.19-0.49) H 04/17/17 07:00 PTH Intact Whole [place] 297 pg/mL (14-64) H 04/06/17 06:30 Arterial Blood Potassium 4.8 mmol/L (3.6-5.2) 04/14/17 14:30 Venous Blood Potassium 4.0 mmol/L (3.6-5.2) 04/17/17 07:00 Urine Color Dark yellow (YELLOW) 04/04/17 21:45 Urine Appearance Sl cloudy (CLEAR) 04/04/17 21:45 Urine pH 5.5 (4.7-8.0) 04/04/17 21:45 Ur Specific [place] 1.020 (1.005-1.035) 04/04/17 21:45 Urine Protein 30 mg/dL (<30 mg/dL) H 04/04/17 21:45 Urine Glucose (UA) Negative mg/dL (NEGATIVE) 04/04/17 21:45 Urine Ketones Negative mg/dL (NEGATIVE) 04/04/17 21:45 Urine Blood Large (NEGATIVE) H 04/04/17 21:45 Urine Nitrate Negative (NEGATIVE) 04/04/17 21:45 Urine Bilirubin Negative (NEGATIVE) 04/04/17 21:45 Urine Urobilinogen 0.2 E.U./dL (<1 E.U./dL) 04/04/17 21:45 Ur Leukocyte Esterase Large Yash/uL (NEGATIVE) H 04/04/17 21:45 Urine RBC Tntc /hpf (0-2) 04/04/17 21:45 Urine WBC 25 - 30 /hpf (0-6) 04/04/17 21:45 Ur Epithelial Cells 3 - 4 /hpf (0-5) 04/04/17 21:45 Urine Bacteria Mod (NEG) 04/04/17 21:45 Ur Random Creatinine 109 mg/dL 04/04/17 21:45 U Random Total Protein 599 mg/g creat (22-128) H 04/04/17 21:45 Ur Random Sodium 8 meq/L 04/04/17 21:45 Urine Microalbumin 260.2 mg/L (0.0-16.6) H 04/04/17 21:45 Fluid Source Peritoneal 04/12/17 15:55 Fluid Appearance Clear (CLEAR) 04/12/17 15:55 Fluid WBC 25.0 /uL (0.0-300.0) 04/12/17 15:55 Fluid RBC 80.0 /uL (0.0-0.0) H 04/12/17 15:55 Fluid Tot Cell Count 100 (0-0) H 04/12/17 15:55 Fluid Neutrophils 66.7 % (0-0) H 04/12/17 15:55 Fluid Lymphocytes 33.3 % (0-0) H 04/12/17 15:55 Fld Monocyte/Macrophag TEST NOT PERFORMED 04/12/17 15:55 Fluid Albumin 0.2 g/dL 04/12/17 15:55 Fluid Comment Light yellow 04/12/17 15:55 IgG, Serum (MS) 89.7 mg/dL (4-86) H 04/05/17 05:36 Peritoneal Lipase 53.0 U/L (<10) H 04/12/17 15:55 IgG 1302.6 mg/dL (700.0-1600.0) 04/05/17 06:15 Rheumatoid Factor 16 IU/mL (<14) H 04/05/17 12:45 SAEED Screen Negative (NEGATIVE) 04/05/17 12:45 SAEED Titer TNP 04/05/17 12:45 SAEED Pattern TNP 04/05/17 12:45 Proteinase 3 (PR3) <1.0 AI (<1.0) 04/06/17 06:30 Myeloperoxidase Ab 1.7 AI (<1.0) H 04/06/17 06:30 SS-A Antibody <1.0 neg AI (<1.0 NEGATIVE) 04/05/17 12:45 SS-B Antibody <1.0 neg AI (<1.0 NEGATIVE) 04/05/17 12:45 Sm (Sylvester) Antibody <1.0 neg AI (<1.0 NEGATIVE) 04/05/17 12:45 SM/CORRECTION OFFICER PENITENTIARY Antibody <1.0 neg AI (<1.0 NEGATIVE) 04/05/17 12:45 Scl-70 Antibody <1.0 neg AI (<1.0 NEGATIVE) 04/05/17 12:45 Anti-ds DNA Titer (Crith) 1:40 (<1:10) H 04/05/17 12:45 Anti-ds DNA (Crithidia) Positive (NEGATIVE) H 04/05/17 12:45 Ribosomal P Prot Ab <1.0 neg AI (<1.0 NEGATIVE) 04/05/17 12:45 Anti-Mitochondrial Titr TNP 04/05/17 12:45 Anti-Mitochondrial Ab Negative (NEGATIVE) 04/05/17 12:45 Actin IgG Antibody 31 U H 04/05/17 12:45 Striated Muscle Ab TNP 04/05/17 12:45 Myocardial Ab Titer TNP 04/05/17 12:45 Anti-Myocardial Ab Negative (NEGATIVE) 04/05/17 12:45 Reticulin Ab Titer TNP 04/05/17 12:45 Reticulin IgA Antibody Negative (NEGATIVE) 04/05/17 12:45 Thyroperoxidase Ab 3 IU/mL (<9) 04/05/17 12:45 Anti-Parietal Cell Ab 70.5 U H 04/05/17 12:45 Heparin-induced Plt Ab Negative (Negative) 04/15/17 10:00 JOSE UFH Low Dose 0.1 0 % Release 04/16/17 10:30 JOSE UFH Low Dose 0.5 0 % Release 04/16/17 10:30 JOSE UFH High Dose 100 0 % Release 04/16/17 10:30 Complement C3 59 mg/dL L 04/05/17 12:45 Complement C4 11 mg/dL (ADULTS: 16-47) L 04/05/17 12:45 Hepatitis A IgM Ab Negative (NEGATIVE) 04/07/17 07:00 Hep Bs Antigen Negative (NEGATIVE) 04/07/17 14:40 Hep Bs Antibody Negative (NEGATIVE) 04/05/17 12:00 Hep B Core IgM Ab Negative (NEGATIVE) 04/07/17 07:00 Hepatitis C Antibody Negative (NEGATIVE) 04/07/17 07:00 Blood Type O POSITIVE 04/16/17 11:40 Antibody Screen Negative 04/16/17 11:40 KIKE, Poly Interpret Negative (NEGATIVE) 04/16/17 11:40 Indirect Antiglob Test 04/16/17 11:40 Crossmatch See Detail 04/16/17 11:40 BBK History Checked Patient has bt 04/16/17 11:40 Attending/Attestation - Attestation I have personally seen and examined this patient.: Yes I have fully participated in the care of the patient.: Yes I have reviewed all pertinent clinical information, including history, physical exam and plan: Yes Notes (Text): 04/30/17 17:05 Medical record note made by the resident after discussion with my direction and input after the patient was personally seen and examined by me. I have reviewed the chart and agree that the record accurately reflects by personal performance of the history, physical exam, data review, and medical decision-making, in the course for the patient. I have also personally directed the plan of care.
--- NOTE | 2017-04-17 12:40 | CARD ---
APPROVED REPORT EKG Measurement Heart [id number] <Conclusion> Sinus tachycardia Left ventricular hypertrophy with QRS widening and repolarization abnormality Lateral infarct, age undetermined Inferior infarct, age undetermined Abnormal ECG
[2017-04-21] MEDS ORDERED: Darbepoetin Alfa 60 mcg/ml Inj IVP ONE (06:00)
== END 2017-04-17 10:55 | disposition hospice, inpatient (51) | DRG 682 ==
LOC: ED 16:36 → ERH 18:34 → 2RSO 21:02 → CCU 04-17 00:11
PROVIDERS: ADMIT Internal Medicine; ATTEND Internal Medicine
PROC: 05HM33Z Insertion of Infusion Device into Right Internal Jugular Vein, Percutaneous Approach (ICD-10-PCS; 2017-04-05)
PROC: B513ZZA Fluoroscopy of Right Jugular Veins, Guidance (ICD-10-PCS; 2017-04-05)
PROC: B543ZZA Ultrasonography of Right Jugular Veins, Guidance (ICD-10-PCS; 2017-04-05)
PROC: 5A1D60Z (ICD-10-PCS; principal; 2017-04-06)
PROC: 30233K1 Transfusion of Nonautologous Frozen Plasma into Peripheral Vein, Percutaneous Approach (ICD-10-PCS; 2017-04-11)
PROC: 30233N1 Transfusion of Nonautologous Red Blood Cells into Peripheral Vein, Percutaneous Approach (ICD-10-PCS; 2017-04-11)
PROC: 30233R1 Transfusion of Nonautologous Platelets into Peripheral Vein, Percutaneous Approach (ICD-10-PCS; 2017-04-11)
DX: N17.0 Acute kidney failure with tubular necrosis (principal); A41.1 Sepsis due to other specified staphylococcus; I81 Portal vein thrombosis; D61.818 Other pancytopenia; A04.7 Enterocolitis due to Clostridium difficile; B37.0 Candidal stomatitis; D68.9 Coagulation defect, unspecified; I95.3 Hypotension of hemodialysis; R65.20 Severe sepsis without septic shock; K76.6 Portal hypertension; E11.22 Type 2 diabetes mellitus with diabetic chronic kidney disease; E11.649 Type 2 diabetes mellitus with hypoglycemia without coma; M32.14 Glomerular disease in systemic lupus erythematosus; E83.39 Other disorders of phosphorus metabolism; N10 Acute pyelonephritis; E55.9 Vitamin D deficiency, unspecified; E78.5 Hyperlipidemia, unspecified; I12.9 Hypertensive chronic kidney disease with stage 1 through stage 4 chronic kidney disease, or unspecified chronic kidney disease; N18.6 End stage renal disease; N25.81 Secondary hyperparathyroidism of renal origin; D50.9 Iron deficiency anemia, unspecified; D69.59 Other secondary thrombocytopenia; H91.90 Unspecified hearing loss, unspecified ear; I25.10 Atherosclerotic heart disease of native coronary artery without angina pectoris; I27.2 Other secondary pulmonary hypertension; K21.9 Gastro-esophageal reflux disease without esophagitis; K31.89 Other diseases of stomach and duodenum; K64.4 Residual hemorrhoidal skin tags; K70.31 Alcoholic cirrhosis of liver with ascites; K70.40 Alcoholic hepatic failure without coma; L80 Vitiligo; Z66 Do not resuscitate; Z79.899 Other long term (current) drug therapy; Z80.0 Family history of malignant neoplasm of digestive organs; Z80.51 Family history of malignant neoplasm of kidney; Z86.718 Personal history of other venous thrombosis and embolism; Z86.73 Personal history of transient ischemic attack (TIA), and cerebral infarction without residual deficits; Z87.891 Personal history of nicotine dependence; Z95.5 Presence of coronary angioplasty implant and graft; Z99.2 Dependence on renal dialysis; T38.0X5A Adverse effect of glucocorticoids and synthetic analogues, initial encounter

== ENCOUNTER 2017-04-17 10:49 | Inpatient (IN) | payer OTHER ==
[2017-04-17] MEDS ORDERED: Morphine PCA 1 mg/ml (25ml) 25 ML IV PRN (11:10)
[2017-04-17] MEDS ORDERED: Scopolamine 1.5 mg/24 hr Patch TD SCH (11:15)
--- NOTE | 2017-04-17 11:25 | CP.PCM.PCO ---
Physician Communication Note - Physician Communication Note Physician Communication Note: Discontinue cardiac/vascular sonographer
[2017-04-17 11:56] VITALS: BP 141/55; RESP 27
--- NOTE | 2017-04-17 12:23 | CP.PCM.PN ---
Subjective - Date & Time of Evaluation Date of Evaluation: 04/17/17 Time of Evaluation: 12:20 - Subjective Subjective: renal follow up note Pt was seen in CCU. overnight events noted. labs reviewed ROS: unable to obtain, he is non-communicating Exam: Deferred Assessment/Plan: terminal pt now under hospice care and for comfort measures met with daughter Princess bedside No further renal interventions will sign off Thanks for allowing me to participate in care of Mr Crowell Objective - Vital Signs/Intake and Output Vital Signs (last 24 hours): Temp Pulse Resp BP Pulse Ox 27 H 141/55 L 04/17/17 11:55 04/17/17 11:55 - Medications Medications: Current Medications Acetaminophen (Tylenol 650 Mg Supp) 650 mg RC Q4H PRN PRN Reason: Fever >100.4 F Bisacodyl (Dulcolax) 10 mg RC DAILY PRN PRN Reason: Constipation Morphine Sulfate (Morphine Cut Press Operator 1 Mg/Ml) 25 mls @ 2 mls/hr IV PRN PRN; Protocol ; 2 MG/HR PRN Reason: ADMINISTRATIVE SUPPORT COORDINATOR PER MD ORDER Last Admin: 04/17/17 11:38 Dose: 2 mg/hr, 2 mls/hr Lorazepam (Ativan) 1 mg IVP Q4H PRN; Protocol PRN Reason: Anxiety Scopolamine (Transderm-Scop) 1 patch TD Q3D LEIGHANN
--- NOTE | 2017-04-17 16:25 | CP.PCM.HP ---
Addendum entered and electronically signed by Wale Flowers DO 04/17/17 17:06: After extensive discussion with Princess, patient's daughter, best course of action decided to be hospice care, will be managing his pain and making him comfortable. To be taken off pressors. Recs from Fina Portillo BRICKMASON APPRENTICE greatly appreciated. When patient revisited he appeared much more comfortable. Later in the day received notice that patient . Wale Flowers D.O. PGY-2 Original Note: <SUMACHAR - Last Filed: 04/17/17 16:33> History of Present Illness - History of Present Illness History of Present Illness: This is a 66 yo male with past medical history of hypertension, CAD, NH s/p stent placement, renal insufficiency secondary to acute interstitial nephritis, cirrhosis that presented on 04/04 complaining of abdominal distention. Initially he had paracentesis done and 9L were drawn. At the time, he was also diagnosed with KELLI on CKD and ESRD. Nephrology was consulted who started him on dialysis and high dose steroids and immunosuppresants to attempt renal recovery. On dialysis for 3 days, and s/p paracentesis, his symptoms improved initially. After 3 sessions of HD, he was no longer tolerating HD due to hypotensive episodes. He also started complaining of worsening abdominal pain, especially with meals, likely due to thrush secondary to immunosuppression, which was managed with full liquid diet, protonix, pepcid, carafate, nystatin, and PRN morphone. He also had a worsening anemia and thrombocytopenia since 04/08, and on 04/11 he was consented for platelet transfusion, which he received. On 04/12 he had paracentesis again, this time drawing 7.2L; this fluid negative for SBP. On 04/13 he was no longer tolerating the dialysis due to pain, and was also declining prednisone and cellcept, due to the abdominal pain, thrush, and body aches. 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 On the night of 04/13, a rapid-response was called when he became hypotensive and unresponsive, and appeared to be in hepatic encephalopathy, a NG tube was placed and he was started on lactulose until he had a BM. His mental status improved the following day and lactulose was discontinued and the NG tube withdrawn. On 04/15, US showed portal venous thrombosis, but heparin could not be started because he was already coagulopathic and thrombocytopenic. That day, blood cultures and stool studies also came back significant for G+ cocci and C. difficile antigen, respectively, and he was given one dose of vancomycin and started on PO flagyl by ID. Yesterday, he continued to have a downtrending anemia, and so he was given one unit of blood. He remained hypotensive as well, so IV albumin and PO protein supplement were started. Overnight code sepsis was called and he was transfered to the ICU. In the ICU, he was hypotensive despite fluid challenge, and hypoglycemic. He was started on IV drip levophed for pressure support, but his BP remains low. This is being administered peripherally rather than starting a central line due to concern for hemorrhage. Overnight he also recieved a unit of blood, FFP, and platelets, though the first unit of PRBCs appears to have extravasated into his arm. He is currently lethargic but responsive, still in the ICU, daughter was called and came to the bedside. After a lengthy discussion with the daughter, attending , specialists, and ICU team, she decided to make the patient full DNR/DNI and requested palliative care. Present on Admission - Present on Admission Any Indicators Present on Admission: No Review of Systems - Review of Systems Systems not reviewed;Unavailable: Unstable Vital Signs, Altered Mental Status, Uncooperative Review of Systems: Unable to obtain, patient lethargic Past Patient History - Infectious Disease Hx of Infectious Diseases: None - Tetanus Immunizations Tetanus Immunization: Unknown - Past Medical History & Family History Past Medical History?: Yes - Past Social History Smoking Status: Former Smoker - CARDIAC Hx Cardiac Disorders: Yes (mi with stents) Hx Congestive Heart Failure: Yes Hx Hypertension: Yes - PULMONARY Hx Respiratory Disorders: No - NEUROLOGICAL HX Cerebrovascular Accident: Yes (many years ago) - HEENT Hx HEENT Problems: No - RENAL Hx Chronic Kidney Disease: Yes Hx Dialysis: No - ENDOCRINE/METABOLIC Hx Diabetes Mellitus Type 2: Yes - HEMATOLOGICAL/ONCOLOGICAL Hx Blood Transfusions: Yes Hx Blood Transfusion Reaction: No - INTEGUMENTARY Hx Dermatological Problems: Yes Other/Comment: white and pink skin discolorations both hands and r arm began about 7 months ago cause unknown, brown discolorations ble,dry brown scabbed wound posterior right lowr leg starts below calf to lower leg then dry brown skin to posterior ankle, +2 edema right ankle, dry flakey skin both feet - MUSCULOSKELETAL/RHEUMATOLOGICAL Hx Falls: Yes (recent frequent) - GASTROINTESTINAL Hx Gastrointestinal Disorders: Yes Hx Gastroesophageal Reflux: Yes Hx Liver Failure: (cirrhosis, mild ascites) Other/Comment: colonoscopy 07/17/2016 dx diverticulitis, colitis, rectal polyp - GENITOURINARY/GYNECOLOGICAL Hx Genitourinary Disorders: No - PSYCHIATRIC Hx Psychophysiologic Disorder: No Hx Substance Use: No - SURGICAL HISTORY Hx Coronary Stent: Yes (ptca with stent) - ANESTHESIA Hx Anesthesia: Yes Hx Anesthesia Reactions: No Hx Malignant Hyperthermia: No Meds Allergies/Adverse Reactions: Allergies Allergy/AdvReac Type Severity Reaction Status Date / Time No Known Allergies Allergy Verified 04/04/17 20:21 Physical Exam - Constitutional Appears: Toxic, In Acute Distress, Agitated - Head Exam Head Exam: ATRAUMATIC, NORMOCEPHALIC - Eye Exam Eye Exam: EOMI, Normal appearance - ENT Exam ENT Exam: Mucous Membranes Moist - Respiratory Exam Respiratory Exam: Accessory Muscle Use, Rales, Rhonchi. absent: Wheezes - Cardiovascular Exam Cardiovascular Exam: Tachycardia, RRR, +S1, +S2 - GI/Abdominal Exam GI & Abdominal Exam: Distended, Soft. absent: Guarding, Rigid - Extremities Exam Extremities exam: Positive for: pedal edema. Negative for: calf tenderness - Back Exam Back exam: NORMAL INSPECTION - Neurological Exam Neurological exam: Altered Additional comments: Lethargic - Psychiatric Exam Additional comments: Unable to assess - Skin Skin Exam: Dry, Intact Results - Vital Signs Recent Vital Signs: Last Vital Signs Temp Pulse Resp 27 H 04/17/17 11:55 BP 141/55 L 04/17/17 11:55 Pulse Ox Assessment & Plan - Assessment and Plan (Free Text) Assessment: 66yo M with multiple medical conditions admitted to hospice - after lengthy discussion with daughter, attending, specialist, and ICU team - for palliative care Plan: Spoke to NACHO Portillo for palliative care. Pain control and comfort care. Patient is DNR/DNI. <Bravo Johnson - Last Filed: 04/30/17 17:04> Results - Vital Signs Recent Vital Signs: Last Vital Signs Temp Pulse Resp 27 H 04/17/17 11:55 BP 141/55 L 07/11/17 11:55 Pulse Ox Attending/Attestation - Attestation I have personally seen and examined this patient.: Yes I have fully participated in the care of the patient.: Yes I have reviewed all pertinent clinical information: Yes Notes (Text): 04/30/17 17:04 Medical record note made by the resident after discussion with my direction and input after the patient was personally seen and examined by me. I have reviewed the chart and agree that the record accurately reflects by personal performance of the history, physical exam, data review, and medical decision-making, in the course for the patient. I have also personally directed the plan of care.
--- NOTE | 2017-04-17 16:37 | CP.PCM.PN ---
Addendum entered and electronically signed by Kelley Mart DO 04/17/17 17:45 : Assessment: Remote cause of Portal Vein Thrombosis. Original Note: <Kelley Mart - Last Filed: 04/17/17 17:19> Subjective - Date & Time of Evaluation Date of Evaluation: 04/17/17 Time of Evaluation: 13:00 - Subjective Subjective: Patient dying at bedside. 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 Plan: After the primary care's surrogates discussed the patient critically-ill condition with the family, and other items to which I have no knowledge, the patient become DNR in addition to already being a DNI. Palliative care was initiated, and within an hour or so the patient . <Kingston Sloan - Last Filed: 04/17/17 19:07> Objective - Vital Signs/Intake and Output Vital Signs (last 24 hours): Temp Pulse Resp BP Pulse Ox 27 H 141/55 L 04/17/17 11:55 04/17/17 11:55 Attending/Attestation - Attestation I have personally seen and examined this patient.: Yes I have fully participated in the care of the patient.: Yes I have reviewed all pertinent clinical information, including history, physical exam and plan: Yes Notes (Text): 04/17/17 19:06 66 yo male with distributive shock due to acute decompnesation of end stage liver disease. Fluid/albumin resuscitation/vasopressor support was contemplated , but family opted for DNR/DNI, comfort care only. palliative care was consulted , patient was transfered to hospice. ccm time 40 min
== END 2017-04-17 14:03 | DRG 871 ==
LOC: CCU 10:49
PROVIDERS: ADMIT Internal Medicine; ATTEND Internal Medicine
DX: A41.9 Sepsis, unspecified organism (principal); N18.6 End stage renal disease; R57.9 Shock, unspecified; I81 Portal vein thrombosis; N17.9 Acute kidney failure, unspecified; I12.0 Hypertensive chronic kidney disease with stage 5 chronic kidney disease or end stage renal disease; D69.6 Thrombocytopenia, unspecified; E11.22 Type 2 diabetes mellitus with diabetic chronic kidney disease; N10 Acute pyelonephritis; E11.649 Type 2 diabetes mellitus with hypoglycemia without coma; K74.60 Unspecified cirrhosis of liver; B37.9 Candidiasis, unspecified; D64.9 Anemia, unspecified; Z66 Do not resuscitate; Z51.5 Encounter for palliative care; I25.10 Atherosclerotic heart disease of native coronary artery without angina pectoris; Z95.5 Presence of coronary angioplasty implant and graft; Z99.2 Dependence on renal dialysis